=== PATIENT | male | born 1940 | race Caucasian/White ===

== ENCOUNTER 2019-06-10 05:32 | Outpatient (RCR) | payer MEDICARE, MEDICAID, SELFPAY | END 2019-07-06 00:01 | LOC: ONCMED 05:32 | PROVIDERS: Family Provider Physician Assistant Medical; Visit Provider Internal Medicine Hematology & Oncology | DX: C15.4 Malignant neoplasm of middle third of esophagus (principal); D64.9 Anemia, unspecified; D72.829 Elevated white blood cell count, unspecified; R63.4 Abnormal weight loss; Z68.28 Body mass index [BMI] 28.0-28.9, adult; R13.10 Dysphagia, unspecified; R73.03 Prediabetes; F17.200 Nicotine dependence, unspecified, uncomplicated | CPT/HCPCS: 80053; 82607; 82728; 83540; 83550; 85025; 86850; 86900; 86901; 86920 ×2; 99214; J1940; J7050; P9016 ×2 ==

== ENCOUNTER 2019-07-12 12:21 | Day surgery (SDC) | payer MEDICARE, MEDICAID, SELFPAY ==
[2019-07-10 11:52] VITALS: BMI 27.9
--- NOTE | 2019-07-12 | SCC_ITS ---
Procedure Done: Left subclavian Port-A-Cath placement 7.9 seconds of fluoroscopic guidance, for a cumulative dose of 1.12 mGy, was provided to Dr. Rosa by the radiology department. C-arm images of the chest were saved for the patient's permanent record. [place]
[2019-07-12 12:47] VITALS: BP 110/74; PULSE 112; RESP 18; TEMP 36.3; O2SAT 96
--- NOTE | 2019-07-12 12:54 | XR_ITS ---
WS: [id number] CHEST XRAY TECHNIQUE: Portable chest. CLINICAL INFORMATION: port placement COMPARISON: FINDINGS: Heart: Normal cardiac silhouette. Lungs: Lungs are clear. No consolidation or pleural effusion. Bones: Normal visualized bony structures. XR/XR chest 1V portable [id number] IMPRESSION: Normal chest
--- NOTE | 2019-07-12 13:08 | ANES.PREANES ---
Pre-Anesthetic Assessment Pre-Anesthetic Assessment: Height/Weight: Height 1.65 m Weight 76.204 kg Temp Pulse Resp BP Pulse Ox 97.4 F L 112 H 18 110/74 96 07/12/19 12:47 07/12/19 12:47 07/12/19 12:47 07/12/19 12:47 07/12/19 12:47 Proposed Procedure: Operation Date: 07/12/19 14:00 Proposed Procedures p Portacath Insertion(Not Applicable) - David Rosa MD Last intake: Intake Last Liquid Date 07/11/19 Last Liquid Time 16:00 Last Solid Date 07/11/19 Last Solid Time 16:00 Social: Social History: No alcohol Packs per day: 1 pdd Exam: Pre-Anes Outpt Exam: alert, oriented x 3, clear to auscultation bilaterally and regular rate & rhythm Airway: Cervical ROM: WNL MP: 3 Dentition: Full Pulmonary: Pulmonary: None reported CV/HEM: CV/HEM: None reported : : None reported Hepatic: Hepatic: None reported GI: GI: GERD Metabolic: Metabolic: None reported Musc/skel: Musc/skel: None reported Neuropsych: Neuropsych: None reported Anesthetic Plan: Anesthesia: MAC Other Pertinent Information: Patient extremely poor historian Data Anesthesia Cardiac Studies: No Data to Display
--- NOTE | 2019-07-12 13:13 | SC_ITS ---
WS: [id number] C-arm fluoroscopy AP chest for port insertion, 07/12/2019 Clinical Data: PORT PLACEMENT Comparison: Portable chest, 07/12/2019 Findings: Dr. Rosa inserted the left Port-A-Cath. 7.9 seconds of fluoroscopy time were utilized. SC/C-arm FL for CVA [id number] Impression: Satisfactory insertion of left Port-A-Cath.
[2019-07-12] MEDS: sodium chloride 0.9% 1,000 ML 30 ML IV ×2 (13:20→13:25)
[2019-07-12 13:24] LABS: INR 1.02 (0.8-1.2)
[2019-07-12 13:29] LABS: Anion Gap 19.6 (5-19); Blood Urea Nitrogen 22 mg/dL (8-23); Calcium 10.1 mg/Dl (8.8-10.2); Carbon Dioxide 24 mmol/L (22-29); Chloride 100 mmol/L (98-107); Glucose 139 mg/dL (74-106); Potassium 4.6 mmol/L (3.5-5.1); Sodium 139 mmol/L (136-145)
[2019-07-12 13:31] LABS: Hematocrit 33.4 % (42.0-52.0); Hemoglobin 9.9 g/dL (11.7-16.6); Mean Corpuscular HGB Conc 29.6 g/dL (30.0-36.0); Mean Corpuscular Hemoglobin 24.6 pg (28.0-34.0); Mean Corpuscular Volume 82.9 fL (80-94); Mean Platelet Volume 10.6 fL (7.4-10.4); Platelet Count 496 10^3/cmm (130-400); Red Blood Count 4.03 10^6/uL (4.1-5.3); Red Cell Distribution Width 16.7 % (12.1-15.1); White Blood Count 26.8 10^3/uL (4.0-10.0)
[2019-07-12 14:08] LABS: Absolute Eosinophils 0.5 10^3/cmm (0.0-0.7); Absolute Segmented Neutrophil 13.1 10/cmm (1.6-7.1); Band Neutrophils Absolute 9.4 10^3/cmm (0.0-1.2); Eosinophils 2 %; Lymphocytes 13 %; Monocytes Absolute 0.3 10^3/cmm (0.1-0.6); Ovalocytes 1+; Platelet Estimate Increased (Normal); Poikilocytosis 1+; Segmented Neutrophils 49 %; Total Cells Counted 100 (0-100)
[2019-07-12] MEDS: lidocaine 1% INJ 20 mL INJECTION (14:37)
[2019-07-12] MEDS: ceFAZolin 1,000 mg SDV 1000 MG IRRIGATION (14:38)
[2019-07-12] MEDS: heparin, porcine 1,000 unit/mL INJ 10 mL 10000 UNIT IRRIGATION (14:39)
--- NOTE | 2019-07-12 15:01 | PM.OPSURHP ---
Providers/Chief Complaint Admitting Physician: Moe Referring Physican: Dr. 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 Report about patient and family, subsequent apparent PET scan imaging reveals positive adenopathy. He has been referred by Dr. Tuttle for Port-A-Cath placement for planned chemotherapy. He is somewhat hard of hearing though with a careful conversation he understands the recommendation for Port-A-Cath and has agreed. He has substantial dysphasia with solid food was able to tolerate liquids. Very long history tobacco use. He resides near [facility]. Review of Systems Narrative: Aggressive weight loss and dysphasia consistent with his known diagnosis of esophageal carcinoma. ENMT: Denies: throat pain Card: Denies: chest pain or palpitations Resp: Reports: shortness of breath (With exertion) GI: Reports: heartburn/indigestion Psych: Denies: anxiety or depression Medications/Allergies Home Medications Medication Instructions Recorded Confirmed Last Taken Type albuterol sulfate 2.5 mg INHALATION DAILY 07/10/19 07/12/19 07/10/19 History fluticasone propion-salmeterol 1 inh INHALATION BID 07/10/19 07/12/19 07/10/19 History [Advair Diskus] Allergies Allergy/AdvReac Type Severity Reaction Status Date / Time No Known Allergies Allergy Verified 07/12/19 12:53 PFSH PFSH: Statuses (acute, chronic, etc) shown below reflect problem list status as previously entered and may not be historically accurate Medical History (Updated 07/12/19 @ 15:06 by David Rosa MD) Cancer of esophagus (Acute) Social History (Updated 07/12/19 @ 15:07 by David Rosa MD) Smoking and tobacco status: current every day smoker Alcohol intake: unknown Substance/Drug Use: never Household members: spouse Marital status: Vital Signs Vitals Signs: Last Vital Signs Temp 97.4 F L 07/12/19 12:47 Pulse 112 H 07/12/19 12:47 Resp 18 07/12/19 12:47 BP 110/74 07/12/19 12:47 Pulse Ox 96 07/12/19 12:47 Physical Exam Narrative: EXAM NARRATIVE: A thin somewhat ill-appearing elderly gentleman who is hard of hearing. Chest: COMMONS NORMALS: inspection of chest normal Resp: COMMON NORMALS: normal respiratory effort AUSCULTATION: clear to auscultation bilaterally Cardio: COMMON NORMALS: regular rate, regular rhythm, S1 normal heart sound and no murmurs Extremity: GENERAL: Yes normal exam except as noted Neuro: SENSORIUM/ORIENTATION: Yes alert (Hard of hearing), Yes oriented to person and Yes oriented to place A&P Assessment and plan (1) Cancer of esophagus: Mid esophageal carcinoma proven by biopsy Plan chemotherapy We will place Port-A-Cath to assist with chemotherapy management. Rationale was carefully discussed. Details and risks of surgery Reviewed including the potential risk for bleeding complications and pneumothorax. 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
--- NOTE | 2019-07-12 16:03 | PM.OP ---
Operative Report Post-Operative Note: Date of procedure: 07/12/19 Preop Diagnosis: Esophageal carcinoma Post-op diagnosis: same Procedure Done: Left subclavian Port-A-Cath placement Implants: PowerPort implantable port Surgeon: David Rosa Anesthesia: MAC (8 cc 1% lidocaine infiltrated locally) Estimated blood loss (mL): 20 IV fluids (mL): 350 Complications: None: Post procedure chest x-ray pending Condition: stable Disposition: same day Operative Report: Brief History: 78-year-old gentleman diagnosed with adenocarcinoma of the mid esophagus from the EGD in mid May. Currently being evaluated by Dr. Tuttle from oncology. Chemotherapy is planned and Port-A-Cath placement was requested for IV access. Rationale was carefully discussed with the patient and family. Details the risk of procedure also reviewed. Appropriate signs have been reviewed and signed. Procedure: Mr. Stevens was taken to the operating room and placed on the OR table in supine position. Appropriate sedation and relaxation were provided by our anesthesia colleagues. The patient's entire upper chest and neck was sterilely prepped and draped. 1% lidocaine was infiltrated for local anesthesia. The patient was then placed in Trendelenburg position. Utilizing modified Seldinger technique, the left subclavian vein was engaged with needle and aspirated blood. A guidewire was then placed into position. Position was confirmed by fluoroscopy. Needle was withdrawn. The patient was then placed in the supine position. A #15 scalpel blade was used to incise the skin at the exit point from the guidewire and continued laterally and inferiorly. Utilizing cautery for meticulous hemostasis, a subcutaneous pocket was then created to allow for placement of the Port-A-Cath reservoir. Antibiotic-soaked sponge was then placed in the subcutaneous pocket. Port-A-Cath tubing was measured to the appropriate length and then cut. It was then connected to the Port-A-Cath reservoir, secured, and the entire system was flushed with heparin solution. The dilator, followed by tear-a-way sheath, were placed over the guidewire. The guidewire and dilator were removed intact. The Port-A-Cath vascular tubing was then placed through the sheath, which was then removed. The entire system was interrogated by fluoroscopy throughout the procedure. Torres needle was placed through the Port-A-Cath diaphragm, easily aspirated blood, and flushed with heparin lock solution. The Port-A-Cath reservoir was then secured to the floor of the subcutaneous pocket with suture. The pocket was then carefully irrigated with antibiotic solution. Hemostasis was confirmed. The wound was then closed in 2 layers of 3-0 Vicryl suture subcutaneously. The skin was reapproximated carefully in a subcuticular manner with 4-0 Monocryl suture. A sterile dressing was applied followed by a compressive dressing. At the completion of the procedure there are equal breath sounds bilaterally. Vital signs remained stable. Mr. Stevens was then transported to outpatient surgery. Chest x-ray is pending. I counseled with the family at the completion of the procedure. Coding Level of Care Code Acute Public Opinion Survey Taker for [facility]
[2019-07-12 16:13] VITALS: BP 106/71; PULSE 104; RESP 16; TEMP 36.2; O2SAT 100
--- NOTE | 2019-07-12 16:15 | XR_ITS ---
WS: [id number] Portable AP upright chest, 07/12/2019 1613 hours Clinical Data: s/p port placement Comparison: Portable chest, 07/12/2019, 1300 hours Findings: The left infusion catheter has been inserted. No pneumothorax is seen. XR/XR chest 1V portable [id number] Impression: Satisfactory insertion of left Port-A-Cath.
[2019-07-12 16:30] VITALS: BP 103/67; PULSE 100; RESP 16; TEMP 36.6; O2SAT 99
== END 2019-07-12 16:45 | disposition home or self-care (01) ==
PROVIDERS: Family Provider Physician Assistant Medical; PCP Physician Assistant Medical; Visit Provider Thoracic Surgery (Cardiothoracic Vascular Surgery)
PROC: (CPT 36561; principal; 2019-07-12 14:00)
DX: C15.9 Malignant neoplasm of esophagus, unspecified (principal); F17.210 Nicotine dependence, cigarettes, uncomplicated
CPT/HCPCS: 36561; 36415; 71045; 77001; 80048; 85007; 85027; 85610; C1788; J0690; J1644; J2001; J2704; J7030

== ENCOUNTER 2019-07-29 05:37 | Outpatient (RCR) | payer MEDICARE, MEDICAID, SELFPAY ==
[2019-07-14 18:20] LABS: Basophils # 0.1 10^3/uL (0.0-0.1); Basophils % 0.3 %; Eosinophils # 0.3 10^3/uL (0.0-0.8); Eosinophils % 1.4 %; Hematocrit 31.8 % (42.0-52.0); Hemoglobin 8.9 g/dL (11.7-16.6); Lymphocytes # 2.3 10^3/uL (0.8-4.8); Lymphocytes % 9.8 %; Mean Corpuscular Hemoglobin 24.4 pg (28.0-34.0); Mean Corpuscular Volume 87.1 fL (80-94); Monocytes % 4.2 %; Neutrophils # 19.8 10^3/uL (1.8-7.7); Neutrophils % 83.4 %; Nucleated Red Blood Cells % 0 %; Platelet Count 433 10^3/cmm (130-400); Red Blood Count 3.65 10^6/uL (4.1-5.3); Red Cell Distribution Width 16.8 % (12.1-15.1); White Blood Count 23.8 10^3/uL (4.0-10.0)
[2019-07-15 00:17] LABS: Alanine Aminotransferase 10 U/L (0-41); Albumin Level 3.5 g/dL (3.5-5.2); Alkaline Phosphatase 163 IU/L (40-130); Anion Gap 22.3 (5-19); Aspartate Amino Transferase 17 U/L (0-40); Blood Urea Nitrogen 14 mg/dL (8-23); Calcium 9.8 mg/Dl (8.8-10.2); Carbon Dioxide 23 mmol/L (22-29); Chloride 101 mmol/L (98-107); Globulin 3.7 g/dL (1.3-4.6); Potassium 4.3 mmol/L (3.5-5.1); Sodium 142 mmol/L (136-145); Total Bilirubin 0.2 mg/dL (0.15-1.2); Total Protein 7.2 g/dL (6.6-8.7)
[2019-07-15 08:00] LABS: Glucose 25 mg/dL (74-106)
[2019-07-15] MEDS: acetaminophen 325 mg Tablet 650 MG PO (12:05)
[2019-07-15] MEDS: sodium chloride 0.9% 250 ML 75 ML IV (12:10)
[2019-07-16 04:10] LABS: Ferritin 54 ng/mL (30-400); Iron 21 ug/dL (59-158); Percent Saturation 7.9 % (20-50); Total Iron Binding Capacity 264 mg/dL; Unsaturated Iron Binding 243 ug/dL (112-347)
--- NOTE | 2019-07-19 17:12 | ONC FU_ITS ---
[facility] Patient Note Patient: Rodney Quitaque Unit #: [id number]: 1940 Dictated By: Harsha TaylorDate of Visit: Jul 15, 2019 Onc MED Follow-Up/Prog Note Chief Complaint: Adenocarcinoma of esophagus History of Present Illness: Mr. Stevens is a 78-year-old gentleman with history of progressive dysphagia and weight loss. 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 A biopsy was obtained at [place], [place] on 05/21/2019. 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 Mr Stevens underwent CT scan of chest abdomen on 05/18/2019 which showed dilated thoracic esophagus with gross appearance of marked wall thickening as well as dilatation of distal segment of thoracic esophagus. No thoracic lymphadenopathy by size criteria. No evidence of distant metastatic disease, As per patient in the beginning he had dysphagia to solid food now can tolerate liquids only. Denied any hematemesis or hemoptysis, denied any jaundice, denied any aspiration or regurgitation. Mr Stevens has smoked about pack a day for many years. [place] lives [place] north of [place] and lives with elderly . Mr Stevens has elected to try chemotherapy alone. He has been offered chemotherapy with weekly carboplatin/Taxol/Herceptin. He did have baseline echocardiogram for the Herceptin on 06/24/2019 which reported left ventricular ejection fraction estimated at 65%. He had normal left ventricular systolic function no regional wall motion abnormalities there is a grade I/IV diastolic function, normal to mildly elevated filling pressures. No aortic valve stenosis and mild aortic valve regurgitation. He did also have PET CT imaging on 06/25/2019 at [facility]. This did report hypermetabolic circumferential mural thickening involving the distal esophagus extending approximately 10 cm proximal to the gastroesophageal junction from T11???T8 with maximum SUV of 24. A small amount of hyper metabolic mass extension into the gastric cardia is not fully excluded. Upstream esophagus appears fluid-filled and patulous. There were no discrete hypermetabolic pulmonary nodules. There is mild dependent atelectasis with trace bilateral pleural fluid collection without hypermetabolic pleural thickening. There was reported calcified mediastinal and hilar granulous with normal size mildly hypermetabolic bilateral hilar lymph nodes, wholesale representative right hilar lymph node maximum SUV 2.7. Additional hypermetabolic left hilar lymph node 0.8 x 1.2 cm with a max SUV of 2.5. 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 There were no hypermetabolic hepatic lesions. There was Extavia of the infrarenal abdominal aorta measuring up to 2.7 cm. No ascites or peritoneal/serosa nodularity. There was hyper metabolic gastrohepatic ligament lymph node 1.7 x 1.8 cm with a max SUV of 3.9. No additional hypermetabolic lymph nodes were seen within the abdomen or pelvis. There was prostamegaly without focal hypermetabolic prostate lesion. Muscle skeletal there was diffuse bone marrow hyper metabolism without focal lytic or blastic osseous lesion identified suggesting pathologic marrow uptake. 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 He did have Port a Cath placement in the left subclavian vein per Dr Rosa on 07/12/2019. Mr. Stevens is here today for follow-up. He is due to begin his first cycle of planned chemotherapy with carboplatin/Taxol and Herceptin. He has no new concerns. He is extremely hard of hearing and his family does most of his talking for him. He denies any concerns or questions at this time. His family states that he has had no new problems that they are aware of. They deny any fever or chills or any signs of infection for at least the last 72 hours. He has had no new pain. His activity is very limited. He presents in a wheelchair today. They do verbalize understanding regarding the chemotherapy. He was compliant with his steroids. They are aware that Taxol does have a 30% chance that infusion reaction/allergic reaction. His ECOG is 3. Past Medical History: Chronic obstructive pulmonary disease Dementia Hyperlipidemia Hypertension Stroke Type II diabetes Vitamin b 12 deficiency Past Surgical History: Cholecystectomy Left Subclavian Port a Cath-Dr Rosa ([facility] [place]) in 2019 Allergies: No Known Allergies. Medications: Advair Diskus 2 Puff(s) (of 250-50 mcg/dose) Aerosol Powder, Breath Activated Inhalation daily Albuterol Sulfate 1 ((2.5 mg/3ml) 0.083%) Nebulization solution Inhalation daily PRN Simvastatin 1 Tablet (of 40 mg) Oral daily Spiriva HandiHaler 1 Capsule (of 18 mcg) Inhalation daily Tamsulosin HCl 1 Capsule (of 0.4 mg) Oral daily Family History: Mr. Stevens's mother at age 80: colon cancer. Mr. Stevens's father at age 83: leukemia. Mr. Stevens has 2 brothers: 2 . Mr. Stevens's first brother's esophageal cancer. Another brother's lung cancer. Social History: Mr. Stevens is and he is retired. He is a daily smoker who has smoked 1.0 pack/day for 41 years. He has no history of drinking. He has indicated exposure to the following products: cigarettes. Mr. Stevens reports the following support systems: lives with spouse, significant other, family, or friends, lives in own house, supportive family/friends willing to assist with needs, and adequate transportation available for expected visits. His diet consists of liquid diet. He indicates his activity level as: sedentary. Review Of Symptoms: Constitutional Denies fevers, chills, night sweats, excessive fatigue or weight loss. Allergic/Immunologic No reactions. Eyes Denies significant visual changes. No diplopia. No amaurosis. ENMT Denies changes in hearing, sore throat, mouth sores, difficulty or changes in swallowing ability, and/or sinus drainage. Endocrine No diabetes, thyroid disease or hormone replacement. Denies hot flashes or night sweats. Hematologic/Lymphatic Denies easy bruising or bleeding. The patient denies any tender or palpable lymph nodes. Respiratory Denies dyspnea on exertion, chest pain, cough or hemoptysis. Denies orthopnea. Cardiovascular Denies anginal chest pain, palpitations or orthopnea. Gastrointestinal Denies nausea, vomiting, diarrhea, GI bleeding, or constipation. Denies change in bowel habits and/or stool color, no heartburn or early satiety. Genitourinary (M) Denies hematuria, dysuria, increased frequency, urgency, hesitancy or incontinence. Musculoskeletal Denies joint pain, swelling or redness. No decreased range of motion. Integumentary Denies chronic rashes, inflammation, ulcerations or skin changes. Neurologic Denies headache, blurred vision, and no areas of focal weakness or numbness. Normal gait. No sensory problems. Psychiatric Denies insomnia, depression, cindy or mood swings. Vital Signs: Performed on Jul 15, 2019 10:40 Height - 67.00 in Weight - 172.0 lbs (LOW) BSA - 1.90 sq.m BMI - 26.94 Temperature - 97.0 F (LOW) Pulse - 112 /min (HIGH) Respiration - 26 /min BP - 117/71 mm(hg) O2 Sat - 97 % Pain - 0,3 - Capable of only limited self-care, confined to bed or chair more than 50% of waking hours. (ECOG) Physical Examination: Constitutional Alert, oriented, no acute distress. Skin pink, warm and dry. Head Normocephalic; atraumatic. Eyes Conjunctivae and sclerae are clear and without icterus. Pupils are reactive and equal. ENMT No oral exudates, ulcers, masses, thrush or mucositis. Oropharynx clear. Tongue normal. Extremely hard of hearing. Neck Supple without masses or thyromegaly. No jugular venous distension. Hematologic/Lymphatic No petechiae or purpura. No tender or palpable lymph nodes in the cervical or supraclavicular areas. Respiratory Lungs are clear to auscultation without rhonchi or wheezing. Cardiovascular Regular rate and rhythm of heart without murmurs,clicks, gallops or rubs. Chest Left subclavian venous access device insertion site is unremarkable. It is noted to be healing well. Abdomen Non-tender, non-distended, no masses or ascites. Good bowel sounds noted in all quads. No guarding or rebound tenderness. No pulsatile masses. Back/Spine Non-tender to palpation. Extremities No visible deformities, no cyanosis, clubbing or edema. Musculoskeletal No tenderness or swelling. Integumentary No rashes or lesions. Neurologic No sensory or motor deficits, normal cerebellar function, presents in a wheelchair today-gait not assessed. Psychiatric Alert and oriented times three. Coherent speech. Verbalizes understanding of our discussions today. Laboratory:Test performed on Jul 14, 2019 08:10 Glucose 25 mg/dL BUN 14 mg/dL Creatinine 1.6 mg/dL Cr Clearance (Est) 42.99 mL/min Sodium 142 mmol/L Potassium 4.3 mmol/L Chloride 101 mmol/L CO2 23 mmol/L Calcium 9.8 mg/dL Protein, Total 7.2 g/dL Albumin 3.5 g/dL Globulin 3.7 g/dL Bilirubin, Total 0.2 mg/dL Alkaline Phosphatase 163 IU/L AST (SGOT) 17 IU/L ALT (SGPT) 10 IU/L WBC 23.8 10^9/L RBC 3.65 10^12/L HGB 8.9 g/dL HCT 31.8 % MCV 87.1 fl MCH 24.4 pg MCHC 28.0 g/dL RDW 16.8 % Platelet Count 433 10^9/L MPV 11.0 fL Lymphocytes 2.3 10^9/L Neutrophils 0.1 10 3/uL Monocytes 1.0 10^9/L Eosinophils 0.3 10^9/L Basophils 0.1 10^9/L Neutrophil % 1.4 % Manual Lymphocytes 9.8 % Manual Monocytes 4.2 % Manual Eosinophils 1.4 % Manual Basophils 0.3 % NRBCs 0.0 /100 WBC Test performed on Jun 10, 2019 11:05 Packed Red Cells (PRBC) [id number] TRANSFUSED PRODUCT: LEUKOREDUCED RED CELL 1ST CONT COUNT: 2 Type & Screen BLD TYPE A POSITIVE AB SCREEN GEL NEGATIVE Test performed on Jun 10, 2019 08:05 Ferritin 25.0 ng/ml Iron 16 ug/dL Vitamin B12 465 pg/mL % Iron Saturation 5.8 % UIBC 258 ug/dL Test performed on Jun 09, 2019 08:05 Anion Gap 15.3 Lymphocyte % 7.8 % Monocyte % 4.9 % Eosinophil % 1.8 % Basophils % 0.2 % ABO & Rh Type # 2 A POSITIVE Impression: 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 CT scan of chest abdomen done on 05/18/2019 showed no thoracic lymphadenopathy by size criteria Dilated thoracic esophagus with gross appearance of marked wall thickening as well as dilatation of distal segment of thoracic esophagus no evidence of distant metastatic disease. Progressive dysphagia and weight loss due to above Chronic smoking, still active Clinically, patient is doing reasonably well now with progressive dysphagia due to newly diagnosed esophageal cancer. he said he did talk to his family and now have decided to pursue with chemotherapy alone and will go from there. Considering his age and comorbid condition and social issues e.g. living 60 miles away from [place] with elderly , he would prefer chemotherapy alone in the office but not radiation therapy. Patient was reminded in the standard of care is combined chemoradiation followed by surgery if possible otherwise chemotherapy is palliative only. Considering his age and performance status, Dr Tuttle recommended weekly carboplatin Taxol and Herceptin. Dr Tuttle did also discuss about role of G-tube placement but patient declined. Mr Stevens is prediabetic so we'll also consider diabetes teaching and may consider sliding scale if he develops hyperglycemia due to steroids. He did have baseline echocardiogram for the Herceptin on 06/24/2019 which reported left ventricular ejection fraction estimated at 65%. He had normal left ventricular systolic function no regional wall motion abnormalities there is a grade I/IV diastolic function, normal to mildly elevated filling pressures. No aortic valve stenosis and mild aortic valve regurgitation. He did also have PET CT imaging on 06/25/2019 at [facility]. This did report hypermetabolic circumferential mural thickening involving the distal esophagus extending approximately 10 cm proximal to the gastroesophageal junction from T11???T8 with maximum SUV of 24. A small amount of hyper metabolic mass extension into the gastric cardia is not fully excluded. Upstream esophagus appears fluid-filled and patulous. There were no discrete hypermetabolic pulmonary nodules. There is mild dependent atelectasis with trace bilateral pleural fluid collection without hypermetabolic pleural thickening. There was reported calcified mediastinal and hilar granulous with normal size mildly hypermetabolic bilateral hilar lymph nodes, wholesale representative right hilar lymph node maximum SUV 2.7. Additional hypermetabolic left hilar lymph node 0.8 x 1.2 cm with a max SUV of 2.5. 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 There were no hypermetabolic hepatic lesions. There was Extavia of the infrarenal abdominal aorta measuring up to 2.7 cm. No ascites or peritoneal/serosa nodularity. There was hyper metabolic gastrohepatic ligament lymph node 1.7 x 1.8 cm with a max SUV of 3.9. No additional hypermetabolic lymph nodes were seen within the abdomen or pelvis. There was prostamegaly without focal hypermetabolic prostate lesion. Muscle skeletal there was diffuse bone marrow hyper metabolism without focal lytic or blastic osseous lesion identified suggesting pathologic marrow uptake. 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 Mr Stevens had Port a Cath placement in the left subclavian vein per Dr Rosa on 07/12/2019. Plan: 1. Proceed with cycle 1 day 1 carboplatin/Taxol/Herceptin. 2. Steroid compliance confirmed. 3. Aggressive anti-emetics due to high risk regimen. 4. Labs from July 14, 2019 were reviewed in detail and discussed with Mr. Stevens and his family. WBC 23.8, hemoglobin 8.9, platelets 433,000, ANC is 19,800. Potassium 4.3 creatinine 1.6 which is chronic total bilirubin 0.2 LFTs are normal alk phos is 163. Initially his glucose was reported as critical at 25 but this was felt to be a lab error. Recheck on fingerstick reported a glucose of 185 as he did take his premed steroids. 5. We will plan to see him weekly with CBC, CMP for consideration of chemotherapy. 6. We did review the echocardiogram from 06/24/2019. He will need echocardiograms around every 3 months as long as he is on the Herceptin. 7. Mr. Stevens and his family was instructed to contact us in the interim should questions or problems arise. 8. The patient and family were informed of chemotherapy plan and specific drugs were discussed. We also discussed how chemotherapy works and identified common side effects including alopecia; myelosuppression-including neutropenia, anemia, thrombocytopenia; peripheral neuropathy; fatigue; nausea; diarrhea; constipation; bleeding or bruising; skin changes; mouth sores; drug hypersensitivity/allergic reactions or anaphylaxis and extravasation. They have also been informed how to contact the clinic with side effects or symptoms, including but not limited to fever greater than 100.4???, chills, sore throat, bleeding or bruising that is not explained or mouth sores, cough, nasal discharge, diarrhea, constipation, nausea and/or vomiting not relieved with medications on hand at home, as well as any other concern or question they may have. Our hours are 8:00 a.m. to 4:30 p.m. on Friday through and 8-12:00 on Friday. 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 They have no questions and verbalized understanding and are willing to proceed with chemotherapy at this time. The majority of this visit was spent in face to face communication with this patient and/or his/her family in regards to plan of care, side effect identification and management. 9. Once we see how he will tolerate the chemotherapy, we need to followp on his iron status and may need to consider IV iron replacement as it is noted that he was found to have iron deficiency on labs in June 2019. Signed By: Harsha Taylor-, AOCNP Yana Tuttle MD <<Signature on File>>
[2019-07-21 14:47] LABS: Basophils % 0.3 %; Eosinophils # 0.2 10^3/uL (0.0-0.8); Eosinophils % 1.8 %; Hematocrit 28.2 % (42.0-52.0); Hemoglobin 8.2 g/dL (11.7-16.6); Lymphocytes # 1.4 10^3/uL (0.8-4.8); Lymphocytes % 11.8 %; Mean Corpuscular HGB Conc 29.1 g/dL (30.0-36.0); Mean Corpuscular Hemoglobin 24.1 pg (28.0-34.0); Mean Corpuscular Volume 82.9 fL (80-94); Monocytes # 0.4 10^3/uL (0.2-0.9); Monocytes % 3.5 %; Neutrophils # 9.4 10^3/uL (1.8-7.7); Neutrophils % 81.8 %; Nucleated Red Blood Cells % 0 %; Platelet Count 364 10^3/cmm (130-400); Red Cell Distribution Width 16.6 % (12.1-15.1); White Blood Count 11.5 10^3/uL (4.0-10.0)
[2019-07-21 15:13] LABS: Alanine Aminotransferase 62 U/L (0-41); Albumin Level 3.3 g/dL (3.5-5.2); Alkaline Phosphatase 95 IU/L (40-130); Anion Gap 15.5 (5-19); Aspartate Amino Transferase 33 U/L (0-40); Blood Urea Nitrogen 19 mg/dL (8-23); Calcium 9.1 mg/Dl (8.8-10.2); Carbon Dioxide 25 mmol/L (22-29); Chloride 103 mmol/L (98-107); Globulin 3.1 g/dL (1.3-4.6); Glucose 79 mg/dL (74-106); Potassium 4.5 mmol/L (3.5-5.1); Sodium 139 mmol/L (136-145); Total Bilirubin 0.3 mg/dL (0.15-1.2); Total Protein 6.4 g/dL (6.6-8.7)
[2019-07-21 22:09] LABS: Ferritin 35 ng/mL (30-400); Iron 15 ug/dL (59-158); Percent Saturation 6.4 % (20-50); Total Iron Binding Capacity 231 mg/dL; Unsaturated Iron Binding 216 ug/dL (112-347)
[2019-07-22] MEDS: acetaminophen 325 mg Tablet 650 MG PO (10:30)
[2019-07-22] MEDS: sodium chloride 0.9% 250 ML 75 ML IV (10:30)
[2019-07-22] MEDS: dextrose 5%-sod chloride 0.45% 1,000 ML 999 ML IV (14:45)
--- NOTE | 2019-07-26 11:41 | ONC FU_ITS ---
[facility] Patient Note Patient: Rodney [place] Unit #: [id number]: 1940 Dictated By: Harsha TaylorDate of Visit: Jul 22, 2019 Onc MED Follow-Up/Prog Note Chief Complaint: Adenocarcinoma of esophagus History of Present Illness: Mr. Stevens is a 78-year-old gentleman with history of progressive dysphagia and weight loss. 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 A biopsy was obtained at [place], [place] on 05/21/2019. 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 Mr Stevens underwent CT scan of chest abdomen on 05/18/2019 which showed dilated thoracic esophagus with gross appearance of marked wall thickening as well as dilatation of distal segment of thoracic esophagus. No thoracic lymphadenopathy by size criteria. No evidence of distant metastatic disease, As per patient in the beginning he had dysphagia to solid food now can tolerate liquids only. Denied any hematemesis or hemoptysis, denied any jaundice, denied any aspiration or regurgitation. Mr Stevens has smoked about pack a day for many years. [place] of [place] and lives with elderly . Mr Stevens has elected to try chemotherapy alone. He has been offered chemotherapy with weekly carboplatin/Taxol/Herceptin. He did have baseline echocardiogram for the Herceptin on 06/24/2019 which reported left ventricular ejection fraction estimated at 65%. He had normal left ventricular systolic function no regional wall motion abnormalities there is a grade I/IV diastolic function, normal to mildly elevated filling pressures. No aortic valve stenosis and mild aortic valve regurgitation. He did also have PET CT imaging on 06/25/2019 at [facility]. This did report hypermetabolic circumferential mural thickening involving the distal esophagus extending approximately 10 cm proximal to the gastroesophageal junction from T11???T8 with maximum SUV of 24. A small amount of hyper metabolic mass extension into the gastric cardia is not fully excluded. Upstream esophagus appears fluid-filled and patulous. There were no discrete hypermetabolic pulmonary nodules. There is mild dependent atelectasis with trace bilateral pleural fluid collection without hypermetabolic pleural thickening. There was reported calcified mediastinal and hilar granulous with normal size mildly hypermetabolic bilateral hilar lymph nodes, compliance representative dealer right hilar lymph node maximum SUV 2.7. Additional hypermetabolic left hilar lymph node 0.8 x 1.2 cm with a max SUV of 2.5. 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 There were no hypermetabolic hepatic lesions. There was Extavia of the infrarenal abdominal aorta measuring up to 2.7 cm. No ascites or peritoneal/serosa nodularity. There was hyper metabolic gastrohepatic ligament lymph node 1.7 x 1.8 cm with a max SUV of 3.9. No additional hypermetabolic lymph nodes were seen within the abdomen or pelvis. There was prostamegaly without focal hypermetabolic prostate lesion. Muscle skeletal there was diffuse bone marrow hyper metabolism without focal lytic or blastic osseous lesion identified suggesting pathologic marrow uptake. 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 He did have Port a Cath placement in the left subclavian vein per Dr Rosa on 07/12/2019. Mr. Stevens is here today for follow-up. He began his first chemotherapy with carboplatin/Taxol and Herceptin on 07/15/2019. He is due for day 8. He states overall he thinks he is swelling some better already. He reports that he is more tired. He denies any nausea or vomiting he denies diarrhea or constipation. His family states that they have not noted that he has had any further neuropathy. He is eating normally for him. They report that he has had multiple falls if he tries to get around unassisted. He does not have a walker at home. He is in a wheelchair today as the use 1 here from the clinic. He said no apparent injuries from the falls. He is generally weak. But he does have upper body strength to manipulate a walker. There are no new concerns today. He does require a pulmonary laser in wrist blood pressure machine for monitoring his blood pressure due to dehydration associated with the chemotherapy. His hemoglobin is 8.2 today.He is iron deficient so we will initiate the Injectafer today and hopefully avoid any further transfusions however we will check him again next week CBC and type and ask in the event that he needs further transfusion services. It is hard to determine how symptomatic he has with the anemia as he is not a poor historian and very hard of hearing. His family does not think he is any weaker than normal. His ECOG is 3. Past Medical History: Chronic obstructive pulmonary disease Dementia Hyperlipidemia Hypertension Stroke Type II diabetes Vitamin b 12 deficiency Past Surgical History: Cholecystectomy Left Subclavian Port a Cath-Dr Rosa ([facility]) in 2019 Allergies: No Known Allergies. Medications: Advair Diskus 2 Puff(s) (of 250-50 mcg/dose) Aerosol Powder, Breath Activated Inhalation daily Albuterol Sulfate 1 ((2.5 mg/3ml) 0.083%) Nebulization solution Inhalation daily PRN Simvastatin 1 Tablet (of 40 mg) Oral daily Spiriva HandiHaler 1 Capsule (of 18 mcg) Inhalation daily Tamsulosin HCl 1 Capsule (of 0.4 mg) Oral daily Family History: Mr. Stevens's mother at age 80: colon cancer. Mr. Stevens's father at age 83: leukemia. Mr. Stevens has 2 brothers: 2 . Mr. Stevens's first brother's esophageal cancer. Another brother's lung cancer. Social History: Mr. Stevens is and he is retired. He is a daily smoker who has smoked 1.0 pack/day for 41 years. He has no history of drinking. He has indicated exposure to the following products: cigarettes. Mr. Stevens reports the following support systems: lives with spouse, significant other, family, or friends, lives in own house, supportive family/friends willing to assist with needs, and adequate transportation available for expected visits. His diet consists of liquid diet. He indicates his activity level as: sedentary. Review Of Symptoms: Constitutional Denies fevers, chills, night sweats, excessive fatigue or weight loss. Allergic/Immunologic No reactions. Eyes Denies significant visual changes. No diplopia. No amaurosis. ENMT hard of hearing-chronic. States he is swallowing some better. Still only doing liquids. Hematologic/Lymphatic Denies easy bruising or bleeding. The patient denies any tender or palpable lymph nodes. Respiratory Denies dyspnea on exertion, chest pain, cough or hemoptysis. Denies orthopnea. Cardiovascular Denies anginal chest pain, palpitations or orthopnea. Gastrointestinal Denies nausea, vomiting, diarrhea, GI bleeding, or constipation. Denies change in bowel habits and/or stool color, no heartburn or early satiety. Genitourinary (M) Denies hematuria, dysuria, increased frequency, urgency, hesitancy or incontinence. Musculoskeletal Denies joint pain, swelling or redness. No decreased range of motion. Integumentary Denies chronic rashes, inflammation, ulcerations or skin changes. Neurologic continues to require wheelchair for assistance in mobility. Reports multiple falls if unassisted with mobility. no apparent injury. Psychiatric Denies insomnia, depression, cindy or mood swings. Vital Signs: Performed on Jul 22, 2019 09:38 Height - 67.00 in Weight - 168.2 lbs (LOW) BSA - 1.88 sq.m BMI - 26.34 Temperature - 97.0 F (LOW) Pulse - 104 /min (HIGH) Respiration - 16 /min BP - 136/66 mm(hg) O2 Sat - 98 % Pain - 0 Fatigue - 0,3 - Capable of only limited self-care, confined to bed or chair more than 50% of waking hours. (ECOG) Physical Examination: Constitutional Alert, oriented, no acute distress. Skin pink, warm and dry. Head Normocephalic; atraumatic. Eyes Conjunctivae and sclerae are clear and without icterus. Pupils are reactive and equal. ENMT No oral exudates, ulcers, masses, thrush or mucositis. Oropharynx clear. Tongue normal. Extremely hard of hearing. Neck Supple without masses or thyromegaly. No jugular venous distension. Hematologic/Lymphatic No petechiae or purpura. No tender or palpable lymph nodes in the cervical or supraclavicular areas. Respiratory Lungs are clear to auscultation without rhonchi or wheezing. Cardiovascular Regular rate and rhythm of heart without murmurs,clicks, gallops or rubs. Chest Left subclavian venous access device insertion site is unremarkable. Breasts Back/Spine Non-tender to palpation. Extremities No visible deformities, no cyanosis, clubbing or edema. Musculoskeletal No tenderness or swelling. Integumentary No rashes or lesions. Neurologic No sensory or motor deficits, normal cerebellar function, presents in a wheelchair today-gait not assessed. Psychiatric Alert and oriented times three. Coherent speech. Verbalizes understanding of our discussions today. Laboratory:Test performed on Jul 21, 2019 10:01 Creatinine 1.50 mg/dL Cr Clearance (Est) 45.86 mL/min Test performed on Jul 21, 2019 09:35 Ferritin 35 ng/mL Iron, Total 15 mcg/dL % Iron Saturation 6.4 % Glucose 79 mg/dL BUN 19 mg/dL TIBC 231 mcg/dL Sodium 139 mmol/L Potassium 4.5 mmol/L Chloride 103 mmol/L CO2 25 mmol/L Calcium 9.1 mg/dL Protein, Total 6.4 g/dL Albumin 3.3 g/dL Globulin 3.1 g/dL Bilirubin, Total 0.3 mg/dL Alkaline Phosphatase 95 IU/L AST (SGOT) 33 IU/L ALT (SGPT) 62 IU/L WBC 11.5 10 3/uL RBC 3.40 10^6/uL HGB 8.2 g/dL HCT 28.2 % MCV 82.9 fL MCH 24.1 pg MCHC 29.1 g/dL RDW 16.6 % Platelet Count 364 10 3/cmm MPV 11.0 fL Neutrophils 9.4 10 3/uL Neutrophil % 81.8 % Lymphocyte % 11.8 % Monocyte % 3.5 % Basophils % 0.3 % Test performed on Jun 10, 2019 11:05 Packed Red Cells (PRBC) [id number] TRANSFUSED PRODUCT: LEUKOREDUCED RED CELL 1ST CONT COUNT: 2 Type & Screen BLD TYPE A POSITIVE AB SCREEN GEL NEGATIVE Test performed on Jun 10, 2019 08:05 Vitamin B12 465 pg/mL UIBC 258 ug/dL Impression: 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 CT scan of chest abdomen done on 05/18/2019 showed no thoracic lymphadenopathy by size criteria Dilated thoracic esophagus with gross appearance of marked wall thickening as well as dilatation of distal segment of thoracic esophagus no evidence of distant metastatic disease. Progressive dysphagia and weight loss due to above Chronic smoking, still active Clinically, patient is doing reasonably well now with progressive dysphagia due to newly diagnosed esophageal cancer. He did talk to his family and decided to pursue with chemotherapy alone and will go from there. Considering his age and comorbid condition and social issues e.g. living 60 [place] away from [place] with elderly , he would prefer chemotherapy alone in the office but not radiation therapy. Patient was reminded in the standard of care is combined chemoradiation followed by surgery if possible otherwise chemotherapy is palliative only. Considering his age and performance status, Dr Tuttle recommended weekly carboplatin Taxol and Herceptin. Dr Tuttle did also discuss about role of G-tube placement but patient declined. Mr Stevens is prediabetic so we'll also consider diabetes teaching and may consider sliding scale if he develops hyperglycemia due to steroids. He did have baseline echocardiogram for the Herceptin on 06/24/2019 which reported left ventricular ejection fraction estimated at 65%. He had normal left ventricular systolic function no regional wall motion abnormalities there is a grade I/IV diastolic function, normal to mildly elevated filling pressures. No aortic valve stenosis and mild aortic valve regurgitation. He did also have PET CT imaging on 06/25/2019 at [facility]. This did report hypermetabolic circumferential mural thickening involving the distal esophagus extending approximately 10 cm proximal to the gastroesophageal junction from T11???T8 with maximum SUV of 24. A small amount of hyper metabolic mass extension into the gastric cardia is not fully excluded. Upstream esophagus appears fluid-filled and patulous. There were no discrete hypermetabolic pulmonary nodules. There is mild dependent atelectasis with trace bilateral pleural fluid collection without hypermetabolic pleural thickening. There was reported calcified mediastinal and hilar granulous with normal size mildly hypermetabolic bilateral hilar lymph nodes, compliance representative dealer right hilar lymph node maximum SUV 2.7. Additional hypermetabolic left hilar lymph node 0.8 x 1.2 cm with a max SUV of 2.5. 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 There were no hypermetabolic hepatic lesions. There was Extavia of the infrarenal abdominal aorta measuring up to 2.7 cm. No ascites or peritoneal/serosa nodularity. There was hyper metabolic gastrohepatic ligament lymph node 1.7 x 1.8 cm with a max SUV of 3.9. No additional hypermetabolic lymph nodes were seen within the abdomen or pelvis. There was prostamegaly without focal hypermetabolic prostate lesion. Muscle skeletal there was diffuse bone marrow hyper metabolism without focal lytic or blastic osseous lesion identified suggesting pathologic marrow uptake. 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 Mr Stevens had Port a Cath placement in the left subclavian vein per Dr Rosa on 07/12/2019. He began his first cycle of carboplatin/Taxol/Herceptin on 07/15/2019. He was also found to be iron deficient and will plan to receive iron replacement IV. Plan: 1. Proceed with cycle 1 day 8 carboplatin/Taxol/Herceptin. 2. Steroid compliance confirmed. 3. Aggressive anti-emetics due to high risk regimen. 4. Labs from July 21, 2019 were reviewed in detail and discussed with Mr. Stevens and his family. WBC 11.5, hemoglobin 8.2, platelets 364,000, ANC is 9400. Potassium 4.5 creatinine 1.5 which is chronic. total bilirubin 0.3 LFTs are normal alk phos is 95. 5. Will initate Injectafer today as his iron sat today is 6.4% and his iron level is 15. His Hgb is 8.2. Will continue to monitor for possible transfusion services. 6. We will plan to see him weekly with CBC, CMP for consideration of chemotherapy. 7. Mr. Stevens and his family was instructed to contact us in the interim should questions or problems arise. 8. Mr Stevens requires a standar wheelchair for mobility assistance. He has had frequent falls and generalized weakness due to the esophageal cancer. His lack of mobility assistance is limiting his ability to accomplish his mobility related activities of daily living, such as getting to the bathroom, particpating in meals. The assistance of a walker would decrease his risk of future falls. He does have the ability to manevuer the walker. 9. Mr Stevens is also requires a pulmonary nebulizer for treatment of chronin emphysema/COPD. 10. Mr Stevens requires a wrist Blood pressure cuff for personal use to monitor his blood pressure due to his history of HTN. Signed By: Harsha Taylor-JUAN, AOCNP Yana Tuttle MD <<Signature on File>>
[2019-07-28 12:25] LABS: Basophils % 0.5 %; Eosinophils # 0.2 10^3/uL (0.0-0.8); Eosinophils % 2.6 %; Hematocrit 31.3 % (42.0-52.0); Hemoglobin 9.2 g/dL (11.7-16.6); Lymphocytes # 1.4 10^3/uL (0.8-4.8); Lymphocytes % 20.9 %; Mean Corpuscular HGB Conc 29.4 g/dL (30.0-36.0); Mean Corpuscular Hemoglobin 24.2 pg (28.0-34.0); Mean Corpuscular Volume 82.4 fL (80-94); Mean Platelet Volume 10.5 fL (7.4-10.4); Monocytes # 0.3 10^3/uL (0.2-0.9); Monocytes % 4.6 %; Neutrophils # 4.7 10^3/uL (1.8-7.7); Neutrophils % 70.9 %; Nucleated Red Blood Cells % 0 %; Platelet Count 377 10^3/cmm (130-400); White Blood Count 6.6 10^3/uL (4.0-10.0)
[2019-07-28 14:07] LABS: Alanine Aminotransferase 52 U/L (0-41); Albumin Level 3.2 g/dL (3.5-5.2); Alkaline Phosphatase 73 IU/L (40-130); Aspartate Amino Transferase 23 U/L (0-40); Blood Urea Nitrogen 18 mg/dL (8-23); Calcium 9.3 mg/Dl (8.8-10.2); Carbon Dioxide 22 mmol/L (22-29); Chloride 102 mmol/L (98-107); Globulin 2.6 g/dL (1.3-4.6); Glucose 158 mg/dL (74-106); Sodium 136 mmol/L (136-145); Total Bilirubin 0.3 mg/dL (0.15-1.2); Total Protein 5.8 g/dL (6.6-8.7)
[2019-07-29] MEDS: sodium chloride 0.9% 250 ML IV (11:30)
[2019-07-29] MEDS: acetaminophen 325 mg Tablet 650 MG PO (11:30)
--- NOTE | 2019-07-30 11:05 | ONC FU_ITS ---
Dr. Tuttle follow up note Patient: Rodney [place] Unit #: [id number]: 1940 Dicatated By: Yana Tuttle M.D.Date of Visit:Jul 29, 2019 Onc Med Follow-up/Prog Note History of Present Illness: Mr. Stevens is a 78-year-old gentleman with history of progressive dysphagia and weight loss. 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 A biopsy was obtained at [place], [place] on 05/21/2019. 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 Mr Stevens underwent CT scan of chest abdomen on 05/18/2019 which showed dilated thoracic esophagus with gross appearance of marked wall thickening as well as dilatation of distal segment of thoracic esophagus. No thoracic lymphadenopathy by size criteria. No evidence of distant metastatic disease, As per patient in the beginning he had dysphagia to solid food now can tolerate liquids only. Denied any hematemesis or hemoptysis, denied any jaundice, denied any aspiration or regurgitation. Mr Stevens has smoked about pack a day for many years. He lives about 60 miles north of [place] and lives with elderly . Mr Stevens has elected to try chemotherapy alone. He has been offered chemotherapy with weekly carboplatin/Taxol/Herceptin. He did have baseline echocardiogram for the Herceptin on 06/24/2019 which reported left ventricular ejection fraction estimated at 65%. He had normal left ventricular systolic function no regional wall motion abnormalities there is a grade I/IV diastolic function, normal to mildly elevated filling pressures. No aortic valve stenosis and mild aortic valve regurgitation. He did also have PET CT imaging on 06/25/2019 at [facility]. This did report hypermetabolic circumferential mural thickening involving the distal esophagus extending approximately 10 cm proximal to the gastroesophageal junction from T11???T8 with maximum SUV of 24. A small amount of hyper metabolic mass extension into the gastric cardia is not fully excluded. Upstream esophagus appears fluid-filled and patulous. There were no discrete hypermetabolic pulmonary nodules. There is mild dependent atelectasis with trace bilateral pleural fluid collection without hypermetabolic pleural thickening. There was reported calcified mediastinal and hilar granulous with normal size mildly hypermetabolic bilateral hilar lymph nodes, business services representative right hilar lymph node maximum SUV 2.7. Additional hypermetabolic left hilar lymph node 0.8 x 1.2 cm with a max SUV of 2.5. 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 There were no hypermetabolic hepatic lesions. There was Extavia of the infrarenal abdominal aorta measuring up to 2.7 cm. No ascites or peritoneal/serosa nodularity. There was hyper metabolic gastrohepatic ligament lymph node 1.7 x 1.8 cm with a max SUV of 3.9. No additional hypermetabolic lymph nodes were seen within the abdomen or pelvis. There was prostamegaly without focal hypermetabolic prostate lesion. Muscle skeletal there was diffuse bone marrow hyper metabolism without focal lytic or blastic osseous lesion identified suggesting pathologic marrow uptake. 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 He did have Port a Cath placement in the left subclavian vein per Dr Rosa on 07/12/2019. started on first chemotherapy with carboplatin/Taxol and Herceptin on 07/15/2019. came for follow-up, denies any specific complaints, swallowing is improving, no nausea or vomiting, no diarrhea or constipation, no peripheral numbness. No shortness of breath or chest pain. No fever or chills. Tolerating palliative chemotherapy with carboplatin/Taxol/Herceptin well Medications: Advair Diskus 2 Puff(s) (of 250-50 mcg/dose) Aerosol Powder, Breath Activated Inhalation daily, Albuterol Sulfate 1 ((2.5 mg/3ml) 0.083%) Nebulization solution Inhalation daily PRN, Simvastatin 1 Tablet (of 40 mg) Oral daily, Spiriva HandiHaler 1 Capsule (of 18 mcg) Inhalation daily, Tamsulosin HCl 1 Capsule (of 0.4 mg) Oral daily Allergies: No Known Allergies. Review of Systems: Constitutional - Appetite is poor and weight is decreasing. No fever, chills, hot flashes, or night sweats. Energy level is poor, ENMT - No sinus congestion/drainage. No mouth sores. No sore throat or difficulty swallowing, Hematologic/Lymphatic - No abnormal bruising or bleeding, Respiratory - No shortness of breath. No cough. No pleuritic pain or hemoptysis, Cardiovascular - No angina pain. No palpitations, Gastrointestinal - No nausea or vomiting. No heartburn or acid reflux. Pt reports decrease in bowel movements. states that Pt follows a primarily liquid diet, Genitourinary (M) - No dysuria or hematuria. No urinary frequency. No urgency or incontinence, Musculoskeletal - No joint or bone pain, Neurologic - No headache or dizziness. No numbness/paresthesias or other focal neurologic symptoms, Psychiatric - No anxiety or depression. No insomnia. Vital Signs: Performed on Jul 29, 2019 10:11 Height - 67.00 in Weight - 166.2 lbs (LOW) BSA - 1.87 sq.m BMI - 26.03 Temperature - 97.9 F (LOW) Pulse - 96 /min Respiration - 20 /min BP - 113/66 mm(hg) O2 Sat - 98 % Pain - 0 Performance Status: 2 - Ambulatory/capable of all self-care, unable to perform any work activities. Up and about more than 50% of waking hours. (ECOG) Physical Examination: ENMT - No oral exudates, ulcers, masses, thrush or mucositis. Oropharynx clear. Tongue normal, Respiratory - Lungs are clear to auscultation without rhonchi or wheezing, Cardiovascular - Regular rate and rhythm of heart, Abdomen - Non-tender, Good bowel sounds. No guarding or rebound tenderness. No pulsatile masses, Extremities - 1+ edema bilaterally. Lab/Imaging: Test performed on Jul 28, 2019 09:55 Alkaline Phosphatase 73 IU/L Sodium 136 mmol/L Potassium 3.0 mmol/L Chloride 102 mmol/L CO2 22 mmol/L Anion Gap 15.0 BUN 18 mg/dL Creatinine 1.4 mg/dL Cr Clearance (Est) 49.1400 mL/min Glucose 158 mg/dL Calcium 9.3 mg/Dl Protein, Total 5.8 g/dL Albumin 3.2 g/dL Globulin 2.6 g/dL Bilirubin, Total 0.3 mg/dL ALT (SGPT) 52 U/L AST (SGOT) 23 U/L WBC 6.6 10 3/uL RBC 3.80 10 6/uL HGB 9.2 g/dL HCT 31.3 % MCV 82.4 fL MCH 24.2 pg MCHC 29.4 g/dL RDW 18.0 % Platelet Count 377 10 3/cmm MPV 10.5 fL Neutrophils 4.7 10 3/uL Lymphocytes 1.4 10 3/uL Monocytes 0.3 10 3/uL Eosinophils 0.2 10 3/uL Basophils 0.0 10 3/uL Neutrophil % 70.9 % Lymphocyte % 20.9 % Monocyte % 4.6 % Eosinophil % 2.6 % Basophils % 0.5 % Test performed on Jul 21, 2019 09:35 Ferritin 35 ng/mL Iron, Total 15 mcg/dL % Iron Saturation 6.4 % TIBC 231 mcg/dL Test performed on Jul 14, 2019 08:10 Manual Lymphocytes 9.8 % Manual Monocytes 4.2 % Manual Eosinophils 1.4 % Manual Basophils 0.3 % NRBCs 0.0 /100 WBC Test performed on Jun 10, 2019 11:05 Packed Red Cells (PRBC) [id number] TRANSFUSED PRODUCT: LEUKOREDUCED RED CELL 1ST CONT COUNT: 2 Type & Screen BLD TYPE A POSITIVE AB SCREEN GEL NEGATIVE Test performed on Jun 10, 2019 08:05 Vitamin B12 465 pg/mL UIBC 258 ug/dL Test performed on Jun 09, 2019 08:05 ABO & Rh Type # 2 A POSITIVE Impression: 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 CT scan of chest abdomen done on 05/18/2019 showed no thoracic lymphadenopathy by size criteria Dilated thoracic esophagus with gross appearance of marked wall thickening as well as dilatation of distal segment of thoracic esophagus no evidence of distant metastatic disease. Progressive dysphagia and weight loss due to above Chronic smoking, still active Clinically, patient is doing reasonably well now with progressive dysphagia due to newly diagnosed esophageal cancer. he said he did talk to his family and now have decided to pursue with chemotherapy alone and will go from there. Considering his age and comorbid condition and social issues e.g. living 60 miles away from [place] with elderly , he would prefer chemotherapy alone in the office but not radiation therapy. Patient was reminded in the standard of care is combined chemoradiation followed by surgery if possible otherwise chemotherapy is palliative only. Considering his age and performance status, recommended weekly carboplatin Taxol and Herceptin. did also discuss about role of G-tube placement but patient declined. Mr Stevens is prediabetic so we'll also consider diabetes teaching and may consider sliding scale if he develops hyperglycemia due to steroids. He did have baseline echocardiogram for the Herceptin on 06/24/2019 which reported left ventricular ejection fraction estimated at 65%. He had normal left ventricular systolic function no regional wall motion abnormalities there is a grade I/IV diastolic function, normal to mildly elevated filling pressures. No aortic valve stenosis and mild aortic valve regurgitation. He did also have PET CT imaging on 06/25/2019 at [facility]. This did report hypermetabolic circumferential mural thickening involving the distal esophagus extending approximately 10 cm proximal to the gastroesophageal junction from T11???T8 with maximum SUV of 24. A small amount of hyper metabolic mass extension into the gastric cardia is not fully excluded. Upstream esophagus appears fluid-filled and patulous. There were no discrete hypermetabolic pulmonary nodules. There is mild dependent atelectasis with trace bilateral pleural fluid collection without hypermetabolic pleural thickening. There was reported calcified mediastinal and hilar granulous with normal size mildly hypermetabolic bilateral hilar lymph nodes, business services representative right hilar lymph node maximum SUV 2.7. Additional hypermetabolic left hilar lymph node 0.8 x 1.2 cm with a max SUV of 2.5. 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 There were no hypermetabolic hepatic lesions. There was Extavia of the infrarenal abdominal aorta measuring up to 2.7 cm. No ascites or peritoneal/serosa nodularity. There was hyper metabolic gastrohepatic ligament lymph node 1.7 x 1.8 cm with a max SUV of 3.9. No additional hypermetabolic lymph nodes were seen within the abdomen or pelvis. There was prostamegaly without focal hypermetabolic prostate lesion. Muscle skeletal there was diffuse bone marrow hyper metabolism without focal lytic or blastic osseous lesion identified suggesting pathologic marrow uptake. 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 Mr Stevens had Port a Cath placement in the left subclavian vein per Dr Rosa on 07/12/2019. He began his first cycle of carboplatin/Taxol/Herceptin on 07/15/2019. He was also found to be iron deficient and will plan to receive iron replacement IV. Plan: discussed with patient. Regarding his labs white blood count 6.6 hemoglobin 9.2 crit 31.3 platelets 377,000 CMP within normal limit except potassium 3.0 and creatinine 1.4 and his LFTs ALT 52 compared to 62 on 07/21/2019 and 10 on 07/14/2019 Clinically, patient is doing well tolerating palliative chemotherapy with weekly carboplatin/Taxol/Herceptin, well but with expected side effects. as per patient, His dysphagia is improving, but still taking liquids or semi-liquid diet. We'll proceed with the next weekly dose of carboplatin/Taxol/Herceptin today and also give him potassium supplement 20 mEq by mouth twice a day for 2 days and then he will return to clinic in 2 weeks with CBC CMP to start next cycle of palliative therapy. Patient was advised to watch his diet and avoid sweets. Signed By: Yana Tuttle M.D. <<Signature on File>>
== END 2019-08-06 23:59 | disposition home or self-care (01) ==
LOC: ONCMED 05:37
PROVIDERS: Nurse Practitioner; Family Provider Physician Assistant Medical; PCP Physician Assistant Medical; Visit Provider Internal Medicine Hematology & Oncology
DX: Z51.12 Encounter for antineoplastic immunotherapy (principal); Z51.11 Encounter for antineoplastic chemotherapy; C15.4 Malignant neoplasm of middle third of esophagus; C77.1 Secondary and unspecified malignant neoplasm of intrathoracic lymph nodes; D50.9 Iron deficiency anemia, unspecified; E53.8 Deficiency of other specified B group vitamins; F17.210 Nicotine dependence, cigarettes, uncomplicated; J44.9 Chronic obstructive pulmonary disease, unspecified; F03.90 Unspecified dementia, unspecified severity, without behavioral disturbance, psychotic disturbance, mood disturbance, and anxiety; E78.5 Hyperlipidemia, unspecified; E11.9 Type 2 diabetes mellitus without complications; I10 Essential (primary) hypertension; Z79.51 Long term (current) use of inhaled steroids; Z86.73 Personal history of transient ischemic attack (TIA), and cerebral infarction without residual deficits; Z90.49 Acquired absence of other specified parts of digestive tract
CPT/HCPCS: 36415; 80053; 82728; 83540; 83550; 85025; 96361; 96367; 96413; 96417; 99214; A4222; J1100; J1200; J1439; J2469; J3490; J7030; J7050; J7799; J9045; J9267; J9355

== ENCOUNTER 2019-09-01 05:44 | Outpatient (RCR) | payer MEDICARE, MEDICAID, SELFPAY ==
[2019-08-11 14:04] LABS: Basophils % 0.7 %; Eosinophils # 0.2 10^3/uL (0.0-0.8); Eosinophils % 6.3 %; Hematocrit 33.4 % (42.0-52.0); Lymphocytes # 1.1 10^3/uL (0.8-4.8); Lymphocytes % 36.8 %; Mean Corpuscular HGB Conc 29.9 g/dL (30.0-36.0); Mean Corpuscular Volume 90.3 fL (80-94); Mean Platelet Volume 10.7 fL (7.4-10.4); Monocytes # 0.3 10^3/uL (0.2-0.9); Monocytes % 10.4 %; Neutrophils # 1.3 10^3/uL (1.8-7.7); Neutrophils % 45.1 %; Nucleated Red Blood Cells % 0 %; Platelet Count 154 10^3/cmm (130-400); Red Cell Distribution Width 25.4 % (12.1-15.1); White Blood Count 2.9 10^3/uL (4.0-10.0)
[2019-08-11 15:20] LABS: Alanine Aminotransferase 27 U/L (0-41); Albumin Level 3.1 g/dL (3.5-5.2); Alkaline Phosphatase 75 IU/L (40-130); Anion Gap 14.3 (5-19); Aspartate Amino Transferase 15 U/L (0-40); Blood Urea Nitrogen 16 mg/dL (8-23); Calcium 8.9 mg/dL (8.5-10.5); Carbon Dioxide 26 mmol/L (22-29); Chloride 103 mmol/L (98-107); Globulin 2.5 g/dL (1.3-4.6); Glucose 105 mg/dL (65-115); Potassium 4.3 mmol/L (3.5-5.1); Sodium 139 mmol/L (136-145); Total Bilirubin 0.3 mg/dL (0.15-1.2); Total Protein 5.6 g/dL (6.6-8.7)
--- NOTE | 2019-08-12 10:02 | ONC FU_ITS ---
Dr. Tuttle follow up note Patient: Rodney [place] Unit #: [id number]: 1940 Dicatated By: Yana Tuttle M.D.Date of Visit:Aug 12, 2019 Onc Med Follow-up/Prog Note History of Present Illness: Mr. Stevens is a 78-year-old gentleman with history of progressive dysphagia and weight loss. 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 A biopsy was obtained at [place], [place] on 05/21/2019. 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 Mr Stevens underwent CT scan of chest abdomen on 05/18/2019 which showed dilated thoracic esophagus with gross appearance of marked wall thickening as well as dilatation of distal segment of thoracic esophagus. No thoracic lymphadenopathy by size criteria. No evidence of distant metastatic disease, As per patient in the beginning he had dysphagia to solid food now can tolerate liquids only. Denied any hematemesis or hemoptysis, denied any jaundice, denied any aspiration or regurgitation. Mr Stevens has smoked about pack a day for many years. He lives about 60 miles north of [place] and lives with elderly . Mr Stevens has elected to try chemotherapy alone. He has been offered chemotherapy with weekly carboplatin/Taxol/Herceptin. He did have baseline echocardiogram for the Herceptin on 06/24/2019 which reported left ventricular ejection fraction estimated at 65%. He had normal left ventricular systolic function no regional wall motion abnormalities there is a grade I/IV diastolic function, normal to mildly elevated filling pressures. No aortic valve stenosis and mild aortic valve regurgitation. He did also have PET CT imaging on 06/25/2019 at [facility]. This did report hypermetabolic circumferential mural thickening involving the distal esophagus extending approximately 10 cm proximal to the gastroesophageal junction from T11???T8 with maximum SUV of 24. A small amount of hyper metabolic mass extension into the gastric cardia is not fully excluded. Upstream esophagus appears fluid-filled and patulous. There were no discrete hypermetabolic pulmonary nodules. There is mild dependent atelectasis with trace bilateral pleural fluid collection without hypermetabolic pleural thickening. There was reported calcified mediastinal and hilar granulous with normal size mildly hypermetabolic bilateral hilar lymph nodes, wholesale representative right hilar lymph node maximum SUV 2.7. Additional hypermetabolic left hilar lymph node 0.8 x 1.2 cm with a max SUV of 2.5. 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 There were no hypermetabolic hepatic lesions. There was Extavia of the infrarenal abdominal aorta measuring up to 2.7 cm. No ascites or peritoneal/serosa nodularity. There was hyper metabolic gastrohepatic ligament lymph node 1.7 x 1.8 cm with a max SUV of 3.9. No additional hypermetabolic lymph nodes were seen within the abdomen or pelvis. There was prostamegaly without focal hypermetabolic prostate lesion. Muscle skeletal there was diffuse bone marrow hyper metabolism without focal lytic or blastic osseous lesion identified suggesting pathologic marrow uptake. 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 He did have Port a Cath placement in the left subclavian vein per Dr Rosa on 07/12/2019. started on first chemotherapy with weekly carboplatin/Taxol and Herceptin on 07/15/2019. Came for follow-up, denies any specific complaints, no nausea vomiting no fever or chills, dysphagia has resolved, as per he is eating very well in fact he had pork steak other day without any problem. No diarrhea constipation no jaundice. No shortness of breath or palpitation, no lower extremities edema. No peripheral neuropathy Tolerating systemic chemotherapy with carboplatin/Taxol/Herceptin well Medications: Advair Diskus 2 Puff(s) (of 250-50 mcg/dose) Aerosol Powder, Breath Activated Inhalation daily, Albuterol Sulfate 1 ((2.5 mg/3ml) 0.083%) Nebulization solution Inhalation daily PRN, Simvastatin 1 Tablet (of 40 mg) Oral daily, Spiriva HandiHaler 1 Capsule (of 18 mcg) Inhalation daily, Tamsulosin HCl 1 Capsule (of 0.4 mg) Oral daily Allergies: No Known Allergies. Review of Systems: Constitutional - Appetite is improved and weight is decreasing. No fever, chills, hot flashes, or night sweats. Energy level is poor, ENMT - No sinus congestion/drainage. No mouth sores. No sore throat or difficulty swallowing, Hematologic/Lymphatic - No abnormal bruising or bleeding, Respiratory - No shortness of breath. No cough. No pleuritic pain or hemoptysis, Cardiovascular - No angina pain. No palpitations, Gastrointestinal - No nausea or vomiting. No heartburn or acid reflux, Genitourinary (M) - No dysuria or hematuria. No urinary frequency. No urgency or incontinence, Musculoskeletal - No joint or bone pain, Neurologic - No headache or dizziness. No numbness/paresthesias or other focal neurologic symptoms, Psychiatric - No anxiety or depression. No insomnia. Vital Signs: Performed on Aug 12, 2019 09:21 Height - 67.00 in Weight - lbs Temperature - 97.8 F (LOW) Pulse - 108 /min (HIGH) Respiration - 20 /min BP - 129/76 mm(hg) O2 Sat - 98 % Pain - 0 Performance Status: 1 - No physically strenuous activity, but ambulatory and able to carry out light or sedentary work (e.g. office work, light house work). (ECOG) Physical Examination: ENMT - No oral exudates, ulcers, masses, thrush or mucositis. Oropharynx clear. Tongue normal, Respiratory - Lungs are clear to auscultation without rhonchi or wheezing, Cardiovascular - Regular rate and rhythm of heart, Abdomen - Non-tender, non-distended, Good bowel sounds. No guarding or rebound tenderness. No pulsatile masses, Extremities - no edema. Lab/Imaging: Test performed on Jul 28, 2019 09:55 Alkaline Phosphatase 73 IU/L Sodium 136 mmol/L Potassium 3.0 mmol/L Chloride 102 mmol/L CO2 22 mmol/L Anion Gap 15.0 BUN 18 mg/dL Creatinine 1.4 mg/dL Cr Clearance (Est) 49.1400 mL/min Glucose 158 mg/dL Calcium 9.3 mg/Dl Protein, Total 5.8 g/dL Albumin 3.2 g/dL Globulin 2.6 g/dL Bilirubin, Total 0.3 mg/dL ALT (SGPT) 52 U/L AST (SGOT) 23 U/L WBC 6.6 10 3/uL RBC 3.80 10 6/uL HGB 9.2 g/dL HCT 31.3 % MCV 82.4 fL MCH 24.2 pg MCHC 29.4 g/dL RDW 18.0 % Platelet Count 377 10 3/cmm MPV 10.5 fL Neutrophils 4.7 10 3/uL Lymphocytes 1.4 10 3/uL Monocytes 0.3 10 3/uL Eosinophils 0.2 10 3/uL Basophils 0.0 10 3/uL Neutrophil % 70.9 % Lymphocyte % 20.9 % Monocyte % 4.6 % Eosinophil % 2.6 % Basophils % 0.5 % Test performed on Jul 21, 2019 09:35 Ferritin 35 ng/mL Iron, Total 15 mcg/dL % Iron Saturation 6.4 % TIBC 231 mcg/dL Test performed on Jul 14, 2019 08:10 Manual Lymphocytes 9.8 % Manual Monocytes 4.2 % Manual Eosinophils 1.4 % Manual Basophils 0.3 % NRBCs 0.0 /100 WBC Test performed on Jun 10, 2019 11:05 Packed Red Cells (PRBC) [id number] TRANSFUSED PRODUCT: LEUKOREDUCED RED CELL 1ST CONT COUNT: 2 Type & Screen BLD TYPE A POSITIVE AB SCREEN GEL NEGATIVE Test performed on Jun 10, 2019 08:05 Vitamin B12 465 pg/mL UIBC 258 ug/dL Test performed on Jun 09, 2019 08:05 ABO & Rh Type # 2 A POSITIVE Impression: 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 CT scan of chest abdomen done on 05/18/2019 showed no thoracic lymphadenopathy by size criteria Dilated thoracic esophagus with gross appearance of marked wall thickening as well as dilatation of distal segment of thoracic esophagus no evidence of distant metastatic disease. Progressive dysphagia and weight loss due to above Chronic smoking, still active Clinically, patient is doing reasonably well now with progressive dysphagia due to newly diagnosed esophageal cancer. he said he did talk to his family and now have decided to pursue with chemotherapy alone and will go from there. Considering his age and comorbid condition and social issues e.g. living 60 miles away from [place] with elderly , he would prefer chemotherapy alone in the office but not radiation therapy. Patient was reminded in the standard of care is combined chemoradiation followed by surgery if possible otherwise chemotherapy is palliative only. Considering his age and performance status, recommended weekly carboplatin Taxol and Herceptin. did also discuss about role of G-tube placement but patient declined. Mr Stevens is prediabetic so we'll also consider diabetes teaching and may consider sliding scale if he develops hyperglycemia due to steroids. He did have baseline echocardiogram for the Herceptin on 06/24/2019 which reported left ventricular ejection fraction estimated at 65%. He had normal left ventricular systolic function no regional wall motion abnormalities there is a grade I/IV diastolic function, normal to mildly elevated filling pressures. No aortic valve stenosis and mild aortic valve regurgitation. He did also have PET CT imaging on 06/25/2019 at [facility]. This did report hypermetabolic circumferential mural thickening involving the distal esophagus extending approximately 10 cm proximal to the gastroesophageal junction from T11???T8 with maximum SUV of 24. A small amount of hyper metabolic mass extension into the gastric cardia is not fully excluded. Upstream esophagus appears fluid-filled and patulous. There were no discrete hypermetabolic pulmonary nodules. There is mild dependent atelectasis with trace bilateral pleural fluid collection without hypermetabolic pleural thickening. There was reported calcified mediastinal and hilar granulous with normal size mildly hypermetabolic bilateral hilar lymph nodes, wholesale representative right hilar lymph node maximum SUV 2.7. Additional hypermetabolic left hilar lymph node 0.8 x 1.2 cm with a max SUV of 2.5. 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 There were no hypermetabolic hepatic lesions. There was Extavia of the infrarenal abdominal aorta measuring up to 2.7 cm. No ascites or peritoneal/serosa nodularity. There was hyper metabolic gastrohepatic ligament lymph node 1.7 x 1.8 cm with a max SUV of 3.9. No additional hypermetabolic lymph nodes were seen within the abdomen or pelvis. There was prostamegaly without focal hypermetabolic prostate lesion. Muscle skeletal there was diffuse bone marrow hyper metabolism without focal lytic or blastic osseous lesion identified suggesting pathologic marrow uptake. 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 Mr Stevens had Port a Cath placement in the left subclavian vein per Dr Rosa on 07/12/2019. He began his first cycle of carboplatin/Taxol/Herceptin on 07/15/2019. He was also found to be iron deficient and will plan to receive iron replacement IV. Plan: discussed with patient regarding his labs white blood count 2.9 hemoglobin 10 crit 33.4 platelets 154,000 neutrophil 1300 CMP within normal limits Clinically, patient is doing well tolerating systemic chemotherapy with weekly Herceptin/carboplatin/Taxol well but with expected side effects. Now with progressive leukopenia. Clinically it appears patient is handling 3 weekly doses better, so in future we will consider chemotherapy weekly ???3 then week off and unless progressive leukopenia and that case we will consider Neupogen daily for 3 days in between chemotherapy schedule. Patient is tolerating chemotherapy well, his dysphagia has resolved. and LFTs, now normalized, hypokalemia resolved. He will return to clinic in 1 week with CBC CMP Signed By: Yana Tuttle M.D. <<Signature on File>>
[2019-08-16 14:49] LABS: Basophils % 0.5 %; Eosinophils # 0.2 10^3/uL (0.0-0.8); Eosinophils % 4.2 %; Hematocrit 30.3 % (42.0-52.0); Lymphocytes # 1.5 10^3/uL (0.8-4.8); Lymphocytes % 36.1 %; Mean Corpuscular HGB Conc 29.7 g/dL (30.0-36.0); Mean Corpuscular Hemoglobin 26.5 pg (28.0-34.0); Mean Corpuscular Volume 89.4 fL (80-94); Mean Platelet Volume 10.6 fL (7.4-10.4); Monocytes # 0.3 10^3/uL (0.2-0.9); Monocytes % 7.6 %; Neutrophils # 2.1 10^3/uL (1.8-7.7); Neutrophils % 51.1 %; Nucleated Red Blood Cells % 0 %; Platelet Count 203 10^3/cmm (130-400); Red Blood Count 3.39 10^6/uL (4.1-5.3); Red Cell Distribution Width 26.5 % (12.1-15.1); White Blood Count 4.1 10^3/uL (4.0-10.0)
[2019-08-16 15:12] LABS: Alanine Aminotransferase 34 U/L (0-41); Alkaline Phosphatase 66 IU/L (40-130); Anion Gap 13.2 (5-19); Aspartate Amino Transferase 20 U/L (0-40); Blood Urea Nitrogen 21 mg/dL (8-23); Calcium 8.8 mg/dL (8.5-10.5); Carbon Dioxide 26 mmol/L (22-29); Chloride 104 mmol/L (98-107); Globulin 2.5 g/dL (1.3-4.6); Glucose 138 mg/dL (65-115); Potassium 4.2 mmol/L (3.5-5.1); Sodium 139 mmol/L (136-145); Total Bilirubin 0.2 mg/dL (0.15-1.2); Total Protein 5.5 g/dL (6.6-8.7)
[2019-08-17] MEDS: sodium chloride 0.9% 250 ML 75 ML IV (10:55)
[2019-08-17] MEDS: acetaminophen 325 mg Tablet 650 MG PO (11:00)
--- NOTE | 2019-08-18 12:39 | ONC FU_ITS ---
[facility] Patient Note Patient: Rodney [place] Unit #: [id number]: 1940 Dictated By: Harsha TaylorDate of Visit: Aug 17, 2019 Onc MED Follow-Up/Prog Note Chief Complaint: Adenocarcinoma of esophagus History of Present Illness: Mr. Stevens is a 78-year-old gentleman with history of progressive dysphagia and weight loss. 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 A biopsy was obtained at [place], [place] on 05/21/2019. 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 Mr Stevens underwent CT scan of chest abdomen on 05/18/2019 which showed dilated thoracic esophagus with gross appearance of marked wall thickening as well as dilatation of distal segment of thoracic esophagus. No thoracic lymphadenopathy by size criteria. No evidence of distant metastatic disease, As per patient in the beginning he had dysphagia to solid food now can tolerate liquids only. Denied any hematemesis or hemoptysis, denied any jaundice, denied any aspiration or regurgitation. Mr Stevens has smoked about pack a day for many years. [place] of [place] and lives with elderly . Mr Stevens has elected to try chemotherapy alone. He has been offered chemotherapy with weekly carboplatin/Taxol/Herceptin. He did have baseline echocardiogram for the Herceptin on 06/24/2019 which reported left ventricular ejection fraction estimated at 65%. He had normal left ventricular systolic function no regional wall motion abnormalities there is a grade I/IV diastolic function, normal to mildly elevated filling pressures. No aortic valve stenosis and mild aortic valve regurgitation. He did also have PET CT imaging on 06/25/2019 at [facility]. This did report hypermetabolic circumferential mural thickening involving the distal esophagus extending approximately 10 cm proximal to the gastroesophageal junction from T11???T8 with maximum SUV of 24. A small amount of hyper metabolic mass extension into the gastric cardia is not fully excluded. Upstream esophagus appears fluid-filled and patulous. There were no discrete hypermetabolic pulmonary nodules. There is mild dependent atelectasis with trace bilateral pleural fluid collection without hypermetabolic pleural thickening. 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 Additional hypermetabolic left hilar lymph node 0.8 x 1.2 cm with a max SUV of 2.5. 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 There were no hypermetabolic hepatic lesions. There was Extavia of the infrarenal abdominal aorta measuring up to 2.7 cm. No ascites or peritoneal/serosa nodularity. There was hyper metabolic gastrohepatic ligament lymph node 1.7 x 1.8 cm with a max SUV of 3.9. No additional hypermetabolic lymph nodes were seen within the abdomen or pelvis. There was prostamegaly without focal hypermetabolic prostate lesion. Muscle skeletal there was diffuse bone marrow hyper metabolism without focal lytic or blastic osseous lesion identified suggesting pathologic marrow uptake. 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 He did have Port a Cath placement in the left subclavian vein per Dr Rosa on 07/12/2019. Mr Stevens started on his first chemotherapy with weekly carboplatin/Taxol and Herceptin on 07/15/2019. He has tolerated it well overall. Mr. Stevens is here today for follow-up. He is due for his weekly carboplatin paclitaxel Herceptin. His last treatment was on July 29, 2019. He is tolerated it well overall. His labs from last week revealed an ANC of 1300. His treatment was delayed an additional week. History is difficult directly with Mr. Stevens as he is so hard of hearing and does not answer questions very well. Mrs. Stevens generally answers all the questions. She states that he has had no new problems. He denies any nausea or vomiting. He denies any neuropathy. She reports that he has had no diarrhea. She states she thinks he is doing well overall. He is eating good. His energy has not changed much. He generally appears here in a wheelchair and utilizes that at home as well. He is not super active at home but is able to help with some of his ADLs. They have no new concerns today. ECOG is 3 today. Past Medical History: Chronic obstructive pulmonary disease Dementia Hyperlipidemia Hypertension Stroke Type II diabetes Vitamin b 12 deficiency Past Surgical History: Cholecystectomy Left Subclavian Port a Cath-Dr Rosa ([facility] [place]) in 2019 Allergies: No Known Allergies. Medications: Advair Diskus 2 Puff(s) (of 250-50 mcg/dose) Aerosol Powder, Breath Activated Inhalation daily Albuterol Sulfate 1 ((2.5 mg/3ml) 0.083%) Nebulization solution Inhalation daily PRN Simvastatin 1 Tablet (of 40 mg) Oral daily Spiriva HandiHaler 1 Capsule (of 18 mcg) Inhalation daily Tamsulosin HCl 1 Capsule (of 0.4 mg) Oral daily Family History: Mr. Stevens's mother at age 80: colon cancer. Mr. Stevens's father at age 83: leukemia. Mr. Stevens has 2 brothers: 2 . Mr. Stevens's first brother's esophageal cancer. Another brother's lung cancer. Social History: Mr. Stevens is and he is retired. He is a daily smoker who has smoked 1.0 pack/day for 41 years. He has no history of drinking. He has indicated exposure to the following products: cigarettes. Mr. Stevens reports the following support systems: lives with spouse, significant other, family, or friends, lives in own house, supportive family/friends willing to assist with needs, and adequate transportation available for expected visits. His diet consists of liquid diet. He indicates his activity level as: sedentary. Review Of Symptoms: Constitutional Denies fevers, chills, night sweats, excessive fatigue or weight loss. Allergic/Immunologic No reactions. Eyes Denies significant visual changes. No diplopia. No amaurosis. ENMT hard of hearing-chronic. Endocrine No diabetes, thyroid disease or hormone replacement. Denies hot flashes or night sweats. Hematologic/Lymphatic Denies easy bruising or bleeding. The patient denies any tender or palpable lymph nodes. Respiratory Denies dyspnea on exertion, chest pain, cough or hemoptysis. Denies orthopnea. Cardiovascular Denies anginal chest pain, palpitations or orthopnea. Gastrointestinal Denies nausea, vomiting, diarrhea, GI bleeding, or constipation. Denies change in bowel habits and/or stool color, no heartburn or early satiety. Genitourinary (M) Denies hematuria, dysuria, increased frequency, urgency, hesitancy or incontinence. Musculoskeletal Denies joint pain, swelling or redness. No decreased range of motion. Integumentary Denies chronic rashes, inflammation, ulcerations or skin changes. Neurologic continues to require wheelchair for assistance in mobility. Reports multiple falls if unassisted with mobility. Psychiatric Denies insomnia, depression, cindy or mood swings. Vital Signs: Performed on Aug 17, 2019 14:40 Height - 67.00 in Temperature - 98 F (LOW) Pulse - 95 /min Respiration - 20 /min BP - 129/79 mm(hg) O2 Sat - 97 % Pain - 0 Fatigue - 0 Performed on Aug 17, 2019 10:15 Height - 67.00 in Weight - 171.4 lbs (HIGH) BSA - 1.89 sq.m BMI - 26.85 Temperature - 97.3 F (LOW) Pulse - 105 /min (HIGH) Respiration - 14 /min BP - 126/71 mm(hg) O2 Sat - 99 % Pain - 0 Fatigue - 8,3 - Capable of only limited self-care, confined to bed or chair more than 50% of waking hours. (ECOG) Physical Examination: Constitutional Alert, oriented, no acute distress. Skin pink, warm and dry. Head Normocephalic; atraumatic. Eyes Conjunctivae and sclerae are clear and without icterus. Pupils are reactive and equal. ENMT No oral exudates, ulcers, masses, thrush or mucositis. Extremely hard of hearing. Neck Supple without masses or thyromegaly. No jugular venous distension. Hematologic/Lymphatic No petechiae or purpura. No tender or palpable lymph nodes in the cervical or supraclavicular areas. Respiratory Lungs are clear to auscultation without rhonchi or wheezing. Cardiovascular Regular rate and rhythm of heart without murmurs,clicks, gallops or rubs. Chest Left subclavian venous access device insertion site is unremarkable. Abdomen Non-tender, non-distended, no masses or ascites. Good bowel sounds noted in all quads. No guarding or rebound tenderness. No pulsatile masses. Back/Spine Non-tender to palpation. Extremities No visible deformities, no cyanosis, clubbing or edema. Musculoskeletal No tenderness or swelling. Integumentary No rashes or lesions. Neurologic No sensory or motor deficits, normal cerebellar function, presents in a wheelchair today-gait not assessed. Transferred from wheelchair to chemo chair with no abnormality. Psychiatric Alert and oriented times three. Coherent speech. Verbalizes understanding of our discussions today. Laboratory:Test performed on Aug 16, 2019 11:30 Sodium 139 mmol/L Potassium 4.2 mmol/L Chloride 104 mmol/L CO2 26 mmol/L Anion Gap 13.2 BUN 21 mg/dL Creatinine 1.3 mg/dL Cr Clearance (Est) 52.9200 mL/min Glucose 138 mg/dL Calcium 8.8 mg/dL Protein, Total 5.5 g/dL Albumin 3.0 g/dL Globulin 2.5 g/dL Bilirubin, Total 0.2 mg/dL ALT (SGPT) 34 U/L AST (SGOT) 20 U/L Alkaline Phosphatase 66 IU/L WBC 4.1 10 3/uL RBC 3.39 10 6/uL HGB 9.0 g/dL HCT 30.3 % MCV 89.4 fL MCH 26.5 pg MCHC 29.7 g/dL RDW 26.5 % Platelet Count 203 10 3/cmm MPV 10.6 fL Neutrophils 2.1 10 3/uL Lymphocytes 1.5 10 3/uL Monocytes 0.3 10 3/uL Eosinophils 0.2 10 3/uL Basophils 0.0 10 3/uL Neutrophil % 51.1 % Lymphocyte % 36.1 % Monocyte % 7.6 % Eosinophil % 4.2 % Basophils % 0.5 % Test performed on Jul 21, 2019 09:35 Ferritin 35 ng/mL Iron, Total 15 mcg/dL % Iron Saturation 6.4 % TIBC 231 mcg/dL Test performed on Jul 14, 2019 08:10 Manual Lymphocytes 9.8 % Manual Monocytes 4.2 % Manual Eosinophils 1.4 % Manual Basophils 0.3 % NRBCs 0.0 /100 WBC Test performed on Jun 10, 2019 11:05 Packed Red Cells (PRBC) [id number] TRANSFUSED PRODUCT: LEUKOREDUCED RED CELL 1ST CONT COUNT: 2 Type & Screen BLD TYPE A POSITIVE AB SCREEN GEL NEGATIVE Test performed on Jun 10, 2019 08:05 Vitamin B12 465 pg/mL UIBC 258 ug/dL Test performed on Jun 09, 2019 08:05 ABO & Rh Type # 2 A POSITIVE Impression: 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 CT scan of chest abdomen done on 05/18/2019 showed no thoracic lymphadenopathy by size criteria Dilated thoracic esophagus with gross appearance of marked wall thickening as well as dilatation of distal segment of thoracic esophagus no evidence of distant metastatic disease. Progressive dysphagia and weight loss due to above Chronic smoking, still active Clinically, patient is doing reasonably well now with progressive dysphagia due to newly diagnosed esophageal cancer. he said he did talk to his family and now have decided to pursue with chemotherapy alone and will go from there. Considering his age and comorbid condition and social issues e.g. living 60 miles away from [place] with elderly , he would prefer chemotherapy alone in the office but not radiation therapy. Patient was reminded in the standard of care is combined chemoradiation followed by surgery if possible otherwise chemotherapy is palliative only. Considering his age and performance status, recommended weekly carboplatin Taxol and Herceptin. did also discuss about role of G-tube placement but patient declined. Mr Stevens is prediabetic so we'll also consider diabetes teaching and may consider sliding scale if he develops hyperglycemia due to steroids. He did have baseline echocardiogram for the Herceptin on 06/24/2019 which reported left ventricular ejection fraction estimated at 65%. He had normal left ventricular systolic function no regional wall motion abnormalities there is a grade I/IV diastolic function, normal to mildly elevated filling pressures. No aortic valve stenosis and mild aortic valve regurgitation. He did also have PET CT imaging on 06/25/2019 at [facility]. This did report hypermetabolic circumferential mural thickening involving the distal esophagus extending approximately 10 cm proximal to the gastroesophageal junction from T11???T8 with maximum SUV of 24. A small amount of hyper metabolic mass extension into the gastric cardia is not fully excluded. Upstream esophagus appears fluid-filled and patulous. There were no discrete hypermetabolic pulmonary nodules. There is mild dependent atelectasis with trace bilateral pleural fluid collection without hypermetabolic pleural thickening. 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 Additional hypermetabolic left hilar lymph node 0.8 x 1.2 cm with a max SUV of 2.5. 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 There were no hypermetabolic hepatic lesions. There was Extavia of the infrarenal abdominal aorta measuring up to 2.7 cm. No ascites or peritoneal/serosa nodularity. There was hyper metabolic gastrohepatic ligament lymph node 1.7 x 1.8 cm with a max SUV of 3.9. No additional hypermetabolic lymph nodes were seen within the abdomen or pelvis. There was prostamegaly without focal hypermetabolic prostate lesion. Muscle skeletal there was diffuse bone marrow hyper metabolism without focal lytic or blastic osseous lesion identified suggesting pathologic marrow uptake. 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 Mr Stevens had Port a Cath placement in the left subclavian vein per Dr Rosa on 07/12/2019. He began his first cycle of carboplatin/Taxol/Herceptin on 07/15/2019. He was also found to be iron deficient and received Injectafer on 07/12/2019 & 07/29/2019. Plan: 1. Proceed with cycle 2-day 1 carboplatin paclitaxel Herceptin. Steroid compliance confirmed with Mrs Stevens. 2. He has been prior authorized to receive Neupogen for 3 days starting the day after the chemotherapy. I did request a CBC on day 3 of the Neupogen just to see what his white count is doing. Otherwise we will plan to check a CBC CMP type and ask on him in 1 week. I did request a type and cross as his hemoglobin today is 9 which is down from last week at which time it was 10. 3. Labs from August 16, 2019 were reviewed in detail with Mrs. Galvan and a copy was given to her. White count 4.1, hemoglobin 9, platelets 203,000, ANC is 2100. Creatinine is 1.3 which is stable, random glucose is 138. LFTs are normal. 4. We will plan to follow-up with Mr. Stevens in 1 week with repeat CBC CMP prior to that visit. He has been having in-home labs drawn. 5. Mrs. Stevens was instructed to contact us in the interim should questions or problems arise. Signed By: Harsha Taylor-, AOCNSouleymane Tuttle MD <<Signature on File>>
[2019-08-20 11:42] LABS: Basophils # 0.1 10^3/uL (0.0-0.1); Basophils % 0.4 %; Eosinophils # 0.3 10^3/uL (0.0-0.8); Eosinophils % 1.3 %; Hematocrit 33.1 % (42.0-52.0); Hemoglobin 10.1 g/dL (11.7-16.6); Lymphocytes % 8.5 %; Mean Corpuscular HGB Conc 30.5 g/dL (30.0-36.0); Mean Corpuscular Hemoglobin 27.5 pg (28.0-34.0); Mean Corpuscular Volume 90.2 fL (80-94); Mean Platelet Volume 10.2 fL (7.4-10.4); Monocytes # 0.3 10^3/uL (0.2-0.9); Monocytes % 1.2 %; Neutrophils # 18.8 10^3/uL (1.8-7.7); Neutrophils % 79.5 %; Nucleated Red Blood Cells % 0 %; Platelet Count 224 10^3/cmm (130-400); Red Blood Count 3.67 10^6/uL (4.1-5.3); Red Cell Distribution Width 26.2 % (12.1-15.1); White Blood Count 23.6 10^3/uL (4.0-10.0)
[2019-08-20 12:04] LABS: Slide Review Slide Review Perform
[2019-08-20 12:05] LABS: Absolute Eosinophils 0.2 10^3/cmm (0.0-0.7); Absolute Segmented Neutrophil 13.6 10/cmm (1.6-7.1); Anisocytosis 1+; Eosinophils 1 %; Lymphocytes 3 %; Lymphocytes Absolute 1.2 10^3/cmm (1.2-3.4); Platelet Estimate Normal (Normal); Polychromasia Trace; Segmented Neutrophils 58 %; Total Cells Counted 100 (0-100)
[2019-08-23 16:13] LABS: Basophils % 0.5 %; Eosinophils # 0.3 10^3/uL (0.0-0.8); Eosinophils % 6.3 %; Hematocrit 33.5 % (42.0-52.0); Hemoglobin 10.1 g/dL (11.7-16.6); Lymphocytes # 1.6 10^3/uL (0.8-4.8); Lymphocytes % 38.1 %; Mean Corpuscular HGB Conc 30.1 g/dL (30.0-36.0); Mean Corpuscular Hemoglobin 28.2 pg (28.0-34.0); Mean Corpuscular Volume 93.6 fL (80-94); Mean Platelet Volume 10.3 fL (7.4-10.4); Monocytes # 0.4 10^3/uL (0.2-0.9); Monocytes % 9.2 %; Neutrophils # 1.9 10^3/uL (1.8-7.7); Neutrophils % 44.5 %; Nucleated Red Blood Cells % 0 %; Platelet Count 266 10^3/cmm (130-400); Red Blood Count 3.58 10^6/uL (4.1-5.3); Red Cell Distribution Width 26.1 % (12.1-15.1); White Blood Count 4.2 10^3/uL (4.0-10.0)
[2019-08-23 16:57] LABS: Slide Review Slide Review Perform
[2019-08-24 09:10] LABS: Alanine Aminotransferase 28 U/L (0-41); Albumin Level 3.2 g/dL (3.5-5.2); Alkaline Phosphatase 94 IU/L (40-130); Anion Gap 22.2 (5-19); Aspartate Amino Transferase 16 U/L (0-40); Blood Urea Nitrogen 24 mg/dL (8-23); Calcium 9.4 mg/dL (8.5-10.5); Carbon Dioxide 19 mmol/L (22-29); Chloride 98 mmol/L (98-107); Globulin 3.3 g/dL (1.3-4.6); Glucose 351 mg/dL (65-115); Potassium 5.2 mmol/L (3.5-5.1); Sodium 134 mmol/L (136-145); Total Bilirubin 0.3 mg/dL (0.15-1.2); Total Protein 6.5 g/dL (6.6-8.7)
[2019-08-24] MEDS: acetaminophen 325 mg Tablet 650 MG PO (10:10)
[2019-08-24] MEDS: sodium chloride 0.9% 250 ML 75 ML IV (10:15)
--- NOTE | 2019-08-24 11:08 | ONC FU_ITS ---
Dr. Tuttle follow up note Patient: Rodney [place] Unit #: [id number]: [id number] Dicatated By: Yana Tuttle M.D.Date of Visit:Aug 24, 2019 Onc Med Follow-up/Prog Note History of Present Illness: Mr. Stevens is a 78-year-old gentleman with history of progressive dysphagia and weight loss. 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 A biopsy was obtained at [place], [place] on 05/21/2019. 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 Mr Stevens underwent CT scan of chest abdomen on 05/18/2019 which showed dilated thoracic esophagus with gross appearance of marked wall thickening as well as dilatation of distal segment of thoracic esophagus. No thoracic lymphadenopathy by size criteria. No evidence of distant metastatic disease, As per patient in the beginning he had dysphagia to solid food now can tolerate liquids only. Denied any hematemesis or hemoptysis, denied any jaundice, denied any aspiration or regurgitation. Mr Stevens has smoked about pack a day for many years. [place] lives [place] north of [place] and lives with elderly . Mr Stevens has elected to try chemotherapy alone. He has been offered chemotherapy with weekly carboplatin/Taxol/Herceptin. He did have baseline echocardiogram for the Herceptin on 06/24/2019 which reported left ventricular ejection fraction estimated at 65%. He had normal left ventricular systolic function no regional wall motion abnormalities there is a grade I/IV diastolic function, normal to mildly elevated filling pressures. No aortic valve stenosis and mild aortic valve regurgitation. He did also have PET CT imaging on 06/25/2019 at [facility]. This did report hypermetabolic circumferential mural thickening involving the distal esophagus extending approximately 10 cm proximal to the gastroesophageal junction from T11???T8 with maximum SUV of 24. A small amount of hyper metabolic mass extension into the gastric cardia is not fully excluded. Upstream esophagus appears fluid-filled and patulous. There were no discrete hypermetabolic pulmonary nodules. There is mild dependent atelectasis with trace bilateral pleural fluid collection without hypermetabolic pleural thickening. There was reported calcified mediastinal and hilar granulous with normal size mildly hypermetabolic bilateral hilar lymph nodes, medical billing representative right hilar lymph node maximum SUV 2.7. Additional hypermetabolic left hilar lymph node 0.8 x 1.2 cm with a max SUV of 2.5. 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 There were no hypermetabolic hepatic lesions. There was Extavia of the infrarenal abdominal aorta measuring up to 2.7 cm. No ascites or peritoneal/serosa nodularity. There was hyper metabolic gastrohepatic ligament lymph node 1.7 x 1.8 cm with a max SUV of 3.9. No additional hypermetabolic lymph nodes were seen within the abdomen or pelvis. There was prostamegaly without focal hypermetabolic prostate lesion. Muscle skeletal there was diffuse bone marrow hyper metabolism without focal lytic or blastic osseous lesion identified suggesting pathologic marrow uptake. 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 He did have Port a Cath placement in the left subclavian vein per Dr Rosa on 07/12/2019. Mr Stevens started on his first chemotherapy with weekly carboplatin/Taxol and Herceptin on 07/15/2019. He has tolerated it well overall. Came for follow-up, denies any specific complaint except generalized weakness and fatigue but no nausea vomiting or diarrhea no constipation no dysphagia tolerating orally well denies any shortness of breath or palpitation at rest denies any peripheral numbness. Tolerating systemic chemotherapy with carboplatin/Taxol/Herceptin well. Medications: Advair Diskus 2 Puff(s) (of 250-50 mcg/dose) Aerosol Powder, Breath Activated Inhalation daily, Albuterol Sulfate 1 ((2.5 mg/3ml) 0.083%) Nebulization solution Inhalation daily PRN, Simvastatin 1 Tablet (of 40 mg) Oral daily, Spiriva HandiHaler 1 Capsule (of 18 mcg) Inhalation daily, Tamsulosin HCl 1 Capsule (of 0.4 mg) Oral daily Allergies: No Known Allergies. Review of Systems: Constitutional - Appetite is improved and weight is decreasing. No fever, chills, hot flashes, or night sweats. Energy level is poor, ENMT - No sinus congestion/drainage. No mouth sores. No sore throat or difficulty swallowing, Hematologic/Lymphatic - No abnormal bruising or bleeding, Respiratory - No shortness of breath. No cough. No pleuritic pain or hemoptysis, Cardiovascular - No angina pain. No palpitations, Gastrointestinal - No nausea or vomiting. No heartburn or acid reflux, Genitourinary (M) - No dysuria or hematuria. No urinary frequency. No urgency or incontinence, Musculoskeletal - No joint or bone pain, Neurologic - No headache or dizziness. No numbness/paresthesias or other focal neurologic symptoms, Psychiatric - No anxiety or depression. No insomnia. Vital Signs: Performed on Aug 24, 2019 09:22 Height - 67.00 in Weight - 173.6 lbs (HIGH) BSA - 1.90 sq.m BMI - 27.19 Temperature - 97.2 F (LOW) Pulse - 107 /min (HIGH) Respiration - 16 /min BP - 136/78 mm(hg) O2 Sat - 94 % (LOW) Pain - 0 Fatigue - 0 Performance Status: 1 - No physically strenuous activity, but ambulatory and able to carry out light or sedentary work (e.g. office work, light house work). (ECOG) Physical Examination: ENMT - No oral exudates, ulcers, masses, thrush or mucositis. Oropharynx clear. Tongue normal, Respiratory - Lungs are clear to auscultation without rhonchi or wheezing, Cardiovascular - Regular rate and rhythm of heart, Abdomen - Non-tender, non-distended, Good bowel sounds. No guarding or rebound tenderness. No pulsatile masses, Extremities - no edema. Lab/Imaging: Test performed on Aug 24, 2019 08:26 Sodium 134 mmol/L Potassium 5.2 mmol/L Chloride 98 mmol/L CO2 19 mmol/L Anion Gap 22.2 BUN 24 mg/dL Creatinine 1.5 mg/dL Cr Clearance (Est) 45.8600 mL/min Glucose 351 mg/dL Calcium 9.4 mg/dL Protein, Total 6.5 g/dL Albumin 3.2 g/dL Globulin 3.3 g/dL Bilirubin, Total 0.3 mg/dL ALT (SGPT) 28 U/L AST (SGOT) 16 U/L Alkaline Phosphatase 94 IU/L Test performed on Aug 16, 2019 11:30 WBC 4.1 10 3/uL RBC 3.39 10 6/uL HGB 9.0 g/dL HCT 30.3 % MCV 89.4 fL MCH 26.5 pg MCHC 29.7 g/dL RDW 26.5 % Platelet Count 203 10 3/cmm MPV 10.6 fL Neutrophils 2.1 10 3/uL Lymphocytes 1.5 10 3/uL Monocytes 0.3 10 3/uL Eosinophils 0.2 10 3/uL Basophils 0.0 10 3/uL Neutrophil % 51.1 % Lymphocyte % 36.1 % Monocyte % 7.6 % Eosinophil % 4.2 % Basophils % 0.5 % Test performed on Jul 21, 2019 09:35 Ferritin 35 ng/mL Iron, Total 15 mcg/dL % Iron Saturation 6.4 % TIBC 231 mcg/dL Test performed on Jul 14, 2019 08:10 Manual Lymphocytes 9.8 % Manual Monocytes 4.2 % Manual Eosinophils 1.4 % Manual Basophils 0.3 % NRBCs 0.0 /100 WBC Test performed on Jun 10, 2019 11:05 Packed Red Cells (PRBC) [id number] TRANSFUSED PRODUCT: LEUKOREDUCED RED CELL 1ST CONT COUNT: 2 Type & Screen BLD TYPE A POSITIVE AB SCREEN GEL NEGATIVE Test performed on Jun 10, 2019 08:05 Vitamin B12 465 pg/mL UIBC 258 ug/dL Test performed on Jun 09, 2019 08:05 ABO & Rh Type # 2 A POSITIVE Impression: 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 CT scan of chest abdomen done on 05/18/2019 showed no thoracic lymphadenopathy by size criteria Dilated thoracic esophagus with gross appearance of marked wall thickening as well as dilatation of distal segment of thoracic esophagus no evidence of distant metastatic disease. Progressive dysphagia and weight loss due to above Chronic smoking, still active Clinically, patient is doing reasonably well now with progressive dysphagia due to newly diagnosed esophageal cancer. he said he did talk to his family and now have decided to pursue with chemotherapy alone and will go from there. Considering his age and comorbid condition and social issues e.g. living 60 miles away from [place] with elderly , he would prefer chemotherapy alone in the office but not radiation therapy. Patient was reminded in the standard of care is combined chemoradiation followed by surgery if possible otherwise chemotherapy is palliative only. Considering his age and performance status, recommended weekly carboplatin Taxol and Herceptin. did also discuss about role of G-tube placement but patient declined. Mr Rodney is prediabetic so we'll also consider diabetes teaching and may consider sliding scale if he develops hyperglycemia due to steroids. He did have baseline echocardiogram for the Herceptin on 06/24/2019 which reported left ventricular ejection fraction estimated at 65%. He had normal left ventricular systolic function no regional wall motion abnormalities there is a grade I/IV diastolic function, normal to mildly elevated filling pressures. No aortic valve stenosis and mild aortic valve regurgitation. He did also have PET CT imaging on 06/25/2019 at [facility]. This did report hypermetabolic circumferential mural thickening involving the distal esophagus extending approximately 10 cm proximal to the gastroesophageal junction from T11???T8 with maximum SUV of 24. A small amount of hyper metabolic mass extension into the gastric cardia is not fully excluded. Upstream esophagus appears fluid-filled and patulous. There were no discrete hypermetabolic pulmonary nodules. There is mild dependent atelectasis with trace bilateral pleural fluid collection without hypermetabolic pleural thickening. There was reported calcified mediastinal and hilar granulous with normal size mildly hypermetabolic bilateral hilar lymph nodes, medical billing representative right hilar lymph node maximum SUV 2.7. Additional hypermetabolic left hilar lymph node 0.8 x 1.2 cm with a max SUV of 2.5. 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 There were no hypermetabolic hepatic lesions. There was Extavia of the infrarenal abdominal aorta measuring up to 2.7 cm. No ascites or peritoneal/serosa nodularity. There was hyper metabolic gastrohepatic ligament lymph node 1.7 x 1.8 cm with a max SUV of 3.9. No additional hypermetabolic lymph nodes were seen within the abdomen or pelvis. There was prostamegaly without focal hypermetabolic prostate lesion. Muscle skeletal there was diffuse bone marrow hyper metabolism without focal lytic or blastic osseous lesion identified suggesting pathologic marrow uptake. 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 Mr Stevens had Port a Cath placement in the left subclavian vein per Dr Rosa on 07/12/2019. He began his first cycle of carboplatin/Taxol/Herceptin on 07/15/2019. He was also found to be iron deficient and received Injectafer on 07/12/2019 & 07/29/2019. Plan: Discussed with patient regarding his labs white blood count 4.2 hemoglobin 10.1 crit 33.5 platelets 266,000 ANC 1900 CMP within normal limit except potassium 5.2 glucose 351 and creatinine 1.5 , Clinically, patient is doing reasonably well, we'll proceed with next schedule dose of weekly carboplatin/Taxol/Herceptin today and then daily Neupogen for 3 days starting tomorrow, patient and his are concerned about daily long trip for Neupogen [place], we will try to get Neupogen injection in [place] per his convenience and then he will return to clinic in 1 week with CBC CMP if reasonable for day 15 chemotherapy Mild hyperkalemia probably due to hyperglycemia and oral supplement and mild dehydration. We will discontinue oral potassium and also repeat potassium level after correction of hyperglycemia and dehydration. Patient was advised to monitor his diet and also consider nursing teaching and use sliding scale to control steroid-induced hyperglycemia. Signed By: Yana Tuttle M.D. <<Signature on File>>
[2019-08-24 14:05] LABS: Alanine Aminotransferase 24 U/L (0-41); Albumin Level 3.3 g/dL (3.5-5.2); Alkaline Phosphatase 89 IU/L (40-130); Anion Gap 17.6 (5-19); Aspartate Amino Transferase 13 U/L (0-40); Blood Urea Nitrogen 24 mg/dL (8-23); Calcium 8.7 mg/dL (8.5-10.5); Carbon Dioxide 18 mmol/L (22-29); Chloride 98 mmol/L (98-107); Globulin 2.5 g/dL (1.3-4.6); Glucose 305 mg/dL (65-115); Potassium 4.6 mmol/L (3.5-5.1); Sodium 129 mmol/L (136-145); Total Bilirubin 0.2 mg/dL (0.15-1.2); Total Protein 5.8 g/dL (6.6-8.7)
[2019-08-30 16:43] LABS: Basophils % 0.4 %; Eosinophils # 0.2 10^3/uL (0.0-0.8); Eosinophils % 2.7 %; Hematocrit 33.4 % (42.0-52.0); Hemoglobin 10.2 g/dL (11.7-16.6); Lymphocytes # 1.8 10^3/uL (0.8-4.8); Lymphocytes % 31.2 %; Mean Corpuscular HGB Conc 30.5 g/dL (30.0-36.0); Mean Corpuscular Hemoglobin 27.6 pg (28.0-34.0); Mean Corpuscular Volume 90.3 fL (80-94); Mean Platelet Volume 10.5 fL (7.4-10.4); Monocytes # 0.5 10^3/uL (0.2-0.9); Monocytes % 8.5 %; Neutrophils # 2.8 10^3/uL (1.8-7.7); Neutrophils % 50.1 %; Nucleated Red Blood Cells % 0 %; Platelet Count 228 10^3/cmm (130-400); Red Cell Distribution Width 26.3 % (12.1-15.1); White Blood Count 5.6 10^3/uL (4.0-10.0)
[2019-08-30 17:17] LABS: Alanine Aminotransferase 22 U/L (0-41); Alkaline Phosphatase 107 IU/L (40-130); Anion Gap 16.3 (5-19); Aspartate Amino Transferase 15 U/L (0-40); Blood Urea Nitrogen 18 mg/dL (8-23); Calcium 9.4 mg/dL (8.5-10.5); Carbon Dioxide 25 mmol/L (22-29); Chloride 100 mmol/L (98-107); Globulin 2.7 g/dL (1.3-4.6); Glucose 142 mg/dL (65-115); Potassium 4.3 mmol/L (3.5-5.1); Sodium 137 mmol/L (136-145); Total Bilirubin 0.3 mg/dL (0.15-1.2); Total Protein 5.7 g/dL (6.6-8.7)
[2019-08-30 18:30] LABS: Slide Review Slide Review Perform
[2019-08-31] MEDS: sodium chloride 0.9% 250 ML 75 ML IV (11:22)
[2019-08-31] MEDS: acetaminophen 325 mg Tablet 650 MG PO (11:23)
[2019-08-31] MEDS: pegfilgrastim 6 mg/0.6 mL Kit (onpro) SUBCUT (15:00)
--- NOTE | 2019-09-03 10:01 | ONC FU_ITS ---
[facility] Patient Note Patient: Rodney Langston Unit #: [id number]: 1940 Dictated By: Harsha TaylorDate of Visit: Aug 31, 2019 Onc MED Follow-Up/Prog Note Chief Complaint: Adenocarcinoma of esophagus History of Present Illness: Mr. Stevens is a 78-year-old gentleman with history of progressive dysphagia and weight loss. 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 A biopsy was obtained at [place], [place] on 05/21/2019. 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 Mr Stevens underwent CT scan of chest abdomen on 05/18/2019 which showed dilated thoracic esophagus with gross appearance of marked wall thickening as well as dilatation of distal segment of thoracic esophagus. No thoracic lymphadenopathy by size criteria. No evidence of distant metastatic disease, As per patient in the beginning he had dysphagia to solid food now can tolerate liquids only. Denied any hematemesis or hemoptysis, denied any jaundice, denied any aspiration or regurgitation. Mr Stevens has smoked about pack a day for many years. [place] of [place] and lives with elderly . Mr Stevens has elected to try chemotherapy alone. He has been offered chemotherapy with weekly carboplatin/Taxol/Herceptin. He did have baseline echocardiogram for the Herceptin on 06/24/2019 which reported left ventricular ejection fraction estimated at 65%. He had normal left ventricular systolic function no regional wall motion abnormalities there is a grade I/IV diastolic function, normal to mildly elevated filling pressures. No aortic valve stenosis and mild aortic valve regurgitation. He did also have PET CT imaging on 06/25/2019 at [facility]. This did report hypermetabolic circumferential mural thickening involving the distal esophagus extending approximately 10 cm proximal to the gastroesophageal junction from T11???T8 with maximum SUV of 24. A small amount of hyper metabolic mass extension into the gastric cardia is not fully excluded. Upstream esophagus appears fluid-filled and patulous. There were no discrete hypermetabolic pulmonary nodules. There is mild dependent atelectasis with trace bilateral pleural fluid collection without hypermetabolic pleural thickening. 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 Additional hypermetabolic left hilar lymph node 0.8 x 1.2 cm with a max SUV of 2.5. 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 There were no hypermetabolic hepatic lesions. There was Extavia of the infrarenal abdominal aorta measuring up to 2.7 cm. No ascites or peritoneal/serosa nodularity. There was hyper metabolic gastrohepatic ligament lymph node 1.7 x 1.8 cm with a max SUV of 3.9. No additional hypermetabolic lymph nodes were seen within the abdomen or pelvis. There was prostamegaly without focal hypermetabolic prostate lesion. Muscle skeletal there was diffuse bone marrow hyper metabolism without focal lytic or blastic osseous lesion identified suggesting pathologic marrow uptake. 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 He did have Port a Cath placement in the left subclavian vein per Dr Rosa on 07/12/2019. Mr Stevens started on his first chemotherapy with weekly carboplatin/Taxol and Herceptin on 07/15/2019. He has tolerated it well overall. Mr. Stevens is here today for follow-up. He is due for his weekly carboplatin paclitaxel Herceptin. His last treatment was on August 24, 2019. He has required Neupogen supplementation due to chemo induced neutropenia. This requires him returning to the clinic an additional 3 days a week for the last 2 weeks. He travels over 120 miles per day to receive care here at the clinic. Mrs. Stevnes states that his fatigue has been a lot worse. He is just been more draggy. I suspect that this is because of additional travel that he is required to do to have the Neupogen supplementation. We have been unable to administer the Neupogen closer to home due to insurance criteria. He has no new concerns today. He did answer questions today and was somewhat jovial for him. He denies any pain. He has had no fever or chills. Mrs. Stevens states that he denies any neuropathy, diarrhea or constipation. They do not complain of any bone pain with the Neupogen. Mr. Daly states that his breathing is about the same as always it is no worse. His ECOG is 3. Past Medical History: Chronic obstructive pulmonary disease Dementia Hyperlipidemia Hypertension Stroke Type II diabetes Vitamin b 12 deficiency Past Surgical History: Cholecystectomy Left Subclavian Port a Cath-Dr Rosa [place] [place] in [place] Allergies: No Known Allergies. Medications: Advair Diskus 2 Puff(s) (of 250-50 mcg/dose) Aerosol Powder, Breath Activated Inhalation daily Albuterol Sulfate 1 ((2.5 mg/3ml) 0.083%) Nebulization solution Inhalation daily PRN Simvastatin 1 Tablet (of 40 mg) Oral daily Spiriva HandiHaler 1 Capsule (of 18 mcg) Inhalation daily Tamsulosin HCl 1 Capsule (of 0.4 mg) Oral daily Family History: Mr. Stevens's mother at age 80: colon cancer. Mr. Stevens's father at age 83: leukemia. Mr. Stevens has 2 brothers: 2 . Mr. Stevens's first brother's esophageal cancer. Another brother's lung cancer. Social History: Mr. Stevens is and he is retired. He is a daily smoker who has smoked 1.0 pack/day for 41 years. He has no history of drinking. He has indicated exposure to the following products: cigarettes. Mr. Stevens reports the following support systems: lives with spouse, significant other, family, or friends, lives in own house, supportive family/friends willing to assist with needs, and adequate transportation available for expected visits. His diet consists of liquid diet. He indicates his activity level as: sedentary. Review Of Symptoms: Constitutional Denies fevers, chills, night sweats, excessive fatigue or weight loss. Allergic/Immunologic No reactions. Eyes Denies significant visual changes. No diplopia. No amaurosis. ENMT hard of hearing-chronic. Endocrine No diabetes, thyroid disease or hormone replacement. Denies hot flashes or night sweats. Hematologic/Lymphatic Denies easy bruising or bleeding. The patient denies any tender or palpable lymph nodes. Respiratory Denies dyspnea on exertion, chest pain, cough or hemoptysis. Denies orthopnea. Cardiovascular Denies anginal chest pain, palpitations or orthopnea. Gastrointestinal Denies nausea, vomiting, diarrhea, GI bleeding, or constipation. Denies change in bowel habits and/or stool color, no heartburn or early satiety. Genitourinary (M) Denies hematuria, dysuria, increased frequency, urgency, hesitancy or incontinence. Musculoskeletal Denies joint pain, swelling or redness. No decreased range of motion. Integumentary Denies chronic rashes, inflammation, ulcerations or skin changes. Neurologic continues to require wheelchair for assistance in mobility. Psychiatric Denies insomnia, depression, cindy or mood swings. Vital Signs: Performed on Aug 31, 2019 10:40 Height - 67.00 in Weight - 170.6 lbs (LOW) BSA - 1.89 sq.m BMI - 26.72 Temperature - 97.5 F (LOW) Pulse - 114 /min (HIGH) Respiration - 20 /min BP - 136/71 mm(hg) O2 Sat - 97 % Pain - 0 Fatigue - 0,3 - Capable of only limited self-care, confined to bed or chair more than 50% of waking hours. (ECOG) Physical Examination: Constitutional Alert, oriented, no acute distress. Skin pink, warm and dry. Head Normocephalic; atraumatic. Eyes Conjunctivae and sclerae are clear and without icterus. Pupils are reactive and equal. ENMT No oral exudates, ulcers, masses, thrush or mucositis. Extremely hard of hearing. Neck Supple without masses or thyromegaly. No jugular venous distension. Hematologic/Lymphatic No petechiae or purpura. No tender or palpable lymph nodes in the cervical or supraclavicular areas. Respiratory Lungs are clear to auscultation without rhonchi or wheezing. Cardiovascular Regular rate and rhythm of heart without murmurs,clicks, gallops or rubs. Chest Left subclavian venous access device insertion site is unremarkable. Abdomen Non-tender, non-distended, no masses or ascites. Good bowel sounds noted in all quads. No guarding or rebound tenderness. No pulsatile masses. Back/Spine Non-tender to palpation. Extremities No visible deformities, no cyanosis, clubbing or edema. Musculoskeletal No tenderness or swelling. Integumentary No rashes or lesions. Neurologic No sensory or motor deficits, normal cerebellar function, presents in a wheelchair today-gait not assessed. Transferred from wheelchair to chemo chair with no abnormality. Psychiatric Alert and oriented times three. Coherent speech. Verbalizes understanding of our discussions today. Laboratory:Test performed on Aug 30, 2019 11:05 Creatinine 1.3 mg/dL Cr Clearance (Est) 52.92 mL/min Test performed on Aug 30, 2019 10:50 Sodium 137 mmol/L Potassium 4.3 mmol/L Chloride 100 mmol/L CO2 25 mmol/L Anion Gap 16.3 BUN 18 mg/dL Glucose 142 mg/dL Calcium 9.4 mg/dL Protein, Total 5.7 g/dL Albumin 3.0 g/dL Globulin 2.7 g/dL Bilirubin, Total 0.3 mg/dL ALT (SGPT) 22 U/L AST (SGOT) 15 U/L Alkaline Phosphatase 107 IU/L Test performed on Aug 30, 2019 09:00 WBC 5.6 10 3/uL RBC 3.70 10 6/uL HGB 10.2 g/dL HCT 33.4 % MCV 90.3 fL MCH 27.6 pg MCHC 30.5 g/dL RDW 26.3 % Platelet Count 228 10 3/cmm MPV 10.5 fL Neutrophils 2.8 10 3/uL Lymphocytes 1.8 10 3/uL Monocytes 0.5 10 3/uL Eosinophils 0.2 10 3/uL Basophils 0.0 10 3/uL Neutrophil % 50.1 % Lymphocyte % 31.2 % Monocyte % 8.5 % Eosinophil % 2.7 % Basophils % 0.4 % CBC Slide Review Slide Review Perform Test performed on Aug 20, 2019 11:20 Manual Bands % 34.0 % Manual Lymphs % 3 % Atypical Lymphs % 2.0 % Metamyelocytes % 2.0 % Polychromasia Trace Anisocytosis 1+ Manual Bands Abs 8.0 10 3/cmm Manual Lymphocytes Abs 1.2 10 3/cmm Manual Eosinophils Abs 0.2 10 3/cmm Test performed on Jul 21, 2019 09:35 Ferritin 35 ng/mL Iron, Total 15 mcg/dL % Iron Saturation 6.4 % TIBC 231 mcg/dL Test performed on Jul 14, 2019 08:10 Manual Monocytes 4.2 % Manual Eosinophils 1.4 % Manual Basophils 0.3 % NRBCs 0.0 /100 WBC Test performed on Jun 10, 2019 11:05 Packed Red Cells (PRBC) [id number] TRANSFUSED PRODUCT: LEUKOREDUCED RED CELL 1ST CONT COUNT: 2 Type & Screen BLD TYPE A POSITIVE AB SCREEN GEL NEGATIVE Test performed on Jun 10, 2019 08:05 Vitamin B12 465 pg/mL UIBC 258 ug/dL Test performed on Jun 09, 2019 08:05 ABO & Rh Type # 2 A POSITIVE Impression: 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 CT scan of chest abdomen done on 05/18/2019 showed no thoracic lymphadenopathy by size criteria Dilated thoracic esophagus with gross appearance of marked wall thickening as well as dilatation of distal segment of thoracic esophagus no evidence of distant metastatic disease. Progressive dysphagia and weight loss due to above Chronic smoking, still active Clinically, patient is doing reasonably well now with progressive dysphagia due to newly diagnosed esophageal cancer. he said he did talk to his family and now have decided to pursue with chemotherapy alone and will go from there. Considering his age and comorbid condition and social issues e.g. living 60 miles away from [place] with elderly , he would prefer chemotherapy alone in the office but not radiation therapy. Patient was reminded in the standard of care is combined chemoradiation followed by surgery if possible otherwise chemotherapy is palliative only. Considering his age and performance status, recommended weekly carboplatin Taxol and Herceptin. did also discuss about role of G-tube placement but patient declined. Mr Stevens is prediabetic so we'll also consider diabetes teaching and may consider sliding scale if he develops hyperglycemia due to steroids. He did have baseline echocardiogram for the Herceptin on 06/24/2019 which reported left ventricular ejection fraction estimated at 65%. He had normal left ventricular systolic function no regional wall motion abnormalities there is a grade I/IV diastolic function, normal to mildly elevated filling pressures. No aortic valve stenosis and mild aortic valve regurgitation. He did also have PET CT imaging on 06/25/2019 at [facility]. This did report hypermetabolic circumferential mural thickening involving the distal esophagus extending approximately 10 cm proximal to the gastroesophageal junction from T11???T8 with maximum SUV of 24. A small amount of hyper metabolic mass extension into the gastric cardia is not fully excluded. Upstream esophagus appears fluid-filled and patulous. There were no discrete hypermetabolic pulmonary nodules. There is mild dependent atelectasis with trace bilateral pleural fluid collection without hypermetabolic pleural thickening. 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 Additional hypermetabolic left hilar lymph node 0.8 x 1.2 cm with a max SUV of 2.5. 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 There were no hypermetabolic hepatic lesions. There was Extavia of the infrarenal abdominal aorta measuring up to 2.7 cm. No ascites or peritoneal/serosa nodularity. There was hyper metabolic gastrohepatic ligament lymph node 1.7 x 1.8 cm with a max SUV of 3.9. No additional hypermetabolic lymph nodes were seen within the abdomen or pelvis. There was prostamegaly without focal hypermetabolic prostate lesion. Muscle skeletal there was diffuse bone marrow hyper metabolism without focal lytic or blastic osseous lesion identified suggesting pathologic marrow uptake. 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 Mr Stevens had Port a Cath placement in the left subclavian vein per Dr Rosa on 07/12/2019. He began his first cycle of carboplatin/Taxol/Herceptin on 07/15/2019. He was also found to be iron deficient and received Injectafer on 07/12/2019 & 07/29/2019. He has required Neupogen support for chemo induced neutropenia with the last cycle of chemotherapy. He has been receiving Neupogen for 3 days starting day 2. This has allowed his counts to remain adequate to continue on treatment as scheduled. Plan: 1. Proceed with cycle 2-day 15 carboplatin paclitaxel Herceptin. Steroid compliance confirmed with Mrs Stevens. 2. He has been prior authorized to receive Neupogen for 3 days starting the day after the chemotherapy. I did request a Prior authorization for Neulasta as this is day 15. He is off next week. I would like to have him have Neulasta as I feel that his traveling the additional 3 days a week for Neupogen injections is starting to have a impact on his performance status in relation to his significant fatigue. Administering the Neulasta OnPro today would alleviate 3 trips for him this week. 3. Labs from August 30, 2019 were reviewed in detail with Mrs. Galvan and a copy was given to her. White count 5.6, hemoglobin 10.2, platelets 228,000, ANC is 2800. Creatinine is 1.3 which is stable, random glucose is 142. LFTs are normal. 4. We will plan to follow-up with Mr. Stevens in 2 weeks with repeat CBC CMP prior to that visit. He has been having in-home labs drawn. 5. Mrs. Stevens was instructed to contact us in the interim should questions or problems arise. Signed By: Harsha Taylor-, AOCNP Yana Tuttle MD <<Signature on File>>
== END 2019-09-04 23:59 | disposition home or self-care (01) ==
LOC: ONCMED 05:44
PROVIDERS: Internal Medicine Hematology & Oncology; Family Provider Physician Assistant Medical; PCP Physician Assistant Medical; Visit Provider Nurse Practitioner
DX: Z51.12 Encounter for antineoplastic immunotherapy (principal); Z51.11 Encounter for antineoplastic chemotherapy; C15.4 Malignant neoplasm of middle third of esophagus; D70.1 Agranulocytosis secondary to cancer chemotherapy; T45.1X5A Adverse effect of antineoplastic and immunosuppressive drugs, initial encounter; Z45.2 Encounter for adjustment and management of vascular access device; F17.210 Nicotine dependence, cigarettes, uncomplicated; I35.1 Nonrheumatic aortic (valve) insufficiency; R73.03 Prediabetes; D50.9 Iron deficiency anemia, unspecified; N40.0 Benign prostatic hyperplasia without lower urinary tract symptoms; J43.9 Emphysema, unspecified; F03.90 Unspecified dementia, unspecified severity, without behavioral disturbance, psychotic disturbance, mood disturbance, and anxiety; E78.5 Hyperlipidemia, unspecified; I10 Essential (primary) hypertension; E53.8 Deficiency of other specified B group vitamins; Z79.51 Long term (current) use of inhaled steroids; Z86.73 Personal history of transient ischemic attack (TIA), and cerebral infarction without residual deficits
CPT/HCPCS: 36415; 80053; 85007; 85025; 96367; 96372; 96413; 96417; 96523; 99214; G0463; J1100; J1200; J1442; J1815; J2469; J2505; J3490; J7030; J7050; J9045; J9267; J9355

== ENCOUNTER 2019-09-28 13:35 | Outpatient (REF) | payer MEDICARE, MEDICAID, SELFPAY ==
[2019-09-28 14:12] LABS: Basophils % 0.2 %; Eosinophils # 0.3 10^3/uL (0.0-0.8); Eosinophils % 4.5 %; Hematocrit 35.2 % (42.0-52.0); Lymphocytes # 2.2 10^3/uL (0.8-4.8); Lymphocytes % 39.4 %; Mean Corpuscular HGB Conc 31.3 g/dL (30.0-36.0); Mean Corpuscular Hemoglobin 30.5 pg (28.0-34.0); Mean Corpuscular Volume 97.5 fL (80-94); Mean Platelet Volume 10.5 fL (7.4-10.4); Monocytes # 0.4 10^3/uL (0.2-0.9); Monocytes % 7.7 %; Neutrophils # 2.6 10^3/uL (1.8-7.7); Neutrophils % 47.1 %; Nucleated Red Blood Cells % 0 %; Platelet Count 160 10^3/cmm (130-400); Red Blood Count 3.61 10^6/uL (4.1-5.3); White Blood Count 5.6 10^3/uL (4.0-10.0)
[2019-09-28 14:28] LABS: Alanine Aminotransferase 25 U/L (0-41); Albumin Level 3.5 g/dL (3.5-5.2); Alkaline Phosphatase 95 IU/L (40-130); Anion Gap 14.8 (5-19); Aspartate Amino Transferase 16 U/L (0-40); Blood Urea Nitrogen 18 mg/dL (8-23); Calcium 9.3 mg/dL (8.5-10.5); Carbon Dioxide 27 mmol/L (22-29); Chloride 104 mmol/L (98-107); Globulin 1.9 g/dL (1.3-4.6); Glucose 97 mg/dL (65-115); Osmolality Calculated 288 mOsm/kg (285-295); Potassium 4.8 mmol/L (3.5-5.1); Sodium 141 mmol/L (136-145); Total Bilirubin 0.3 mg/dL (0.15-1.2); Total Protein 5.4 g/dL (6.6-8.7)
== END 2019-09-28 13:36 | disposition home or self-care (01) ==
LOC: LAB 13:35
PROVIDERS: Family Provider Physician Assistant Medical; PCP Physician Assistant Medical; Visit Provider Nurse Practitioner
DX: C15.4 Malignant neoplasm of middle third of esophagus (principal); Z51.81 Encounter for therapeutic drug level monitoring; Z79.899 Other long term (current) drug therapy; D69.6 Thrombocytopenia, unspecified
CPT/HCPCS: 36415; 80053; 85025

== ENCOUNTER 2019-10-05 13:10 | Outpatient (RCR) | payer MEDICARE, MEDICAID, SELFPAY ==
[2019-09-06 16:55] LABS: Basophils # 0.2 10^3/uL (0.0-0.1); Basophils % 0.7 %; Eosinophils # 0.1 10^3/uL (0.0-0.8); Eosinophils % 0.5 %; Hematocrit 36.7 % (42.0-52.0); Hemoglobin 11.2 g/dL (11.7-16.6); Lymphocytes # 2.6 10^3/uL (0.8-4.8); Lymphocytes % 10.3 %; Mean Corpuscular HGB Conc 30.5 g/dL (30.0-36.0); Mean Corpuscular Hemoglobin 28.1 pg (28.0-34.0); Mean Corpuscular Volume 92.2 fL (80-94); Mean Platelet Volume 10.7 fL (7.4-10.4); Monocytes # 1.4 10^3/uL (0.2-0.9); Monocytes % 5.3 %; Neutrophils # 19.1 10^3/uL (1.8-7.7); Nucleated Red Blood Cells % 0 %; Platelet Count 321 10^3/cmm (130-400); Red Blood Count 3.98 10^6/uL (4.1-5.3); White Blood Count 25.5 10^3/uL (4.0-10.0)
[2019-09-06 17:45] LABS: Slide Review Slide Review Perform
[2019-09-06 19:27] LABS: Alanine Aminotransferase 26 U/L (0-41); Albumin Level 3.4 g/dL (3.5-5.2); Alkaline Phosphatase 213 IU/L (40-130); Anion Gap 19.2 (5-19); Aspartate Amino Transferase 19 U/L (0-40); Blood Urea Nitrogen 17 mg/dL (8-23); Calcium 9.3 mg/dL (8.5-10.5); Carbon Dioxide 24 mmol/L (22-29); Chloride 100 mmol/L (98-107); Globulin 2.4 g/dL (1.3-4.6); Glucose 53 mg/dL (65-115); Potassium 4.2 mmol/L (3.5-5.1); Sodium 139 mmol/L (136-145); Total Bilirubin 0.2 mg/dL (0.15-1.2); Total Protein 5.8 g/dL (6.6-8.7)
[2019-09-07] MEDS: acetaminophen 325 mg Tablet 650 MG PO (15:40)
[2019-09-07] MEDS: sodium chloride 0.9% 250 ML 75 ML IV (15:40)
--- NOTE | 2019-09-12 14:58 | ONC FU_ITS ---
[facility] Patient Note Patient: Rodney [place] Unit #: [id number]: 1940 Dictated By: Harsha TaylorDate of Visit: Sep 07, 2019 Onc MED Follow-Up/Prog Note Chief Complaint: Adenocarcinoma of esophagus History of Present Illness: Mr. Stevens is a 78-year-old gentleman with history of progressive dysphagia and weight loss. 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 A biopsy was obtained at [place], [place] on 05/21/2019. 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 Mr Stevens underwent CT scan of chest abdomen on 05/18/2019 which showed dilated thoracic esophagus with gross appearance of marked wall thickening as well as dilatation of distal segment of thoracic esophagus. No thoracic lymphadenopathy by size criteria. No evidence of distant metastatic disease, As per patient in the beginning he had dysphagia to solid food now can tolerate liquids only. Denied any hematemesis or hemoptysis, denied any jaundice, denied any aspiration or regurgitation. Mr Stevens has smoked about pack a day for many years. [place] north of [place] and lives with elderly . Mr Stevens has elected to try chemotherapy alone. He has been offered chemotherapy with weekly carboplatin/Taxol/Herceptin. He did have baseline echocardiogram for the Herceptin on 06/24/2019 which reported left ventricular ejection fraction estimated at 65%. He had normal left ventricular systolic function no regional wall motion abnormalities there is a grade I/IV diastolic function, normal to mildly elevated filling pressures. No aortic valve stenosis and mild aortic valve regurgitation. He did also have PET CT imaging on 06/25/2019 at [facility]. This did report hypermetabolic circumferential mural thickening involving the distal esophagus extending approximately 10 cm proximal to the gastroesophageal junction from T11???T8 with maximum SUV of 24. A small amount of hyper metabolic mass extension into the gastric cardia is not fully excluded. Upstream esophagus appears fluid-filled and patulous. There were no discrete hypermetabolic pulmonary nodules. There is mild dependent atelectasis with trace bilateral pleural fluid collection without hypermetabolic pleural thickening. There was reported calcified mediastinal and hilar granulous with normal size mildly hypermetabolic bilateral hilar lymph nodes, bilingual inside sales representative right hilar lymph node maximum SUV 2.7. Additional hypermetabolic left hilar lymph node 0.8 x 1.2 cm with a max SUV of 2.5. 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 There were no hypermetabolic hepatic lesions. There was Extavia of the infrarenal abdominal aorta measuring up to 2.7 cm. No ascites or peritoneal/serosa nodularity. There was hyper metabolic gastrohepatic ligament lymph node 1.7 x 1.8 cm with a max SUV of 3.9. No additional hypermetabolic lymph nodes were seen within the abdomen or pelvis. There was prostamegaly without focal hypermetabolic prostate lesion. Muscle skeletal there was diffuse bone marrow hyper metabolism without focal lytic or blastic osseous lesion identified suggesting pathologic marrow uptake. 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 He did have Port a Cath placement in the left subclavian vein per Dr Rosa on 07/12/2019. Mr Stevens started on his first chemotherapy with weekly carboplatin/Taxol and Herceptin on 07/15/2019. He has tolerated it well overall. Mr. Stevens is here today for follow-up. He is due for his weekly carboplatin paclitaxel Herceptin. His last treatment was on August 31, 2019. He did not have Neupogen after that visit as it was day 15 and he was given Neulasta instead. He is here today for Herceptin only. He has no new concerns. Mrs. Alcocer states that he has been very very tired and washed out. She states that the extra trips for the Neupogen does seem to have worn him out and has not yet recovered. She states he has had no new pain. He is eating just very minimal. She states his appetite is not good currently. They are not interested in pursuing anything for appetite stimulation at this point. We did discuss supplementing with Ensure or boost and they do seem willing to do this. His activity remains very limited. She denies that he has had any diarrhea or constipation. She denies any nausea or vomiting. He denies any neuropathy type symptoms. He denied any bone pain with the Neulasta. His ECOG is 3. Past Medical History: Chronic obstructive pulmonary disease Dementia Hyperlipidemia Hypertension Stroke Type II diabetes Vitamin b 12 deficiency Past Surgical History: Cholecystectomy Left Subclavian Port a Cath-Dr Rosa ([facility] [place]) in 2019 Allergies: No Known Allergies. Medications: Advair Diskus 2 Puff(s) (of 250-50 mcg/dose) Aerosol Powder, Breath Activated Inhalation daily Albuterol Sulfate 1 ((2.5 mg/3ml) 0.083%) Nebulization solution Inhalation daily PRN Simvastatin 1 Tablet (of 40 mg) Oral daily Spiriva HandiHaler 1 Capsule (of 18 mcg) Inhalation daily Tamsulosin HCl 1 Capsule (of 0.4 mg) Oral daily Family History: Mr. Stevens's mother at age 80: colon cancer. Mr. Stevens's father at age 83: leukemia. Mr. Stevens has 2 brothers: 2 . Mr. Stevens's first brother's esophageal cancer. Another brother's lung cancer. Social History: Mr. Stevens is and he is retired. He is a daily smoker who has smoked 1.0 pack/day for 41 years. He has no history of drinking. He has indicated exposure to the following products: cigarettes. Mr. Stevens reports the following support systems: lives with spouse, significant other, family, or friends, lives in own house, supportive family/friends willing to assist with needs, and adequate transportation available for expected visits. His diet consists of liquid diet. He indicates his activity level as: sedentary. Review Of Symptoms: Constitutional Denies fevers, chills, night sweats, excessive fatigue or weight loss. Appetite is poor. Allergic/Immunologic No reactions. Eyes Denies significant visual changes. No diplopia. No amaurosis. ENMT hard of hearing-chronic. Endocrine No diabetes, thyroid disease or hormone replacement. Denies hot flashes or night sweats. Hematologic/Lymphatic Denies easy bruising or bleeding. The patient denies any tender or palpable lymph nodes. Respiratory Denies dyspnea on exertion, chest pain, cough or hemoptysis. Denies orthopnea. Cardiovascular Denies anginal chest pain, palpitations or orthopnea. Gastrointestinal Denies nausea, vomiting, diarrhea, GI bleeding, or constipation. Denies change in bowel habits and/or stool color, no heartburn or early satiety. Genitourinary (M) Denies hematuria, dysuria, increased frequency, urgency, hesitancy or incontinence. Musculoskeletal Denies joint pain, swelling or redness. No decreased range of motion. Integumentary Denies chronic rashes, inflammation, ulcerations or skin changes. Neurologic continues to require wheelchair for assistance in mobility. Psychiatric Denies insomnia, depression, cindy or mood swings. Vital Signs: Performed on Sep 07, 2019 15:08 Height - 67.00 in Weight - 164.4 lbs (LOW) BSA - 1.86 sq.m BMI - 25.75 Temperature - 97.0 F (LOW) Pulse - 113 /min (HIGH) Respiration - 14 /min BP - 118/69 mm(hg) O2 Sat - 96 % Pain - 0,3 - Capable of only limited self-care, confined to bed or chair more than 50% of waking hours. (ECOG) Physical Examination: Constitutional Alert, oriented, no acute distress. Skin pink, warm and dry. Head Normocephalic; atraumatic. Eyes Conjunctivae and sclerae are clear and without icterus. Pupils are reactive and equal. ENMT No oral exudates, ulcers, masses, thrush or mucositis. Extremely hard of hearing. Neck Supple without masses or thyromegaly. No jugular venous distension. Respiratory Lungs are clear to auscultation without rhonchi or wheezing. Cardiovascular Regular rate and rhythm of heart without murmurs,clicks, gallops or rubs. Chest Left subclavian venous access device insertion site is unremarkable. Abdomen Non-tender, non-distended, no masses or ascites. Good bowel sounds noted in all quads. No guarding or rebound tenderness. No pulsatile masses. Back/Spine Non-tender to palpation. Extremities No visible deformities, no cyanosis, clubbing or edema. Musculoskeletal No tenderness or swelling. Integumentary No rashes or lesions. Neurologic No sensory or motor deficits, normal cerebellar function, presents in a wheelchair today-gait not assessed. Psychiatric Alert and oriented times three. Coherent speech. Verbalizes understanding of our discussions today. Laboratory:see flow sheet and below Impression: 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 CT scan of chest abdomen done on 05/18/2019 showed no thoracic lymphadenopathy by size criteria Dilated thoracic esophagus with gross appearance of marked wall thickening as well as dilatation of distal segment of thoracic esophagus no evidence of distant metastatic disease. Progressive dysphagia and weight loss due to above Chronic smoking, still active Clinically, patient is doing reasonably well now with progressive dysphagia due to newly diagnosed esophageal cancer. he said he did talk to his family and now have decided to pursue with chemotherapy alone and will go from there. Considering his age and comorbid condition and social issues e.g. living 60 miles away from [place] with elderly , he would prefer chemotherapy alone in the office but not radiation therapy. Patient was reminded in the standard of care is combined chemoradiation followed by surgery if possible otherwise chemotherapy is palliative only. Considering his age and performance status, recommended weekly carboplatin Taxol and Herceptin. did also discuss about role of G-tube placement but patient declined. Mr Stevens is prediabetic so we'll also consider diabetes teaching and may consider sliding scale if he develops hyperglycemia due to steroids. He did have baseline echocardiogram for the Herceptin on 06/24/2019 which reported left ventricular ejection fraction estimated at 65%. He had normal left ventricular systolic function no regional wall motion abnormalities there is a grade I/IV diastolic function, normal to mildly elevated filling pressures. No aortic valve stenosis and mild aortic valve regurgitation. He did also have PET CT imaging on 06/25/2019 at [facility]. This did report hypermetabolic circumferential mural thickening involving the distal esophagus extending approximately 10 cm proximal to the gastroesophageal junction from T11???T8 with maximum SUV of 24. A small amount of hyper metabolic mass extension into the gastric cardia is not fully excluded. Upstream esophagus appears fluid-filled and patulous. There were no discrete hypermetabolic pulmonary nodules. There is mild dependent atelectasis with trace bilateral pleural fluid collection without hypermetabolic pleural thickening. There was reported calcified mediastinal and hilar granulous with normal size mildly hypermetabolic bilateral hilar lymph nodes, bilingual inside sales representative right hilar lymph node maximum SUV 2.7. Additional hypermetabolic left hilar lymph node 0.8 x 1.2 cm with a max SUV of 2.5. 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 There were no hypermetabolic hepatic lesions. There was Extavia of the infrarenal abdominal aorta measuring up to 2.7 cm. No ascites or peritoneal/serosa nodularity. There was hyper metabolic gastrohepatic ligament lymph node 1.7 x 1.8 cm with a max SUV of 3.9. No additional hypermetabolic lymph nodes were seen within the abdomen or pelvis. There was prostamegaly without focal hypermetabolic prostate lesion. Muscle skeletal there was diffuse bone marrow hyper metabolism without focal lytic or blastic osseous lesion identified suggesting pathologic marrow uptake. 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 Mr Stevens had Port a Cath placement in the left subclavian vein per Dr Rosa on 07/12/2019. He began his first cycle of carboplatin/Taxol/Herceptin on 07/15/2019. He was also found to be iron deficient and received Injectafer on 07/12/2019 & 07/29/2019. He has required Neupogen support for chemo induced neutropenia with the last cycle of chemotherapy. He has been receiving Neupogen for 3 days starting day 2. This has allowed his counts to remain adequate to continue on treatment as scheduled. He did receive Neulast on day 15 of cycle 2. Plan: 1. Proceed with cycle 2-day 22 Herceptin. 2. Labs from September 06, 2019 were reviewed in detail with Mrs. Stevens and a copy was given to her. White count 25.5, hemoglobin 11.2, platelets 321,000, ANC is 19,100. Creatinine is 1.4 which is stable. LFTs are normal. His alkaline phosphatase was elevated to 13 presumably due to the Neulasta shot. 3. We could consider doing Herceptin on a 3-week dosing schedule starting less day 1 to alleviate this day 22 visit and allow him additional time for rest. If this did not seem appropriate we could also consider doing 2-week intervals starting with day 1 and repeated on day 15 again to give him an extra week off to rest and recuperate. 4. We will plan to follow-up with Mr. Stevens in 1 week with repeat CBC CMP prior to that visit. He has been having in-home labs drawn. 5. Mrs. Stevens was instructed to contact us in the interim should questions or problems arise. Signed By: Harsha Taylor-, MATILDE Tuttle MD <<Signature on File>>
[2019-09-13 17:49] LABS: Basophils # 0.1 10^3/uL (0.0-0.1); Basophils % 0.4 %; Eosinophils # 0.2 10^3/uL (0.0-0.8); Hematocrit 36.3 % (42.0-52.0); Hemoglobin 11.3 g/dL (11.7-16.6); Lymphocytes # 2.3 10^3/uL (0.8-4.8); Mean Corpuscular HGB Conc 31.1 g/dL (30.0-36.0); Mean Corpuscular Hemoglobin 29.7 pg (28.0-34.0); Mean Corpuscular Volume 95.5 fL (80-94); Mean Platelet Volume 10.7 fL (7.4-10.4); Monocytes # 0.8 10^3/uL (0.2-0.9); Monocytes % 4.9 %; Neutrophils # 12.1 10^3/uL (1.8-7.7); Neutrophils % 72.7 %; Nucleated Red Blood Cells % 0 %; Platelet Count 185 10^3/cmm (130-400); Red Cell Distribution Width 26.6 % (12.1-15.1); White Blood Count 16.6 10^3/uL (4.0-10.0)
[2019-09-13 19:37] LABS: Alanine Aminotransferase 24 U/L (0-41); Alkaline Phosphatase 109 IU/L (40-130); Anion Gap 13.5 (5-19); Aspartate Amino Transferase 16 U/L (0-40); Blood Urea Nitrogen 14 mg/dL (8-23); Calcium 9.3 mg/dL (8.5-10.5); Carbon Dioxide 27 mmol/L (22-29); Chloride 99 mmol/L (98-107); Globulin 2.7 g/dL (1.3-4.6); Glucose 121 mg/dL (65-115); Osmolality Calculated 277 mOsm/kg (285-295); Potassium 4.5 mmol/L (3.5-5.1); Sodium 135 mmol/L (136-145); Total Bilirubin 0.2 mg/dL (0.15-1.2); Total Protein 5.7 g/dL (6.6-8.7)
[2019-09-13 20:59] LABS: Slide Review Slide Review Perform
[2019-09-14] MEDS: sodium chloride 0.9% 250 ML 75 ML IV (09:30)
[2019-09-14] MEDS: acetaminophen 325 mg Tablet 650 MG PO (09:35)
--- NOTE | 2019-09-14 11:57 | ONC FU_ITS ---
Dr. Tuttle follow up note Patient: Rodney Hecker Unit #: [id number]: 1940 Dicatated By: Yana Tuttle M.D.Date of Visit:Sep 14, 2019 Onc Med Follow-up/Prog Note History of Present Illness: Mr. Stevens is a 78-year-old gentleman with history of progressive dysphagia and weight loss. 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 A biopsy was obtained at [place], [place] on 05/21/2019. 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 Mr Stevens underwent CT scan of chest abdomen on 05/18/2019 which showed dilated thoracic esophagus with gross appearance of marked wall thickening as well as dilatation of distal segment of thoracic esophagus. No thoracic lymphadenopathy by size criteria. No evidence of distant metastatic disease, As per patient in the beginning he had dysphagia to solid food now can tolerate liquids only. Denied any hematemesis or hemoptysis, denied any jaundice, denied any aspiration or regurgitation. Mr Stevens has smoked about pack a day for many years. [place] of [place] and lives with elderly . Mr Stevens has elected to try chemotherapy alone. He has been offered chemotherapy with weekly carboplatin/Taxol/Herceptin. He did have baseline echocardiogram for the Herceptin on 06/24/2019 which reported left ventricular ejection fraction estimated at 65%. He had normal left ventricular systolic function no regional wall motion abnormalities there is a grade I/IV diastolic function, normal to mildly elevated filling pressures. No aortic valve stenosis and mild aortic valve regurgitation. He did also have PET CT imaging on 06/25/2019 at [facility]. This did report hypermetabolic circumferential mural thickening involving the distal esophagus extending approximately 10 cm proximal to the gastroesophageal junction from T11???T8 with maximum SUV of 24. A small amount of hyper metabolic mass extension into the gastric cardia is not fully excluded. Upstream esophagus appears fluid-filled and patulous. There were no discrete hypermetabolic pulmonary nodules. There is mild dependent atelectasis with trace bilateral pleural fluid collection without hypermetabolic pleural thickening. There was reported calcified mediastinal and hilar granulous with normal size mildly hypermetabolic bilateral hilar lymph nodes, office services representative right hilar lymph node maximum SUV 2.7. Additional hypermetabolic left hilar lymph node 0.8 x 1.2 cm with a max SUV of 2.5. 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 There were no hypermetabolic hepatic lesions. There was Extavia of the infrarenal abdominal aorta measuring up to 2.7 cm. No ascites or peritoneal/serosa nodularity. There was hyper metabolic gastrohepatic ligament lymph node 1.7 x 1.8 cm with a max SUV of 3.9. No additional hypermetabolic lymph nodes were seen within the abdomen or pelvis. There was prostamegaly without focal hypermetabolic prostate lesion. Muscle skeletal there was diffuse bone marrow hyper metabolism without focal lytic or blastic osseous lesion identified suggesting pathologic marrow uptake. 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 He did have Port a Cath placement in the left subclavian vein per Dr Rosa on 07/12/2019. Mr Stevens started on his first chemotherapy with weekly carboplatin/Taxol and Herceptin on 07/15/2019. He has tolerated it well overall. Came for follow-up, denies any specific complaints, no dysphagia, no nausea or vomiting, no diarrhea constipation, no shortness of breath, no palpitation, no peripheral numbness tolerating systemic chemotherapy with carboplatin/Taxol/Herceptin well Medications: Advair Diskus 2 Puff(s) (of 250-50 mcg/dose) Aerosol Powder, Breath Activated Inhalation daily, Albuterol Sulfate 1 ((2.5 mg/3ml) 0.083%) Nebulization solution Inhalation daily PRN, Simvastatin 1 Tablet (of 40 mg) Oral daily, Spiriva HandiHaler 1 Capsule (of 18 mcg) Inhalation daily, Tamsulosin HCl 1 Capsule (of 0.4 mg) Oral daily Allergies: No Known Allergies. Review of Systems: Review of Systems is not available for this patient. Vital Signs: Performed on Sep 14, 2019 08:51 Height - 67.00 in Weight - lbs Temperature - 97.0 F (LOW) Pulse - 109 /min (HIGH) Respiration - 22 /min BP - 117/72 mm(hg) O2 Sat - 96 % Pain - 0 Performance Status: 2 - Ambulatory/capable of all self-care, unable to perform any work activities. Up and about more than 50% of waking hours. (ECOG) Physical Examination: ENMT - No oral exudates, ulcers, masses, thrush or mucositis. Oropharynx clear. Tongue normal, Respiratory - Lungs are clear to auscultation without rhonchi or wheezing, Cardiovascular - Regular rate and rhythm of heart, Abdomen - Non-tender, non-distended, Good bowel sounds. No guarding or rebound tenderness. No pulsatile masses, Extremities - bilateral 1+ edema. Lab/Imaging: Test performed on Sep 13, 2019 13:40 Sodium 135 mmol/L Potassium 4.5 mmol/L Chloride 99 mmol/L CO2 27 mmol/L Anion Gap 13.5 BUN 14 mg/dL Creatinine 1.3 mg/dL Cr Clearance (Est) 52.0500 mL/min Glucose 121 mg/dL Calcium 9.3 mg/dL Protein, Total 5.7 g/dL Albumin 3.0 g/dL Globulin 2.7 g/dL Bilirubin, Total 0.2 mg/dL ALT (SGPT) 24 U/L AST (SGOT) 16 U/L Alkaline Phosphatase 109 IU/L WBC 16.6 10 3/uL RBC 3.80 10 6/uL HGB 11.3 g/dL HCT 36.3 % MCV 95.5 fL MCH 29.7 pg MCHC 31.1 g/dL RDW 26.6 % Platelet Count 185 10 3/cmm MPV 10.7 fL Neutrophils 12.1 10 3/uL Lymphocytes 2.3 10 3/uL Monocytes 0.8 10 3/uL Eosinophils 0.2 10 3/uL Basophils 0.1 10 3/uL Neutrophil % 72.7 % Lymphocyte % 14.0 % Monocyte % 4.9 % Eosinophil % 1.0 % Basophils % 0.4 % CBC Slide Review Slide Review Perform Test performed on Aug 20, 2019 11:20 Manual Bands % 34.0 % Manual Lymphs % 3 % Atypical Lymphs % 2.0 % Metamyelocytes % 2.0 % Polychromasia Trace Anisocytosis 1+ Manual Bands Abs 8.0 10 3/cmm Manual Lymphocytes Abs 1.2 10 3/cmm Manual Eosinophils Abs 0.2 10 3/cmm Test performed on Jul 21, 2019 09:35 Ferritin 35 ng/mL Iron, Total 15 mcg/dL % Iron Saturation 6.4 % TIBC 231 mcg/dL Test performed on Jul 14, 2019 08:10 Manual Monocytes 4.2 % Manual Eosinophils 1.4 % Manual Basophils 0.3 % NRBCs 0.0 /100 WBC Test performed on Jun 10, 2019 11:05 Packed Red Cells (PRBC) [id number] TRANSFUSED PRODUCT: LEUKOREDUCED RED CELL 1ST CONT COUNT: 2 Type & Screen BLD TYPE A POSITIVE AB SCREEN GEL NEGATIVE Test performed on Jun 10, 2019 08:05 Vitamin B12 465 pg/mL UIBC 258 ug/dL Test performed on Jun 09, 2019 08:05 ABO & Rh Type # 2 A POSITIVE Impression: 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 CT scan of chest abdomen done on 05/18/2019 showed no thoracic lymphadenopathy by size criteria Dilated thoracic esophagus with gross appearance of marked wall thickening as well as dilatation of distal segment of thoracic esophagus no evidence of distant metastatic disease. Progressive dysphagia and weight loss due to above Chronic smoking, still active Clinically, patient is doing reasonably well now with progressive dysphagia due to newly diagnosed esophageal cancer. he said he did talk to his family and now have decided to pursue with chemotherapy alone and will go from there. Considering his age and comorbid condition and social issues e.g. living 60 [place] from [place] with elderly , he would prefer chemotherapy alone in the office but not radiation therapy. Patient was reminded in the standard of care is combined chemoradiation followed by surgery if possible otherwise chemotherapy is palliative only. Considering his age and performance status, recommended weekly carboplatin Taxol and Herceptin. did also discuss about role of G-tube placement but patient declined. Mr Stevens is prediabetic so we'll also consider diabetes teaching and may consider sliding scale if he develops hyperglycemia due to steroids. He did have baseline echocardiogram for the Herceptin on 06/24/2019 which reported left ventricular ejection fraction estimated at 65%. He had normal left ventricular systolic function no regional wall motion abnormalities there is a grade I/IV diastolic function, normal to mildly elevated filling pressures. No aortic valve stenosis and mild aortic valve regurgitation. He did also have PET CT imaging on 06/25/2019 at [facility]. This did report hypermetabolic circumferential mural thickening involving the distal esophagus extending approximately 10 cm proximal to the gastroesophageal junction from T11???T8 with maximum SUV of 24. A small amount of hyper metabolic mass extension into the gastric cardia is not fully excluded. Upstream esophagus appears fluid-filled and patulous. There were no discrete hypermetabolic pulmonary nodules. There is mild dependent atelectasis with trace bilateral pleural fluid collection without hypermetabolic pleural thickening. There was reported calcified mediastinal and hilar granulous with normal size mildly hypermetabolic bilateral hilar lymph nodes, office services representative right hilar lymph node maximum SUV 2.7. Additional hypermetabolic left hilar lymph node 0.8 x 1.2 cm with a max SUV of 2.5. 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 There were no hypermetabolic hepatic lesions. There was Extavia of the infrarenal abdominal aorta measuring up to 2.7 cm. No ascites or peritoneal/serosa nodularity. There was hyper metabolic gastrohepatic ligament lymph node 1.7 x 1.8 cm with a max SUV of 3.9. No additional hypermetabolic lymph nodes were seen within the abdomen or pelvis. There was prostamegaly without focal hypermetabolic prostate lesion. Muscle skeletal there was diffuse bone marrow hyper metabolism without focal lytic or blastic osseous lesion identified suggesting pathologic marrow uptake. 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 Mr Stevens had Port a Cath placement in the left subclavian vein per Dr Rosa on 07/12/2019. He began his first cycle of carboplatin/Taxol/Herceptin on 07/15/2019. He was also found to be iron deficient and received Injectafer on 07/12/2019 & 07/29/2019. He has required Neupogen support for chemo induced neutropenia with the last cycle of chemotherapy. He has been receiving Neupogen for 3 days starting day 2. This has allowed his counts to remain adequate to continue on treatment as scheduled. He did receive Neulast on day 15 of cycle 2. Plan: Discussed with patient regarding his labs white blood count 16.6 hemoglobin 11.3 crit 36.3 platelets 185,000 CMP within normal limit except creatinine 1.3 Clinically, patient doing well, tolerating palliative chemotherapy with Herceptin/carboplatin/Taxol well but with expected side effects. We'll proceed with next schedule dose of Herceptin/carboplatin/Taxol today and then return to clinic in 1 week with CBC CMP and it looks reasonable for the treatment. Plan is to consider follow-up CT PET scan after the cycle to assess disease response Signed By: Yana Tuttle M.D. <<Signature on File>>
[2019-09-20 16:19] LABS: Basophils # 0.1 10^3/uL (0.0-0.1); Basophils % 0.7 %; Eosinophils # 0.2 10^3/uL (0.0-0.8); Eosinophils % 3.1 %; Hematocrit 36.1 % (42.0-52.0); Hemoglobin 11.1 g/dL (11.7-16.6); Lymphocytes # 1.9 10^3/uL (0.8-4.8); Lymphocytes % 27.4 %; Mean Corpuscular HGB Conc 30.7 g/dL (30.0-36.0); Mean Corpuscular Hemoglobin 29.3 pg (28.0-34.0); Mean Corpuscular Volume 95.3 fL (80-94); Mean Platelet Volume 11.3 fL (7.4-10.4); Monocytes # 0.4 10^3/uL (0.2-0.9); Monocytes % 5.7 %; Neutrophils # 4.3 10^3/uL (1.8-7.7); Nucleated Red Blood Cells % 0 %; Platelet Count 98 10^3/cmm (130-400); Red Blood Count 3.79 10^6/uL (4.1-5.3); Red Cell Distribution Width 25.2 % (12.1-15.1)
[2019-09-20 17:36] LABS: Alanine Aminotransferase 20 U/L (0-41); Albumin Level 3.4 g/dL (3.5-5.2); Alkaline Phosphatase 99 IU/L (40-130); Anion Gap 16.2 (5-19); Aspartate Amino Transferase 15 U/L (0-40); Blood Urea Nitrogen 16 mg/dL (8-23); Calcium 9.3 mg/dL (8.5-10.5); Carbon Dioxide 28 mmol/L (22-29); Chloride 100 mmol/L (98-107); Globulin 2.5 g/dL (1.3-4.6); Glucose 212 mg/dL (65-115); Osmolality Calculated 293 mOsm/kg (285-295); Potassium 4.2 mmol/L (3.5-5.1); Sodium 140 mmol/L (136-145); Total Bilirubin 0.5 mg/dL (0.15-1.2); Total Protein 5.9 g/dL (6.6-8.7)
[2019-09-21] MEDS: acetaminophen 325 mg Tablet 650 MG PO (09:20)
--- NOTE | 2019-09-21 10:56 | ONC FU_ITS ---
[facility] Patient Note Patient: Rodney Tallassee Unit #: [id number]: 1940 Dictated By: Harsha TaylorDate of Visit: Sep 21, 2019 Onc MED Follow-Up/Prog Note Chief Complaint: Adenocarcinoma of esophagus History of Present Illness: Mr. Stevens is a 78-year-old gentleman with history of progressive dysphagia and weight loss. 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 A biopsy was obtained at [place], [place] on 05/21/2019. 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 Mr Stevens underwent CT scan of chest abdomen on 05/18/2019 which showed dilated thoracic esophagus with gross appearance of marked wall thickening as well as dilatation of distal segment of thoracic esophagus. No thoracic lymphadenopathy by size criteria. No evidence of distant metastatic disease, As per patient in the beginning he had dysphagia to solid food now can tolerate liquids only. Denied any hematemesis or hemoptysis, denied any jaundice, denied any aspiration or regurgitation. Mr Stevens has smoked about pack a day for many years. [place] of [place] and lives with elderly . Mr Stevens has elected to try chemotherapy alone. He has been offered chemotherapy with weekly carboplatin/Taxol/Herceptin. He did have baseline echocardiogram for the Herceptin on 06/24/2019 which reported left ventricular ejection fraction estimated at 65%. He had normal left ventricular systolic function no regional wall motion abnormalities there is a grade I/IV diastolic function, normal to mildly elevated filling pressures. No aortic valve stenosis and mild aortic valve regurgitation. He did also have PET CT imaging on 06/25/2019 at [facility]. This did report hypermetabolic circumferential mural thickening involving the distal esophagus extending approximately 10 cm proximal to the gastroesophageal junction from T11???T8 with maximum SUV of 24. A small amount of hyper metabolic mass extension into the gastric cardia is not fully excluded. Upstream esophagus appears fluid-filled and patulous. There were no discrete hypermetabolic pulmonary nodules. There is mild dependent atelectasis with trace bilateral pleural fluid collection without hypermetabolic pleural thickening. 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 Additional hypermetabolic left hilar lymph node 0.8 x 1.2 cm with a max SUV of 2.5. 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 There were no hypermetabolic hepatic lesions. There was Extavia of the infrarenal abdominal aorta measuring up to 2.7 cm. No ascites or peritoneal/serosa nodularity. There was hyper metabolic gastrohepatic ligament lymph node 1.7 x 1.8 cm with a max SUV of 3.9. No additional hypermetabolic lymph nodes were seen within the abdomen or pelvis. There was prostamegaly without focal hypermetabolic prostate lesion. Muscle skeletal there was diffuse bone marrow hyper metabolism without focal lytic or blastic osseous lesion identified suggesting pathologic marrow uptake. 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 He did have Port a Cath placement in the left subclavian vein per Dr Rosa on 07/12/2019. Mr Stevens started on his first chemotherapy with weekly carboplatin/Taxol and Herceptin on 07/15/2019. He has tolerated it well overall. He is here today for followup and is due for cycle 3 day 8 Carboplatin/TAxol and Herceptin. He has no new concerns today and voices no complaints. He denies any fever or chills or signs of infection for at least the last 72 hours. His breathing is about the same. No worse. He denies any new pain. His bowels are normal for him. His ECOG is 2. Past Medical History: Chronic obstructive pulmonary disease Dementia Hyperlipidemia Hypertension Stroke Type II diabetes Vitamin b 12 deficiency Past Surgical History: Cholecyst[place]clavian [place] [place] Allergies: No Known Allergies. Medications: Advair Diskus 2 Puff(s) (of 250-50 mcg/dose) Aerosol Powder, Breath Activated Inhalation daily Albuterol Sulfate 1 ((2.5 mg/3ml) 0.083%) Nebulization solution Inhalation daily PRN Dexamethasone (4 mg) Tablet Oral Take as Directed Prochlorperazine Maleate 1 Tablet (of 10 mg) Oral q 4 hours PRN Simvastatin 1 Tablet (of 40 mg) Oral daily Spiriva HandiHaler 1 Capsule (of 18 mcg) Inhalation daily Tamsulosin HCl 1 Capsule (of 0.4 mg) Oral daily Family History: Mr. Stevens's mother at age 80: colon cancer. Mr. Stevens's father at age 83: leukemia. Mr. Stevens has 2 brothers: 2 . Mr. Stevens's first brother's esophageal cancer. Another brother's lung cancer. Social History: Mr. Stevens is and he is retired. He is a daily smoker who has smoked 1.0 pack/day for 41 years. He has no history of drinking. He has indicated exposure to the following products: cigarettes. Mr. Stevens reports the following support systems: lives with spouse, significant other, family, or friends, lives in own house, supportive family/friends willing to assist with needs, and adequate transportation available for expected visits. His diet consists of liquid diet. He indicates his activity level as: sedentary. Review Of Symptoms: Constitutional Denies fevers, chills, night sweats, excessive fatigue or weight loss. Appetite is better. Allergic/Immunologic No reactions. Eyes Denies significant visual changes. No diplopia. No amaurosis. ENMT hard of hearing-chronic. Endocrine No diabetes, thyroid disease or hormone replacement. Denies hot flashes or night sweats. Hematologic/Lymphatic Denies easy bruising or bleeding. The patient denies any tender or palpable lymph nodes. Respiratory Denies dyspnea on exertion, chest pain, cough or hemoptysis. Denies orthopnea. Cardiovascular Denies anginal chest pain, palpitations or orthopnea. Gastrointestinal Denies nausea, vomiting, diarrhea, GI bleeding, or constipation. Denies change in bowel habits and/or stool color, no heartburn or early satiety. Genitourinary (M) Denies hematuria, dysuria, increased frequency, urgency, hesitancy or incontinence. Musculoskeletal Denies joint pain, swelling or redness. No decreased range of motion. Integumentary Denies chronic rashes, inflammation, ulcerations or skin changes. Neurologic continues to require wheelchair for assistance in mobility. Psychiatric Denies insomnia, depression, cindy or mood swings. Vital Signs: Performed on Sep 21, 2019 08:51 Height - 67.00 in Weight - 164.6 lbs (HIGH) BSA - 1.86 sq.m BMI - 25.78 Temperature - 97.8 F (LOW) Pulse - 104 /min (HIGH) Respiration - 24 /min BP - 140/78 mm(hg) O2 Sat - 98 % Pain - 0,2 - Ambulatory/capable of all self-care, unable to perform any work activities. Up and about more than 50% of waking hours. (ECOG) Physical Examination: Constitutional Alert, oriented, no acute distress. Skin pink, warm and dry. Head Normocephalic; atraumatic. Eyes Conjunctivae and sclerae are clear and without icterus. Pupils are reactive and equal. ENMT Extremely hard of hearing. Neck Supple without masses or thyromegaly. No jugular venous distension. Hematologic/Lymphatic No petechiae or purpura. No tender or palpable lymph nodes in the cervical or supraclavicular areas. Respiratory Lungs are clear to auscultation without rhonchi or wheezing. Cardiovascular Regular rate and rhythm of heart without murmurs,clicks, gallops or rubs. Chest Left subclavian venous access device insertion site is unremarkable. Back/Spine Non-tender to palpation. Extremities No visible deformities, no cyanosis, clubbing or edema. Musculoskeletal No tenderness or swelling. Integumentary No rashes or lesions. Neurologic No sensory or motor deficits, normal cerebellar function, presents in a wheelchair today-gait not assessed. Psychiatric Alert and oriented times three. Coherent speech. Verbalizes understanding of our discussions today. Laboratory:Test performed on Sep 20, 2019 11:05 WBC 7.0 10 3/uL RBC 3.79 10 6/uL HGB 11.1 g/dL HCT 36.1 % MCV 95.3 fL MCH 29.3 pg MCHC 30.7 g/dL RDW 25.2 % Platelet Count 98 10 3/cmm MPV 11.3 fL Neutrophils 4.3 10 3/uL Lymphocytes 1.9 10 3/uL Monocytes 0.4 10 3/uL Eosinophils 0.2 10 3/uL Basophils 0.1 10 3/uL Neutrophil % 62.0 % Lymphocyte % 27.4 % Monocyte % 5.7 % Eosinophil % 3.1 % Basophils % 0.7 % Test performed on Sep 20, 2019 09:07 Creatinine 1.2 mg/dL Cr Clearance (Est) 56.39 mL/min Test performed on Sep 13, 2019 13:40 Sodium 135 mmol/L Potassium 4.5 mmol/L Chloride 99 mmol/L CO2 27 mmol/L Anion Gap 13.5 BUN 14 mg/dL Glucose 121 mg/dL Calcium 9.3 mg/dL Protein, Total 5.7 g/dL Albumin 3.0 g/dL Globulin 2.7 g/dL Bilirubin, Total 0.2 mg/dL ALT (SGPT) 24 U/L AST (SGOT) 16 U/L Alkaline Phosphatase 109 IU/L CBC Slide Review Slide Review Perform Impression: 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 CT scan of chest abdomen done on 05/18/2019 showed no thoracic lymphadenopathy by size criteria Dilated thoracic esophagus with gross appearance of marked wall thickening as well as dilatation of distal segment of thoracic esophagus no evidence of distant metastatic disease. Progressive dysphagia and weight loss due to above Chronic smoking, still active Clinically, patient is doing reasonably well now with progressive dysphagia due to newly diagnosed esophageal cancer. he said he did talk to his family and now have decided to pursue with chemotherapy alone and will go from there. Considering his age and comorbid condition and social issues e.g. living 60 miles away from [place] with elderly , he would prefer chemotherapy alone in the office but not radiation therapy. Patient was reminded in the standard of care is combined chemoradiation followed by surgery if possible otherwise chemotherapy is palliative only. Considering his age and performance status, recommended weekly carboplatin Taxol and Herceptin. did also discuss about role of G-tube placement but patient declined. Mr Stevens is prediabetic so we'll also consider diabetes teaching and may consider sliding scale if he develops hyperglycemia due to steroids. He did have baseline echocardiogram for the Herceptin on 06/24/2019 which reported left ventricular ejection fraction estimated at 65%. He had normal left ventricular systolic function no regional wall motion abnormalities there is a grade I/IV diastolic function, normal to mildly elevated filling pressures. No aortic valve stenosis and mild aortic valve regurgitation. He did also have PET CT imaging on 06/25/2019 at [facility]. This did report hypermetabolic circumferential mural thickening involving the distal esophagus extending approximately 10 cm proximal to the gastroesophageal junction from T11???T8 with maximum SUV of 24. A small amount of hyper metabolic mass extension into the gastric cardia is not fully excluded. Upstream esophagus appears fluid-filled and patulous. There were no discrete hypermetabolic pulmonary nodules. There is mild dependent atelectasis with trace bilateral pleural fluid collection without hypermetabolic pleural thickening. 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 Additional hypermetabolic left hilar lymph node 0.8 x 1.2 cm with a max SUV of 2.5. 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 There were no hypermetabolic hepatic lesions. There was Extavia of the infrarenal abdominal aorta measuring up to 2.7 cm. No ascites or peritoneal/serosa nodularity. There was hyper metabolic gastrohepatic ligament lymph node 1.7 x 1.8 cm with a max SUV of 3.9. No additional hypermetabolic lymph nodes were seen within the abdomen or pelvis. There was prostamegaly without focal hypermetabolic prostate lesion. Muscle skeletal there was diffuse bone marrow hyper metabolism without focal lytic or blastic osseous lesion identified suggesting pathologic marrow uptake. 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 Mr Stevens had Port a Cath placement in the left subclavian vein per Dr Rosa on 07/12/2019. He began his first cycle of carboplatin/Taxol/Herceptin on 07/15/2019. He was also found to be iron deficient and received Injectafer on 07/12/2019 & 07/29/2019. He has required Neupogen support for chemo induced neutropenia with the last cycle of chemotherapy. He has been receiving Neupogen for 3 days starting day 2. This has allowed his counts to remain adequate to continue on treatment as scheduled. He did receive Neulasta on day 15 of cycle 2. Plan: 1. Hold Carboplatin today due to platelet count of 98,000 (platelets 185,000 last week). 2. Proceed with Herceptin and paclitaxel today. Proceed with Neupogen as previously ordered by Dr Tuttle. Although holding Carboplatin this week, paclitaxel has a high incidence of neutropenia. 3. Steroid premed compliance verified. 4. Followup in 1 week with CBC, CMP the day before via in home lab services. Mrs Stevens has been instructed to not come next week until she talks to someone here about blood work results. I do not want him making the trip into the clinic if his counts are too low to treat. 5. Will plan to change Herceptin dosing to avoid Herceptin only on day 22. We will see how his blood counts look next week and plan from there. 6. Per Dr Tuttle the plan is to consider follow-up CT PET scan after this cycle to assess disease response. Signed By: Harsha Taylor-, AOCNP Yana Tuttle MD <<Signature on File>>
[2019-09-29] MEDS: acetaminophen 325 mg Tablet 650 MG PO (09:35)
[2019-09-29] MEDS: sodium chloride 0.9% 250 ML 75 ML IV (09:40)
[2019-09-29] MEDS: pegfilgrastim 6 mg/0.6 mL Kit (onpro) SUBCUT (13:40)
--- NOTE | 2019-10-01 09:43 | ONC FU_ITS ---
Dr. Tuttle follow up note Patient: Rodney Braintree Unit #: [id number]: 1940 Dicatated By: Yana Tuttle M.D.Date of Visit:Sep 29, 2019 Onc Med Follow-up/Prog Note History of Present Illness: Mr. Stevens is a 78-year-old gentleman with history of progressive dysphagia and weight loss. 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 A biopsy was obtained at [place], [place] on 05/21/2019. 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 Mr Stevens underwent CT scan of chest abdomen on 05/18/2019 which showed dilated thoracic esophagus with gross appearance of marked wall thickening as well as dilatation of distal segment of thoracic esophagus. No thoracic lymphadenopathy by size criteria. No evidence of distant metastatic disease, As per patient in the beginning he had dysphagia to solid food now can tolerate liquids only. Denied any hematemesis or hemoptysis, denied any jaundice, denied any aspiration or regurgitation. Mr Stevens has smoked about pack a day for many years. He lives about 60 [place] north of [place] and lives with elderly . Mr Stevens has elected to try chemotherapy alone. He has been offered chemotherapy with weekly carboplatin/Taxol/Herceptin. He did have baseline echocardiogram for the Herceptin on 06/24/2019 which reported left ventricular ejection fraction estimated at 65%. He had normal left ventricular systolic function no regional wall motion abnormalities there is a grade I/IV diastolic function, normal to mildly elevated filling pressures. No aortic valve stenosis and mild aortic valve regurgitation. He did also have PET CT imaging on 06/25/2019 at [facility]. This did report hypermetabolic circumferential mural thickening involving the distal esophagus extending approximately 10 cm proximal to the gastroesophageal junction from T11???T8 with maximum SUV of 24. A small amount of hyper metabolic mass extension into the gastric cardia is not fully excluded. Upstream esophagus appears fluid-filled and patulous. There were no discrete hypermetabolic pulmonary nodules. There is mild dependent atelectasis with trace bilateral pleural fluid collection without hypermetabolic pleural thickening. 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 Additional hypermetabolic left hilar lymph node 0.8 x 1.2 cm with a max SUV of 2.5. 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 There were no hypermetabolic hepatic lesions. There was Extavia of the infrarenal abdominal aorta measuring up to 2.7 cm. No ascites or peritoneal/serosa nodularity. There was hyper metabolic gastrohepatic ligament lymph node 1.7 x 1.8 cm with a max SUV of 3.9. No additional hypermetabolic lymph nodes were seen within the abdomen or pelvis. There was prostamegaly without focal hypermetabolic prostate lesion. Muscle skeletal there was diffuse bone marrow hyper metabolism without focal lytic or blastic osseous lesion identified suggesting pathologic marrow uptake. 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 He did have Port a Cath placement in the left subclavian vein per Dr Rosa on 07/12/2019. Mr Stevens started on his first chemotherapy with weekly carboplatin/Taxol and Herceptin on 07/15/2019. He has tolerated it well overall. Came for follow-up, denies any specific complaints, no fever or chills, no nausea or vomiting no diarrhea constipation. No dysphagia. No peripheral numbness. Tolerating palliative therapy with weekly carboplatin/Taxol/Herceptin ,well Medications: Advair Diskus 2 Puff(s) (of 250-50 mcg/dose) Aerosol Powder, Breath Activated Inhalation daily, Albuterol Sulfate 1 ((2.5 mg/3ml) 0.083%) Nebulization solution Inhalation daily PRN, Dexamethasone (4 mg) Tablet Oral Take as Directed, Prochlorperazine Maleate 1 Tablet (of 10 mg) Oral q 4 hours PRN, Simvastatin 1 Tablet (of 40 mg) Oral daily, Spiriva HandiHaler 1 Capsule (of 18 mcg) Inhalation daily, Tamsulosin HCl 1 Capsule (of 0.4 mg) Oral daily Allergies: No Known Allergies. Review of Systems: Review of Systems is not available for this patient. Vital Signs: Performed on Sep 29, 2019 08:38 Height - 67.00 in Weight - 167.8 lbs (HIGH) BSA - 1.88 sq.m BMI - 26.28 Temperature - 97.4 F (LOW) Pulse - 108 /min (HIGH) Respiration - 24 /min BP - 117/65 mm(hg) O2 Sat - 97 % Pain - 0 Performance Status: 1 - No physically strenuous activity, but ambulatory and able to carry out light or sedentary work (e.g. office work, light house work). (ECOG) Physical Examination: ENMT - No oral exudates, ulcers, masses, thrush or mucositis. Oropharynx clear. Tongue normal, Respiratory - poor air entry otherwise clear, Cardiovascular - Regular rate and rhythm of heart, Abdomen - Non-tender, non-distended, Good bowel sounds. No guarding or rebound tenderness. No pulsatile masses, Extremities - 1+ edema bilaterally. Lab/Imaging: Test performed on Sep 28, 2019 09:13 Glucose 97 mg/dL BUN 18 mg/dL Creatinine 1.3 mg/dL Cr Clearance (Est) 52.05 mL/min Sodium 141 mmol/L Potassium 4.8 mmol/L Chloride 104 mmol/L CO2 27 mmol/L Calcium 9.3 mg/dL Protein, Total 5.4 g/dL Albumin 3.5 g/dL Globulin 1.9 g/dL Bilirubin, Total 0.3 mg/dL Alkaline Phosphatase 95 IU/L AST (SGOT) 16 IU/L ALT (SGPT) 25 IU/L WBC 5.6 10^9/L RBC 3.61 10^12/L HGB 11 g/dL HCT 35.2 % MCV 97.5 fl MCH 30.5 pg MCHC 31.3 g/dL RDW 25 % Platelet Count 160 10^9/L MPV 10.5 fL Neutrophils (Gran) 2.6 10^9/L Lymphocytes 2.2 10^9/L Monocytes 0.4 10^9/L Eosinophils 0.3 10^9/L Basophils 0 10^9/L Manual Segs 47.1 % Manual Lymphocytes 39.4 % Manual Monocytes 7.7 % Manual Eosinophils 4.5 % Manual Basophils 0.2 % NRBCs 0 /100 WBC Test performed on Sep 20, 2019 11:05 Anion Gap 16.2 Neutrophil % 62.0 % Lymphocyte % 27.4 % Monocyte % 5.7 % Eosinophil % 3.1 % Basophils % 0.7 % Test performed on Sep 13, 2019 13:40 CBC Slide Review Slide Review Perform Test performed on Aug 20, 2019 11:20 Manual Bands % 34.0 % Atypical Lymphs % 2.0 % Metamyelocytes % 2.0 % Polychromasia Trace Anisocytosis 1+ Manual Bands Abs 8.0 10 3/cmm Manual Lymphocytes Abs 1.2 10 3/cmm Manual Eosinophils Abs 0.2 10 3/cmm Test performed on Jul 21, 2019 09:35 Ferritin 35 ng/mL Iron, Total 15 mcg/dL % Iron Saturation 6.4 % TIBC 231 mcg/dL Test performed on Jun 10, 2019 11:05 Packed Red Cells (PRBC) [id number] TRANSFUSED PRODUCT: LEUKOREDUCED RED CELL 1ST CONT COUNT: 2 Type & Screen BLD TYPE A POSITIVE AB SCREEN GEL NEGATIVE Test performed on Jun 10, 2019 08:05 Vitamin B12 465 pg/mL UIBC 258 ug/dL Test performed on Jun 09, 2019 08:05 ABO & Rh Type # 2 A POSITIVE Impression: 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 CT scan of chest abdomen done on 05/18/2019 showed no thoracic lymphadenopathy by size criteria Dilated thoracic esophagus with gross appearance of marked wall thickening as well as dilatation of distal segment of thoracic esophagus no evidence of distant metastatic disease. Progressive dysphagia and weight loss due to above Chronic smoking, still active Clinically, patient is doing reasonably well now with progressive dysphagia due to newly diagnosed esophageal cancer. he said he did talk to his family and now have decided to pursue with chemotherapy alone and will go from there. Considering his age and comorbid condition and social issues e.g. living 60 miles away from [place] with elderly , he would prefer chemotherapy alone in the office but not radiation therapy. Patient was reminded in the standard of care is combined chemoradiation followed by surgery if possible otherwise chemotherapy is palliative only. Considering his age and performance status, recommended weekly carboplatin Taxol and Herceptin. did also discuss about role of G-tube placement but patient declined. Mr Stevens is prediabetic so we'll also consider diabetes teaching and may consider sliding scale if he develops hyperglycemia due to steroids. He did have baseline echocardiogram for the Herceptin on 06/24/2019 which reported left ventricular ejection fraction estimated at 65%. He had normal left ventricular systolic function no regional wall motion abnormalities there is a grade I/IV diastolic function, normal to mildly elevated filling pressures. No aortic valve stenosis and mild aortic valve regurgitation. He did also have PET CT imaging on 06/25/2019 at [facility]. This did report hypermetabolic circumferential mural thickening involving the distal esophagus extending approximately 10 cm proximal to the gastroesophageal junction from T11???T8 with maximum SUV of 24. A small amount of hyper metabolic mass extension into the gastric cardia is not fully excluded. Upstream esophagus appears fluid-filled and patulous. There were no discrete hypermetabolic pulmonary nodules. There is mild dependent atelectasis with trace bilateral pleural fluid collection without hypermetabolic pleural thickening. 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 Additional hypermetabolic left hilar lymph node 0.8 x 1.2 cm with a max SUV of 2.5. 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 There were no hypermetabolic hepatic lesions. There was Extavia of the infrarenal abdominal aorta measuring up to 2.7 cm. No ascites or peritoneal/serosa nodularity. There was hyper metabolic gastrohepatic ligament lymph node 1.7 x 1.8 cm with a max SUV of 3.9. No additional hypermetabolic lymph nodes were seen within the abdomen or pelvis. There was prostamegaly without focal hypermetabolic prostate lesion. Muscle skeletal there was diffuse bone marrow hyper metabolism without focal lytic or blastic osseous lesion identified suggesting pathologic marrow uptake. 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 Mr Rodney had Port a Cath placement in the left subclavian vein per Dr Rosa on 07/12/2019. He began his first cycle of carboplatin/Taxol/Herceptin on 07/15/2019. He was also found to be iron deficient and received Injectafer on 07/12/2019 & 07/29/2019. He has required Neupogen support for chemo induced neutropenia with the last cycle of chemotherapy. He has been receiving Neupogen for 3 days starting day 2. This has allowed his counts to remain adequate to continue on treatment as scheduled. He did receive Neulasta on day 15 of cycle 2. Plan: Discussed with patient and regarding his labs white blood count 5.6 hemoglobin 11 crit 35.2 platelets 160,000 CMP within normal limit except creatinine 1.3 Clinically, patient is doing well, tolerating palliative therapy with carbo/Taxol/Herceptin well but with expected side effects e.g. generalized weakness and fatigue. But resolution of dysphagia. We'll proceed with next dose of chemotherapy , D15 with Herceptin/carboplatin/Taxotere and then will consider follow-up CT PET scan to assess disease response and also echocardiogram to assess cardiac function as patient is on Herceptin Patient return to clinic in 1 week for Herceptin Signed By: Yana Tuttle M.D. <<Signature on File>>
[2019-10-05 18:32] LABS: Alanine Aminotransferase 19 U/L (0-41); Albumin Level 3.3 g/dL (3.5-5.2); Alkaline Phosphatase 221 IU/L (40-130); Anion Gap 19.7 (5-19); Aspartate Amino Transferase 21 U/L (0-40); Blood Urea Nitrogen 20 mg/dL (8-23); Calcium 9.4 mg/dL (8.5-10.5); Carbon Dioxide 25 mmol/L (22-29); Chloride 97 mmol/L (98-107); Glucose 147 mg/dL (65-115); Osmolality Calculated 285 mOsm/kg (285-295); Potassium 3.7 mmol/L (3.5-5.1); Sodium 138 mmol/L (136-145); Total Bilirubin 0.2 mg/dL (0.15-1.2); Total Protein 5.3 g/dL (6.6-8.7)
[2019-10-05 18:40] LABS: Basophils % 0.1 %; Eosinophils # 0.2 10^3/uL (0.0-0.8); Eosinophils % 0.7 %; Hematocrit 36.2 % (42.0-52.0); Hemoglobin 11.1 g/dL (11.7-16.6); Lymphocytes # 2.8 10^3/uL (0.8-4.8); Lymphocytes % 8.7 %; Mean Corpuscular HGB Conc 30.7 g/dL (30.0-36.0); Mean Corpuscular Hemoglobin 30.7 pg (28.0-34.0); Mean Corpuscular Volume 100.3 fL (80-94); Mean Platelet Volume 9.8 fL (7.4-10.4); Monocytes # 3.9 10^3/uL (0.2-0.9); Monocytes % 12.3 %; Neutrophils # 20.1 10^3/uL (1.8-7.7); Neutrophils % 63.6 %; Nucleated Red Blood Cells % 0 %; Platelet Count 265 10^3/cmm (130-400); Red Blood Count 3.61 10^6/uL (4.1-5.3); Red Cell Distribution Width 24.5 % (12.1-15.1)
[2019-10-05 20:09] LABS: White Blood Count 31.6 10^3/uL (4.0-10.0)
[2019-10-05 20:17] LABS: Slide Review Slide Review Perform
[2019-10-05 20:21] LABS: Absolute Segmented Neutrophil 21.4 10/cmm (1.6-7.1); Band Neutrophils Absolute 3.8 10^3/cmm (0.0-1.2); Lymphocytes 6 %; Lymphocytes Absolute 3.2 10^3/cmm (1.2-3.4); Monocytes Absolute 2.2 10^3/cmm (0.1-0.6); Segmented Neutrophils 68 %; Total Cells Counted 100 (0-100)
[2019-10-05 20:22] LABS: Platelet Estimate Normal (Normal)
[2019-10-05 20:23] LABS: Anisocytosis 2+; Macrocytosis 1+; Microcytosis 1+; Ovalocytes 1+; Polychromasia 2+
== END 2019-10-05 23:59 | disposition home or self-care (01) ==
LOC: ONCMED 13:10
PROVIDERS: Nurse Practitioner; Family Provider Physician Assistant Medical; PCP Physician Assistant Medical; Visit Provider Internal Medicine Hematology & Oncology
DX: Z51.12 Encounter for antineoplastic immunotherapy (principal); Z51.11 Encounter for antineoplastic chemotherapy; C15.4 Malignant neoplasm of middle third of esophagus; D70.1 Agranulocytosis secondary to cancer chemotherapy; T45.1X5A Adverse effect of antineoplastic and immunosuppressive drugs, initial encounter; F17.210 Nicotine dependence, cigarettes, uncomplicated; R73.03 Prediabetes; Z79.51 Long term (current) use of inhaled steroids
CPT/HCPCS: 36415; 80053; 85007; 85025; 96367; 96372; 96413; 96417; 99214; J1100; J1200; J1442; J2469; J2505; J3490; J7030; J7050; J9045; J9267; J9355

== ENCOUNTER 2019-10-26 06:44 | Outpatient (RCR) | payer MEDICARE, MEDICAID, SELFPAY ==
[2019-10-06] MEDS: acetaminophen 325 mg Tablet 650 MG PO (09:04)
[2019-10-06] MEDS: sodium chloride 0.9% 250 ML 75 ML IV (09:06)
--- NOTE | 2019-10-06 14:54 | ONC FU_ITS ---
Dr. Tuttle follow up note Patient: Rodney Mabie Unit #: [id number]: 1940 Dicatated By: Yana Tuttle M.D.Date of Visit:Oct 06, 2019 Onc Med Follow-up/Prog Note History of Present Illness: Mr. Stevens is a 78-year-old gentleman with history of progressive dysphagia and weight loss. 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 A biopsy was obtained at [place], [place] on 05/21/2019. 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 Mr Stevens underwent CT scan of chest abdomen on 05/18/2019 which showed dilated thoracic esophagus with gross appearance of marked wall thickening as well as dilatation of distal segment of thoracic esophagus. No thoracic lymphadenopathy by size criteria. No evidence of distant metastatic disease, As per patient in the beginning he had dysphagia to solid food now can tolerate liquids only. Denied any hematemesis or hemoptysis, denied any jaundice, denied any aspiration or regurgitation. Mr Stevens has smoked about pack a day for many years. He lives about 60 miles north of [place] and lives with elderly . Mr Stevens has elected to try chemotherapy alone. He has been offered chemotherapy with weekly carboplatin/Taxol/Herceptin. He did have baseline echocardiogram for the Herceptin on 06/24/2019 which reported left ventricular ejection fraction estimated at 65%. He had normal left ventricular systolic function no regional wall motion abnormalities there is a grade I/IV diastolic function, normal to mildly elevated filling pressures. No aortic valve stenosis and mild aortic valve regurgitation. He did also have PET CT imaging on 06/25/2019 at [facility]. This did report hypermetabolic circumferential mural thickening involving the distal esophagus extending approximately 10 cm proximal to the gastroesophageal junction from T11???T8 with maximum SUV of 24. A small amount of hyper metabolic mass extension into the gastric cardia is not fully excluded. Upstream esophagus appears fluid-filled and patulous. There were no discrete hypermetabolic pulmonary nodules. There is mild dependent atelectasis with trace bilateral pleural fluid collection without hypermetabolic pleural thickening. 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 Additional hypermetabolic left hilar lymph node 0.8 x 1.2 cm with a max SUV of 2.5. 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 There were no hypermetabolic hepatic lesions. There was Extavia of the infrarenal abdominal aorta measuring up to 2.7 cm. No ascites or peritoneal/serosa nodularity. There was hyper metabolic gastrohepatic ligament lymph node 1.7 x 1.8 cm with a max SUV of 3.9. No additional hypermetabolic lymph nodes were seen within the abdomen or pelvis. There was prostamegaly without focal hypermetabolic prostate lesion. Muscle skeletal there was diffuse bone marrow hyper metabolism without focal lytic or blastic osseous lesion identified suggesting pathologic marrow uptake. 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 He did have Port a Cath placement in the left subclavian vein per Dr Rosa on 07/12/2019. Mr Stevens started on his first chemotherapy with weekly carboplatin/Taxol and Herceptin on 07/15/2019. He has tolerated it well overall. Came for follow-up, denies any specific complaints, no fever or chills, no nausea or vomiting no diarrhea constipation. No dysphagia. No peripheral numbness. Tolerating palliative therapy with weekly carboplatin/Taxol/Herceptin ,well Medications: Advair Diskus 2 Puff(s) (of 250-50 mcg/dose) Aerosol Powder, Breath Activated Inhalation daily, Albuterol Sulfate 1 ((2.5 mg/3ml) 0.083%) Nebulization solution Inhalation daily PRN, Dexamethasone (4 mg) Tablet Oral Take as Directed, Prochlorperazine Maleate 1 Tablet (of 10 mg) Oral q 4 hours PRN, Simvastatin 1 Tablet (of 40 mg) Oral daily, Spiriva HandiHaler 1 Capsule (of 18 mcg) Inhalation daily, Tamsulosin HCl 1 Capsule (of 0.4 mg) Oral daily Allergies: No Known Allergies. Review of Systems: Review of Systems is not available for this patient. Vital Signs: Performed on Oct 06, 2019 08:07 Height - 67.00 in Temperature - 98.1 F (LOW) Pulse - 111 /min (HIGH) Respiration - 22 /min BP - 123/73 mm(hg) O2 Sat - 97 % Pain - 0 Performance Status: 1 - No physically strenuous activity, but ambulatory and able to carry out light or sedentary work (e.g. office work, light house work). (ECOG) Physical Examination: ENMT - No oral exudates, ulcers, masses, thrush or mucositis. Oropharynx clear. Tongue normal, Respiratory - Lungs are clear to auscultation without rhonchi or wheezing, Cardiovascular - Regular rate and rhythm of heart, Abdomen - Non-tender, non-distended Good bowel sounds. No guarding or rebound tenderness. No pulsatile masses, Extremities - 1+ edema bilaterally. Lab/Imaging: Test performed on Oct 06, 2019 07:56 Creatinine 1.4 mg/dL Cr Clearance (Est) 48.33 mL/min Test performed on Oct 05, 2019 13:10 Sodium 138 mmol/L Potassium 3.7 mmol/L Chloride 97 mmol/L CO2 25 mmol/L Anion Gap 19.7 BUN 20 mg/dL Glucose 147 mg/dL Calcium 9.4 mg/dL Protein, Total 5.3 g/dL Albumin 3.3 g/dL Globulin 2.0 g/dL Bilirubin, Total 0.2 mg/dL ALT (SGPT) 19 U/L AST (SGOT) 21 U/L Alkaline Phosphatase 221 IU/L WBC 31.6 10 3/uL Manual Bands % 12.0 % RBC 3.61 10 6/uL HGB 11.1 g/dL Manual Lymphs % 6 % Atypical Lymphs % 4.0 % HCT 36.2 % Manual Monos % 7.0 % MCV 100.3 fL MCH 30.7 pg MCHC 30.7 g/dL Metamyelocytes % 3.0 % RDW 24.5 % Platelet Count 265 10 3/cmm MPV 9.8 fL Neutrophils 20.1 10 3/uL Lymphocytes 2.8 10 3/uL Monocytes 3.9 10 3/uL Eosinophils 0.2 10 3/uL Basophils 0.0 10 3/uL Neutrophil % 63.6 % Lymphocyte % 8.7 % Monocyte % 12.3 % Eosinophil % 0.7 % Basophils % 0.1 % CBC Slide Review Slide Review Perform Polychromasia 2+ Anisocytosis 2+ Macrocytosis 1+ Microcytosis 1+ Ovalocytes 1+ Manual Bands Abs 3.8 10 3/cmm Manual Lymphocytes Abs 3.2 10 3/cmm Manual Monocytes Abs 2.2 10 3/cmm Test performed on Sep 28, 2019 09:13 Manual Segs 47.1 % Manual Eosinophils 4.5 % Manual Basophils 0.2 % NRBCs 0 /100 WBC Test performed on Aug 20, 2019 11:20 Manual Eosinophils Abs 0.2 10 3/cmm Test performed on Jul 21, 2019 09:35 Ferritin 35 ng/mL Iron, Total 15 mcg/dL % Iron Saturation 6.4 % TIBC 231 mcg/dL Test performed on Jun 10, 2019 11:05 Packed Red Cells (PRBC) [id number] TRANSFUSED PRODUCT: LEUKOREDUCED RED CELL 1ST CONT COUNT: 2 Type & Screen BLD TYPE A POSITIVE AB SCREEN GEL NEGATIVE Test performed on Jun 10, 2019 08:05 Vitamin B12 465 pg/mL UIBC 258 ug/dL Test performed on Jun 09, 2019 08:05 ABO & Rh Type # 2 A POSITIVE Impression: 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 CT scan of chest abdomen done on 05/18/2019 showed no thoracic lymphadenopathy by size criteria Dilated thoracic esophagus with gross appearance of marked wall thickening as well as dilatation of distal segment of thoracic esophagus no evidence of distant metastatic disease. Progressive dysphagia and weight loss due to above Chronic smoking, still active Clinically, patient is doing reasonably well now with progressive dysphagia due to newly diagnosed esophageal cancer. he said he did talk to his family and now have decided to pursue with chemotherapy alone and will go from there. Considering his age and comorbid condition and social issues e.g. living 60 miles away from [place] with elderly , he would prefer chemotherapy alone in the office but not radiation therapy. Patient was reminded in the standard of care is combined chemoradiation followed by surgery if possible otherwise chemotherapy is palliative only. Considering his age and performance status, recommended weekly carboplatin Taxol and Herceptin. did also discuss about role of G-tube placement but patient declined. Mr Stevens is prediabetic so we'll also consider diabetes teaching and may consider sliding scale if he develops hyperglycemia due to steroids. He did have baseline echocardiogram for the Herceptin on 06/24/2019 which reported left ventricular ejection fraction estimated at 65%. He had normal left ventricular systolic function no regional wall motion abnormalities there is a grade I/IV diastolic function, normal to mildly elevated filling pressures. No aortic valve stenosis and mild aortic valve regurgitation. He did also have PET CT imaging on 06/25/2019 at [facility]. This did report hypermetabolic circumferential mural thickening involving the distal esophagus extending approximately 10 cm proximal to the gastroesophageal junction from T11???T8 with maximum SUV of 24. A small amount of hyper metabolic mass extension into the gastric cardia is not fully excluded. Upstream esophagus appears fluid-filled and patulous. There were no discrete hypermetabolic pulmonary nodules. There is mild dependent atelectasis with trace bilateral pleural fluid collection without hypermetabolic pleural thickening. 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 Additional hypermetabolic left hilar lymph node 0.8 x 1.2 cm with a max SUV of 2.5. 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 There were no hypermetabolic hepatic lesions. There was Extavia of the infrarenal abdominal aorta measuring up to 2.7 cm. No ascites or peritoneal/serosa nodularity. There was hyper metabolic gastrohepatic ligament lymph node 1.7 x 1.8 cm with a max SUV of 3.9. No additional hypermetabolic lymph nodes were seen within the abdomen or pelvis. There was prostamegaly without focal hypermetabolic prostate lesion. Muscle skeletal there was diffuse bone marrow hyper metabolism without focal lytic or blastic osseous lesion identified suggesting pathologic marrow uptake. 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 Mr Rodney had Port a Cath placement in the left subclavian vein per Dr Rosa on 07/12/2019. He began his first cycle of carboplatin/Taxol/Herceptin on 07/15/2019. He was also found to be iron deficient and received Injectafer on 07/12/2019 & 07/29/2019. He has required Neupogen support for chemo induced neutropenia with the last cycle of chemotherapy. He has been receiving Neupogen for 3 days starting day 2. This has allowed his counts to remain adequate to continue on treatment as scheduled. He did receive Neulasta on day 15 of cycle 2. Plan: Discussed with patient regarding his labs white blood count 31.6 hemoglobin 11.1 crit 36.2 platelets 265,000 CMP within normal limit except creatinine 1.4 and alkaline phosphatase 221 Clinically, patient is doing well, tolerating palliative therapy with weekly carboplatin/Taxol/Herceptin. We'll proceed with next dose of weekly Herceptin today and patient will get follow-up echocardiogram tomorrow morning. He was supposed to get CT PET scan but because of chromosome virus issues and out of network in [place] patient could not go to [place] for CT PET scan, overall feeling better no more dysphagia, tolerating orally well, will continue and may consider CT scan of chest abdomen as a follow-up. Leukocytosis probably due to Neulasta. Patient lives far from the clinic and having hard time coming for daily Neupogen so Neulasta was considered to prevent chemotherapy-induced neutropenia and to maintain chemotherapy schedule. Return to clinic in 1 week with CBC CMP Signed By: Yana Tuttle M.D. <<Signature on File>>
--- NOTE | 2019-10-07 | USCV_ITS ---
Dipak Stevens Age: 79 Gender: M : 1940 Exam Date: 10/07/2019 15:26 Ordering Phys: Yana Tuttle MD Technologist: Salud Lee Exam Location: [facility] [place] Indication: HERCEPTIN BP: / HR: 98 Rhythm: Sinus Technical Quality: Adequate MEASUREMENTS (Male / Female) Normal Values 2D ECHO LV Diastolic Diameter PLAX 4.0 cm 4.2 - 5.9 / 3.9 - 5.3 cm LV Systolic Diameter PLAX 2.5 cm LV Chamber Size 3.0 cm IVS Diastolic Thickness 1.5 cm 0.6 - 1.0 / 0.6 - 0.9 cm IVS Systolic Thickness 1.3 cm LVPW Diastolic Thickness 1.3 cm 0.6 - 1.0 / 0.6 - 0.9 cm LVPW Systolic Thickness 1.7 cm RV Chamber Size 2.3 cm LVOT Diameter 2.0 cm LV Ejection Fraction 2D Teich 68.2 % LV Ejection Fraction MOD 2C 38.2 % LV Ejection Fraction 2C AL 36.6 % LA Diameter 3.3 cm LA Width 2.4 cm LA Height 3.7 cm RA Width 2.9 cm RA Height 3.0 cm Aorta at Sinotubular Diameter 2.6 cm M-MODE LV Diastolic Diameter MM 4.5 cm 4.2 - 5.9 / 3.9 - 5.3 cm LV Systolic Diameter MM 3.1 cm LV Ejection Fraction MM Teich 58.2 % IVS Diastolic Thickness MM 1.2 cm 0.6 - 1.0 / 0.6 - 0.9 cm IVS Systolic Thickness MM 1.5 cm LVPW Diastolic Thickness MM 1.1 cm 0.6 - 1.0 / 0.6 - 0.9 cm LVPW Systolic Thickness MM 1.8 cm RV Diastolic Diameter MM 1.5 cm Aortic Annulus Diameter 3.4 cm LA Ao Ratio MM 1.0 MV E Point Septal Separation 0.6 cm DOPPLER AV Peak Velocity 235.0 cm/s LVOT Peak Velocity 123.0 cm/s AV Area Cont Eq vti 1.8 cm squared AV Area Cont Eq pk 1.7 cm squared MV Area PHT 7.1 cm squared Mitral E to A Ratio 0.7 MV E' Velocity 6.0 cm/s Mitral E to MV E' Ratio 14.8 Mitral E to LV E' Lateral Ratio 15.9 Mitral E to LV E' Septal Ratio 13.9 TR Peak Velocity 227.7 cm/s TR Peak Gradient 20.7 mmHg TR Mean Velocity 167.2 cm/s TR Mean Gradient 12.7 mmHg TR Velocity Time Integral 52.9 cm TV Peak E Velocity 97.0 cm/s Right Atrial Pressure 3.0 mmHg Pulmonary Artery Systolic Pressu 23.7 mmHg PV Peak Velocity 73.0 cm/s RV Acceleration Time 0.1 s RV Ejection Time 0.3 s RV AcT/ET 0.4 FINDINGS Left Ventricle Normal left ventricular cavity size. Normal left ventricular systolic function. Left ventricular ejection fraction is estimated at 60-65 %. No diagnostic regional wall motion abnormalities. Right Ventricle Normal right ventricular size and systolic function. Right ventricular systolic pressure 23.7 mmHg. Right Atrium Normal right atrial size. Right atrial pressure estimated at 3 mmHg. Left Atrium Left atrium not well visualized. Probably normal left atrial size. Mitral Valve Mitral valve not well visualized. Aortic Valve Aortic valve not well visualized. No aortic valve stenosis. Trace to mild aortic valve regurgitation. Tricuspid Valve Tricuspid valve not well visualized. Trace tricuspid valve regurgitation. Pulmonic Valve Pulmonic valve not well visualized. Pericardium No pericardial effusion. Echo free space anterior to the right ventricle likely represents a fat pad. Aorta Normal-sized aortic root. CONCLUSIONS 1. Normal left ventricular cavity size ans systolic function. Left ventricular ejection fraction is estimated at 60-65 %. No diagnostic regional wall motion abnormalities. 2. Normal right ventricular size and systolic function. 3. Trace to mild aortic valve regurgitation. 4. Pulmonary artery pressure estimated at 24 mmHg. 5. When compared to previous echocardiogram dated 06/24/2019, there may not have been any significant change. Jenny Horn MD (Electronically Signed) Final Date: 08 October 2019 14:00 S
[2019-10-11 19:38] LABS: Basophils # 0.1 10^3/uL (0.0-0.1); Basophils % 0.3 %; Eosinophils # 0.1 10^3/uL (0.0-0.8); Eosinophils % 0.3 %; Hematocrit 37.6 % (42.0-52.0); Hemoglobin 11.7 g/dL (11.7-16.6); Lymphocytes # 2.4 10^3/uL (0.8-4.8); Lymphocytes % 9.8 %; Mean Corpuscular HGB Conc 31.1 g/dL (30.0-36.0); Mean Corpuscular Hemoglobin 30.4 pg (28.0-34.0); Mean Corpuscular Volume 97.7 fL (80-94); Mean Platelet Volume 9.9 fL (7.4-10.4); Monocytes # 0.8 10^3/uL (0.2-0.9); Monocytes % 3.3 %; Neutrophils % 76.9 %; Nucleated Red Blood Cells % 0.1 %; Platelet Count 222 10^3/cmm (130-400); Red Blood Count 3.85 10^6/uL (4.1-5.3); Red Cell Distribution Width 23.9 % (12.1-15.1); White Blood Count 24.8 10^3/uL (4.0-10.0)
[2019-10-11 19:47] LABS: Alanine Aminotransferase 23 U/L (0-41); Albumin Level 3.3 g/dL (3.5-5.2); Alkaline Phosphatase 179 IU/L (40-130); Anion Gap 18.7 (5-19); Aspartate Amino Transferase 18 U/L (0-40); Blood Urea Nitrogen 16 mg/dL (8-23); Calcium 9.1 mg/dL (8.5-10.5); Carbon Dioxide 26 mmol/L (22-29); Chloride 96 mmol/L (98-107); Globulin 2.7 g/dL (1.3-4.6); Glucose 181 mg/dL (65-115); Osmolality Calculated 285 mOsm/kg (285-295); Potassium 3.7 mmol/L (3.5-5.1); Sodium 137 mmol/L (136-145); Total Bilirubin 0.2 mg/dL (0.15-1.2)
[2019-10-11 20:47] LABS: Slide Review Slide Review Perform
--- NOTE | 2019-10-12 12:36 | ONC FU_ITS ---
Dr. Tuttle follow up note Patient: Rodney Conde Unit #: [id number]: 1940 Dicatated By: Yana Tuttle M.D.Date of Visit:Oct 12, 2019 Onc Med Follow-up/Prog Note History of Present Illness: Mr. Stevens is a 78-year-old gentleman with history of progressive dysphagia and weight loss. 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 A biopsy was obtained at [place], [place] on 05/21/2019. 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 Mr Stevens underwent CT scan of chest abdomen on 05/18/2019 which showed dilated thoracic esophagus with gross appearance of marked wall thickening as well as dilatation of distal segment of thoracic esophagus. No thoracic lymphadenopathy by size criteria. No evidence of distant metastatic disease, As per patient in the beginning he had dysphagia to solid food now can tolerate liquids only. Denied any hematemesis or hemoptysis, denied any jaundice, denied any aspiration or regurgitation. Mr Stevens has smoked about pack a day for many years. [place] lives [place] of [place] and lives with elderly . Mr Stevens has elected to try chemotherapy alone. He has been offered chemotherapy with weekly carboplatin/Taxol/Herceptin. He did have baseline echocardiogram for the Herceptin on 06/24/2019 which reported left ventricular ejection fraction estimated at 65%. He had normal left ventricular systolic function no regional wall motion abnormalities there is a grade I/IV diastolic function, normal to mildly elevated filling pressures. No aortic valve stenosis and mild aortic valve regurgitation. He did also have PET CT imaging on 06/25/2019 at [facility]. This did report hypermetabolic circumferential mural thickening involving the distal esophagus extending approximately 10 cm proximal to the gastroesophageal junction from T11???T8 with maximum SUV of 24. A small amount of hyper metabolic mass extension into the gastric cardia is not fully excluded. Upstream esophagus appears fluid-filled and patulous. There were no discrete hypermetabolic pulmonary nodules. There is mild dependent atelectasis with trace bilateral pleural fluid collection without hypermetabolic pleural thickening. 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 Additional hypermetabolic left hilar lymph node 0.8 x 1.2 cm with a max SUV of 2.5. 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 There were no hypermetabolic hepatic lesions. There was Extavia of the infrarenal abdominal aorta measuring up to 2.7 cm. No ascites or peritoneal/serosa nodularity. There was hyper metabolic gastrohepatic ligament lymph node 1.7 x 1.8 cm with a max SUV of 3.9. No additional hypermetabolic lymph nodes were seen within the abdomen or pelvis. There was prostamegaly without focal hypermetabolic prostate lesion. Muscle skeletal there was diffuse bone marrow hyper metabolism without focal lytic or blastic osseous lesion identified suggesting pathologic marrow uptake. 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 He did have Port a Cath placement in the left subclavian vein per Dr Rosa on 07/12/2019. Mr Stevens started on his first chemotherapy with weekly carboplatin/Taxol and Herceptin on 07/15/2019. He has tolerated it well overall. Came for follow-up, denies any specific complaints, no fever or chills, no nausea or vomiting, no diarrhea constipation, no dysphagia, no peripheral numbness, patient is hard of hearing, so hard to communicate, is not present in the room . Medications: Advair Diskus 2 Puff(s) (of 250-50 mcg/dose) Aerosol Powder, Breath Activated Inhalation daily, Albuterol Sulfate 1 ((2.5 mg/3ml) 0.083%) Nebulization solution Inhalation daily PRN, Dexamethasone (4 mg) Tablet Oral Take as Directed, Prochlorperazine Maleate 1 Tablet (of 10 mg) Oral q 4 hours PRN, Simvastatin 1 Tablet (of 40 mg) Oral daily, Spiriva HandiHaler 1 Capsule (of 18 mcg) Inhalation daily, Tamsulosin HCl 1 Capsule (of 0.4 mg) Oral daily Allergies: No Known Allergies. Review of Systems: Review of Systems is not available for this patient. Vital Signs: Performed on Oct 12, 2019 11:24 Height - 67.00 in Weight - 164.0 lbs (LOW) BSA - 1.86 sq.m BMI - 25.69 Temperature - 97.8 F (LOW) Pulse - 105 /min (HIGH) Respiration - 18 /min BP - 132/80 mm(hg) O2 Sat - 95 % (LOW) Pain - 0 Performance Status: 1 - No physically strenuous activity, but ambulatory and able to carry out light or sedentary work (e.g. office work, light house work). (ECOG) Physical Examination: ENMT - . No oral exudates, ulcers, masses, thrush or mucositis. Oropharynx clear. Tongue normal, Respiratory - Lungs are clear, Cardiovascular - Regular rate and rhythm of heart, Abdomen - Non-tender, non-distended, Good bowel sounds. No guarding or rebound tenderness. No pulsatile masses, Extremities - 1+ edema. Lab/Imaging: Test performed on Oct 11, 2019 14:05 Sodium 137 mmol/L Potassium 3.7 mmol/L Chloride 96 mmol/L CO2 26 mmol/L Anion Gap 18.7 BUN 16 mg/dL Creatinine 1.4 mg/dL Cr Clearance (Est) 48.3300 mL/min Glucose 181 mg/dL Calcium 9.1 mg/dL Protein, Total 6.0 g/dL Albumin 3.3 g/dL Globulin 2.7 g/dL Bilirubin, Total 0.2 mg/dL ALT (SGPT) 23 U/L AST (SGOT) 18 U/L Alkaline Phosphatase 179 IU/L WBC 24.8 10 3/uL RBC 3.85 10 6/uL HGB 11.7 g/dL HCT 37.6 % MCV 97.7 fL MCH 30.4 pg MCHC 31.1 g/dL RDW 23.9 % Platelet Count 222 10 3/cmm MPV 9.9 fL Neutrophils 19.0 10 3/uL Lymphocytes 2.4 10 3/uL Monocytes 0.8 10 3/uL Eosinophils 0.1 10 3/uL Basophils 0.1 10 3/uL Neutrophil % 76.9 % Lymphocyte % 9.8 % Monocyte % 3.3 % Eosinophil % 0.3 % Basophils % 0.3 % CBC Slide Review Slide Review Perform SLIDE REVIEW AGREES WITH AUTO DIFF Test performed on Oct 05, 2019 13:10 Manual Bands % 12.0 % Manual Lymphs % 6 % Atypical Lymphs % 4.0 % Manual Monos % 7.0 % Metamyelocytes % 3.0 % Polychromasia 2+ Anisocytosis 2+ Macrocytosis 1+ Microcytosis 1+ Ovalocytes 1+ Manual Bands Abs 3.8 10 3/cmm Manual Lymphocytes Abs 3.2 10 3/cmm Manual Monocytes Abs 2.2 10 3/cmm Test performed on Sep 28, 2019 09:13 Manual Segs 47.1 % Manual Eosinophils 4.5 % Manual Basophils 0.2 % NRBCs 0 /100 WBC Test performed on Aug 20, 2019 11:20 Manual Eosinophils Abs 0.2 10 3/cmm Test performed on Jul 21, 2019 09:35 Ferritin 35 ng/mL Iron, Total 15 mcg/dL % Iron Saturation 6.4 % TIBC 231 mcg/dL Test performed on Jun 10, 2019 11:05 Packed Red Cells (PRBC) [id number] TRANSFUSED PRODUCT: LEUKOREDUCED RED CELL 1ST CONT COUNT: 2 Type & Screen BLD TYPE A POSITIVE AB SCREEN GEL NEGATIVE Test performed on Jun 10, 2019 08:05 Vitamin B12 465 pg/mL UIBC 258 ug/dL Test performed on Jun 09, 2019 08:05 ABO & Rh Type # 2 A POSITIVE Impression: 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 CT scan of chest abdomen done on 05/18/2019 showed no thoracic lymphadenopathy by size criteria Dilated thoracic esophagus with gross appearance of marked wall thickening as well as dilatation of distal segment of thoracic esophagus no evidence of distant metastatic disease. Progressive dysphagia and weight loss due to above Chronic smoking, still active Clinically, patient is doing reasonably well now with progressive dysphagia due to newly diagnosed esophageal cancer. he said he did talk to his family and now have decided to pursue with chemotherapy alone and will go from there. Considering his age and comorbid condition and social issues e.g. living 60 miles away from [place] with elderly , he would prefer chemotherapy alone in the office but not radiation therapy. Patient was reminded in the standard of care is combined chemoradiation followed by surgery if possible otherwise chemotherapy is palliative only. Considering his age and performance status, recommended weekly carboplatin Taxol and Herceptin. did also discuss about role of G-tube placement but patient declined. Mr Stevens is prediabetic so we'll also consider diabetes teaching and may consider sliding scale if he develops hyperglycemia due to steroids. He did have baseline echocardiogram for the Herceptin on 06/24/2019 which reported left ventricular ejection fraction estimated at 65%. He had normal left ventricular systolic function no regional wall motion abnormalities there is a grade I/IV diastolic function, normal to mildly elevated filling pressures. No aortic valve stenosis and mild aortic valve regurgitation. He did also have PET CT imaging on 06/25/2019 at [facility]. This did report hypermetabolic circumferential mural thickening involving the distal esophagus extending approximately 10 cm proximal to the gastroesophageal junction from T11???T8 with maximum SUV of 24. A small amount of hyper metabolic mass extension into the gastric cardia is not fully excluded. Upstream esophagus appears fluid-filled and patulous. There were no discrete hypermetabolic pulmonary nodules. There is mild dependent atelectasis with trace bilateral pleural fluid collection without hypermetabolic pleural thickening. 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 Additional hypermetabolic left hilar lymph node 0.8 x 1.2 cm with a max SUV of 2.5. 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 There were no hypermetabolic hepatic lesions. There was Extavia of the infrarenal abdominal aorta measuring up to 2.7 cm. No ascites or peritoneal/serosa nodularity. There was hyper metabolic gastrohepatic ligament lymph node 1.7 x 1.8 cm with a max SUV of 3.9. No additional hypermetabolic lymph nodes were seen within the abdomen or pelvis. There was prostamegaly without focal hypermetabolic prostate lesion. Muscle skeletal there was diffuse bone marrow hyper metabolism without focal lytic or blastic osseous lesion identified suggesting pathologic marrow uptake. 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 Mr Stevens had Port a Cath placement in the left subclavian vein per Dr Rosa on 07/12/2019. He began his first cycle of carboplatin/Taxol/Herceptin on 07/15/2019. He was also found to be iron deficient and received Injectafer on 07/12/2019 & 07/29/2019. He has required Neupogen support for chemo induced neutropenia with the last cycle of chemotherapy. He has been receiving Neupogen for 3 days starting day 2. This has allowed his counts to remain adequate to continue on treatment as scheduled. He did receive Neulasta on day 15 of cycle 2. Plan: Discussed with patient regarding his labs white blood count 24.8 hemoglobin 11.7 crit is 10.6 platelets 222,000 CMP within normal limit except glucose 181 and creatinine 1.4 Clinically, patient is doing reasonably well, tolerating palliative therapy with Herceptin/carboplatin Taxol well but with expected side effects. We'll proceed with the next cycle #4 with weekly carboplatin/Taxol/Herceptin. Patient return to clinic in 1 week with CBC CMP and if reasonable, for the treatment X Leukocytosis probably due to Neulasta.and steroids given as premedication. No sign of infection and no dysuria or sore throat. Signed By: Yana Tuttle M.D. <<Signature on File>>
[2019-10-12] MEDS: acetaminophen 325 mg Tablet 650 MG PO (12:46)
[2019-10-12] MEDS: sodium chloride 0.9% 250 ML 75 ML IV (12:46)
[2019-10-19 20:36] LABS: Basophils # 0.1 10^3/uL (0.0-0.1); Basophils % 0.7 %; Eosinophils # 0.1 10^3/uL (0.0-0.8); Eosinophils % 0.7 %; Hematocrit 36.4 % (42.0-52.0); Hemoglobin 11.3 g/dL (11.7-16.6); Lymphocytes # 1.9 10^3/uL (0.8-4.8); Lymphocytes % 19.2 %; Mean Corpuscular Hemoglobin 30.3 pg (28.0-34.0); Mean Corpuscular Volume 97.6 fL (80-94); Mean Platelet Volume 10.2 fL (7.4-10.4); Monocytes # 0.7 10^3/uL (0.2-0.9); Monocytes % 7.3 %; Neutrophils # 7.1 10^3/uL (1.8-7.7); Nucleated Red Blood Cells % 0 %; Platelet Count 256 10^3/cmm (130-400); Red Blood Count 3.73 10^6/uL (4.1-5.3); Red Cell Distribution Width 21.5 % (12.1-15.1); White Blood Count 10.1 10^3/uL (4.0-10.0)
[2019-10-19 20:58] LABS: Alanine Aminotransferase 21 U/L (0-41); Albumin Level 3.4 g/dL (3.5-5.2); Alkaline Phosphatase 86 IU/L (40-130); Anion Gap 16.6 (5-19); Aspartate Amino Transferase 16 U/L (0-40); Blood Urea Nitrogen 18 mg/dL (8-23); Calcium 9.5 mg/dL (8.5-10.5); Carbon Dioxide 27 mmol/L (22-29); Chloride 99 mmol/L (98-107); Globulin 2.7 g/dL (1.3-4.6); Glucose 89 mg/dL (65-115); Osmolality Calculated 282 mOsm/kg (285-295); Potassium 4.6 mmol/L (3.5-5.1); Sodium 138 mmol/L (136-145); Total Bilirubin 0.5 mg/dL (0.15-1.2); Total Protein 6.1 g/dL (6.6-8.7)
[2019-10-20] MEDS: sodium chloride 0.9% 250 ML 75 ML IV (13:05)
[2019-10-20] MEDS: acetaminophen 325 mg Tablet 650 MG PO (13:05)
--- NOTE | 2019-10-20 14:14 | ONC FU_ITS ---
Dr. Tuttle follow up note Patient: Rodney [place] Unit #: [id number]: 1940 Dicatated By: Yana Tuttle M.D.Date of Visit:Oct 20, 2019 Onc Med Follow-up/Prog Note History of Present Illness: Mr. Stevens is a 79 -year-old gentleman with history of progressive dysphagia and weight loss. 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 A biopsy was obtained at [place], [place] on 05/21/2019. 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 Mr Stevens underwent CT scan of chest abdomen on 05/18/2019 which showed dilated thoracic esophagus with gross appearance of marked wall thickening as well as dilatation of distal segment of thoracic esophagus. No thoracic lymphadenopathy by size criteria. No evidence of distant metastatic disease, As per patient in the beginning he had dysphagia to solid food now can tolerate liquids only. Denied any hematemesis or hemoptysis, denied any jaundice, denied any aspiration or regurgitation. Mr Stevens has smoked about pack a day for many years. [place] lives about [place] north of [place] and lives with elderly . Mr Stevens has elected to try chemotherapy alone. He has been offered chemotherapy with weekly carboplatin/Taxol/Herceptin. He did have baseline echocardiogram for the Herceptin on 06/24/2019 which reported left ventricular ejection fraction estimated at 65%. He had normal left ventricular systolic function no regional wall motion abnormalities there is a grade I/IV diastolic function, normal to mildly elevated filling pressures. No aortic valve stenosis and mild aortic valve regurgitation. He did also have PET CT imaging on 06/25/2019 at [facility]. This did report hypermetabolic circumferential mural thickening involving the distal esophagus extending approximately 10 cm proximal to the gastroesophageal junction from T11???T8 with maximum SUV of 24. A small amount of hyper metabolic mass extension into the gastric cardia is not fully excluded. Upstream esophagus appears fluid-filled and patulous. There were no discrete hypermetabolic pulmonary nodules. There is mild dependent atelectasis with trace bilateral pleural fluid collection without hypermetabolic pleural thickening. There was reported calcified mediastinal and hilar granulous with normal size mildly hypermetabolic bilateral hilar lymph nodes, quality control representative right hilar lymph node maximum SUV 2.7. Additional hypermetabolic left hilar lymph node 0.8 x 1.2 cm with a max SUV of 2.5. 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 There were no hypermetabolic hepatic lesions. There was Extavia of the infrarenal abdominal aorta measuring up to 2.7 cm. No ascites or peritoneal/serosa nodularity. There was hyper metabolic gastrohepatic ligament lymph node 1.7 x 1.8 cm with a max SUV of 3.9. No additional hypermetabolic lymph nodes were seen within the abdomen or pelvis. There was prostamegaly without focal hypermetabolic prostate lesion. Muscle skeletal there was diffuse bone marrow hyper metabolism without focal lytic or blastic osseous lesion identified suggesting pathologic marrow uptake. 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 He did have Port a Cath placement in the left subclavian vein per Dr Rosa on 07/12/2019. Mr Stevens started on his first chemotherapy with weekly carboplatin/Taxol and Herceptin on 07/15/2019. He has tolerated it well overall. Follow-up CT PET scan done on 10/15/2019 showed significant improvement with decrease in size in hypermetabolism of distal esophagus. Previous hypermetabolic tumor extension into gastric cardia is no longer seen Resolution of previous hypermetabolic left hilar, paraesophageal, gastrohepatic ligament lymph nodes. No area of hypermetabolic distant metastatic disease seen Came for follow-up, denies any specific complaints except poor appetite otherwise no dysphagia, no nausea or vomiting, no diarrhea constipation, no fever or chills Medications: Advair Diskus 2 Puff(s) (of 250-50 mcg/dose) Aerosol Powder, Breath Activated Inhalation daily, Albuterol Sulfate 1 ((2.5 mg/3ml) 0.083%) Nebulization solution Inhalation daily PRN, Dexamethasone (4 mg) Tablet Oral Take as Directed, Prochlorperazine Maleate 1 Tablet (of 10 mg) Oral q 4 hours PRN, Simvastatin 1 Tablet (of 40 mg) Oral daily, Spiriva HandiHaler 1 Capsule (of 18 mcg) Inhalation daily, Tamsulosin HCl 1 Capsule (of 0.4 mg) Oral daily Allergies: No Known Allergies. Review of Systems: Constitutional - Appetite is poor and weight is decreasing. No fever, chills, hot flashes, or night sweats. Energy level is poor, ENMT - No sinus congestion/drainage. No mouth sores. No sore throat or difficulty swallowing, Hematologic/Lymphatic - Positive for easy bruising, Respiratory - Positive for shortness of breath. No cough. No pleuritic pain or hemoptysis, Cardiovascular - No angina pain. No palpitations, Gastrointestinal - No nausea or vomiting. No heartburn or acid reflux. No diarrhea or constipation. No bloody or black stool, Genitourinary (M) - No dysuria or hematuria. No urinary frequency. No urgency or incontinence, Musculoskeletal - No joint or bone pain, Neurologic - No headache or dizziness. No numbness/paresthesias or other focal neurologic symptoms, Psychiatric - No anxiety or depression. No insomnia. Vital Signs: Performed on Oct 20, 2019 12:18 Height - 67.00 in Weight - 158.0 lbs (LOW) BSA - 1.83 sq.m BMI - 24.75 Temperature - 97.3 F (LOW) Pulse - 103 /min (HIGH) Respiration - 14 /min BP - 135/68 mm(hg) O2 Sat - 95 % (LOW) Pain - 0 Performance Status: 1 - No physically strenuous activity, but ambulatory and able to carry out light or sedentary work (e.g. office work, light house work). (ECOG) Physical Examination: ENMT - denies mouth sores, Respiratory - Lungs are clear, Cardiovascular - Regular rate and rhythm, Abdomen - no abdominal pain, Extremities - trace edema. Lab/Imaging: Test performed on Oct 20, 2019 08:08 Creatinine 1.3 mg/dL Cr Clearance (Est) 45.9400 mL/min Test performed on Oct 11, 2019 14:05 Sodium 137 mmol/L Potassium 3.7 mmol/L Chloride 96 mmol/L CO2 26 mmol/L Anion Gap 18.7 BUN 16 mg/dL Glucose 181 mg/dL Calcium 9.1 mg/dL Protein, Total 6.0 g/dL Albumin 3.3 g/dL Globulin 2.7 g/dL Bilirubin, Total 0.2 mg/dL ALT (SGPT) 23 U/L AST (SGOT) 18 U/L Alkaline Phosphatase 179 IU/L WBC 24.8 10 3/uL RBC 3.85 10 6/uL HGB 11.7 g/dL HCT 37.6 % MCV 97.7 fL MCH 30.4 pg MCHC 31.1 g/dL RDW 23.9 % Platelet Count 222 10 3/cmm MPV 9.9 fL Neutrophils 19.0 10 3/uL Lymphocytes 2.4 10 3/uL Monocytes 0.8 10 3/uL Eosinophils 0.1 10 3/uL Basophils 0.1 10 3/uL Neutrophil % 76.9 % Lymphocyte % 9.8 % Monocyte % 3.3 % Eosinophil % 0.3 % Basophils % 0.3 % CBC Slide Review Slide Review Perform SLIDE REVIEW AGREES WITH AUTO DIFF Test performed on Oct 05, 2019 13:10 Manual Bands % 12.0 % Manual Lymphs % 6 % Atypical Lymphs % 4.0 % Manual Monos % 7.0 % Metamyelocytes % 3.0 % Polychromasia 2+ Anisocytosis 2+ Macrocytosis 1+ Microcytosis 1+ Ovalocytes 1+ Manual Bands Abs 3.8 10 3/cmm Manual Lymphocytes Abs 3.2 10 3/cmm Manual Monocytes Abs 2.2 10 3/cmm Test performed on Sep 28, 2019 09:13 Manual Segs 47.1 % Manual Eosinophils 4.5 % Manual Basophils 0.2 % NRBCs 0 /100 WBC Test performed on Aug 20, 2019 11:20 Manual Eosinophils Abs 0.2 10 3/cmm Test performed on Jul 21, 2019 09:35 Ferritin 35 ng/mL Iron, Total 15 mcg/dL % Iron Saturation 6.4 % TIBC 231 mcg/dL Test performed on Jun 10, 2019 11:05 Packed Red Cells (PRBC) [id number] TRANSFUSED PRODUCT: LEUKOREDUCED RED CELL 1ST CONT COUNT: 2 Type & Screen BLD TYPE A POSITIVE AB SCREEN GEL NEGATIVE Test performed on Jun 10, 2019 08:05 Vitamin B12 465 pg/mL UIBC 258 ug/dL Test performed on Jun 09, 2019 08:05 ABO & Rh Type # 2 A POSITIVE Impression: 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 CT scan of chest abdomen done on 05/18/2019 showed no thoracic lymphadenopathy by size criteria Dilated thoracic esophagus with gross appearance of marked wall thickening as well as dilatation of distal segment of thoracic esophagus no evidence of distant metastatic disease. Progressive dysphagia and weight loss due to above Chronic smoking, still active Clinically, patient is doing reasonably well now with progressive dysphagia due to newly diagnosed esophageal cancer. he said he did talk to his family and now have decided to pursue with chemotherapy alone and will go from there. Considering his age and comorbid condition and social issues e.g. living 60 miles away from [place] with elderly , he would prefer chemotherapy alone in the office but not radiation therapy. Patient was reminded in the standard of care is combined chemoradiation followed by surgery if possible otherwise chemotherapy is palliative only. Considering his age and performance status, recommended weekly carboplatin Taxol and Herceptin. did also discuss about role of G-tube placement but patient declined. Mr Stevens is prediabetic so we'll also consider diabetes teaching and may consider sliding scale if he develops hyperglycemia due to steroids. He did have baseline echocardiogram for the Herceptin on 06/24/2019 which reported left ventricular ejection fraction estimated at 65%. He had normal left ventricular systolic function no regional wall motion abnormalities there is a grade I/IV diastolic function, normal to mildly elevated filling pressures. No aortic valve stenosis and mild aortic valve regurgitation. He did also have PET CT imaging on 06/25/2019 at [facility]. This did report hypermetabolic circumferential mural thickening involving the distal esophagus extending approximately 10 cm proximal to the gastroesophageal junction from T11???T8 with maximum SUV of 24. A small amount of hyper metabolic mass extension into the gastric cardia is not fully excluded. Upstream esophagus appears fluid-filled and patulous. There were no discrete hypermetabolic pulmonary nodules. There is mild dependent atelectasis with trace bilateral pleural fluid collection without hypermetabolic pleural thickening. There was reported calcified mediastinal and hilar granulous with normal size mildly hypermetabolic bilateral hilar lymph nodes, quality control representative right hilar lymph node maximum SUV 2.7. Additional hypermetabolic left hilar lymph node 0.8 x 1.2 cm with a max SUV of 2.5. 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 There were no hypermetabolic hepatic lesions. There was Extavia of the infrarenal abdominal aorta measuring up to 2.7 cm. No ascites or peritoneal/serosa nodularity. There was hyper metabolic gastrohepatic ligament lymph node 1.7 x 1.8 cm with a max SUV of 3.9. No additional hypermetabolic lymph nodes were seen within the abdomen or pelvis. There was prostamegaly without focal hypermetabolic prostate lesion. Muscle skeletal there was diffuse bone marrow hyper metabolism without focal lytic or blastic osseous lesion identified suggesting pathologic marrow uptake. 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 Mr Stevens had Port a Cath placement in the left subclavian vein per Dr Rosa on 07/12/2019. He began his first cycle of carboplatin/Taxol/Herceptin on 07/15/2019. He was also found to be iron deficient and received Injectafer on 07/12/2019 & 07/29/2019. He has required Neupogen support for chemo induced neutropenia with the last cycle of chemotherapy. He has been receiving Neupogen for 3 days starting day 2. This has allowed his counts to remain adequate to continue on treatment as scheduled. He did receive Neulasta on day 15 of cycle 2. Plan: Discussed with patient regarding his labs white blood count 10.1 hemoglobin 11.3 hematocrit 36.4 platelets 256,000 CMP within normal limit except creatinine 1.3 compared to 1.4 on 10/11/2019 Clinically, patient doing well, tolerating weekly carboplatin/Taxol/Herceptin well but with expected side effects e.g. generalized weakness and fatigue, poor appetite. His follow-up CT PET scan shows excellent response, Discussed with patient and his regarding standard of care which would be combined chemoradiation followed by surgery but considering patient age, comorbid condition and social issues, patient lives about 60 miles from [place] with his elderly and said daily radiation therapy is not possible and would not consider. Patient is not a candidate for surgical option, in that case we will continue palliative therapy, patient and his agreed so we'll continue with the next dose of weekly carboplatin/Taxol/Herceptin and return to clinic in 1 week with CBC CMP. If reasonable, for next treatment Signed By: Yana Tuttle M.D. <<Signature on File>>
[2019-10-25 19:33] LABS: Basophils % 0.5 %; Eosinophils # 0.2 10^3/uL (0.0-0.8); Eosinophils % 3.2 %; Hematocrit 35.9 % (42.0-52.0); Hemoglobin 10.9 g/dL (11.7-16.6); Lymphocytes % 30.6 %; Mean Corpuscular HGB Conc 30.4 g/dL (30.0-36.0); Mean Corpuscular Hemoglobin 30.1 pg (28.0-34.0); Mean Corpuscular Volume 99.2 fL (80-94); Mean Platelet Volume 10.9 fL (7.4-10.4); Monocytes # 0.2 10^3/uL (0.2-0.9); Monocytes % 3.3 %; Neutrophils # 4.1 10^3/uL (1.8-7.7); Neutrophils % 61.6 %; Nucleated Red Blood Cells % 0 %; Platelet Count 163 10^3/cmm (130-400); Red Blood Count 3.62 10^6/uL (4.1-5.3); Red Cell Distribution Width 19.4 % (12.1-15.1); White Blood Count 6.6 10^3/uL (4.0-10.0)
[2019-10-25 20:46] LABS: Alanine Aminotransferase 25 U/L (0-41); Albumin Level 3.3 g/dL (3.5-5.2); Alkaline Phosphatase 71 IU/L (40-130); Anion Gap 18.3 (5-19); Aspartate Amino Transferase 16 U/L (0-40); Blood Urea Nitrogen 18 mg/dL (8-23); Calcium 9.3 mg/dL (8.5-10.5); Carbon Dioxide 24 mmol/L (22-29); Chloride 100 mmol/L (98-107); Globulin 2.8 g/dL (1.3-4.6); Glucose 84 mg/dL (65-115); Osmolality Calculated 282 mOsm/kg (285-295); Potassium 4.3 mmol/L (3.5-5.1); Sodium 138 mmol/L (136-145); Total Bilirubin 0.6 mg/dL (0.15-1.2); Total Protein 6.1 g/dL (6.6-8.7)
[2019-10-26] MEDS: sodium chloride 0.9% 250 ML 75 ML IV (09:50)
[2019-10-26] MEDS: acetaminophen 325 mg Tablet 650 MG PO (09:52)
--- NOTE | 2019-10-26 13:03 | ONC FU_ITS ---
Dr. Tuttle follow up note Patient: Rodney [place] Unit #: [id number]: 1940 Dicatated By: Yana Tuttle M.D.Date of Visit:Oct 26, 2019 Onc Med Follow-up/Prog Note History of Present Illness: Mr. Stevens is a 79 -year-old gentleman with history of progressive dysphagia and weight loss. 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 A biopsy was obtained at [place], [place] on 05/21/2019. 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 Mr Stevens underwent CT scan of chest abdomen on 05/18/2019 which showed dilated thoracic esophagus with gross appearance of marked wall thickening as well as dilatation of distal segment of thoracic esophagus. No thoracic lymphadenopathy by size criteria. No evidence of distant metastatic disease, As per patient in the beginning he had dysphagia to solid food now can tolerate liquids only. Denied any hematemesis or hemoptysis, denied any jaundice, denied any aspiration or regurgitation. Mr Stevens has smoked about pack a day for many years. [place] lives [place] north of [place] and lives with elderly . Mr Stevens has elected to try chemotherapy alone. He has been offered chemotherapy with weekly carboplatin/Taxol/Herceptin. He did have baseline echocardiogram for the Herceptin on 06/24/2019 which reported left ventricular ejection fraction estimated at 65%. He had normal left ventricular systolic function no regional wall motion abnormalities there is a grade I/IV diastolic function, normal to mildly elevated filling pressures. No aortic valve stenosis and mild aortic valve regurgitation. He did also have PET CT imaging on 06/25/[address] [facility]. This did report hypermetabolic circumferential mural thickening involving the distal esophagus extending approximately 10 cm proximal to the gastroesophageal junction from T11???T8 with maximum SUV of 24. A small amount of hyper metabolic mass extension into the gastric cardia is not fully excluded. Upstream esophagus appears fluid-filled and patulous. There were no discrete hypermetabolic pulmonary nodules. There is mild dependent atelectasis with trace bilateral pleural fluid collection without hypermetabolic pleural thickening. There was reported calcified mediastinal and hilar granulous with normal size mildly hypermetabolic bilateral hilar lymph nodes, claims representative right hilar lymph node maximum SUV 2.7. Additional hypermetabolic left hilar lymph node 0.8 x 1.2 cm with a max SUV of 2.5. 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 There were no hypermetabolic hepatic lesions. There was Extavia of the infrarenal abdominal aorta measuring up to 2.7 cm. No ascites or peritoneal/serosa nodularity. There was hyper metabolic gastrohepatic ligament lymph node 1.7 x 1.8 cm with a max SUV of 3.9. No additional hypermetabolic lymph nodes were seen within the abdomen or pelvis. There was prostamegaly without focal hypermetabolic prostate lesion. Muscle skeletal there was diffuse bone marrow hyper metabolism without focal lytic or blastic osseous lesion identified suggesting pathologic marrow uptake. 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 He did have Port a Cath placement in the left subclavian vein per Dr Rosa on 07/12/2019. Mr Stevens started on his first chemotherapy with weekly carboplatin/Taxol and Herceptin on 07/15/2019. He has tolerated it well overall. Follow-up CT PET scan done on 10/15/2019 showed significant improvement with decrease in size in hypermetabolism of distal esophagus. Previous hypermetabolic tumor extension into gastric cardia is no longer seen Resolution of previous hypermetabolic left hilar, paraesophageal, gastrohepatic ligament lymph nodes. No area of hypermetabolic distant metastatic disease seen Came for follow-up, denies any specific complaints, no dysphagia, no nausea or vomiting, no diarrhea constipation, appetite is reasonable, no shortness of breath or palpitation. No peripheral numbness. Tolerating Herceptin/carboplatin/Taxol well Medications: Advair Diskus 2 Puff(s) (of 250-50 mcg/dose) Aerosol Powder, Breath Activated Inhalation daily, Albuterol Sulfate 1 ((2.5 mg/3ml) 0.083%) Nebulization solution Inhalation daily PRN, Dexamethasone (4 mg) Tablet Oral Take as Directed, Prochlorperazine Maleate 1 Tablet (of 10 mg) Oral q 4 hours PRN, Simvastatin 1 Tablet (of 40 mg) Oral daily, Spiriva HandiHaler 1 Capsule (of 18 mcg) Inhalation daily, Tamsulosin HCl 1 Capsule (of 0.4 mg) Oral daily Allergies: No Known Allergies. Review of Systems: Constitutional - Appetite is poor and weight is stable. No fever, chills, hot flashes, or night sweats. Energy level is poor, ENMT - No sinus congestion/drainage. No mouth sores. No sore throat or difficulty swallowing, Hematologic/Lymphatic - Positive for easy bruising, Respiratory - Positive for shortness of breath. No cough. No pleuritic pain or hemoptysis, Cardiovascular - No angina pain. No palpitations, Gastrointestinal - No nausea or vomiting. No heartburn or acid reflux. No diarrhea or constipation. No bloody or black stool, Genitourinary (M) - No dysuria or hematuria. No urinary frequency. No urgency or incontinence, Musculoskeletal - No joint or bone pain, Neurologic - No headache or dizziness. No numbness/paresthesias or other focal neurologic symptoms, Psychiatric - No anxiety or depression. No insomnia. Vital Signs: Performed on Oct 26, 2019 09:00 Height - 67.00 in Weight - 159.6 lbs (HIGH) BSA - 1.84 sq.m BMI - 25.00 Temperature - 97.7 F (LOW) Pulse - 116 /min (HIGH) Respiration - 18 /min BP - 126/74 mm(hg) O2 Sat - 98 % Pain - 0 Performance Status: 2 - Ambulatory/capable of all self-care, unable to perform any work activities. Up and about more than 50% of waking hours. (ECOG) Physical Examination: ENMT - denies any mouth sores or thrush, Respiratory - Lungs are clear, Cardiovascular - Regular rate and rhythm, Abdomen - no abdominal pain or distention, Extremities - no visible edema. Lab/Imaging: Test performed on Oct 26, 2019 08:02 Creatinine 1.1 mg/dL Cr Clearance (Est) 54.29 mL/min Test performed on Oct 19, 2019 14:30 Sodium 138 mmol/L Potassium 4.6 mmol/L Chloride 99 mmol/L CO2 27 mmol/L Anion Gap 16.6 BUN 18 mg/dL Glucose 89 mg/dL Calcium 9.5 mg/dL Protein, Total 6.1 g/dL Albumin 3.4 g/dL Globulin 2.7 g/dL Bilirubin, Total 0.5 mg/dL ALT (SGPT) 21 U/L AST (SGOT) 16 U/L Alkaline Phosphatase 86 IU/L WBC 10.1 10 3/uL RBC 3.73 10 6/uL HGB 11.3 g/dL HCT 36.4 % MCV 97.6 fL MCH 30.3 pg MCHC 31.0 g/dL RDW 21.5 % Platelet Count 256 10 3/cmm MPV 10.2 fL Neutrophils 7.1 10 3/uL Lymphocytes 1.9 10 3/uL Monocytes 0.7 10 3/uL Eosinophils 0.1 10 3/uL Basophils 0.1 10 3/uL Neutrophil % 70.0 % Lymphocyte % 19.2 % Monocyte % 7.3 % Eosinophil % 0.7 % Basophils % 0.7 % Test performed on Oct 11, 2019 14:05 CBC Slide Review Slide Review Perform SLIDE REVIEW AGREES WITH AUTO DIFF Test performed on Oct 05, 2019 13:10 Manual Bands % 12.0 % Manual Lymphs % 6 % Atypical Lymphs % 4.0 % Manual Monos % 7.0 % Metamyelocytes % 3.0 % Polychromasia 2+ Anisocytosis 2+ Macrocytosis 1+ Microcytosis 1+ Ovalocytes 1+ Manual Bands Abs 3.8 10 3/cmm Manual Lymphocytes Abs 3.2 10 3/cmm Manual Monocytes Abs 2.2 10 3/cmm Test performed on Sep 28, 2019 09:13 Manual Segs 47.1 % Manual Eosinophils 4.5 % Manual Basophils 0.2 % NRBCs 0 /100 WBC Test performed on Aug 20, 2019 11:20 Manual Eosinophils Abs 0.2 10 3/cmm Test performed on Jul 21, 2019 09:35 Ferritin 35 ng/mL Iron, Total 15 mcg/dL % Iron Saturation 6.4 % TIBC 231 mcg/dL Test performed on Jun 10, 2019 11:05 Packed Red Cells (PRBC) [id number] TRANSFUSED PRODUCT: LEUKOREDUCED RED CELL 1ST CONT COUNT: 2 Type & Screen BLD TYPE A POSITIVE AB SCREEN GEL NEGATIVE Test performed on Jun 10, 2019 08:05 Vitamin B12 465 pg/mL UIBC 258 ug/dL Test performed on Jun 09, 2019 08:05 ABO & Rh Type # 2 A POSITIVE Impression: 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 CT scan of chest abdomen done on 05/18/2019 showed no thoracic lymphadenopathy by size criteria Dilated thoracic esophagus with gross appearance of marked wall thickening as well as dilatation of distal segment of thoracic esophagus no evidence of distant metastatic disease. Progressive dysphagia and weight loss due to above Chronic smoking, still active Clinically, patient is doing reasonably well now with progressive dysphagia due to newly diagnosed esophageal cancer. he said he did talk to his family and now have decided to pursue with chemotherapy alone and will go from there. Considering his age and comorbid condition and social issues e.g. living 60 miles away from [place] with elderly , he would prefer chemotherapy alone in the office but not radiation therapy. Patient was reminded in the standard of care is combined chemoradiation followed by surgery if possible otherwise chemotherapy is palliative only. Considering his age and performance status, recommended weekly carboplatin Taxol and Herceptin. did also discuss about role of G-tube placement but patient declined. Mr Stevens is prediabetic so we'll also consider diabetes teaching and may consider sliding scale if he develops hyperglycemia due to steroids. He did have baseline echocardiogram for the Herceptin on 06/24/2019 which reported left ventricular ejection fraction estimated at 65%. He had normal left ventricular systolic function no regional wall motion abnormalities there is a grade I/IV diastolic function, normal to mildly elevated filling pressures. No aortic valve stenosis and mild aortic valve regurgitation. He did also have PET CT imaging on 06/25/[address] [facility]. This did report hypermetabolic circumferential mural thickening involving the distal esophagus extending approximately 10 cm proximal to the gastroesophageal junction from T11???T8 with maximum SUV of 24. A small amount of hyper metabolic mass extension into the gastric cardia is not fully excluded. Upstream esophagus appears fluid-filled and patulous. There were no discrete hypermetabolic pulmonary nodules. There is mild dependent atelectasis with trace bilateral pleural fluid collection without hypermetabolic pleural thickening. There was reported calcified mediastinal and hilar granulous with normal size mildly hypermetabolic bilateral hilar lymph nodes, claims representative right hilar lymph node maximum SUV 2.7. Additional hypermetabolic left hilar lymph node 0.8 x 1.2 cm with a max SUV of 2.5. 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 There were no hypermetabolic hepatic lesions. There was Extavia of the infrarenal abdominal aorta measuring up to 2.7 cm. No ascites or peritoneal/serosa nodularity. There was hyper metabolic gastrohepatic ligament lymph node 1.7 x 1.8 cm with a max SUV of 3.9. No additional hypermetabolic lymph nodes were seen within the abdomen or pelvis. There was prostamegaly without focal hypermetabolic prostate lesion. Muscle skeletal there was diffuse bone marrow hyper metabolism without focal lytic or blastic osseous lesion identified suggesting pathologic marrow uptake. 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 Mr Stevens had Port a Cath placement in the left subclavian vein per Dr Rosa on 07/12/2019. He began his first cycle of carboplatin/Taxol/Herceptin on 07/15/2019. He was also found to be iron deficient and received Injectafer on 07/12/2019 & 07/29/2019. He has required Neupogen support for chemo induced neutropenia with the last cycle of chemotherapy. He has been receiving Neupogen for 3 days starting day 2. This has allowed his counts to remain adequate to continue on treatment as scheduled. He did receive Neulasta on day 15 of cycle 2. Plan: Discussed with patient regarding his labs white blood count 6.6 and 1110.9 hematocrit 35.9 platelets 162,000 CMP within normal limits, Clinically, patient is doing well, tolerating palliative therapy with carboplatin/Taxol/Herceptin well. We'll proceed with next dose day 15 with carboplatin/Taxol/Herceptin today and then he will return to clinic in 2 weeks with CBC CMP and to start next cycle of chemotherapy with weekly carboplatin/Taxol/Herceptin. Patient and his are elderly couple and they live about 50 miles from here and for their convenience, we will consider changing his chemotherapy to weekly ???3 then week off. Signed By: Yana Tuttle M.D. <<Signature on File>>
== END 2019-11-04 23:59 | disposition home or self-care (01) ==
LOC: ONCMED 06:44
PROVIDERS: Family Provider Physician Assistant Medical; PCP Physician Assistant Medical; Visit Provider Internal Medicine Hematology & Oncology
DX: Z51.12 Encounter for antineoplastic immunotherapy (principal); Z51.11 Encounter for antineoplastic chemotherapy; C15.4 Malignant neoplasm of middle third of esophagus; J44.9 Chronic obstructive pulmonary disease, unspecified; F03.90 Unspecified dementia, unspecified severity, without behavioral disturbance, psychotic disturbance, mood disturbance, and anxiety; E78.5 Hyperlipidemia, unspecified; I10 Essential (primary) hypertension; E11.9 Type 2 diabetes mellitus without complications; D51.8 Other vitamin B12 deficiency anemias; Z86.73 Personal history of transient ischemic attack (TIA), and cerebral infarction without residual deficits; Z79.899 Other long term (current) drug therapy
CPT/HCPCS: 36415; 80053; 85025; 93306; 96367; 96413; 96417; 99214; J1100; J1200; J2469; J3490; J7030; J7050; J9045; J9267; J9355

== ENCOUNTER 2019-11-08 06:49 | Outpatient (RCR) | payer MEDICARE, MEDICAID, SELFPAY ==
[2019-11-05 14:38] LABS: Basophils % 0.4 %; Eosinophils # 0.1 10^3/uL (0.0-0.8); Eosinophils % 2.6 %; Hematocrit 31.6 % (42.0-52.0); Lymphocytes # 1.4 10^3/uL (0.8-4.8); Lymphocytes % 29.7 %; Mean Corpuscular HGB Conc 31.6 g/dL (30.0-36.0); Mean Corpuscular Hemoglobin 31.3 pg (28.0-34.0); Mean Corpuscular Volume 99.1 fL (80-94); Mean Platelet Volume 9.4 fL (7.4-10.4); Monocytes # 0.4 10^3/uL (0.2-0.9); Monocytes % 9.1 %; Neutrophils # 2.6 10^3/uL (1.8-7.7); Neutrophils % 56.9 %; Nucleated Red Blood Cells % 0 %; Platelet Count 125 10^3/cmm (130-400); Red Blood Count 3.19 10^6/uL (4.1-5.3); White Blood Count 4.6 10^3/uL (4.0-10.0)
[2019-11-05 16:20] LABS: Alanine Aminotransferase 16 U/L (0-41); Albumin Level 3.3 g/dL (3.5-5.2); Alkaline Phosphatase 60 IU/L (40-130); Anion Gap 15.6 (5-19); Aspartate Amino Transferase 13 U/L (0-40); Blood Urea Nitrogen 16 mg/dL (8-23); Carbon Dioxide 24 mmol/L (22-29); Chloride 103 mmol/L (98-107); Globulin 2.3 g/dL (1.3-4.6); Glucose 165 mg/dL (65-115); Osmolality Calculated 288 mOsm/kg (285-295); Potassium 3.6 mmol/L (3.5-5.1); Sodium 139 mmol/L (136-145); Total Bilirubin 0.2 mg/dL (0.15-1.2); Total Protein 5.6 g/dL (6.6-8.7)
[2019-11-08] MEDS: acetaminophen 325 mg Tablet 650 MG PO (10:35)
[2019-11-08] MEDS: sodium chloride 0.9% 250 ML 75 ML IV (10:35)
--- NOTE | 2019-11-08 11:07 | ONC FU_ITS ---
Dr. Tuttle follow up note Patient: Rodney [place] Unit #: [id number]: 1940 Dicatated By: Yana Tuttle M.D.Date of Visit:November 08, 2019 Onc Med Follow-up/Prog Note History of Present Illness: Mr. Stevens is a 79 -year-old gentleman with history of progressive dysphagia and weight loss. 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 A biopsy was obtained at [place], [place] on 05/21/2019. 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 Mr Stevens underwent CT scan of chest abdomen on 05/18/2019 which showed dilated thoracic esophagus with gross appearance of marked wall thickening as well as dilatation of distal segment of thoracic esophagus. No thoracic lymphadenopathy by size criteria. No evidence of distant metastatic disease, As per patient in the beginning he had dysphagia to solid food now can tolerate liquids only. Denied any hematemesis or hemoptysis, denied any jaundice, denied any aspiration or regurgitation. Mr Stevens has smoked about pack a day for many years. [place] lives [place] north of [place] and lives with elderly . Mr Stevens has elected to try chemotherapy alone. He has been offered chemotherapy with weekly carboplatin/Taxol/Herceptin. He did have baseline echocardiogram for the Herceptin on 06/24/2019 which reported left ventricular ejection fraction estimated at 65%. He had normal left ventricular systolic function no regional wall motion abnormalities there is a grade I/IV diastolic function, normal to mildly elevated filling pressures. No aortic valve stenosis and mild aortic valve regurgitation. He did also have PET CT imaging on 06/25/2019 at [facility]. This did report hypermetabolic circumferential mural thickening involving the distal esophagus extending approximately 10 cm proximal to the gastroesophageal junction from T11???T8 with maximum SUV of 24. A small amount of hyper metabolic mass extension into the gastric cardia is not fully excluded. Upstream esophagus appears fluid-filled and patulous. There were no discrete hypermetabolic pulmonary nodules. There is mild dependent atelectasis with trace bilateral pleural fluid collection without hypermetabolic pleural thickening. There was reported calcified mediastinal and hilar granulous with normal size mildly hypermetabolic bilateral hilar lymph nodes, brand representative right hilar lymph node maximum SUV 2.7. Additional hypermetabolic left hilar lymph node 0.8 x 1.2 cm with a max SUV of 2.5. 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 There were no hypermetabolic hepatic lesions. There was Extavia of the infrarenal abdominal aorta measuring up to 2.7 cm. No ascites or peritoneal/serosa nodularity. There was hyper metabolic gastrohepatic ligament lymph node 1.7 x 1.8 cm with a max SUV of 3.9. No additional hypermetabolic lymph nodes were seen within the abdomen or pelvis. There was prostamegaly without focal hypermetabolic prostate lesion. Muscle skeletal there was diffuse bone marrow hyper metabolism without focal lytic or blastic osseous lesion identified suggesting pathologic marrow uptake. 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 He did have Port a Cath placement in the left subclavian vein per Dr Rosa on 07/12/2019. Mr Stevens started on his first chemotherapy with weekly carboplatin/Taxol and Herceptin on 07/15/2019. He has tolerated it well overall. Follow-up CT PET scan done on 10/15/2019 showed significant improvement with decrease in size in hypermetabolism of distal esophagus. Previous hypermetabolic tumor extension into gastric cardia is no longer seen Resolution of previous hypermetabolic left hilar, paraesophageal, gastrohepatic ligament lymph nodes. No area of hypermetabolic distant metastatic disease seen Came for follow-up, denies any specific complaints except poor appetite but since last week it has improved but still not drink enough fluids. Otherwise, no problem with swallowing, no abdominal pain, no hematemesis or hemoptysis, no peripheral numbness, no shortness of breath or chest pain no palpitation. Tolerating systemic therapy with carboplatin/Taxol/Herceptin well Medications: Advair Diskus 2 Puff(s) (of 250-50 mcg/dose) Aerosol Powder, Breath Activated Inhalation daily, Albuterol Sulfate 1 ((2.5 mg/3ml) 0.083%) Nebulization solution Inhalation daily PRN, Dexamethasone (4 mg) Tablet Oral Take as Directed, Prochlorperazine Maleate 1 Tablet (of 10 mg) Oral q 4 hours PRN, Simvastatin 1 Tablet (of 40 mg) Oral daily, Spiriva HandiHaler 1 Capsule (of 18 mcg) Inhalation daily, Tamsulosin HCl 1 Capsule (of 0.4 mg) Oral daily Allergies: No Known Allergies. Review of Systems: Review of Systems is not available for this patient. Vital Signs: Performed on November 08, 2019 10:05 Height - 67.00 in Weight - 163 lbs (HIGH) BSA - 1.85 sq.m BMI - 25.53 Temperature - 97.0 F (LOW) Pulse - 102 /min (HIGH) Respiration - 20 /min BP - 134/69 mm(hg) O2 Sat - 100 % Pain - 0 Performance Status: 1 - No physically strenuous activity, but ambulatory and able to carry out light or sedentary work (e.g. office work, light house work). (ECOG) Physical Examination: ENMT - no mouth sores, no thrush, Respiratory - Lungs are clear, Cardiovascular - Regular rate and rhythm, Abdomen - ball sounds present, soft, Extremities - trace edema. Lab/Imaging: Test performed on November 08, 2019 07:43 Creatinine 1.5 mg/dL Cr Clearance (Est) 39.82 mL/min Test performed on November 05, 2019 11:45 Sodium 139 mmol/L Potassium 3.6 mmol/L Chloride 103 mmol/L CO2 24 mmol/L Anion Gap 15.6 BUN 16 mg/dL Glucose 165 mg/dL Calcium 9.0 mg/dL Protein, Total 5.6 g/dL Albumin 3.3 g/dL Globulin 2.3 g/dL Bilirubin, Total 0.2 mg/dL ALT (SGPT) 16 U/L AST (SGOT) 13 U/L Alkaline Phosphatase 60 IU/L WBC 4.6 10 3/uL RBC 3.19 10 6/uL HGB 10.0 g/dL HCT 31.6 % MCV 99.1 fL MCH 31.3 pg MCHC 31.6 g/dL RDW 18.0 % Platelet Count 125 10 3/cmm MPV 9.4 fL Neutrophils 2.6 10 3/uL Lymphocytes 1.4 10 3/uL Monocytes 0.4 10 3/uL Eosinophils 0.1 10 3/uL Basophils 0.0 10 3/uL Neutrophil % 56.9 % Lymphocyte % 29.7 % Monocyte % 9.1 % Eosinophil % 2.6 % Basophils % 0.4 % Test performed on Oct 11, 2019 14:05 CBC Slide Review Slide Review Perform SLIDE REVIEW AGREES WITH AUTO DIFF Test performed on Oct 05, 2019 13:10 Manual Bands % 12.0 % Manual Lymphs % 6 % Atypical Lymphs % 4.0 % Manual Monos % 7.0 % Metamyelocytes % 3.0 % Polychromasia 2+ Anisocytosis 2+ Macrocytosis 1+ Microcytosis 1+ Ovalocytes 1+ Manual Bands Abs 3.8 10 3/cmm Manual Lymphocytes Abs 3.2 10 3/cmm Manual Monocytes Abs 2.2 10 3/cmm Test performed on Sep 28, 2019 09:13 Manual Segs 47.1 % Manual Eosinophils 4.5 % Manual Basophils 0.2 % NRBCs 0 /100 WBC Test performed on Aug 20, 2019 11:20 Manual Eosinophils Abs 0.2 10 3/cmm Test performed on Jul 21, 2019 09:35 Ferritin 35 ng/mL Iron, Total 15 mcg/dL % Iron Saturation 6.4 % TIBC 231 mcg/dL Test performed on Jun 10, 2019 11:05 Packed Red Cells (PRBC) [id number] TRANSFUSED PRODUCT: LEUKOREDUCED RED CELL 1ST CONT COUNT: 2 Type & Screen BLD TYPE A POSITIVE AB SCREEN GEL NEGATIVE Test performed on Jun 10, 2019 08:05 Vitamin B12 465 pg/mL UIBC 258 ug/dL Test performed on Jun 09, 2019 08:05 ABO & Rh Type # 2 A POSITIVE Impression: 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 CT scan of chest abdomen done on 05/18/2019 showed no thoracic lymphadenopathy by size criteria Dilated thoracic esophagus with gross appearance of marked wall thickening as well as dilatation of distal segment of thoracic esophagus no evidence of distant metastatic disease. Progressive dysphagia and weight loss due to above Chronic smoking, still active Clinically, patient is doing reasonably well now with progressive dysphagia due to newly diagnosed esophageal cancer. he said he did talk to his family and now have decided to pursue with chemotherapy alone and will go from there. Considering his age and comorbid condition and social issues e.g. living 60 miles away from [place] with elderly , he would prefer chemotherapy alone in the office but not radiation therapy. Patient was reminded in the standard of care is combined chemoradiation followed by surgery if possible otherwise chemotherapy is palliative only. Considering his age and performance status, recommended weekly carboplatin Taxol and Herceptin. did also discuss about role of G-tube placement but patient declined. Mr Stevens is prediabetic so we'll also consider diabetes teaching and may consider sliding scale if he develops hyperglycemia due to steroids. He did have baseline echocardiogram for the Herceptin on 06/24/2019 which reported left ventricular ejection fraction estimated at 65%. He had normal left ventricular systolic function no regional wall motion abnormalities there is a grade I/IV diastolic function, normal to mildly elevated filling pressures. No aortic valve stenosis and mild aortic valve regurgitation. He did also have PET CT imaging on 06/25/2019 at [facility]. This did report hypermetabolic circumferential mural thickening involving the distal esophagus extending approximately 10 cm proximal to the gastroesophageal junction from T11???T8 with maximum SUV of 24. A small amount of hyper metabolic mass extension into the gastric cardia is not fully excluded. Upstream esophagus appears fluid-filled and patulous. There were no discrete hypermetabolic pulmonary nodules. There is mild dependent atelectasis with trace bilateral pleural fluid collection without hypermetabolic pleural thickening. There was reported calcified mediastinal and hilar granulous with normal size mildly hypermetabolic bilateral hilar lymph nodes, brand representative right hilar lymph node maximum SUV 2.7. Additional hypermetabolic left hilar lymph node 0.8 x 1.2 cm with a max SUV of 2.5. 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 There were no hypermetabolic hepatic lesions. There was Extavia of the infrarenal abdominal aorta measuring up to 2.7 cm. No ascites or peritoneal/serosa nodularity. There was hyper metabolic gastrohepatic ligament lymph node 1.7 x 1.8 cm with a max SUV of 3.9. No additional hypermetabolic lymph nodes were seen within the abdomen or pelvis. There was prostamegaly without focal hypermetabolic prostate lesion. Muscle skeletal there was diffuse bone marrow hyper metabolism without focal lytic or blastic osseous lesion identified suggesting pathologic marrow uptake. 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 Mr Rodney had Port a Cath placement in the left subclavian vein per Dr Rosa on 07/12/2019. He began his first cycle of carboplatin/Taxol/Herceptin on 07/15/2019. He was also found to be iron deficient and received Injectafer on 07/12/2019 & 07/29/2019. He has required Neupogen support for chemo induced neutropenia with the last cycle of chemotherapy. He has been receiving Neupogen for 3 days starting day 2. This has allowed his counts to remain adequate to continue on treatment as scheduled. He did receive Neulasta on day 15 of cycle 2. Plan: Discussed with patient regarding his labs checked on 11/05/2019 white blood count 4.6 and globin 10 hematocrit 31.6 platelets 125,000 and CMP within normal limit except creatinine 1.5 , glucose 165 Clinically, patient is doing reasonably well, tolerating palliative therapy with Herceptin/company/Taxol well but with expected side effects e.g. progressive mild thrombocytopenia. We'll proceed with next cycle with weekly dose of carboplatin/Taxol/Herceptin today and then he'll return to clinic in 1 week with CBC CMP, blood counts looks reasonable then, for chemotherapy. Mild renal insufficiency probably due to mild dehydration, patient and his were advised to maintain good hydration, will follow with his lab workup, if no improvement then may consider referred to nephrology for evaluation. Signed By: Yana Tuttle M.D. <<Signature on File>>
== END 2019-11-08 23:59 | disposition home or self-care (01) ==
LOC: ONCMED 06:49
PROVIDERS: Family Provider Physician Assistant Medical; PCP Physician Assistant Medical; Visit Provider Internal Medicine Hematology & Oncology
DX: Z51.12 Encounter for antineoplastic immunotherapy (principal); Z51.11 Encounter for antineoplastic chemotherapy; C15.4 Malignant neoplasm of middle third of esophagus; D69.59 Other secondary thrombocytopenia; T45.1X5A Adverse effect of antineoplastic and immunosuppressive drugs, initial encounter; N28.9 Disorder of kidney and ureter, unspecified; E86.0 Dehydration; F17.210 Nicotine dependence, cigarettes, uncomplicated; Z79.899 Other long term (current) drug therapy; Z95.828 Presence of other vascular implants and grafts
CPT/HCPCS: 36415; 80053; 85025; 96367; 96413; 96417; 99214; J1100; J1200; J2469; J3490; J7030; J7050; J9045; J9267; J9355

== ENCOUNTER 2019-11-14 22:59 | Inpatient (IN) | payer MEDICARE, MEDICAID, SELFPAY ==
[2019-11-14 23:07] VITALS: BP 151/82; PULSE 107; RESP 16; TEMP 36.9; O2SAT 97; BMI 39.1
--- NOTE | 2019-11-14 23:13 | CTR_ITS ---
PROCEDURE INFORMATION: Exam: CT Head Without Contrast Exam date and time: 11/14/2019 11:49 PM Age: 79 years old Clinical indication: Altered mental status/memory loss; Confusion or disorientation; Additional info: AMS TECHNIQUE: Imaging protocol: Computed tomography of the head without contrast. Radiation optimization: All CT scans at this facility use at least one of these dose optimization techniques: automated exposure control; mA and/or kV adjustment per patient size (includes targeted exams where dose is matched to clinical indication); or iterative reconstruction. COMPARISON: CTA Head/Neck [id number] 03/17/2014 10:05 AM RADIATION DOSE METRICS: Total DLP: 717.67 mGy-cm FINDINGS: Brain: No acute intracranial hemorrhage or mass effect. There is mild decreased attenuation in the periventricular white matter, likely from microvascular disease. No definite acute infarct by CT. MRI could be more sensitive/specific for detection, as clinically directed. Ventricles: Ventricle size is normal for age. Bones/joints: No definite acute skull fracture. Sinuses: Included paranasal sinuses are essentially clear. Mastoid air cells: No significant acute finding. Vasculature: Vascular calcifications in the internal carotid arteries. CT/CT head wo con* [id number] IMPRESSION: 1. No acute intracranial hemorrhage or mass effect. 2. No definite acute infarct by CT, see above. 3. Other findings discussed above. 4. Some limitations due to artifact from patient motion. Radiation Dose CTDIVOL = (mGy): DLP = 717.67 (mGy-cm)
--- NOTE | 2019-11-14 23:13 | XR_ITS ---
WS: [id number] PORTABLE CHEST HISTORY: ams COMPARISON: 07/12/2019 The entire lungs have not been included on this radiographic series. Left-sided chemotherapy port a catheter. Lungs are clear and well expanded. Lucency at the RIGHT costophrenic angle is probably soft tissue an d not a pneumothorax. No pleural effusion or pneumothorax. Cardiac size: Normal. Mediastinum/Aorta: Mild atherosclerosis aorta. No osseous abnormality seen. XR/XR chest 1V portable [id number] IMPRESSION: Mild atherosclerosis aorta. No pneumonia.
--- NOTE | 2019-11-14 23:15 | ECG_ITS ---
Measurements Intervals [place] Rate: 102 P: 1 CO: 161 QRS: -27 QRSD: 100 T: 10 QT: 322 QTc: 421 SINUS TACHYCARDIA INFERIOR MYOCARDIAL INFARCTION , PROBABLY OLD [40+ ms Q WAVE AND/OR ST/T ABN ABNORMALITY IN II/aVF] INTERPRETATION BASED ON A DEFAULT AGE OF 40 YEARS Compared to ECG 11/05/2015 16:54:59 Atrial flutter no longer present Left-axis deviation no longer present Right bundle-branch block no longer present Myocardial infarct finding still present Electronically Signed On 11-15-2019 18:44:43 CDT by Fady Goldman M.D. [email or web address]
--- NOTE | 2019-11-14 23:22 | ED_ITS ---
HPI - Weakness General: Chief complaint: Weakness Stated complaint: DECLINING CANCER ISSUES Time Seen by Provider: 11/14/19 23:06 History of Present Illness: HPI Narrative: 79-year-old male presents with progressive generalized weakness over the past few days. Evidently he has esophageal cancer, and is on chemotherapy. His mental status and strength have been declining since his last chemotherapy treatment. MD Complaint: generalized weakness Review of Systems General: Reports: ROS unobtainable due to mental status PFSH ED PFSH: Medical History (Updated 11/15/19 @ 03:51 by Mack Sneed DO) B12 deficiency Cancer of esophagus COPD (chronic obstructive pulmonary disease) Dementia Dyslipidemia Hard of hearing Hypertension Malignant neoplasm determined by biopsy of esophagus Port-A-Cath in place Stroke Surgical History (Updated 11/15/19 @ 03:26 by Bartolome Lee MD) History of cholecystectomy S/P cholecystectomy Family History (Updated 11/15/19 @ 03:27 by Bartolome Lee MD) Mother Cancer Colon cancer age 80 Father age 83 leukemia first brother has esophageal cancer Brother Cancer Esophageal cancer Social History (Updated 11/15/19 @ 03:27 by Bartolome Lee MD) Smoking and tobacco status: current every day smoker Alcohol intake: unknown Substance/Drug Use: never Household members: spouse Housing: House Marital status: Physical Exam Const: GENERAL APPEARANCE: well developed ORIENTATION/CONSCIOUSNESS: Yes oriented to person; not oriented to place and not oriented to time HENMT: COMMON NORMALS: normocephalic, external ears normal and external nose normal HEAD & SCALP: normocephalic FACE & SINUS: normal facial exam NOSE: external nose normal and no nasal discharge EXTERNAL EAR: Yes external ears normal THROAT: posterior oropharynx normal; no peritonsillar mass Eye: COMMON NORMALS: PERRL, EOMs intact bilaterally and conjunctivae normal EYELID: eyelids normal CONJUNCTIVA: Yes conjunctivae normal PUPIL: Yes PERRL Neck/C-Spine: GENERAL: No tracheal deviation Chest: COMMONS NORMALS: inspection of chest normal CHEST: No tenderness Resp: COMMON NORMALS: clear to auscultation bilaterally EFFORT & INSPECTI ON: No tachypneic, No respiratory distress, No retractions, No uses accessory muscles and No tracheal deviation AUSCULTATION: clear to auscultation bilaterally, no rhonchi, no wheezes and diminished lung sounds Cardio: COMMON NORMALS: regular rate and regular rhythm RATE: regular rate and tachycardic RHYTHM: regular rhythm HEART SOUNDS: no murmurs PERIPHERAL PULSES: radial pulses present GI: INSPECTION: No abdominal distension AUSCULTATION: No hyperactive bowel sounds and No hypoactive bowel sounds PALPATION: No guarding and No rigid PERCUSSION: no dullness to percussion and no tympanic to percussion : COMMON NORMALS: Yes no CVA tenderness BLADDER/KIDNEY EXAM: Yes no CVA tenderness Back/Pelvis: COMMON NORMALS: no CVA tenderness Neuro: SENSORIUM/ORIENTATION: Yes oriented to person, No oriented to place and No oriented to time Skin: COMMON NORMALS: no rashes or lesions noted GENERAL SKIN EXAM: no rashes or lesions noted Course Vital Signs: Vital signs: Vital Signs Temperature 98.5 F 11/14/19 23:07 Pulse Rate 104 H 11/15/19 03:15 Respiratory Rate 16 11/15/19 03:15 Blood Pressure 149/109 11/15/19 03:15 Pulse Oximetry 97 11/15/19 03:15 MDM - Weakness MDM Narrative: Medical decision making narrative: 79-year-old gentleman with a history of adenocarcinoma of the esophagus. He had chemo therapy last week. His family stated that he had been progressively generally weak since that time. He presents with some mental status changes. He is not cooperative with exam. He does not answer questions. Part of this I believe is because he is upset, but he has some significant mental status change. His white blood cell count is only 6.3. His CRP is elevated. He has a significant urinary tract infection on urinalysis. He is received 1 g of Rocephin for this. He is been fluid resuscitated. He will be admitted for UTI with mental status change in a chemotherapy patient. Lab Data: Labs: Lab Results 11/14/19 11/15/19 11/15/19 Range/Units 23:20 00:51 00:51 WBC 6.3 (4.0-10.0) 10^3/ uL RBC 3.24 L (4.1-5.3) 10^6/u L Hgb 10.1 L (11.7-16.6) g/dL Hct 31.0 L (42.0-52.0) % MCV 95.7 H (80-94) fL MCH 31.2 (28.0-34.0) pg MCHC 32.6 (30.0-36.0) g/dL RDW 16.1 H (12.1-15.1) % Plt Count 180 (130-400) 10^3/c mm MPV 9.4 (7.4-10.4) fL Neut % (Auto) 73.4 % Lymph % (Auto) 16.8 % Callaway % (Auto) 7.1 % Eos % (Auto) 1.4 % Baso % (Auto) 0.2 % Neut # (Auto) 4.6 (1.8-7.7) 10^3/u L Lymph # (Auto) 1.1 (0.8-4.8) 10^3/u L [place] # (Auto) 0.5 (0.2-0.9) 10^3/u L Eos # (Auto) 0.1 (0.0-0.8) 10^3/u L Baso # (Auto) 0.0 (0.0-0.1) 10^3/u L Nucleated RBC % (a uto) 0 % Nucleated RBCs # 0.0 /100WBC PT (10.5-13.3) SECO NDS INR (0.8-1.2) APTT (23.9-36.7) SECO NDS Specimen Type Arterial Sample Site Radial, right ABG pH 7.46 H (7.35-7.45) ABG pCO2 35.6 (35-45) mmHg ABG pO2 64.7 L (80.0-100.0) mmH g ABG HCO3 25.1 (22-26) mmol/L ABG Base Excess 1.4 (-2.0-2.0) mmol/ L Benjamín Test Pos Hematocrit 32.7 L (42-52) % Compounder Flavorings ID ellpe Sodium 134 L (136-145) mmol/L Potassium 4.5 (3.5-5.1) mmol/L Chloride 95 L (98-107) mmol/L Carbon Dioxide 26 (22-29) mmol/L Anion Gap 17.5 (5-19) BUN 16 (8-23) mg/dL Creatinine 1.4 H (0.7-1.2) mg/dL Glucose 116 H (65-115) mg/dL Calculated Osmolal ity 275 L (285-295) mOsm/k g Lactate (0.5-2.2) mmol/L Calcium 8.9 (8.5-10.5) mg/dL Total Bilirubin 0.8 (0.15-1.2) mg/dL AST 16 (0-40) U/L ALT 16 (0-41) U/L Alkaline Phosphata se 70 (40-130) IU/L Troponin T Baselin e (0-15) ng/mL Troponin T 120 [address] [place] (0-15) ng/mL Delta Troponin T (0-10) ABS# C-Reactive Protein 61.9 H (0.0-4.9) mg/L NT-Pro-B Natriuret Pep 622 H (0-450) pg/mL Total Protein 5.6 L (6.6-8.7) g/dL Albumin 3.4 L (3.5-5.2) g/dL Globulin 2.2 (1.3-4.6) g/dL Urine Color (Yellow) Urine Appearance (CLEAR) Urine pH (5-7) Ur Specific Gravit y (1.005-1.030) Urine Protein (Negative) Urine Glucose (UA) (Normal) Urine Ketones (Negative) Urine Blood (Negative) Urine Nitrate (Negative) Urine Bilirubin (NEGATIVE) Urine Urobilinogen (Negative) mg/dL Ur Leukocyte Rosetta ase (Negative) Urine RBC (0-2) /hpf Urine WBC (0-5) /hpf Ur Squamous Epith Cells (0-5) Urine Bacteria (NONE) Hyaline Casts Coarse Granular Ca sts /lpf Other Casts /lpf Urine Mucus 11/15/19 11/15/19 11/15/19 Range/Units 00:51 00:51 01:10 WBC (4.0-10.0) 10^3/ uL RBC (4.1-5.3) 10^6/u L Hgb (11.7-16.6) g/dL Hct (42.0-52.0) % MCV (80-94) fL MCH (28.0-34.0) pg MCHC (30.0-36.0) g/dL RDW (12.1-15.1) % Plt Count (130-400) 10^3/c mm MPV (7.4-10.4) fL Neut % (Auto) % Lymph % (Auto) % Callaway % (Auto) % Eos % (Auto) % Baso % (Auto) % Neut # (Auto) (1.8-7.7) 10^3/u L Lymph # (Auto) (0.8-4.8) 10^3/u L [place] # (Auto) (0.2-0.9) 10^3/u L Eos # (Auto) (0.0-0.8) 10^3/u L Baso # (Auto) (0.0-0.1) 10^3/u L Nucleated RBC % (a uto) % Nucleated RBCs # /100WBC PT 13.50 H (10.5-13.3) SECO NDS INR 1.00 (0.8-1.2) APTT 31.6 (23.9-36.7) SECO NDS Specimen Type Sample Site ABG pH (7.35-7.45) ABG pCO2 (35-45) mmHg ABG pO2 (80.0-100.0) mmH g ABG HCO3 (22-26) mmol/L ABG Base Excess (-2.0-2.0) mmol/ L Benjamín Test Hematocrit (42-52) % Compounder Flavorings ID Sodium (136-145) mmol/L Potassium (3.5-5.1) mmol/L Chloride (98-107) mmol/L Carbon Dioxide (22-29) mmol/L Anion Gap (5-19) BUN (8-23) mg/dL Creatinine (0.7-1.2) mg/dL Glucose (65-115) mg/dL Calculated Osmolal ity (285-295) mOsm/k g Lactate 1.2 (0.5-2.2) mmol/L Calcium (8.5-10.5) mg/dL Total Bilirubin (0.15-1.2) mg/dL AST (0-40) U/L ALT (0-41) U/L Alkaline Phosphata se (40-130) IU/L Troponin T Baselin e 26 H (0-15) ng/mL Troponin T 120 Min [place] (0-15) ng/mL Delta Troponin T (0-10) ABS# C-Reactive Protein (0.0-4.9) mg/L NT-Pro-B Natriuret Pep (0-450) pg/mL Total Protein (6.6-8.7) g/dL Albumin (3.5-5.2) g/dL Globulin (1.3-4.6) g/dL Urine Color (Yellow) Urine Appearance (CLEAR) Urine pH (5-7) Ur Specific Gravit y (1.005-1.030) Urine Protein (Negative) Urine Glucose (UA) (Normal) Urine Ketones (Negative) Urine Blood (Negative) Urine Nitrate (Negative) Urine Bilirubin (NEGATIVE) Urine Urobilinogen (Negative) mg/dL Ur Leukocyte Rosetta ase (Negative) Urine RBC (0-2) /hpf Urine WBC (0-5) /hpf Ur Squamous Epith Cells (0-5) Urine Bacteria (NONE) Hyaline Casts Coarse Granular Ca sts /lpf Other Casts /lpf Urine Mucus 11/15/19 11/15/19 Range/Units 02:00 02:15 WBC (4.0-10.0) 10^3/ uL RBC (4.1-5.3) 10^6/u L Hgb (11.7-16.6) g/dL Hct (42.0-52.0) % MCV (80-94) fL MCH (28.0-34.0) pg MCHC (30.0-36.0) g/dL RDW (12.1-15.1) % Plt Count (130-400) 10^3/c mm MPV (7.4-10.4) fL Neut % (Auto) % Lymph % (Auto) % [place] % (Auto) % Eos % (Auto) % Baso % (Auto) % Neut # (Auto) (1.8-7.7) 10^3/u L Lymph # (Auto) (0.8-4.8) 10^3/u L [place] # (Auto) (0.2-0.9) 10^3/u L Eos # (Auto) (0.0-0.8) 10^3/u L Baso # (Auto) (0.0-0.1) 10^3/u L Nucleated RBC % (a uto) % Nucleated RBCs # /100WBC PT (10.5-13.3) SECO NDS INR (0.8-1.2) APTT (23.9-36.7) SECO NDS Specimen Type Sample Site ABG pH (7.35-7.45) ABG pCO2 (35-45) mmHg ABG pO2 (80.0-100.0) mmH g ABG HCO3 (22-26) mmol/L ABG Base Excess (-2.0-2.0) mmol/ L Benjamín Test Hematocrit (42-52) % Compounder Flavorings ID Sodium (136-145) mmol/L Potassium (3.5-5.1) mmol/L Chloride (98-107) mmol/L Carbon Dioxide (22-29) mmol/L Anion Gap (5-19) BUN (8-23) mg/dL Creatinine (0.7-1.2) mg/dL Glucose (65-115) mg/dL Calculated Osmolal ity (285-295) mOsm/k g Lactate (0.5-2.2) mmol/L Calcium (8.5-10.5) mg/dL Total Bilirubin (0.15-1.2) mg/dL AST (0-40) U/L ALT (0-41) U/L Alkaline Phosphata se (40-130) IU/L Troponin T Baselin e (0-15) ng/mL Troponin T [address] [place] 25.10 H (0-15) ng/mL Delta Troponin T -0.90 L (0-10) ABS# C-Reactive Protein (0.0-4.9) mg/L NT-Pro-B Natriuret Pep (0-450) pg/mL Total Protein (6.6-8.7) g/dL Albumin (3.5-5.2) g/dL Globulin (1.3-4.6) g/dL Urine Color Yellow (Yellow) Urine Appearance Sl hazy (CLEAR) Urine pH 5 (5-7) Ur Specific Gravit y 1.020 (1.005-1.030) Urine Protein Neg (Negative) Urine Glucose (UA) Norm (Normal) Urine Ketones 1+ H (Negative) Urine Blood Neg (Negative) Urine Nitrate Negative (Negative) Urine Bilirubin Neg (NEGATIVE) Urine Urobilinogen Norm (Negative) mg/dL Ur Leukocyte Rosetta ase 1+ H (Negative) Urine RBC 0-4 H (0-2) /hpf Urine WBC 25-40 H (0-5) /hpf Ur Squamous Epith Cells 0-4 H (0-5) Urine Bacteria 1+ H (NONE) Hyaline Casts 0-4 H Coarse Granular Ca sts 0-4 H /lpf Other Casts Wbc cast /lpf Urine Mucus 1+ Discharge Plan Discharge Patient Disposition: Admitted As Inpatient Clinical Impression: Acute UTI Cancer of esophagus Qualifiers: Malignant neoplasm of esophagus location: lower third Qualified Code(s): 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 Change in mental status Qualifiers: Altered mental status type: delirium Qualified Code(s): R41.0 - Disorientation, unspecified Condition: Stable Referrals: Bonifacio Thompson [Primary Care Provider] - Coding Level of Care Code ED [employer] for g Fwd Exam Comprehensive
--- NOTE | 2019-11-14 23:24 | PC.NURSE ---
EMS states that family of patient state that patient has been declining over the last week . Patient is a cancer patient. Patient denies any symptoms to nurse upon arrival in the ED.
[2019-11-14 23:25] VITALS: BP 154/127; PULSE 105; RESP 14; O2SAT 96
[2019-11-14 23:30] LABS: ABG PCO2 35.6 mmHg (35-45); ABG PH Result 7.46 (7.35-7.45); Arterial Blood Gas Hematocrit 32.7 % (42-52); Base Excess ABG 1.4 mmol/L (-2.0-2.0); Blood Gas Allen Test Pos; Blood Gas Sample Site Radial, right; Blood Gas Sample Type Arterial; HCO3 ABG 25.1 mmol/L (22-26); PO2 ABG 64.7 mmHg (80.0-100.0)
[2019-11-15] VITALS (11 sets, daily range): BP systolic 129–186; BP diastolic 66–109; PULSE 64–112; RESP 14–20; TEMP 36.7–37.1; O2SAT 93–98
[2019-11-15 00:59] LABS: Basophils % 0.2 %; Eosinophils # 0.1 10^3/uL (0.0-0.8); Eosinophils % 1.4 %; Hemoglobin 10.1 g/dL (11.7-16.6); Lymphocytes # 1.1 10^3/uL (0.8-4.8); Lymphocytes % 16.8 %; Mean Corpuscular HGB Conc 32.6 g/dL (30.0-36.0); Mean Corpuscular Hemoglobin 31.2 pg (28.0-34.0); Mean Corpuscular Volume 95.7 fL (80-94); Mean Platelet Volume 9.4 fL (7.4-10.4); Monocytes # 0.5 10^3/uL (0.2-0.9); Monocytes % 7.1 %; Neutrophils # 4.6 10^3/uL (1.8-7.7); Neutrophils % 73.4 %; Nucleated Red Blood Cells % 0 %; Platelet Count 180 10^3/cmm (130-400); Red Blood Count 3.24 10^6/uL (4.1-5.3); Red Cell Distribution Width 16.1 % (12.1-15.1); White Blood Count 6.3 10^3/uL (4.0-10.0)
[2019-11-15] MEDS: sodium chloride 0.9% 1,000 ML 999 ML IV (01:07)
--- NOTE | 2019-11-15 01:15 | ECG_ITS ---
Measurements Intervals [place] Rate: 106 P: 68 AK: 171 QRS: -86 QRSD: 150 T: 59 QT: 371 QTc: 493 SINUS TACHYCARDIA WITH OCCASIONAL SUPRAVENTRICULAR PREMATURE COMPLEXES RIGHT BUNDLE BRANCH BLOCK [120+ ms QRS DURATION, UPRIGHT V1, 40+ ms S IN I I/aVL/V4/V5/V6] LEFT ANTERIOR FASCICULAR BLOCK [QRS AXIS <= -45, QR IN I, RS IN II] Compared to ECG 11/05/2015 16:54:59 Left anterior fascicular block now present Atrial flutter no longer present Left-axis deviation no longer present Myocardial infarct finding no longer present Electronically Signed On 11-15-2019 18:48:37 CDT by Fady Goldman M.D. [id number]
[2019-11-15 01:18] LABS: Lactate (Lactic Acid level) 1.2 mmol/L (0.5-2.2)
[2019-11-15 01:20] LABS: Troponin(5th) Baseline 26 ng/mL (0-15)
[2019-11-15 01:27] LABS: Partial Thromboplastin Time 31.6 SECONDS (23.9-36.7)
[2019-11-15 01:30] LABS: Alanine Aminotransferase 16 U/L (0-41); Albumin Level 3.4 g/dL (3.5-5.2); Alkaline Phosphatase 70 IU/L (40-130); Anion Gap 17.5 (5-19); Aspartate Amino Transferase 16 U/L (0-40); Blood Urea Nitrogen 16 mg/dL (8-23); Calcium 8.9 mg/dL (8.5-10.5); Carbon Dioxide 26 mmol/L (22-29); Chloride 95 mmol/L (98-107); Globulin 2.2 g/dL (1.3-4.6); Glucose 116 mg/dL (65-115); NT Pro B Type Natriuretic Pept 622 pg/mL (0-450); Osmolality Calculated 275 mOsm/kg (285-295); Potassium 4.5 mmol/L (3.5-5.1); Sodium 134 mmol/L (136-145); Total Bilirubin 0.8 mg/dL (0.15-1.2); Total Protein 5.6 g/dL (6.6-8.7)
[2019-11-15 02:35] LABS: C Reactive Protein 61.9 mg/L (0.0-4.9)
[2019-11-15 02:42] LABS: Add Urine Microscopic? YES; Bilirubin Urine Neg (NEGATIVE); Blood Urine Neg (Negative); Glucose Urine UA Norm (Normal); Ketones Urine 1+ (Negative); Leukocyte Esterase Urine 1+ (Negative); Nitrate Urine Negative (Negative); Protein Urine Neg (Negative); Urine Appearance SL Hazy (CLEAR); Urine Color Yellow (Yellow); Urobilinogen Urine Norm (Negative); pH Urine 5 (5-7)
[2019-11-15 02:43] LABS: RBC Urine 0-4 /hpf (0-2)
[2019-11-15 02:44] LABS: Bacteria Urine 1+; Mucus Urine 1+; Squamous Epithelial Cell Urine 0-4 (0-5); WBC Urine 25-40 /hpf (0-5)
[2019-11-15 02:45] LABS: Coarse Granular Casts Urine 0-4 /lpf; Hyaline Casts Urine 0-4; Other Casts Urine WBC CAST /lpf
[2019-11-15 02:46] LABS: Add Urine Culture? Yes
[2019-11-15] MEDS: cefTRIAXone 1,000 MG in sodium chloride 0.9% (plus) 50 ML 100 MG IV (03:14)
--- NOTE | 2019-11-15 03:25 | PM.HP ---
Providers/Chief Complaint Primary Care Provider: Bonifacio Thompson Chief Complaint: DECLINING CANCER ISSUES History of Present Illness Dipak Stevens is a 79 year old male who carries diagnosis of intramucosal adenocarcinoma came in with chief complaint of altered mental status. He has been seeing Dr. Tuttle for his chemotherapy, status post portacatheter placement 07/12/2019, he is getting carboplatin/Taxol and Herceptin. He is tolerating liquid diet. His p.o. intake is poor, he has been gradually getting weaker and dehydrated. stated that his mental status has changed, he has been very confused, no fever was noticed at home. Patient is not able to provide much history at this point. Diagnostics in the ER revealed tachycardia, normal blood pressure, afebrile, abnormal UA with pyuria with positive leukocyte esterase He was started on fluids and antibiotics Head CT negative Chest x-ray does not show any acute pathology Review of Systems General: Reports: ROS unobtainable due to medical condition (Acute delirium due to UTI) Medications/Allergies Home Medications Medication Instructions Recorded Confirmed Last Taken Type albuterol sulfate 2.5 mg INHALATION DAILY 07/10/19 07/12/19 07/10/19 History fluticasone propion-salmeterol 1 inh INHALATION BID 07/10/19 07/12/19 07/10/19 History [Advair Diskus] hydrocodone-acetaminophen 15 ml PO Q6H PRN #120 ml 07/12/19 Unknown Rx Allergies Allergy/AdvReac Type Severity Reaction Status Date / Time No Known Allergies Allergy Verified 07/12/19 12:53 PFSH Acute PFSH: Medical History B12 deficiency Cancer of esophagus COPD (chronic obstructive pulmonary disease) Dementia Dyslipidemia Hard of hearing Hypertension Malignant neoplasm determined by biopsy of esophagus Port-A-Cath in place Stroke Surgical History History of cholecystectomy S/P cholecystectomy Family History Mother Cancer Colon cancer age 80 Father age 83 leukemia first brother has esophageal cancer Brother Cancer Esophageal cancer Social History Smoking and tobacco status: current every day smoker Alcohol intake: unknown Substance/Drug Use: never Household members: spouse Housing: House Marital status: Vitals/I&O/Wt Last Vital Signs Temp 98.5 F 11/14/19 23:07 Pulse 104 H 11/15/19 03:15 Resp 16 11/15/19 03:15 BP 149/109 11/15/19 03:15 Pulse Ox 97 11/15/19 03:15 Weight last 48 hrs Weight 113.398 kg Physical Exam Narrative: EXAM NARRATIVE: Head to toe examination Patient is lying comfortably in his bed Able to understand my questions but answers are not coherent No active chest pain, shortness of breath abdominal pain endorsed during interview He saturating well on room air, tachycardic, heart rate responding to fluids Oral mucous membranes dry S1, S2 sinus tachycardia Abdomen soft nontender nondistended bowel sound present Lower extremity does not show any sign of fluid overload however skin wrinkling noticed due to dehydration No abnormal calf muscle swelling noticed Patient only oriented to himself, Acute delirium No sign of ischemia gangrene or ulcer He seems to be pleasantly confused at this point Pertinent negative No active bleeding No active stroke symptoms No aggression in delirious state Does not look septic Data : 11/15/19 00:51 11/15/19 00:51 Micro: Microbiology 11/15/19 00:51 Blood Culture - Preliminary Blood SPECIMEN COLLECTED 11/15/19 00:51 Blood Culture - Preliminary Blood SPECIMEN COLLECTED A&P Assessment and plan (1) Acute UTI: Status: Acute (2) Change in mental status: Status: Acute Qualifiers: Altered mental status type: delirium Qualified Code(s): R41.0 - Disorientation, unspecified (3) Cancer of esophagus: Status: Acute Qualifiers: Malignant neoplasm of esophagus location: lower third Qualified Code(s): 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 (4) Acute hypoactive delirium due to another medical condition: Status: Acute (5) Dehydration: Status: Acute (6) Anorexia: Status: Acute Additional A&P Information Acute hypoactive delirium due to UTI No signs of sepsis Patient is afebrile We will start IV fluid resuscitation with ceftriaxone Would avoid any antipsychotics at this point because of hypoactive delirium Metabolic encephalopathy due to UTI CT head negative No signs of stroke on physical exam After fluid resuscitation and antibiotic anticipating improvement, CT head did not show any metastases Anorexia with poor p.o. intake Would continue liquid diet for now Would avoid adding mirtazapine because of hypoactive delirium Sinus tachycardia due to dehydration Heart rate is responsive to fluid resuscitation, he is not hypoxic, if he consistently shows sinus tachycardia would get CTA chest to rule out PE, would monitor for now TREVIN due to dehydration: Anticipating improvement with resuscitation Adenocarcinoma of esophagus Currently on chemotherapy, sees Dr. Tuttle DVT prophylaxis: Heparin Full liquid diet Attestations Medical Necessity Statement*: Anticipating discharge in less than 48 hours currently needs IV fluid resuscitation and IV antibiotics for UTI and dehydration Time Spent in Patient Care: 40 Coding Level of Care Code Acute Industrial Truck Mechanic for Chg Fwd Diagnoses Acute UTI N39.0 Change in mental status R41.0 Altered mental status type: delirium Cancer of esophagus C15.5 Malignant neoplasm of esophagus location: lower third Acute hypoactive delirium due to another medical condition F05 Dehydration E86.0 Anorexia R63.0
--- NOTE | 2019-11-15 04:21 | PC.NURSE ---
patient refused gown
[2019-11-15] MEDS: dextrose 5%-sod chloride 0.45% 1,000 ML 75 ML IV ×2 (06:36→21:10)
[2019-11-15] MEDS: heparin 5,000 unit/mL INJ 1 mL 5000 UNIT SUBCUT ×3 (06:36→21:43)
--- NOTE | 2019-11-15 10:07 | PC.CHAP ---
Pastoral Care Encounter/Spiritual Assessment Type of Contact [] Declined mathematical physicist visit [] Patient/Family/Request visit [] Outpatient visit [] Follow-up visit [] Physician referral [] Code/Alert [x] Routine visit [] Staff referral [] Actively dying [] Patient sleeping [] Family support [] [] Out of room [] Palliative care [] [] Receiving care in room [] Pre-surgical visit [] Trauma [] Long length of stay [] ICU visit [] Other: Relational/Emotional Strength [] Patient feels connected with others/family/visitors/staff [] Distress [] Loneliness/isolation [] Abandonment Spirituality of Patient [] Person of Layla [] Attends Bahai of their Layla [] Believes in Prayer [] Reads Bible or Taoist materials [] There are Spiritual issues to be addressed Gynecology Teacher Interventions [x] Prayer [] Active listening [] Non-anxious presence [] Spiritual/emotional support [] Crisis/trauma care [] Spiritual counseling [] Bereavement support [] Provided bereavement packet [] Provided Bible/devotional materials [] Provided toy/stuffed animal, coloring book to patient or family member [] Provided Communion [] Anointing/Warren [] Salvation [x] Completed spiritual assessment [] Other: Impact on Illness or Injury [] Angry [] Fearful [] Anxious [] Often cries [] Exhaustion [] Unable to work [] Unable to attend church [] Unable to walk/stand [] Unable to read [] Unable to drive [] Unable to eat/drink [] Unable to sleep [] Unable to be with family [] Patient intubated [] Other: Summary Patient will not respond to [place]. Casimiro prayed outsideroom Time spent with patient 5 min
--- NOTE | 2019-11-15 12:20 | PM.PN ---
Subjective Subjective: Interval history: Patient denies any current pain. He does not have any appetite. He had been drinking Ensure for a while but has not really wanted it for about a month and his has not found anything that works or he will take better. He seems kind of down. Answers to all of my questions or no but I do think he understands. Last chemotherapy was last week with next dose due on Friday. Explained that he would not be getting back. Vitals/I&O/Wt Last Vital Signs Temp 98.3 F 11/15/19 11:15 Pulse 64 11/15/19 11:15 Resp 18 11/15/19 11:15 BP 130/66 11/15/19 11:15 Pulse Ox 95 11/15/19 11:15 11/14/19 11/15/19 11/15/19 22:59 06:59 14:59 Intake Total 50 / 50 0 / 0 Balance 50 / 50 0 / 0 Weight last 48 hrs Weight 113.398 kg Physical Exam Const: OTHER: Keeps his eyes closed but alert, responds to name and will contemplate any answer questions although the responses are no, otherwise cooperative HENMT: OTHER: Mild bitemporal wasting, mucous membranes moist Eye: OTHER: Pupils equally round and reactive to light Neck/C-Spine: OTHER: Supple Resp: OTHER: Clear to auscultation bilaterally no accessory muscle use noted Cardio: OTHER: Regular rate and rhythm, no murmurs gallops or rubs. Pulses 1+ and equal at both feet. GI: OTHER: Abdomen soft, nontender, nondistended, a little bit doughy, positive but decreased bowel sounds : OTHER: Patient with some erythema in the groin Extremity: NARRATIVE EXTREMITY EXAM: Some mild puffiness of both of his hands with some thenar eminence wasting noted Neuro: OTHER: Face symmetric, speech clear, handgrip equal Skin: NARRATIVE SKIN EXAM: Patient with dusky skin, long fingernails, skin is dry, beyond the erythema in the groin no acute rashes noted Data : 11/15/19 00:51 11/15/19 00:51 Micro: Microbiology 11/15/19 00:51 Blood Culture - Preliminary Blood SPECIMEN COLLECTED 11/15/19 00:51 Blood Culture - Preliminary Blood SPECIMEN COLLECTED A&P Assessment and plan (1) Acute UTI: Status: Acute (2) Acute hypoactive delirium due to another medical condition: Status: Acute (3) Dehydration: Status: Acute (4) Cancer of esophagus: Status: Acute Qualifiers: Malignant neoplasm of esophagus location: lower third Qualified Code(s): 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 (5) Anorexia: Status: Acute Additional A&P Information Continue Rocephin Follow-up culture Dietary to see to help with dosing of any other types of supplements Need to discuss with and patient whether or not they want to consider feeding tube but I would like to talk to oncology about the situation first IV fluids Monitor counts So need to clarify home medications Supportive care otherwise CODE STATUS was clarified with and patient is to be allowed natural Attestations Medical Necessity Statement*: Requires ongoing inpatient stay for IV antibiotics, IV fluids and see if he gets at all back to how he had been with management. He may be at a point that he is starting to decline clinically because of his cancer and lack of oral intake. Plans are as indicated Coding Level of Care Code Acute School Transportation Director for Selam Craig Diagnoses Acute UTI N39.0 Acute hypoactive delirium due to another medical condition F05 Dehydration E86.0 Cancer of esophagus C15.5 Malignant neoplasm of esophagus location: lower third Anorexia R63.0
[2019-11-15 22:01] LABS: Troponin 5 6HR 22.69 ng/mL (0-15)
[2019-11-16] VITALS: BP 128/64; PULSE 88; RESP 20; TEMP 36.9; O2SAT 98
[2019-11-16 04:00] VITALS: BP 144/74; PULSE 90; RESP 18; TEMP 37; O2SAT 97
[2019-11-16] MEDS: heparin 5,000 unit/mL INJ 1 mL 5000 UNIT SUBCUT ×3 (04:30→19:47)
[2019-11-16] MEDS: cefTRIAXone 1,000 MG in sodium chloride 0.9% (plus) 50 ML 100 MG IV (04:31)
[2019-11-16 07:24] LABS: Anion Gap 12.7 (5-19); Blood Urea Nitrogen 8 mg/dL (8-23); Calcium 8.2 mg/dL (8.5-10.5); Carbon Dioxide 26 mmol/L (22-29); Chloride 97 mmol/L (98-107); Glucose 129 mg/dL (65-115); Osmolality Calculated 272 mOsm/kg (285-295); Potassium 3.7 mmol/L (3.5-5.1); Sodium 132 mmol/L (136-145)
[2019-11-16 07:36] LABS: Basophils % 0.5 %; Eosinophils # 0.2 10^3/uL (0.0-0.8); Eosinophils % 3.7 %; Hematocrit 28.2 % (42.0-52.0); Hemoglobin 9.2 g/dL (11.7-16.6); Lymphocytes # 1.2 10^3/uL (0.8-4.8); Lymphocytes % 27.3 %; Mean Corpuscular HGB Conc 32.6 g/dL (30.0-36.0); Mean Corpuscular Hemoglobin 30.8 pg (28.0-34.0); Mean Corpuscular Volume 94.3 fL (80-94); Mean Platelet Volume 9.2 fL (7.4-10.4); Monocytes # 0.5 10^3/uL (0.2-0.9); Monocytes % 10.7 %; Neutrophils # 2.4 10^3/uL (1.8-7.7); Neutrophils % 56.6 %; Nucleated Red Blood Cells % 0 %; Platelet Count 167 10^3/cmm (130-400); Red Blood Count 2.99 10^6/uL (4.1-5.3); Red Cell Distribution Width 15.8 % (12.1-15.1); White Blood Count 4.3 10^3/uL (4.0-10.0)
[2019-11-16 08:00] VITALS: BP 138/72; PULSE 68; RESP 22; TEMP 36.8; O2SAT 94
[2019-11-16] MEDS: dextrose 5%-sod chloride 0.45% 1,000 ML 75 ML IV ×2 (08:32→19:47)
[2019-11-16 10:52] VITALS: BP 142/80; PULSE 74; RESP 18; TEMP 36.8; O2SAT 98
--- NOTE | 2019-11-16 11:08 | PC.CHAP ---
Pastoral Care Encounter/Spiritual Assessment Type of Contact [] Declined auto radiator mechanic visit [] Patient/Family/Request visit [] Outpatient visit [] Follow-up visit [] Physician referral [] Code/Alert [] Routine visit [] Staff referral [] Actively dying [] Patient sleeping [] Family support [] [] Out of room [] Palliative care [] [] Receiving care in room [] Pre-surgical visit [] Trauma [] Long length of stay [] ICU visit [x] Other: Asleep Relational/Emotional Strength [] Patient feels connected with others/family/visitors/staff [] Distress [] Loneliness/isolation [] Abandonment Spirituality of Patient [] Person of Layla [] Attends Bahai of their Layla [] Believes in Prayer [] Reads Bible or Mormon materials [] There are Spiritual issues to be addressed Petroleum Terminal Plant Operator Interventions [] Prayer [] Active listening [] Non-anxious presence [] Spiritual/emotional support [] Crisis/trauma care [] Spiritual counseling [] Bereavement support [] Provided bereavement packet [] Provided Bible/devotional materials [] Provided toy/stuffed animal, coloring book to patient or family member [] Provided Communion [] Anointing/Cardinal [] Salvation [] Completed spiritual assessment [] Other: Impact on Illness or Injury [] Angry [] Fearful [] Anxious [] Often cries [] Exhaustion [] Unable to work [] Unable to attend anabaptist [] Unable to walk/stand [] Unable to read [] Unable to drive [] Unable to eat/drink [] Unable to sleep [] Unable to be with family [] Patient intubated [] Other: Summary Asleep Time spent with patient 5mins
--- NOTE | 2019-11-16 11:18 | P.PN_ITS ---
Subjective Subjective: Interval history: Patient looks better today but he still not wanting to eat or take medications. He wonders if he will make it back home. I talked to his and his daughter for a while today. Reviewed with him what is going on. He responded to fluids with improvement in his renal function. Cultures from the blood are currently demonstrating enterococcus species. Urine culture is still pending. Patient does have a Port-A-Cath. I have ordered repeat blood cultures. Had any fever while here. Patient's and daughter room wanting us to consider an appetite stimulant. I explained that that will only work if he will take it. Dr. Tuttle had discussed with him the possibility of Marinol. I talked to the patient and he is agreeable to try to take it this evening. and daughter were both given an opportunity to ask questions. Vitals/I&O/Wt Last Vital Signs Temp 98.3 F 11/16/19 10:52 Pulse 74 11/16/19 10:52 Resp 18 11/16/19 10:52 BP 142/80 11/16/19 10:52 Pulse Ox 98 11/16/19 10:52 11/15/19 11/16/19 11/16/19 22:59 06:59 14:59 Intake Total 1000 / 1120 912.5 / 912.5 Output Total 175 / 175 200 / 200 Balance 825 / 945 712.5 / 712.5 Weight last 48 hrs Weight 113.398 kg Physical Exam Const: OTHER: More alert today and interactive. Smiles at times. HENMT: OTHER: Mild bitemporal wasting, mucous membranes moist Eye: OTHER: Pupils equally round and reactive to light Neck/C-Spine: OTHER: Supple Resp: OTHER: Clear to auscultation bilaterally no accessory muscle use noted Cardio: OTHER: Regular rate and rhythm, no murmurs gallops or rubs. Pulses 1+ and equal at both feet. GI: OTHER: Abdomen soft, nontender, nondistended, a little bit doughy, positive but decreased bowel sounds : OTHER: Patient with some erythema in the groin Extremity: NARRATIVE EXTREMITY EXAM: Hands are not puffy today Neuro: OTHER: Face symmetric, speech clear, handgrip equal Skin: NARRATIVE SKIN EXAM: Overall patient is improved color with hydration Data : 11/16/19 07:05 11/16/19 07:05 Micro: Microbiology 11/15/19 00:51 Blood Culture - Preliminary Blood Gram positive cocci 11/15/19 00:51 Blood Culture - Preliminary Blood Gram positive cocci Blood Culture Preliminary 11/16/19-1201 4 OF 4 BOTTLES POSITIVE/2 SETS POSITIVE DIRECT GRAM STAIN: GRAM POSITIVE COCCI RESULTS TO FOLLOW Organism 1 Enterococcus species Growth IN 4 BOTTLES A&P Assessment and plan (1) Bacteremia due to Enterococcus: Identified today Status: Acute (2) Acute UTI: Blake at time of admission but urine culture is thus far coming back unremarkable Status: Acute (3) Acute hypoactive delirium due to another medical condition: Improving Status: Acute (4) Dehydration: Improving Status: Acute (5) Anorexia: Has chronically worsened over time Status: Acute (6) Cancer of esophagus: Status: Chronic Qualifiers: Malignant neoplasm of esophagus location: lower third Qualified Code(s): 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 (7) Hard of hearing: Status: Chronic Qualifiers: Hearing loss type: unspecified Laterality: bilateral Qualified Code(s): H91.93 - Unspecified hearing loss, bilateral (8) Port-A-Cath in place: Status: Chronic Additional A&P Information Continue Rocephin Follow-up culture for further identification and sensitivities Have ordered repeat blood cultures for in the morning as well Without a definitive source will need to determine if we should do further evaluation for source under the circumstances Will start him on some Marinol and see how he does Reviewed with patient as well as with family possibility of feeding tube and he is not interested in this Continue IV fluids Currently anticipate disposition back home. Patient does not want to go to a skilled nursing unless there is no alternative. Patient's and daughter both seem to be aware of palliative nature of chemotherapy and such. I gave both of them an opportunity to ask questions. Talked about the fact that not eating is something that is challenging with esophageal cancer in such. On subcu heparin for DVT prophylaxis Nystatin powder for groin Supportive care otherwise CODE STATUS was clarified with and patient is to be allowed natural Attestations Medical Necessity Statement*: Requires ongoing inpatient stay for continued IV antibiotics and identification of positive blood cultures. Further would like to monitor his response to Marinol. Anticipate discharge in the next couple of days. Coding Level of Care Code Acute Loom Stop Checker for Chg Fwd Diagnoses Bacteremia due to Enterococcus R78.81; B95.2 Acute UTI N39.0 Acute hypoactive delirium due to another medical condition F05 Dehydration E86.0 Anorexia R63.0 Cancer of esophagus C15.5 Malignant neoplasm of esophagus location: lower third Hard of hearing H91.93 Hearing loss type: unspecified Laterality: bilateral Port-A-Cath in place Z95.828
[2019-11-16 15:23] VITALS: BP 138/84; PULSE 88; RESP 22; TEMP 36.6; O2SAT 93
[2019-11-16] MEDS: dronabinol 2.5 mg Capsule PO (17:45)
[2019-11-16] MEDS: nystatin powder 15 gm Btl 1 APPLIC TOPICAL (17:46)
[2019-11-16] MEDS: sennosides-docusate Tablet 1 TAB PO (17:47)
[2019-11-16 20:00] VITALS: BP 145/87; PULSE 102; RESP 16; TEMP 36.7; O2SAT 98
[2019-11-17] VITALS: BP 108/54; PULSE 75; RESP 20; TEMP 36.7; O2SAT 98
[2019-11-17] MEDS: cefTRIAXone 1,000 MG in sodium chloride 0.9% (plus) 50 ML 100 MG IV (02:58)
[2019-11-17 04:00] VITALS: BP 147/83; PULSE 87; RESP 20; TEMP 36.7; O2SAT 97
[2019-11-17 05:48] LABS: Basophils % 0.5 %; Eosinophils % 2.5 %; Hematocrit 27.3 % (42.0-52.0); Hemoglobin 8.9 g/dL (11.7-16.6); Lymphocytes # 1.4 10^3/uL (0.8-4.8); Lymphocytes % 31.3 %; Mean Corpuscular HGB Conc 32.6 g/dL (30.0-36.0); Mean Corpuscular Hemoglobin 31.1 pg (28.0-34.0); Mean Corpuscular Volume 95.5 fL (80-94); Mean Platelet Volume 9.2 fL (7.4-10.4); Monocytes # 0.4 10^3/uL (0.2-0.9); Monocytes % 9.3 %; Neutrophils # 2.4 10^3/uL (1.8-7.7); Platelet Count 188 10^3/cmm (130-400); Red Blood Count 2.86 10^6/uL (4.1-5.3); White Blood Count 4.3 10^3/uL (4.0-10.0)
[2019-11-17 05:49] LABS: Eosinophils # 0.1 10^3/uL (0.0-0.8); Nucleated Red Blood Cells % 0 %
[2019-11-17] MEDS: heparin 5,000 unit/mL INJ 1 mL 5000 UNIT SUBCUT ×3 (06:29→20:48)
[2019-11-17] MEDS: dronabinol 2.5 mg Capsule PO ×2 (06:29→17:44)
[2019-11-17 06:35] LABS: Anion Gap 11.5 (5-19); Blood Urea Nitrogen 6 mg/dL (8-23); C Reactive Protein 21.5 mg/L (0.0-4.9); Calcium 9.3 mg/dL (8.5-10.5); Carbon Dioxide 24 mmol/L (22-29); Chloride 99 mmol/L (98-107); Creatinine Clr Calc Pharmacy 59.0411; Glucose 123 mg/dL (65-115); Osmolality Calculated 269 mOsm/kg (285-295); Potassium 3.5 mmol/L (3.5-5.1); Sodium 131 mmol/L (136-145)
[2019-11-17 06:51] LABS: Erythrocyte Sedimentation Rate 51 mm/hr (0-10)
[2019-11-17 08:00] VITALS: BP 117/73; PULSE 88; RESP 18; TEMP 37; O2SAT 97
[2019-11-17] MEDS: nystatin powder 15 gm Btl 1 APPLIC TOPICAL ×2 (09:46→17:44)
[2019-11-17] MEDS: sennosides-docusate Tablet 1 TAB PO ×2 (09:46→17:44)
--- NOTE | 2019-11-17 11:46 | PC.RESP ---
Smoking Cessation information and a schedule of classes to patient.
[2019-11-17] MEDS: dextrose 5%-sod chloride 0.45% 1,000 ML 75 ML IV (11:47)
[2019-11-17 12:00] VITALS: BP 131/76; PULSE 84; RESP 17; TEMP 36.9; O2SAT 99
[2019-11-17 15:37] VITALS: BP 145/90; PULSE 86; RESP 18; TEMP 36.4; O2SAT 99
--- NOTE | 2019-11-17 15:49 | PM.PN ---
Subjective Subjective: Interval history: Patient actually ate his entire lunch tray today. He is feeling better. He is sitting up on the side of the bed watching the construction workers out the window and seems to be enjoying it. Vitals/I&O/Wt Last Vital Signs Temp 97.6 F 11/17/19 15:37 Pulse 86 11/17/19 15:37 Resp 18 11/17/19 15:37 BP 145/90 11/17/19 15:37 Pulse Ox 99 11/17/19 15:37 11/17/19 11/17/19 11/17/19 06:59 14:59 22:59 Intake Total 100 / 3036.25 2500 / 2500 Output Total 350 / 350 Balance 100 / 2336.25 2150 / 2150 Physical Exam Const: OTHER: Patient is alert, oriented to person and the fact that he is not where his is. HENMT: OTHER: Mild bitemporal wasting, mucous membranes moist, has a little bit of a food mustache around his lips which is good to see Eye: OTHER: Left pupil is larger than right pupil which is not a new finding Resp: OTHER: Clear to auscultation bilaterally no accessory muscle use noted Cardio: OTHER: Regular rate and rhythm, no murmurs gallops or rubs. GI: OTHER: Abdomen soft, nontender, nondistended, a little bit doughy, positive bowel sounds Extremity: NARRATIVE EXTREMITY EXAM: No pitting edema Neuro: OTHER: Face symmetric, especially evident with a nice smile speech clear, handgrip equal, Skin: NARRATIVE SKIN EXAM: No new findings, cath intact Data : 11/17/19 05:21 11/17/19 05:21 Micro: Microbiology 11/15/19 02:15 Urine Culture - Final Urine,Clean Catch 11/17/19 05:21 Blood Culture - Preliminary Blood SPECIMEN COLLECTED 11/17/19 05:21 Blood Culture - Preliminary Blood SPECIMEN COLLECTED 11/15/19 00:51 Blood Culture - Preliminary Blood Enterococcus species 11/15/19 00:51 Blood Culture - Preliminary Blood Enterococcus species A&P Assessment and plan (1) Bacteremia due to Enterococcus: Sensitivities pending, specific etiology not clear. With malignancy worry about intra-abdominal source. Given Port-A-Cath, worry about that as well. Once sensitivities are known we will need to determine if there is an appropriately bioavailable antibiotic that will cover via an oral means or if we have to consider IV antibiotics. Repeat blood cultures from November 16 are still pending. Sed rate and CRP were checked. Both are elevated but I will note that sed rate is about half of what it was at admission so he is responding to treatment. Status: Acute (2) Acute UTI: Suspected diagnosis at time of admission but urine culture remarkable only for less than 5000 CFU's of mixed juan felt to be contamination Status: Acute (3) Acute hypoactive delirium due to another medical condition: Significant improvement overnight after addition of Marinol Status: Acute (4) Dehydration: Improving Status: Acute (5) Anorexia: Has chronically worsened over time, but appears to be responding to Marinol quite nicely Status: Acute (6) Cancer of esophagus: On palliative chemotherapy, missed a dose today. Has been on carboplatin and Taxol if I remember correctly. 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 Continue Marinol Patient and family not interested in feeding tube Given improvement in oral intake all of the sudden, will discontinue IV fluids Add supplemental Ensure Currently anticipate disposition back home, with resumption of palliative nature of chemotherapy when appropriate from oncology standpoint. I will provide prescription for Marinol at discharge in addition to other medicines he has been taking. Gave Mrs. Oliveira opportunity to ask questions. On subcu heparin for DVT prophylaxis Nystatin powder for groin Supportive care otherwise Allow natural Attestations Medical Necessity Statement*: Requires ongoing inpatient stay while we monitor blood cultures for sensitivities so we can select appropriate antibiotic therapy and potential need for further evaluation accordingly. He is improving on other medications recently started from an appetite standpoint. Coding Level of Care Code Acute Lecturer Of Portuguese for Selam Craig Diagnoses Bacteremia due to Enterococcus R78.81; B95.2 Acute UTI N39.0 Acute hypoactive delirium due to another medical condition F05 Dehydration E86.0 Anorexia R63.0 Cancer of esophagus C15.5 Malignant neoplasm of esophagus location: lower third Hard of hearing H91.93 Hearing loss type: unspecified Laterality: bilateral Port-A-Cath in place Z95.828
--- NOTE | 2019-11-17 19:25 | PC.NURSE ---
Introduction of staff and report received, aidet.
[2019-11-17 19:38] VITALS: BP 150/64; PULSE 88; RESP 18; TEMP 36.7; O2SAT 98
[2019-11-18] VITALS: BP 147/75; PULSE 68; RESP 17; TEMP 36.5; O2SAT 96
[2019-11-18 03:56] VITALS: BP 115/69; PULSE 70; RESP 17; TEMP 36.7; O2SAT 95
[2019-11-18] MEDS: dronabinol 2.5 mg Capsule PO ×2 (06:15→17:51)
[2019-11-18] MEDS: cefTRIAXone 1,000 MG in sodium chloride 0.9% (plus) 50 ML 100 MG IV (06:16)
[2019-11-18] MEDS: heparin 5,000 unit/mL INJ 1 mL 5000 UNIT SUBCUT ×3 (06:16→23:28)
[2019-11-18 07:49] VITALS: BP 110/62; PULSE 103; RESP 16; TEMP 36.6; O2SAT 96
[2019-11-18] MEDS: sennosides-docusate Tablet 1 TAB PO (09:42)
[2019-11-18] MEDS: nystatin powder 15 gm Btl 1 APPLIC TOPICAL ×2 (09:42→17:51)
[2019-11-18 10:00] VITALS: BMI 39.1
--- NOTE | 2019-11-18 11:22 | PC.CHAP ---
Pastoral Care Encounter/Spiritual Assessment Type of Contact [] Declined medical records supervisor visit [] Patient/Family/Request visit [] Outpatient visit [] Follow-up visit [] Physician referral [] Code/Alert [x] Routine visit [] Staff referral [] Actively dying [] Patient sleeping [] Family support [] [] Out of room [] Palliative care [] [] Receiving care in room [] Pre-surgical visit [] Trauma [] Long length of stay [] ICU visit [] Other: Relational/Emotional Strength [x] Patient feels connected with others/family/visitors/staff [] Distress [] Loneliness/isolation [] Abandonment Spirituality of Patient [x] Person of Layla [x] Attends Episcopalian of their Layla [x] Believes in Prayer x[] Reads Bible or Sikhism materials [] There are Spiritual issues to be addressed Md Senior Research Scientist Interventions [x] Prayer [x] Active listening [x] Non-anxious presence [x] Spiritual/emotional support [] Crisis/trauma care [x] Spiritual counseling [] Bereavement support [] Provided bereavement packet [] Provided Bible/devotional materials [] Provided toy/stuffed animal, coloring book to patient or family member [] Provided Communion [] Anointing/[place] [] Salvation [x] Completed spiritual assessment [] Other: Impact on Illness or Injury [] Angry [] Fearful [] Anxious [] Often cries [] Exhaustion [] Unable to work [] Unable to attend lutheran [] Unable to walk/stand [] Unable to read [] Unable to drive [] Unable to eat/drink [] Unable to sleep [] Unable to be with family [] Patient intubated [x] Other: n/a Summary Time spent with patient 5 minutes
[2019-11-18 11:34] VITALS: BP 134/85; PULSE 83; RESP 15; TEMP 36.4; O2SAT 98
--- NOTE | 2019-11-18 11:52 | PM.PN ---
Subjective Subjective: Interval history: Patient continues to do better than he was at admission. Not eating as great today as he did yesterday but more than when he was initially. I spoke with micro today. They have informed me that initially the culture felt to be due to enteric coccus looks to be coag negative staph. I reviewed the case with Dr. Tuttle. We will see what culture results show and the bioavailability of this sensitive antibiotics. Will transition to giving antibiotics via Port-A-Cath. was updated by nursing staff today. In talking with Dr. Tuttle today, he reports that Mr. ricardo is actually done quite well with chemotherapy compared to what was expected. Vitals/I&O/Wt Last Vital Signs Temp 97.6 F 11/18/19 11:34 Pulse 83 11/18/19 11:34 Resp 15 11/18/19 11:34 BP 134/85 11/18/19 11:34 Pulse Ox 98 11/18/19 11:34 11/17/19 11/18/19 11/18/19 22:59 06:59 14:59 Intake Total 800 / 3300 120 / 3420 1720 / 1720 Output Total 275 / 625 690 / 1315 100 / 100 Balance 525 / 2675 -570 / 2105 1620 / 1620 Weight last 48 hrs Weight 113.398 kg Physical Exam Const: OTHER: Patient is alert, oriented to person and the fact that he is not where his is. Seen sitting up on side of bed again watching the construction workers Neck/C-Spine: OTHER: Supple Resp: OTHER: Clear to auscultation bilaterally no accessory muscle use noted Cardio: OTHER: Regular rate and rhythm, no murmurs gallops or rubs GI: OTHER: Abdomen soft, nontender, positive bowel sounds Extremity: NARRATIVE EXTREMITY EXAM: No pitting edema Neuro: OTHER: Face symmetric, especially evident with a nice smile speech clear, handgrip equal, Skin: NARRATIVE SKIN EXAM: Port-A-Cath remains intact Data : 11/17/19 05:21 11/17/19 05:21 Micro: Microbiology 11/17/19 05:21 Blood Culture - Preliminary Blood NEGATIVE TO DATE 11/17/19 05:21 Blood Culture - Preliminary Blood NEGATIVE TO DATE 11/15/19 02:15 Urine Culture - Final Urine,Clean Catch A&P Assessment and plan (1) Coag negative Staphylococcus bacteremia: Newly identified today that original blood cultures were growing coag negative staph rather than enterococcus. Sensitivities pending, specific etiology not clear. Given Port-A-Cath being in place, this is concerning potential source. O discussed with Dr. Tuttle potential treatment options. If we can have a few days of IV antibiotics that are providing appropriate coverage antibiotic viable drug, plan will be to monitor and treat through at this point in time. Chemotherapy will be on hold during this timeframe. Repeat blood cultures from November 16 are still pending. Sed rate and CRP were checked. Both are elevated but I will note that sed rate is about half of what it was at admission so he is responding to treatment. Status: Acute (2) Acute UTI: Suspected diagnosis at time of admission but urine culture remarkable only for less than 5000 CFU's of mixed juan felt to be contamination Status: Acute (3) Acute hypoactive delirium due to another medical condition: Significant improvement after addition of Marinol on top of antibiotic administration Status: Acute (4) Dehydration: Resolved Status: Resolved (5) Anorexia: Dramatically improved at the moment after Marinol initiation Status: Acute (6) Cancer of esophagus: On palliative chemotherapy, missed a dose 11/16. 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 Rosa back in July Status: Chronic Additional A&P Information Continue Rocephin Follow-up culture for further identification and sensitivities Follow-up repeat blood culture as well Depending on the above will make determination about antibiotics Start giving antibiotics via port currently, discussed with nurse caring for patient today Continue Marinol Patient and family not interested in feeding tube Off of IVFs since 11/16 Has supplemental Ensure Currently anticipate disposition back home, with resumption of palliative nature of chemotherapy when appropriate from oncology standpoint. I will provide prescription for Marinol at discharge in addition to other medicines he has been taking. Cannot currently rule out the possibility of IV antibiotics of IV antibiotics. On subcu heparin for DVT prophylaxis Nystatin powder for groin Supportive care otherwise Allow natural Attestations Medical Necessity Statement*: Requires ongoing inpatient stay for continued management of bacteremia in a patient actively on chemotherapy. Coding Level of Care Code Acute Technician for Chg Fwd Diagnoses Coag negative Staphylococcus bacteremia R78.81; B95.7 Acute UTI N39.0 Acute hypoactive delirium due to another medical condition F05 Dehydration E86.0 Anorexia R63.0 Cancer of esophagus C15.5 Malignant neoplasm of esophagus location: lower third Hard of hearing H91.93 Hearing loss type: unspecified Laterality: bilateral Port-A-Cath in place Z95.828
--- NOTE | 2019-11-18 12:25 | PC.SOCIAL ---
IMM Update Page 2 of IMM initialed, dated, and timed and placed in chart. Copy provided to patient.
[2019-11-18 16:00] VITALS: BP 130/79; PULSE 80; RESP 16; TEMP 36.6; O2SAT 98
[2019-11-18 19:35] VITALS: BP 145/85; PULSE 103; RESP 18; TEMP 36.9; O2SAT 96
[2019-11-19] VITALS (7 sets, daily range): BP systolic 112–171; BP diastolic 56–88; PULSE 76–110; RESP 15–20; TEMP 36.8–37; O2SAT 92–98
--- NOTE | 2019-11-19 00:20 | PC.NURSE ---
Patient's heart rate is 110bpm. Nurse been notified.
[2019-11-19] MEDS: cefTRIAXone 1,000 MG in sodium chloride 0.9% (plus) 50 ML 100 MG IV (03:14)
[2019-11-19] MEDS: dronabinol 2.5 mg Capsule PO (06:15)
[2019-11-19] MEDS: heparin 5,000 unit/mL INJ 1 mL 5000 UNIT SUBCUT (06:15)
[2019-11-19 07:10] LABS: Basophils % 0.3 %; Eosinophils # 0.1 10^3/uL (0.0-0.8); Eosinophils % 3.1 %; Hematocrit 26.8 % (42.0-52.0); Hemoglobin 8.6 g/dL (11.7-16.6); Lymphocytes # 1.1 10^3/uL (0.8-4.8); Lymphocytes % 31.7 %; Mean Corpuscular HGB Conc 32.1 g/dL (30.0-36.0); Mean Corpuscular Volume 96.8 fL (80-94); Mean Platelet Volume 9.3 fL (7.4-10.4); Monocytes # 0.3 10^3/uL (0.2-0.9); Monocytes % 8.6 %; Neutrophils # 1.9 10^3/uL (1.8-7.7); Neutrophils % 54.9 %; Nucleated Red Blood Cells % 0 %; Platelet Count 177 10^3/cmm (130-400); Red Blood Count 2.77 10^6/uL (4.1-5.3); Red Cell Distribution Width 16.3 % (12.1-15.1); White Blood Count 3.5 10^3/uL (4.0-10.0)
[2019-11-19 07:23] LABS: Anion Gap 13.8 (5-19); Blood Urea Nitrogen 4 mg/dL (8-23); Calcium 9.1 mg/dL (8.5-10.5); Carbon Dioxide 25 mmol/L (22-29); Chloride 102 mmol/L (98-107); Glucose 115 mg/dL (65-115); Osmolality Calculated 281 mOsm/kg (285-295); Potassium 3.8 mmol/L (3.5-5.1); Sodium 137 mmol/L (136-145)
[2019-11-19 08:08] LABS: Erythrocyte Sedimentation Rate 37 mm/hr (0-10)
[2019-11-19] MEDS: sennosides-docusate Tablet 1 TAB PO (08:50)
[2019-11-19] MEDS: nystatin powder 15 gm Btl 1 APPLIC TOPICAL (08:51)
--- NOTE | 2019-11-19 15:29 | PM.DCS ---
Discharge Providers Date of Admission: 11/15/19 10:35 Date of Discharge: November 19, 2019 Attending Provider at Admission: Bartolome Lee MD Attending Provider at Discharge: Angela Walton MD Primary Care Provider: Bonifacio Thompson Diagnoses at Discharge Discharge Diagnosis (1) Staphylococcus epidermidis bacteremia: Status: Acute (2) Anorexia: Status: Acute (3) Dehydration: Status: Resolved (4) Acute hypoactive delirium due to another medical condition: Status: Resolved (5) Palliative chemotherapy underway: Status: Acute Problem details: carboplatin, taxol, herceptin (6) Port-A-Cath in place: Status: Chronic (7) Cancer of esophagus: Status: Chronic Problem details: Dr Tuttle Qualifiers: Malignant neoplasm of esophagus location: lower third Qualified Code(s): 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 He presented with continued decline in overall status. Last dose of chemotherapy was the week prior to admission. He had become more lethargic. He has not been eating anything and even drinking very much for about a month. He has continued to lose weight as well as having worsening renal function. He was brought into the emergency room for further evaluation. He was thought to possibly have urinary tract infection and was covered with Rocephin. Urine cultures ended up coming back no growth final. Blood cultures collected at the time of admission however ended up growing out staph epidermidis in all bottles. Patient has a Port-A-Cath that was placed July 12. Externally it was unremarkable appearing. Antibiotics were administered through this x2 doses. Patient received a total of 5 days of Rocephin IV. Sensitivities came back showing good ASCENCION to fluoroquinolones. Clinically patient was improving with ofloxacin was prescribed due to patient's insurance coverage. He will complete an additional 10 days of this. Repeat blood cultures will be done. He will follow-up with Dr. Tuttle in 2 weeks. If he has recurrence of this infection, he will need IV antibiotics administered through the port and evaluation for need to remove should this continue. No other specific source of infection was clearly identified at this time. During the hospital stay, Marinol was started as patient would not eating even after his mental status improved. With this he began eating significantly more. Diet was a full liquid diet which indicated he had at home. Prescription for Marinol will be provided at discharge Review of home medications showed that patient is on metformin and statin therapy. With his comorbid conditions I am not sure that the benefits of these medications long-term outweigh the potential contribution to challenges with oral intake and such for this very pleasant but hard of hearing gentleman. I have asked them to discuss with primary care provider whether or not to continue. He does at times have elevation in blood sugars but did not require adjunctive therapy while here even though the metformin was stopped. Patient was in stable condition at the time of discharge. He did not have any fever the entire time he was here. While initially lethargic, he improved after initiation of antibiotics and fluids and would actually have short conversations if he was able to hear you. Renal function did improve fattening going from 1.5 down to 1.1. I discussed with prior to discharge as well as with patient and all were agreeable to plans. Physical Exam Const: OTHER: Patient is alert, oriented to person and the fact that he is not where his is. 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 No acute intracra nial hemorrhage or mass effect. 2. N o definite acute i nfarct by CT, see above. 3. Other fi ndings discussed a bridger. 4. Some limi tations due to art ifact from patient motion. Cat Scan 11/14/19 23:13 Completed XR chest 1V roney ble [id number] Urgent IMPRESSION: Mild a therosclerosis aor ta. No pneumonia. Exams 11/14/19 23:13 Completed Pending at discharge Category Date Time Status Blood Culture *R epeat Blood Cx NG x 48 hrs at CA Fin al result pending Lab 11/17/19 05:21 Results Labs from last 24 hours 11/19/19 11/19/19 11/19/19 07:00 07:00 07:00 WBC 3.5 L RBC 2.77 L Hgb 8.6 L Hct 26.8 L MCV 96.8 H MCH 31.0 MCHC 32.1 RDW 16.3 H Plt Count 177 MPV 9.3 Neut % (Auto) 54.9 Lymph % (Auto) 31.7 [place] % (Auto) 8.6 Eos % (Auto) 3.1 Baso % (Auto) 0.3 Neut # (Auto) 1.9 Lymph # (Auto) 1.1 [place] # (Auto) 0.3 Eos # (Auto) 0.1 Baso # (Auto) 0.0 Nucleated RBC % (a uto) 0 Nucleated RBCs # 0.0 ESR 37 H Sodium 137 Potassium 3.8 Chloride 102 Carbon Dioxide 25 Anion Gap 13.8 BUN 4 L Creatinine 1.1 Glucose 115 Calculated Osmolal ity 281 L Calcium 9.1 C-Reactive Protein 11.0 H Laboratory Tests 11/17/19 11/17/19 05:21 05:21 ESR 51 H C-Reactive Protein 21.5 H Addt'l Data from Hospital Stay: Microbiology 11/15/19 00:51 Blood Blood Culture - Final Staphylococcus epidermidis 11/15/19 00:51 Blood Blood Culture - Final Staphylococcus epidermidis S epidermi M.I.C. RX --------- ------ * Amoxicillin/Clavulanate <=4/2 S * Ampicillin/Sulbactam <=8/4 S * Ceftriaxone <=8 S * Ciprofloxacin <=1 S * Clindamycin <=0.5 S * Erythromycin >4 R * Gentamicin <=4 S * Levofloxacin <=1 S * Linezolid 2 S * Oxacillin <=0.25 S * Penicillin <=0.03 S * Rifampin <=1 S * Tetracycline >8 R * Trimethoprim/Sulfamethoxazole <=0.5/9.5 S Vancomycin 2 S Daptomycin <=0.5 S Vitals: Last Vital Signs Temp 98.3 F 11/19/19 11:32 Pulse 80 11/19/19 11:32 Resp 16 11/19/19 11:32 BP 150/84 11/19/19 11:32 Pulse Ox 95 11/19/19 11:32 Discharge Plan Discharge Patient Disposition: Home Health Service Condition: Stable Prescriptions: New dronabinol 2.5 mg Capsule 2.5 mg PO BIDAC Qty: 60 RF: 0 Nyamyc 100,000 unit/gram Powder 1 applic topical BID Qty: 15 RF: 0 sennosides-docusate sodium 8.6-50 mg Tablet 1 tab PO BID Qty: 60 RF: 0 Lactobacillus acidophilus Capsule 10,000 mmu cells PO BID Qty: 60 RF: 0 ofloxacin 300 mg tablet 300 mg PO BID 10 Days Qty: 20 RF: 0 Continued fluticasone propion-salmeterol [Advair Diskus] 250-50 mcg/dose Blister With Device 1 inh INHALATION BID RF: 0 albuterol sulfate 2.5 mg /3 mL (0.083 %) solution for nebulization 2.5 mg inhalation DAILY RF: 0 hydrocodone-acetaminophen 7.5-325 mg/15 mL solution 15 ml PO Q6H PRN (Reason: pain) Qty: 120 RF: 0 metformin 500 mg Tablet 500 mg PO BID RF: 0 simvastatin 40 mg Tablet 40 mg PO DAILY RF: 0 tamsulosin 0.4 mg Capsule 0.4 mg PO DAILY RF: 0 Discharge Orders: Discharge Order (Routine); Ordered 11/19/19 Ordered By: Angela Walton Other Ambulatory Orders: Basic Metabolic Panel (Routine) Timeframe: 2 Weeks Facility: [facility] - Location: Lab - Main Lab Ordered By: Angela Walton Complete Blood Count w/Auto (Routine) Timeframe: 2 Weeks Facility: [facility] - Location: Lab - Main Lab Ordered By: Angela Walton Blood Culture (Routine) Timeframe: 2 Weeks Facility: [facility] - Location: Lab - Main Lab Ordered By: Angela Walton Referrals: [facility] [Outside] Bonifacio Thompson [Primary Care Provider] - (You have a hospital follow up appointment November 24 at 1:[address] care physician [address] Thompson.) Yana Tuttle MD [Staff Physician] - 2 weeks Discharge Diet: Advance as tolerated Discharge Activity: Resume usual activity Patient Instructions: Dehydration - Adult, Laxative, Stool Softeners (By mouth), Dronabinol (By mouth) Activity Restrictions/Additional Instructions: You were found to have staph epidermidis bacteremia. You will be on antibiotics for 2 weeks. Take as directed. I recommend taking a probiotic with antibiotics. This has also been prescribed. You cannot get chemotherapy while you have an infection. You will follow up with Dr Tuttle in 2 weeks. He is aware of the hospital stay and discharge plan. I discussed with him. A medication has been prescribed for appetite called dronabinol. It has worked well in hospital. Use the nystatin powder prescribed for the rash in your groin for a couple a days after it is gone. Talk to your PCP about the risk versus benefit of continuing the metformin and statin therapy under the circumstances. Metformin in particular can cause some stomach upset. Home health is being arranged. Discharge Attestations Time Spent in Discharge Care*: greater than 30 min Specific Discharge Activities: Specific discharge activities: educating patient, educating and/or supporting family/caregiver, discussing with pcp/other providers, discussing with foster care case manager/social workers/dc planners, documenting/other paperwork and evaluating patient/reviewing data Status at Discharge: Cognitive status at discharge: mildly impaired cognition, Behavioral status at discharge: cooperative, Functional status at discharge: other assisted ambulation Overall status at discharge: other (Patient is significantly improved and from what I can gather in discussion with closer to baseline) Quality Metrics Clinical Quality Measures During this hospital stay, did patient experience: None Coding Level of Care Code Acute Agricultural Researcher for Chg Fwd Diagnoses Staphylococcus epidermidis bacteremia R78.81; B95.7 Anorexia R63.0 Dehydration E86.0 Acute hypoactive delirium due to another medical condition F05 Palliative chemotherapy underway Z79.899 Port-A-Cath in place Z95.828 Cancer of esophagus C15.5 Malignant neoplasm of esophagus location: lower third Hard of hearing H91.93 Hearing loss type: unspecified Laterality: bilateral Acute UTI N39.0
--- NOTE | 2019-11-19 18:30 | PC.NURSE ---
Patient discharged was reviewed with the patient by Sam POLLARD. Britney RN flushed patient's port with normal saline and heparin before removing access. Patient was taken don by wheel chair to his .
== END 2019-11-19 18:30 | disposition home health service (06) | DRG 871 ==
LOC: ER 11-15 03:51 → MEDSURG 11-15 04:19
PROVIDERS: Admitting Provider Internal Medicine; Emergency Provider Emergency Medicine; PCP Physician Assistant Medical; Visit Provider Hospitalist
DX: R78.81 Bacteremia (principal); G93.41 Metabolic encephalopathy; C15.9 Malignant neoplasm of esophagus, unspecified; F05 Delirium due to known physiological condition; E86.0 Dehydration; Z66 Do not resuscitate; Z79.899 Other long term (current) drug therapy; R63.0 Anorexia; H91.93 Unspecified hearing loss, bilateral; Z95.828 Presence of other vascular implants and grafts; B95.8 Unspecified staphylococcus as the cause of diseases classified elsewhere; E53.8 Deficiency of other specified B group vitamins; Z86.73 Personal history of transient ischemic attack (TIA), and cerebral infarction without residual deficits; I10 Essential (primary) hypertension; E78.5 Hyperlipidemia, unspecified; F03.90 Unspecified dementia, unspecified severity, without behavioral disturbance, psychotic disturbance, mood disturbance, and anxiety; J44.9 Chronic obstructive pulmonary disease, unspecified; F17.210 Nicotine dependence, cigarettes, uncomplicated; R00.0 Tachycardia, unspecified
CPT/HCPCS: 12345; 36415; 36600; 70450; 71045; 80048; 80053; 81001; 82803; 83605; 83880; 84484; 85025; 85610; 85651; 85730; 86140; 87040; 87077; 87086; 87186; 87205; 93005; 96372; 96375; 99284; G0378; J0696; J1644; J7030; J7799; Q0167

== ENCOUNTER 2019-12-03 12:44 | Emergency (ER) | payer MEDICARE, MEDICAID, SELFPAY ==
[2019-12-03] VITALS (7 sets, daily range): BP systolic 107–137; BP diastolic 68–105; PULSE 84–104; RESP 16–18; TEMP 36.7; O2SAT 96–99; BMI 21.9
--- NOTE | 2019-12-03 13:37 | XR_ITS ---
WS: [id number] PORTABLE CHEST HISTORY: syncope, SOB COMPARISON: 11/15/2019 LEFT subclavian Port-A-Cath with tip ending over the proximal SVC. Catheter tip has retracted by 2 to 3 cm. Lungs are clear and well expanded. No pleural effusion or pneumothorax. Cardiac size: Normal. Mediastinum/Aorta: Mild atherosclerosis aorta. No osseous abnormality seen. XR/XR chest 1V portable [id number] IMPRESSION: 1. No pneumonia. 2. LEFT Port-A-Cath has retracted slightly with the tip now terminating in the proximal SVC.
--- NOTE | 2019-12-03 13:40 | ECG_ITS ---
Measurements Intervals [place] Rate: 90 P: 42 CO: 175 QRS: -84 QRSD: 158 T: 10 QT: 387 QTc: 474 SINUS RHYTHM WITH SINUS ARRHYTHMIA RIGHT BUNDLE BRANCH BLOCK [120+ ms QRS DURATION, UPRIGHT V1, 40+ ms S IN I I/aVL/V4/V5/V6] LEFT ANTERIOR FASCICULAR BLOCK [QRS AXIS <= -45, QR IN I, RS IN II] POSSIBLE SEPTAL MYOCARDIAL INFARCTION , PROBABLY OLD [30 ms Q WAVE IN V1/V2] Compared to ECG 11/15/2019 02:51:07 Myocardial infarct finding now present Sinus tachycardia no longer present Electronically Signed On 12-03-2019 18:55:56 CDT by Bartolome German M.D. [email or web address]
[2019-12-03] MEDS: sodium chloride 0.9% 500 ML 999 ML IV ×2 (13:49→19:05)
[2019-12-03 14:32] LABS: Basophils % 0.5 %; Eosinophils # 0.1 10^3/uL (0.0-0.8); Eosinophils % 0.9 %; Hematocrit 33.5 % (42.0-52.0); Hemoglobin 10.3 g/dL (11.7-16.6); Lymphocytes # 1.1 10^3/uL (0.8-4.8); Lymphocytes % 13.4 %; Mean Corpuscular HGB Conc 30.7 g/dL (30.0-36.0); Mean Corpuscular Hemoglobin 30.2 pg (28.0-34.0); Mean Corpuscular Volume 98.2 fL (80-94); Mean Platelet Volume 9.8 fL (7.4-10.4); Monocytes # 0.5 10^3/uL (0.2-0.9); Monocytes % 6.3 %; Neutrophils # 6.3 10^3/uL (1.8-7.7); Neutrophils % 77.8 %; Nucleated Red Blood Cells % 0 %; Platelet Count 177 10^3/cmm (130-400); Red Blood Count 3.41 10^6/uL (4.1-5.3); Red Cell Distribution Width 16.4 % (12.1-15.1); White Blood Count 8.1 10^3/uL (4.0-10.0)
[2019-12-03 14:40] LABS: Lactate (Lactic Acid level) 1.6 mmol/L (0.5-2.2)
[2019-12-03 14:43] LABS: Troponin(5th) Baseline 20 ng/mL (0-15)
[2019-12-03] MEDS: ipratropium-albuterol 3 mL Neb INHALATION (14:45)
[2019-12-03 14:52] LABS: Alanine Aminotransferase 10 U/L (0-41); Albumin Level 3.2 g/dL (3.5-5.2); Alkaline Phosphatase 52 IU/L (40-130); Anion Gap 12.2 (5-19); Aspartate Amino Transferase 12 U/L (0-40); Blood Urea Nitrogen 23 mg/dL (8-23); Calcium 9.2 mg/dL (8.5-10.5); Carbon Dioxide 27 mmol/L (22-29); Chloride 102 mmol/L (98-107); Globulin 2.5 g/dL (1.3-4.6); Glucose 112 mg/dL (65-115); NT Pro B Type Natriuretic Pept 594 pg/mL (0-450); Osmolality Calculated 281 mOsm/kg (285-295); Potassium 4.2 mmol/L (3.5-5.1); Sodium 137 mmol/L (136-145); Total Bilirubin 0.2 mg/dL (0.15-1.2); Total Protein 5.7 g/dL (6.6-8.7)
[2019-12-03 15:26] LABS: D Dimer 11.79 ug/mIFEU (0-0.59)
--- NOTE | 2019-12-03 15:40 | ECG_ITS ---
Measurements Intervals [place] Rate: 94 P: 41 UT: 152 QRS: -84 QRSD: 162 T: 34 QT: 380 QTc: 476 SINUS RHYTHM LEFT AXIS DEVIATION [QRS AXIS < -30] RIGHT BUNDLE BRANCH BLOCK [120+ ms QRS DURATION, UPRIGHT V1, 40+ ms S IN I/a I/aVL/V4/V5/V6] POSSIBLE SEPTAL MYOCARDIAL INFARCTION , PROBABLY OLD [30 ms Q WAVE IN V1/V2] Compared to ECG 12/03/2019 16:43:54 Left-axis deviation now present Left anterior fascicular block no longer present Myocardial infarct finding still present Electronically Signed On 12-04-2019 8:16:56 CDT by Clayton Strauss M.D. [email or web address]
--- NOTE | 2019-12-03 15:43 | W.ED.SYNCOPE ---
Documented by User: Maine Glass MD 12/09/19 06:34 HPI - Syncope General: Chief Complaint: Syncope Stated Complaint: SYNCOPAL EPISODE, FALL, LOW BP Time Seen by Provider: 12/03/19 12:55 History of Present Illness: HPI narrative: This patient is an 79-year-old male who presents today with a chief complaint of being sick . Apparently he had a syncopal episode at home. According to the triage note his said he was walking in the kitchen and passed out. He is hit his right arm on a counter and has a small skin tear. It is not clear if he hit his head or not. He said he does not remember passing out. He tells me he feels fine now. 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 He was recently in the hospital in the first half of November and was treated for dehydration. He also had staph epidermidis bacteremia at that time. complaint: loss of consciousness Onset (ago): unknown (Just prior to arrival) Review of Systems General: Reports: ROS unobtainable due to mental status (Patient denies any complaints whatsoever) PFSH ED PFSH: Medical History B12 deficiency Cancer of esophagus Dr Tuttle COPD (chronic obstructive pulmonary disease) Dementia Dyslipidemia Hard of hearing Hypertension Port-A-Cath in place Stroke Surgical History S/P cholecystectomy Family History Mother Cancer Colon cancer age 80 Father age 83 leukemia first brother has esophageal cancer Brother Cancer Esophageal cancer Social History Smoking and tobacco status: current every day smoker Alcohol intake: unknown Household members: spouse Housing: House Marital status: Physical Exam Const: COMMON NORMALS: no acute distress, no limitations and alert GENERAL APPEARANCE: cooperative and comfortable HENMT: HEAD & SCALP: normal to inspection FACE & SINUS: normal facial exam Eye: GENERAL EYE: appearance normal, both eyes and all related structures Neck/C-Spine: COMMON NORMALS: supple, no meningeal signs and no JVD Chest: COMMONS NORMALS: normal inspection of the chest Resp: COMMON NORMALS: normal respiratory effort, No use of accessory muscles and clear to auscultation bilaterally AUSCULTATION: clear to auscultation bilaterally Cardio: COMMON NORMALS: no JVD, regular rate, regular rhythm and No murmurs present (Cardio) RATE: regular rate RHYTHM: regular rhythm GI: COMMON NORMALS: Normal to inspection, nondistended, normoactive bowel sounds present, Soft to palpation and non-tender INSPECTION: Yes normal to inspection AUSCULTATION: Yes normoactive bowel sounds PALPATION: Yes Soft to palpation Back/Pelvis: COMMON NORMALS: thoracic and lumbar spine normal to inspection Extremity: COMMON NORMALS: normal to inspection Neuro: COMMON NORMALS: moves all extremities, no focal motor deficits and no sensory deficits noted SENSORIUM/ORIENTATION: Yes alert MENINGEAL SIGNS: Yes no meningeal signs Psych: COMMON NORMALS: mental status grossly normal, cooperative and normal affect Skin: COMMON NORMALS: no rashes or lesions noted and turgor normal GENERAL SKIN EXAM: no rashes or lesions noted and turgor normal Course ED course: Patient says he does not know why he is here. It is unclear to me whether he is just being uncooperative or if he really does not remember. We will work him up for syncope. He recently was here with dehydration and that certainly could be a cause again. Vital Signs: Vital signs: Vital Signs Temperature 98.0 F 12/03/19 12:50 Pulse Rate 88 12/03/19 22:00 Respiratory Rate 16 12/03/19 22:00 Blood Pressure 137/86 12/03/19 22:00 Pulse Oximetry 99 12/03/19 22:00 MDM - Syncope Lab Data: Labs: Lab Results 12/03/19 12/03/19 12/03/19 Range/Units 14:20 14:20 14:20 WBC 8.1 (4.0-10.0) 10^3/ uL RBC 3.41 L (4.1-5.3) 10^6/u L Hgb 10.3 L (11.7-16.6) g/dL Hct 33.5 L (42.0-52.0) % MCV 98.2 H (80-94) fL MCH 30.2 (28.0-34.0) pg MCHC 30.7 (30.0-36.0) g/dL RDW 16.4 H (12.1-15.1) % Plt Count 177 (130-400) 10^3/c mm MPV 9.8 (7.4-10.4) fL Neut % (Auto) 77.8 % Lymph % (Auto) 13.4 % [place] % (Auto) 6.3 % Eos % (Auto) 0.9 % Baso % (Auto) 0.5 % Neut # (Auto) 6.3 (1.8-7.7) 10^3/u L Lymph # (Auto) 1.1 (0.8-4.8) 10^3/u L [place] # (Auto) 0.5 (0.2-0.9) 10^3/u L Eos # (Auto) 0.1 (0.0-0.8) 10^3/u L Baso # (Auto) 0.0 (0.0-0.1) 10^3/u L Nucleated RBC % (a uto) 0 % Nucleated RBCs # 0.0 /100WBC D-Dimer 11.79 H (0-0.59) ug/mIFE U Sodium 137 (136-145) mmol/L Potassium 4.2 (3.5-5.1) mmol/L Chloride 102 (98-107) mmol/L Carbon Dioxide 27 (22-29) mmol/L Anion Gap 12.2 (5-19) BUN 23 (8-23) mg/dL Creatinine 1.5 H (0.7-1.2) mg/dL Glucose 112 (65-115) mg/dL Calculated Osmolal ity 281 L (285-295) mOsm/k g Lactate (0.5-2.2) mmol/L Calcium 9.2 (8.5-10.5) mg/dL Total Bilirubin 0.2 (0.15-1.2) mg/dL AST 12 (0-40) U/L ALT 10 (0-41) U/L Alkaline Phosphata se 52 (40-130) IU/L Troponin I 6 Hour (0-15) ng/mL Troponin I Hi Sens Del (0-12) ng/L Troponin T Baselin e (0-15) ng/mL Troponin T 120 Min [place] (0-15) ng/mL Delta Troponin T (0-10) ABS# NT-Pro-B Natriuret Pep 594 H (0-450) pg/mL Total Protein 5.7 L (6.6-8.7) g/dL Albumin 3.2 L (3.5-5.2) g/dL Globulin 2.5 (1.3-4.6) g/dL Urine Color (Yellow) Urine Appearance (CLEAR) Urine pH (5-7) Ur Specific Gravit y (1.005-1.030) Urine Protein (Negative) Urine Glucose (UA) (Normal) Urine Ketones (Negative) Urine Blood (Negative) Urine Nitrate (Negative) Urine Bilirubin (NEGATIVE) Urine Urobilinogen (Negative) mg/dL Ur Leukocyte Rosetta ase (Negative) Urine RBC (0-2) /hpf Urine WBC (0-5) /hpf Ur Squamous Epith Cells (0-5) Urine Bacteria (NONE) Urine Mucus 12/03/19 12/03/19 12/03/19 Range/Units 14:20 14:20 15:56 WBC (4.0-10.0) 10^3/ uL RBC (4.1-5.3) 10^6/u L Hgb (11.7-16.6) g/dL Hct (42.0-52.0) % MCV (80-94) fL MCH (28.0-34.0) pg MCHC (30.0-36.0) g/dL RDW (12.1-15.1) % Plt Count (130-400) 10^3/c mm MPV (7.4-10.4) fL Neut % (Auto) % Lymph % (Auto) % [place] % (Auto) % Eos % (Auto) % Baso % (Auto) % Neut # (Auto) (1.8-7.7) 10^3/u L Lymph # (Auto) (0.8-4.8) 10^3/u L [place] # (Auto) (0.2-0.9) 10^3/u L Eos # (Auto) (0.0-0.8) 10^3/u L Baso # (Auto) (0.0-0.1) 10^3/u L Nucleated RBC % (a uto) % Nucleated RBCs # /100WBC D-Dimer (0-0.59) ug/mIFE U Sodium (136-145) mmol/L Potassium (3.5-5.1) mmol/L Chloride (98-107) mmol/L Carbon Dioxide (22-29) mmol/L Anion Gap (5-19) BUN (8-23) mg/dL Creatinine (0.7-1.2) mg/dL Glucose (65-115) mg/dL Calculated Osmolal ity (285-295) mOsm/k g Lactate 1.6 (0.5-2.2) mmol/L Calcium (8.5-10.5) mg/dL Total Bilirubin (0.15-1.2) mg/dL AST (0-40) U/L ALT (0-41) U/L Alkaline Phosphata se (40-130) IU/L Troponin I 6 Hour (0-15) ng/mL Troponin I Hi Sens Del (0-12) ng/L Troponin T Baselin e 20 H (0-15) ng/mL Troponin T 120 Min [place] (0-15) ng/mL Delta Troponin T (0-10) ABS# NT-Pro-B Natriuret Pep (0-450) pg/mL Total Protein (6.6-8.7) g/dL Albumin (3.5-5.2) g/dL Globulin (1.3-4.6) g/dL Urine Color Yellow (Yellow) Urine Appearance Clear (CLEAR) Urine pH 5 (5-7) Ur Specific Gravit y 1.020 (1.005-1.030) Urine Protein Neg (Negative) Urine Glucose (UA) Norm (Normal) Urine Ketones Negative (Negative) Urine Blood 2+ H (Negative) Urine Nitrate Negative (Negative) Urine Bilirubin Neg (NEGATIVE) Urine Urobilinogen Norm (Negative) mg/dL Ur Leukocyte Rosetta ase Negative (Negative) Urine RBC 0-4 H (0-2) /hpf Urine WBC None (0-5) /hpf Ur Squamous Epith Cells 0-4 H (0-5) Urine Bacteria 1+ H (NONE) Urine Mucus 1+ 12/03/19 12/03/19 Range/Units 16:30 20:17 WBC (4.0-10.0) 10^3/ uL RBC (4.1-5.3) 10^6/u L Hgb (11.7-16.6) g/dL Hct (42.0-52.0) % MCV (80-94) fL MCH (28.0-34.0) pg MCHC (30.0-36.0) g/dL RDW (12.1-15.1) % Plt Count (130-400) 10^3/c mm MPV (7.4-10.4) fL Neut % (Auto) % Lymph % (Auto) % [place] % (Auto) % Eos % (Auto) % Baso % (Auto) % Neut # (Auto) (1.8-7.7) 10^3/u L Lymph # (Auto) (0.8-4.8) 10^3/u L [place] # (Auto) (0.2-0.9) 10^3/u L Eos # (Auto) (0.0-0.8) 10^3/u L Baso # (Auto) (0.0-0.1) 10^3/u L Nucleated RBC % (a uto) % Nucleated RBCs # /100WBC D-Dimer (0-0.59) ug/mIFE U Sodium (136-145) mmol/L Potassium (3.5-5.1) mmol/L Chloride (98-107) mmol/L Carbon Dioxide (22-29) mmol/L Anion Gap (5-19) BUN (8-23) mg/dL Creatinine (0.7-1.2) mg/dL Glucose (65-115) mg/dL Calculated Osmolal ity (285-295) mOsm/k g Lactate (0.5-2.2) mmol/L Calcium (8.5-10.5) mg/dL Total Bilirubin (0.15-1.2) mg/dL AST (0-40) U/L ALT (0-41) U/L Alkaline Phosphata se (40-130) IU/L Troponin I 6 Hour 19.48 H (0-15) ng/mL Troponin I Hi Sens Del -0.52 L (0-12) ng/L Troponin T Baselin e (0-15) ng/mL Troponin T 120 Min [place] 18.46 H (0-15) ng/mL Delta Troponin T -1.54 L (0-10) ABS# NT-Pro-B Natriuret Pep (0-450) pg/mL Total Protein (6.6-8.7) g/dL Albumin (3.5-5.2) g/dL Globulin (1.3-4.6) g/dL Urine Color (Yellow) Urine Appearance (CLEAR) Urine pH (5-7) Ur Specific Gravit y (1.005-1.030) Urine Protein (Negative) Urine Glucose (UA) (Normal) Urine Ketones (Negative) Urine Blood (Negative) Urine Nitrate (Negative) Urine Bilirubin (NEGATIVE) Urine Urobilinogen (Negative) mg/dL Ur Leukocyte Rosetta ase (Negative) Urine RBC (0-2) /hpf Urine WBC (0-5) /hpf Ur Squamous Epith Cells (0-5) Urine Bacteria (NONE) Urine Mucus Discharge Plan Discharge Patient Disposition: Home, Self-Care Clinical Impression: Syncope due to orthostatic hypotension, Seizure Condition: Stable Prescriptions: New Keppra 250 mg tablet 250 mg PO Q12H Qty: 60 RF: 0 No Action fluticasone propion-salmeterol [Advair Diskus] 250-50 mcg/dose Blister With Device 1 inh INHALATION BID RF: 0 albuterol sulfate 2.5 mg /3 mL (0.083 %) solution for nebulization 2.5 mg inhalation DAILY RF: 0 hydrocodone-acetaminophen 7.5-325 mg/15 mL solution 15 ml PO Q6H PRN (Reason: pain) Qty: 120 RF: 0 metformin 500 mg Tablet 500 mg PO BID RF: 0 simvastatin 40 mg Tablet 40 mg PO DAILY RF: 0 tamsulosin 0.4 mg Capsule 0.4 mg PO DAILY RF: 0 dronabinol 2.5 mg Capsule 2.5 mg PO BIDAC Qty: 60 RF: 0 Nyamyc 100,000 unit/gram Powder 1 applic topical BID Qty: 15 RF: 0 sennosides-docusate sodium 8.6-50 mg Tablet 1 tab PO BID Qty: 60 RF: 0 Lactobacillus acidophilus Capsule 10,000 mmu cells PO BID Qty: 60 RF: 0 Discharge Orders: Discharge Order (Routine); Ordered 12/03/19 Ordered By: Gina Lainez Referrals: Yessi Boswell MD [Physician] - 7-10 days Bonifacio Thompson [Primary Care Provider] - Yana Tuttle MD [Staff Physician] - 1-3 days Discharge Diet: Advance as tolerated Discharge Activity: Increase activity as tolerated Patient Instructions: Syncope (ED), New-Onset Seizure in Adults (ED) Activity Restrictions/Additional Instructions: Please return to the ER immediately for any of the signs or symptoms listed on your discharge instruction sheets, worsening/changing of your symptoms, you are not getting better as quickly as expected, or for ANY other cause or concerns. No driving, no working at heights, no tub baths, no swimming alone or anything else that would put you at risk should you have another seizure. Be certain to follow-up with Dr. Tuttle as scheduled. Take the Keppra as I have prescribed. I have recommended further evaluation and care but you have declined, of course you are welcome to return anytime should your symptoms worsen or you simply change your mind. Discharge Date/Time: 12/03/19 23:09 Sign Out Sign Out Data: Patient Sign Out occurred on 12/03/19 at 18:14. Patient's care was discussed, and care was transferred from to Gina Lainez. Coding Level of Care Code ED Pigs Feet Finisher for Chg Fwd Exam Comprehensive Documented by User: Gina Lainez 12/03/19 23:29 HPI - Syncope General: Chief Complaint: Syncope Stated Complaint: SYNCOPAL EPISODE, FALL, LOW BP Time Seen by Provider: 12/03/19 12:55 [facility] ED PFSH: Medical History B12 deficiency Cancer of esophagus Dr Tuttle COPD (chronic obstructive pulmonary disease) Dementia Dyslipidemia Hard of hearing Hypertension Port-A-Cath in place Stroke Surgical History S/P cholecystectomy Family History Mother Cancer Colon cancer age 80 Father age 83 leukemia first brother has esophageal cancer Brother Cancer Esophageal cancer Social History Smoking and tobacco status: current every day smoker Alcohol intake: unknown Household members: spouse Housing: House Marital status: Course Vital Signs: Vital signs: Vital Signs Temperature 98.0 F 12/03/19 12:50 Pulse Rate 88 12/03/19 22:00 Respiratory Rate 16 12/03/19 22:00 Blood Pressure 137/86 12/03/19 22:00 Pulse Oximetry 99 12/03/19 22:00 MDM - Syncope MDM Narrative: Medical decision making narrative: Mr. Stevens is a nice 79-year-old male who comes in after what was believed to be a syncopal spell. He has no complaints here. I reviewed the case with his at home who states that he also appeared to have a seizure. The CT scan of his head is normal as well as his CT of his chest. His cardiac enzymes have not elevated and he is ruled out from a acute coronary syndrome standpoint. He is not been having any chest pain or shortness of breath at home. CT of his head does not show any metastatic disease or new lesions. I reviewed the case with saying he wanted it ran by Dr. Boswell the neurologist. Dr. Boswell recommends Keppra 250 mg twice daily and follow-up with her if this does not control the symptoms. It is possible today symptoms were a seizure but it could have been myoclonic jerking after an orthostatic syncopal spell. I reviewed this with Dr. Tuttle and he agrees with Dr. Boswell that the risks of Keppra are very minimal and wants to go ahead and start this. The patient does have close follow-up with Dr. Tuttle. I will go ahead and prescribe this and give him his first dose here. The patient is still adamant he wants to go home and refuses admission. I have discussed this with his from home and she is coming to get him. She will be certain that he stays on the medication and she will follow-up with Dr. Tuttle as scheduled. She states that Dipak at this time really just wants to be kept comfortable. She is planning on talking to Dr. Tuttle on their scheduled appointment on December 12 about placing him at hospice. She does agree with taking the seizure medicine at this time because she states it was scary what happened today and she agrees to do this. She does understand that this seizures and orthostatic syncope are our working diagnosis and that there could be something even more serious even life-threatening going on but she wants to support his decision and allow him to go home where he is more comfortable. Lab Data: Attestation: I reviewed the patient's lab results. Labs: Lab Results 12/03/19 12/03/19 12/03/19 Range/Units 14:20 14:20 14:20 WBC 8.1 (4.0-10.0) 10^3/ uL RBC 3.41 L (4.1-5.3) 10^6/u L Hgb 10.3 L (11.7-16.6) g/dL Hct 33.5 L (42.0-52.0) % MCV 98.2 H (80-94) fL MCH 30.2 (28.0-34.0) pg MCHC 30.7 (30.0-36.0) g/dL RDW 16.4 H (12.1-15.1) % Plt Count 177 (130-400) 10^3/c mm MPV 9.8 (7.4-10.4) fL Neut % (Auto) 77.8 % Lymph % (Auto) 13.4 % [place] % (Auto) 6.3 % Eos % (Auto) 0.9 % Baso % (Auto) 0.5 % Neut # (Auto) 6.3 (1.8-7.7) 10^3/u L Lymph # (Auto) 1.1 (0.8-4.8) 10^3/u L [place] # (Auto) 0.5 (0.2-0.9) 10^3/u L Eos # (Auto) 0.1 (0.0-0.8) 10^3/u L Baso # (Auto) 0.0 (0.0-0.1) 10^3/u L Nucleated RBC % (a uto) 0 % Nucleated RBCs # 0.0 /100WBC D-Dimer 11.79 H (0-0.59) ug/mIFE U Sodium 137 (136-145) mmol/L Potassium 4.2 (3.5-5.1) mmol/L Chloride 102 (98-107) mmol/L Carbon Dioxide 27 (22-29) mmol/L Anion Gap 12.2 (5-19) BUN 23 (8-23) mg/dL Creatinine 1.5 H (0.7-1.2) mg/dL Glucose 112 (65-115) mg/dL Calculated Osmolal ity 281 L (285-295) mOsm/k g Lactate (0.5-2.2) mmol/L Calcium 9.2 (8.5-10.5) mg/dL Total Bilirubin 0.2 (0.15-1.2) mg/dL AST 12 (0-40) U/L ALT 10 (0-41) U/L Alkaline Phosphata se 52 (40-130) IU/L Troponin I 6 Hour (0-15) ng/mL Troponin I Hi Sens Del (0-12) ng/L Troponin T Baselin e (0-15) ng/mL Troponin T 120 Min [place] (0-15) ng/mL Delta Troponin T (0-10) ABS# NT-Pro-B Natriuret Pep 594 H (0-450) pg/mL Total Protein 5.7 L (6.6-8.7) g/dL Albumin 3.2 L (3.5-5.2) g/dL Globulin 2.5 (1.3-4.6) g/dL Urine Color (Yellow) Urine Appearance (CLEAR) Urine pH (5-7) Ur Specific Gravit y (1.005-1.030) Urine Protein (Negative) Urine Glucose (UA) (Normal) Urine Ketones (Negative) Urine Blood (Negative) Urine Nitrate (Negative) Urine Bilirubin (NEGATIVE) Urine Urobilinogen (Negative) mg/dL Ur Leukocyte Rosetta ase (Negative) Urine RBC (0-2) /hpf Urine WBC (0-5) /hpf Ur Squamous Epith Cells (0-5) Urine Bacteria (NONE) Urine Mucus 12/03/19 12/03/19 12/03/19 Range/Units 14:20 14:20 15:56 WBC (4.0-10.0) 10^3/ uL RBC (4.1-5.3) 10^6/u L Hgb (11.7-16.6) g/dL Hct (42.0-52.0) % MCV (80-94) fL MCH (28.0-34.0) pg MCHC (30.0-36.0) g/dL RDW (12.1-15.1) % Plt Count (130-400) 10^3/c mm MPV (7.4-10.4) fL Neut % (Auto) % Lymph % (Auto) % [place] % (Auto) % Eos % (Auto) % Baso % (Auto) % Neut # (Auto) (1.8-7.7) 10^3/u L Lymph # (Auto) (0.8-4.8) 10^3/u L [place] # (Auto) (0.2-0.9) 10^3/u L Eos # (Auto) (0.0-0.8) 10^3/u L Baso # (Auto) (0.0-0.1) 10^3/u L Nucleated RBC % (a uto) % Nucleated RBCs # /100WBC D-Dimer (0-0.59) ug/mIFE U Sodium (136-145) mmol/L Potassium (3.5-5.1) mmol/L Chloride (98-107) mmol/L Carbon Dioxide (22-29) mmol/L Anion Gap (5-19) BUN (8-23) mg/dL Creatinine (0.7-1.2) mg/dL Glucose (65-115) mg/dL Calculated Osmolal ity (285-295) mOsm/k g Lactate 1.6 (0.5-2.2) mmol/L Calcium (8.5-10.5) mg/dL Total Bilirubin (0.15-1.2) mg/dL AST (0-40) U/L ALT (0-41) U/L Alkaline Phosphata se (40-130) IU/L Troponin I 6 Hour (0-15) ng/mL Troponin I Hi Sens Del (0-12) ng/L Troponin T Baselin e 20 H (0-15) ng/mL Troponin T 120 Min [place] (0-15) ng/mL Delta Troponin T (0-10) ABS# NT-Pro-B Natriuret Pep (0-450) pg/mL Total Protein (6.6-8.7) g/dL Albumin (3.5-5.2) g/dL Globulin (1.3-4.6) g/dL Urine Color Yellow (Yellow) Urine Appearance Clear (CLEAR) Urine pH 5 (5-7) Ur Specific Gravit y 1.020 (1.005-1.030) Urine Protein Neg (Negative) Urine Glucose (UA) Norm (Normal) Urine Ketones Negative (Negative) Urine Blood 2+ H (Negative) Urine Nitrate Negative (Negative) Urine Bilirubin Neg (NEGATIVE) Urine Urobilinogen Norm (Negative) mg/dL Ur Leukocyte Rosetta ase Negative (Negative) Urine RBC 0-4 H (0-2) /hpf Urine WBC None (0-5) /hpf Ur Squamous Epith Cells 0-4 H (0-5) Urine Bacteria 1+ H (NONE) Urine Mucus 1+ 12/03/19 12/03/19 Range/Units 16:30 20:17 WBC (4.0-10.0) 10^3/ uL RBC (4.1-5.3) 10^6/u L Hgb (11.7-16.6) g/dL Hct (42.0-52.0) % MCV (80-94) fL MCH (28.0-34.0) pg MCHC (30.0-36.0) g/dL RDW (12.1-15.1) % Plt Count (130-400) 10^3/c mm MPV (7.4-10.4) fL Neut % (Auto) % Lymph % (Auto) % [place] % (Auto) % Eos % (Auto) % Baso % (Auto) % Neut # (Auto) (1.8-7.7) 10^3/u L Lymph # (Auto) (0.8-4.8) 10^3/u L [place] # (Auto) (0.2-0.9) 10^3/u L Eos # (Auto) (0.0-0.8) 10^3/u L Baso # (Auto) (0.0-0.1) 10^3/u L Nucleated RBC % (a uto) % Nucleated RBCs # /100WBC D-Dimer (0-0.59) ug/mIFE U Sodium (136-145) mmol/L Potassium (3.5-5.1) mmol/L Chloride (98-107) mmol/L Carbon Dioxide (22-29) mmol/L Anion Gap (5-19) BUN (8-23) mg/dL Creatinine (0.7-1.2) mg/dL Glucose (65-115) mg/dL Calculated Osmolal ity (285-295) mOsm/k g Lactate (0.5-2.2) mmol/L Calcium (8.5-10.5) mg/dL Total Bilirubin (0.15-1.2) mg/dL AST (0-40) U/L ALT (0-41) U/L Alkaline Phosphata se (40-130) IU/L Troponin I 6 Hour 19.48 H (0-15) ng/mL Troponin I Hi Sens Del -0.52 L (0-12) ng/L Troponin T Baselin e (0-15) ng/mL Troponin T 120 Min [place] 18.46 H (0-15) ng/mL Delta Troponin T -1.54 L (0-10) ABS# NT-Pro-B Natriuret Pep (0-450) pg/mL Total Protein (6.6-8.7) g/dL Albumin (3.5-5.2) g/dL Globulin (1.3-4.6) g/dL Urine Color (Yellow) Urine Appearance (CLEAR) Urine pH (5-7) Ur Specific Gravit y (1.005-1.030) Urine Protein (Negative) Urine Glucose (UA) (Normal) Urine Ketones (Negative) Urine Blood (Negative) Urine Nitrate (Negative) Urine Bilirubin (NEGATIVE) Urine Urobilinogen (Negative) mg/dL Ur Leukocyte Rosetta ase (Negative) Urine RBC (0-2) /hpf Urine WBC (0-5) /hpf Ur Squamous Epith Cells (0-5) Urine Bacteria (NONE) Urine Mucus Imaging Data^: CXR: Attestation: I personally reviewed and interpreted this imaging study as follows: My impression: No acute cardiopulmonary findings. CT Head: Attestation: I personally reviewed and interpreted this imaging study as follows: Radiologist's impression: [address] [address] [address] Scan Report Signed Patient: Dipak Stevens Unit #: [id number] : 1940 Age/Sex: 79 / M ADM Date: 12/03/19 Loc: ER Room/Bed: Attending Dr: Ordering Provider/Ordering MD: Maine Glass MD Date of Service: 12/03/19 Procedure(s): CT head wo con* [id number] Accession Number(s): [id number] Report Number: [id number] WS: [id number] CT HEAD NONCONTRAST HISTORY: syncope TECHNIQUE: Contiguous axial imaging performed through the brain in 2.5 mm imaging. Bone and soft tissue windows. Sagittal and coronal reformats reviewed. All CT scans at [facility] use at least one of these dose optimization techniques: automated exposure control; mA and/or kV adjustment per patient size (includes targeted exams where dose is matched to clinical indication); or iterative reconstruction. DLP: 850.31 mGy.cm COMPARISON: 11/15/2019 No acute intracranial hemorrhage, midline shift or mass effect. Mild atrophy and mild chronic microvascular ischemic disease. No interval change since the prior examination. No prior infarcts. There is increased CSF surrounding the brain which is probably related to atrophy. Small hygromas not completely excluded but there are no acute blood products. Ventricles: Normal size with no hydrocephalus. Paranasal sinuses: As visualized are clear. Mastoid air cells: Well pneumatized. Calvarium and scalp: Skull is intact with no soft tissue edema or swelling. CT/CT head wo con* [id number] IMPRESSION: 1. No acute intracranial hemorrhage or edema. 2. Mild atrophy and chronic microvascular ischemic disease. Similar appearance to the brain as the prior study. Dictated By: Tamia Bright DO Signed By: Tamia Bright DO Signed Date/Time: 12/03/19 1621 DD/ 1618 EKG Data^: EKG 1: Attestation: I personally reviewed and interpreted this EKG as follows: EKG interpretation date: 12/03/19 EKG interpretation time: 14:26 Interpretation: Normal sinus rhythm with a ventricular rate of 90 beats a minute, left axis deviation, right bundle branch block, left anterior fascicular block. Unchanged from previous. EKG 2: Attestation: I personally reviewed and interpreted this EKG as follows: EKG interpretation date: 12/03/19 EKG interpretation time: 16:43 Interpretation: Normal sinus rhythm with a ventricular rate of 98 beats a minute, left axis deviation, right bundle branch block, similar to previous. EKG 3: Attestation: I personally reviewed and interpreted this EKG as follows: EKG interpretation date: 12/03/19 EKG interpretation time: 19:41 Interpretation: Normal sinus rhythm at 94 beats a minute, right axis deviation, right bundle branch block, no acute ST-T wave findings. Unchanged from previous. Discharge Plan Discharge Patient Disposition: Home, Self-Care Clinical Impression: Syncope due to orthostatic hypotension, Seizure Condition: Stable Prescriptions: New Keppra 250 mg tablet 250 mg PO Q12H Qty: 60 RF: 0 No Action fluticasone propion-salmeterol [Advair Diskus] 250-50 mcg/dose Blister With Device 1 inh INHALATION BID RF: 0 albuterol sulfate 2.5 mg /3 mL (0.083 %) solution for nebulization 2.5 mg inhalation DAILY RF: 0 hydrocodone-acetaminophen 7.5-325 mg/15 mL solution 15 ml PO Q6H PRN (Reason: pain) Qty: 120 RF: 0 metformin 500 mg Tablet 500 mg PO BID RF: 0 simvastatin 40 mg Tablet 40 mg PO DAILY RF: 0 tamsulosin 0.4 mg Capsule 0.4 mg PO DAILY RF: 0 dronabinol 2.5 mg Capsule 2.5 mg PO BIDAC Qty: 60 RF: 0 Nyamyc 100,000 unit/gram Powder 1 applic topical BID Qty: 15 RF: 0 sennosides-docusate sodium 8.6-50 mg Tablet 1 tab PO BID Qty: 60 RF: 0 Lactobacillus acidophilus Capsule 10,000 mmu cells PO BID Qty: 60 RF: 0 Discharge Orders: Discharge Order (Routine); Ordered 12/03/19 Ordered By: Gina Lainez Referrals: Yessi Boswell MD [Physician] - 7-10 days Bonifacio Thompson [Primary Care Provider] - Yana Tuttle MD [Staff Physician] - 1-3 days Discharge Diet: Advance as tolerated Discharge Activity: Increase activity as tolerated Patient Instructions: Syncope (ED), New-Onset Seizure in Adults (ED) Activity Restrictions/Additional Instructions: Please return to the ER immediately for any of the signs or symptoms listed on your discharge instruction sheets, worsening/changing of your symptoms, you are not getting better as quickly as expected, or for ANY other cause or concerns. No driving, no working at heights, no tub baths, no swimming alone or anything else that would put you at risk should you have another seizure. Be certain to follow-up with Dr. Tuttle as scheduled. Take the Keppra as I have prescribed. I have recommended further evaluation and care but you have declined, of course you are welcome to return anytime should your symptoms worsen or you simply change your mind. Discharge Date/Time: 12/03/19 23:09 Sign Out Sign Out Data: Patient Sign Out occurred on 12/03/19 at 18:14. Patient's care was discussed, and care was transferred from to Gina Lainez. Coding Level of Care Code ED Pigs Feet Finisher for Chg Fwd Exam Comprehensive
--- NOTE | 2019-12-03 15:44 | CT_ITS ---
WS: [id number] CT HEAD NONCONTRAST HISTORY: syncope TECHNIQUE: Contiguous axial imaging performed through the brain in 2.5 mm imaging. Bone and soft tiss ue windows. Sagittal and coronal reformats reviewed. All CT scans at [facility] use at ast one of these dose optimization techniques: automated exposure control; mA and/or kV adjustment pe r patient size (includes targeted exams where dose is matched to clinical indication); or iterative r econstruction. DLP: 850.31 mGy.cm COMPARISON: 11/15/2019 No acute intracranial hemorrhage, midline shift or mass effect. Mild atrophy and mild chronic microvascular ischemic disease. No interval change since the prior exam ination. No prior infarcts. There is increased CSF surrounding the brain which is probably related t o atrophy. Small hygromas not completely excluded but there are no acute blood products. Ventricles: Normal size with no hydrocephalus. Paranasal sinuses: As visualized are clear. Mastoid air cells: Well pneumatized. Calvarium and scalp: Skull is intact with no soft tissue edema or swelling. CT/CT head wo con* [id number] IMPRESSION: 1. No acute intracranial hemorrhage or edema. 2. Mild atrophy and chronic microvascular ischemic disease. Similar appearance to the brain as the prior study.
[2019-12-03 16:41] LABS: Add Urine Microscopic? YES; Bacteria Urine 1+; Bilirubin Urine Neg (NEGATIVE); Blood Urine 2+ (Negative); Glucose Urine UA Norm (Normal); Ketones Urine Negative (Negative); Leukocyte Esterase Urine Negative (Negative); Mucus Urine 1+; Nitrate Urine Negative (Negative); Protein Urine Neg (Negative); RBC Urine 0-4 /hpf (0-2); Squamous Epithelial Cell Urine 0-4 (0-5); Urine Appearance Clear (CLEAR); Urine Color Yellow (Yellow); Urobilinogen Urine Norm (Negative); pH Urine 5 (5-7)
[2019-12-03 16:42] LABS: Add Urine Culture? No
[2019-12-03 16:56] LABS: Troponin 5 2HR 18.46 ng/mL (0-15)
[2019-12-03 17:03] LABS: Troponin 5 2HR Delta -1.54 ABS# (0-10)
--- NOTE | 2019-12-03 17:14 | CTR_ITS ---
PROCEDURE INFORMATION: Exam: CT Angiography Chest With Contrast Exam date and time: 12/03/2019 5:38 PM Age: 79 years old Clinical indication: Shortness of breath; Patient HX: Syncope - hypotensive - SOB; Additional info: Syncope, SOB TECHNIQUE: Imaging protocol: Computed tomographic angiography of the chest with intravenous contrast. 3D rendering: MIP and/or 3D reconstructed images were created by the technologist. Radiation optimization: All CT scans at this facility use at least one of these dose optimization techniques: automated exposure control; mA and/or kV adjustment per patient size (includes targeted exams where dose is matched to clinical indication); or iterative reconstruction. Contrast material: VISI 320; Contrast volume: 95 ml; Contrast route: 20G; COMPARISON: [place] Chest/[place] [id number] 05/18/2019 10:18 AM RADIATION DOSE METRICS: Total DLP: 563.24 mGy-cm FINDINGS: Pulmonary arteries: Normal. No pulmonary emboli. Aorta: Calcification of the abdominal aorta and/or iliac arteries consistent with atherosclerotic vessel disease. Lungs: Unremarkable. No consolidation. No masses. Pleural space: Unremarkable. No pneumothorax. No pleural effusion. Heart: Severe calcified coronary artery disease. Mediastinum: Mild to moderate hiatal hernia. Lymph nodes: Calcified right hilar nodes and/or mediastinal nodes and/or lung granulomas consistent with old granulomatous disease. Gallbladder and bile ducts: Surgical clips in the gallbladder fossa consistent with cholecystectomy. Spleen: Calcified splenic granulomas. Bones/joints: Mild thoracic spondylosis. Soft tissues: Unremarkable. CT/CT angio chest PE protcl [id number] IMPRESSION: 1. Mild to moderate hiatal hernia. 2. Severe calcified coronary artery disease. Radiation Dose CTDIVOL = (mGy): DLP = 563.24 (mGy-cm)
--- NOTE | 2019-12-03 19:38 | PC.NURSE ---
EKG done at 1936 and shown to ER doctor
--- NOTE | 2019-12-03 19:40 | ECG_ITS ---
Measurements Intervals [place] Rate: 99 P: 45 MS: 146 QRS: -89 QRSD: 157 T: 35 QT: 407 QTc: 523 SINUS RHYTHM WITH FREQUENT SUPRAVENTRICULAR PREMATURE COMPLEXES RIGHT BUNDLE BRANCH BLOCK [120+ ms QRS DURATION, UPRIGHT V1, 40+ ms S IN I/aVL/V4/V5/V6] LEFT ANTERIOR FASCICULAR BLOCK [QRS AXIS <= -45, QR IN I, RS IN II] PROBABLE SEPTAL MYOCARDIAL INFARCTION , PROBABLY OLD [35 ms Q WAVE IN V1/V2] Compared to ECG 11/15/2019 02:51:07 Myocardial infarct finding now present Sinus tachycardia no longer present Electronically Signed On 12-03-2019 19:02:20 CDT by Bartolome German M.D. [email or web address]
[2019-12-03] MEDS: iodixanol 320 mg/mL 100mL Btl IV (19:51)
--- NOTE | 2019-12-03 20:35 | PC.NURSE ---
Called Patients spouse to let her know patient would be Dc'd. 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
[2019-12-03 20:37] LABS: Troponin 5 6HR 19.48 ng/mL (0-15)
[2019-12-03 20:39] LABS: Troponin 5 6HR Delta -0.52 ng/L (0-12)
[2019-12-03] MEDS: levETIRAcetam 500 mg Tablet PO (21:04)
--- NOTE | 2019-12-07 10:45 | DCPLANNER ---
manager oncology had message to schedule a follow up appointment with Dr. Boswell. manager oncology called the office of Dr. Boswell, spoke with Carrie, gave clinic patients information. A follow up appointment was scheduled for Friday, December 13, 2019 at 9:[address] Boswell. manager oncology called patient, unable to speak with patient at this time, a voicemail was left for patient to return ed case manager phone call. Patient has an appointment with Dr. Tuttle, ed case manager called Irina Mejia at the clinic and asked if they could tell patient at his appointment about his scheduled appointment with Dr. Boswell.
--- NOTE | 2019-12-24 12:49 | DCPLANNER ---
Appointment scheduled for 12.13.[address] Kapoor office has been cancelled.
== END 2019-12-03 23:09 | disposition home or self-care (01) ==
PROVIDERS: Emergency Medicine; Emergency Provider Emergency Medicine; PCP Physician Assistant Medical
DX: I95.1 Orthostatic hypotension (principal); G40.89 Other seizures; Z79.84 Long term (current) use of oral hypoglycemic drugs; J44.9 Chronic obstructive pulmonary disease, unspecified; F03.90 Unspecified dementia, unspecified severity, without behavioral disturbance, psychotic disturbance, mood disturbance, and anxiety; E78.5 Hyperlipidemia, unspecified; I10 Essential (primary) hypertension; F17.210 Nicotine dependence, cigarettes, uncomplicated
CPT/HCPCS: 12345; 36415; 70450; 71045; 71275; 80053; 81001; 83605; 83880; 84484; 85025; 85378; 93005; 94640; 96360; 96361; 99284; J7040; Q9967

== ENCOUNTER 2019-12-08 08:35 | Outpatient (CLI) | payer MEDICARE, MEDICAID, SELFPAY ==
[2019-12-08] MEDS: sodium chloride 0.9% (100 ml) 100 ML 75 ML (10:00)
[2019-12-08] MEDS: acetaminophen 325 mg Tablet 650 MG PO (10:05)
--- NOTE | 2019-12-08 14:55 | ONC FU_ITS ---
Dr. Tuttle follow up note Patient: Rodney Honobia Unit #: [id number]: [id number] Dicatated By: Yana Tuttle M.D.Date of Visit:Dec 08, 2019 Onc Med Follow-up/Prog Note History of Present Illness: Mr. Stevens is a 79 -year-old gentleman with history of progressive dysphagia and weight loss. 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 A biopsy was obtained at [place], [place] on 05/21/2019. 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 Mr Stevens underwent CT scan of chest abdomen on 05/18/2019 which showed dilated thoracic esophagus with gross appearance of marked wall thickening as well as dilatation of distal segment of thoracic esophagus. No thoracic lymphadenopathy by size criteria. No evidence of distant metastatic disease, As per patient in the beginning he had dysphagia to solid food now can tolerate liquids only. Denied any hematemesis or hemoptysis, denied any jaundice, denied any aspiration or regurgitation. Mr Stevens has smoked about pack a day for many years. [place] of [place] and lives with elderly . Mr Stevens has elected to try chemotherapy alone. He has been offered chemotherapy with weekly carboplatin/Taxol/Herceptin. He did have baseline echocardiogram for the Herceptin on 06/24/2019 which reported left ventricular ejection fraction estimated at 65%. He had normal left ventricular systolic function no regional wall motion abnormalities there is a grade I/IV diastolic function, normal to mildly elevated filling pressures. No aortic valve stenosis and mild aortic valve regurgitation. He did also have PET CT imaging on 06/25/2019 at [facility]. This did report hypermetabolic circumferential mural thickening involving the distal esophagus extending approximately 10 cm proximal to the gastroesophageal junction from T11???T8 with maximum SUV of 24. A small amount of hyper metabolic mass extension into the gastric cardia is not fully excluded. Upstream esophagus appears fluid-filled and patulous. There were no discrete hypermetabolic pulmonary nodules. There is mild dependent atelectasis with trace bilateral pleural fluid collection without hypermetabolic pleural thickening. There was reported calcified mediastinal and hilar granulous with normal size mildly hypermetabolic bilateral hilar lymph nodes, small business representative right hilar lymph node maximum SUV 2.7. Additional hypermetabolic left hilar lymph node 0.8 x 1.2 cm with a max SUV of 2.5. 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 There were no hypermetabolic hepatic lesions. There was Extavia of the infrarenal abdominal aorta measuring up to 2.7 cm. No ascites or peritoneal/serosa nodularity. There was hyper metabolic gastrohepatic ligament lymph node 1.7 x 1.8 cm with a max SUV of 3.9. No additional hypermetabolic lymph nodes were seen within the abdomen or pelvis. There was prostamegaly without focal hypermetabolic prostate lesion. Muscle skeletal there was diffuse bone marrow hyper metabolism without focal lytic or blastic osseous lesion identified suggesting pathologic marrow uptake. 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 He did have Port a Cath placement in the left subclavian vein per Dr Rosa on 07/12/2019. Mr Stevens started on his first chemotherapy with weekly carboplatin/Taxol and Herceptin on 07/15/2019. He has tolerated it well overall. Follow-up CT PET scan done on 10/15/2019 showed significant improvement with decrease in size in hypermetabolism of distal esophagus. Previous hypermetabolic tumor extension into gastric cardia is no longer seen Resolution of previous hypermetabolic left hilar, paraesophageal, gastrohepatic ligament lymph nodes. No area of hypermetabolic distant metastatic disease seen Patient went to hospital on 12/03/2019 with episode of seizure-like activity and was evaluated in the emergency room, with CT scan of head was done which shows no evidence of metastatic disease and ER physician discussed her case with Dr. Boswell him a neurologist and patient was started on Keppra 250 mg by mouth twice a day Came for follow-up denies any specific complaints, no fever or chills, no nausea or vomiting, no dysuria, no more seizure-like activity. No dysphagia, appetite is reasonable, tolerating palliative chemotherapy with Herceptin/carboplatin/Taxol well otherwise Medications: Advair Diskus 2 Puff(s) (of 250-50 mcg/dose) Aerosol Powder, Breath Activated Inhalation daily, Albuterol Sulfate 1 ((2.5 mg/3ml) 0.083%) Nebulization solution Inhalation daily PRN, Dexamethasone (4 mg) Tablet Oral Take as Directed, Prochlorperazine Maleate 1 Tablet (of 10 mg) Oral q 4 hours PRN, Simvastatin 1 Tablet (of 40 mg) Oral daily, Spiriva HandiHaler 1 Capsule (of 18 mcg) Inhalation daily, Tamsulosin HCl 1 Capsule (of 0.4 mg) Oral daily Allergies: No Known Allergies. Review of Systems: Constitutional - Appetite is poor and weight has increased. No fever, chills, hot flashes, or night sweats. Energy level is poor, ENMT - No sinus congestion/drainage. No mouth sores. No sore throat or difficulty swallowing, Hematologic/Lymphatic - Positive for easy bruising, Respiratory - Positive for shortness of breath. No cough. No pleuritic pain or hemoptysis, Cardiovascular - No angina pain. No palpitations, Gastrointestinal - No nausea or vomiting. No heartburn or acid reflux. No diarrhea or constipation. No bloody or black stool, Genitourinary (M) - No dysuria or hematuria. No urinary frequency. No urgency or incontinence, Musculoskeletal - No joint or bone pain, Neurologic - No headache or dizziness. Pt reports that Pt recently had a fall and a seizure like episode, Psychiatric - No anxiety or depression. No insomnia. Vital Signs: Performed on Dec 08, 2019 08:51 Height - 67.00 in Weight - 165.0 lbs (HIGH) BSA - 1.86 sq.m BMI - 25.84 Temperature - 97.3 F (LOW) Pulse - 91 /min Respiration - 20 /min BP - 100/58 mm(hg) O2 Sat - 91 % (LOW) Pain - 0 Performance Status: 1 - No physically strenuous activity, but ambulatory and able to carry out light or sedentary work (e.g. office work, light house work). (ECOG) Physical Examination: ENMT - no mouth sores, no thrush, Respiratory - Lungs are clear, Cardiovascular - Regular rate and rhythm of heart, Abdomen - soft, bowel sounds present, Extremities - 1+ edema bilaterally. Lab/Imaging: Test performed on Dec 08, 2019 09:40 Creatinine 1.5 mg/dL Cr Clearance (Est) 41.58 mL/min Test performed on November 05, 2019 11:45 Sodium 139 mmol/L Potassium 3.6 mmol/L Chloride 103 mmol/L CO2 24 mmol/L Anion Gap 15.6 BUN 16 mg/dL Glucose 165 mg/dL Calcium 9.0 mg/dL Protein, Total 5.6 g/dL Albumin 3.3 g/dL Globulin 2.3 g/dL Bilirubin, Total 0.2 mg/dL ALT (SGPT) 16 U/L AST (SGOT) 13 U/L Alkaline Phosphatase 60 IU/L WBC 4.6 10 3/uL RBC 3.19 10 6/uL HGB 10.0 g/dL HCT 31.6 % MCV 99.1 fL MCH 31.3 pg MCHC 31.6 g/dL RDW 18.0 % Platelet Count 125 10 3/cmm MPV 9.4 fL Neutrophils 2.6 10 3/uL Lymphocytes 1.4 10 3/uL Monocytes 0.4 10 3/uL Eosinophils 0.1 10 3/uL Basophils 0.0 10 3/uL Neutrophil % 56.9 % Lymphocyte % 29.7 % Monocyte % 9.1 % Eosinophil % 2.6 % Basophils % 0.4 % Test performed on Oct 11, 2019 14:05 CBC Slide Review Slide Review Perform SLIDE REVIEW AGREES WITH AUTO DIFF Test performed on Oct 05, 2019 13:10 Manual Bands % 12.0 % Manual Lymphs % 6 % Atypical Lymphs % 4.0 % Manual Monos % 7.0 % Metamyelocytes % 3.0 % Polychromasia 2+ Anisocytosis 2+ Macrocytosis 1+ Microcytosis 1+ Ovalocytes 1+ Manual Bands Abs 3.8 10 3/cmm Manual Lymphocytes Abs 3.2 10 3/cmm Manual Monocytes Abs 2.2 10 3/cmm Test performed on Sep 28, 2019 09:13 Manual Segs 47.1 % Manual Eosinophils 4.5 % Manual Basophils 0.2 % NRBCs 0 /100 WBC Test performed on Aug 20, 2019 11:20 Manual Eosinophils Abs 0.2 10 3/cmm Test performed on Jul 21, 2019 09:35 Ferritin 35 ng/mL Iron, Total 15 mcg/dL % Iron Saturation 6.4 % TIBC 231 mcg/dL Impression: 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 CT scan of chest abdomen done on 05/18/2019 showed no thoracic lymphadenopathy by size criteria Dilated thoracic esophagus with gross appearance of marked wall thickening as well as dilatation of distal segment of thoracic esophagus no evidence of distant metastatic disease. Progressive dysphagia and weight loss due to above Chronic smoking, still active Clinically, patient is doing reasonably well now with progressive dysphagia due to newly diagnosed esophageal cancer. he said he did talk to his family and now have decided to pursue with chemotherapy alone and will go from there. Considering his age and comorbid condition and social issues e.g. living [place] from [place] with elderly , he would prefer chemotherapy alone in the office but not radiation therapy. Patient was reminded in the standard of care is combined chemoradiation followed by surgery if possible otherwise chemotherapy is palliative only. Considering his age and performance status, recommended weekly carboplatin Taxol and Herceptin. did also discuss about role of G-tube placement but patient declined. Mr Stevens is prediabetic so we'll also consider diabetes teaching and may consider sliding scale if he develops hyperglycemia due to steroids. He did have baseline echocardiogram for the Herceptin on 06/24/2019 which reported left ventricular ejection fraction estimated at 65%. He had normal left ventricular systolic function no regional wall motion abnormalities there is a grade I/IV diastolic function, normal to mildly elevated filling pressures. No aortic valve stenosis and mild aortic valve regurgitation. He did also have PET CT imaging on 06/25/2019 at [facility]. This did report hypermetabolic circumferential mural thickening involving the distal esophagus extending approximately 10 cm proximal to the gastroesophageal junction from T11???T8 with maximum SUV of 24. A small amount of hyper metabolic mass extension into the gastric cardia is not fully excluded. Upstream esophagus appears fluid-filled and patulous. There were no discrete hypermetabolic pulmonary nodules. There is mild dependent atelectasis with trace bilateral pleural fluid collection without hypermetabolic pleural thickening. There was reported calcified mediastinal and hilar granulous with normal size mildly hypermetabolic bilateral hilar lymph nodes, small business representative right hilar lymph node maximum SUV 2.7. Additional hypermetabolic left hilar lymph node 0.8 x 1.2 cm with a max SUV of 2.5. 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 There were no hypermetabolic hepatic lesions. There was Extavia of the infrarenal abdominal aorta measuring up to 2.7 cm. No ascites or peritoneal/serosa nodularity. There was hyper metabolic gastrohepatic ligament lymph node 1.7 x 1.8 cm with a max SUV of 3.9. No additional hypermetabolic lymph nodes were seen within the abdomen or pelvis. There was prostamegaly without focal hypermetabolic prostate lesion. Muscle skeletal there was diffuse bone marrow hyper metabolism without focal lytic or blastic osseous lesion identified suggesting pathologic marrow uptake. 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 Mr Stevens had Port a Cath placement in the left subclavian vein per Dr Rosa on 07/12/2019. He began his first cycle of carboplatin/Taxol/Herceptin on 07/15/2019. He was also found to be iron deficient and received Injectafer on 07/12/2019 & 07/29/2019. He has required Neupogen support for chemo induced neutropenia with the last cycle of chemotherapy. He has been receiving Neupogen for 3 days starting day 2. This has allowed his counts to remain adequate to continue on treatment as scheduled. He did receive Neulasta on day 15 of cycle 2. Plan: Discussed with patient and his regarding his labs from 12/03/2019 showed white blood count 8.1 hemoglobin 10.3 hematocrit 33.5 platelets 177,000 CMP within normal limit except creatinine 1.5 and urinalysis no evidence of UTI Clinically, patient is doing reasonably well, tolerating palliative chemotherapy with Herceptin/carboplatin/Taxol reasonably well but with expected side effect but with excellent palliation, no dysphagia patient is tolerating everything orally. Etiology of seizure-like activity remained unclear could be metabolic, due to dehydration or medication but no more seizure-like activity since one episode at home, now on Keppra 250 mg twice a day. Discussed with patient and his regarding further treatment options which include hospice care. Patient and said , she did discussed with her kids and at this point everybody wants to continue with palliative therapy as long as his dysphagia is under control and patient is tolerating and patient has no more seizures, in case dysphagia recur or chemotherapy start making him sick or more seizure-like activity, then they would consider hospice care. Patient did not take premedication for Taxol, so we'll give him schedule dose of Herceptin alone today as day 1 treatment and then he'll return to clinic in 1 week with CBC CMP and he was advised to take premedication and if blood counts looks reasonable we'll consider day 8 with Herceptin/carboplatin/Taxol. Patient and was informed in case he has any more seizure-like activity in the need to call us immediately or go to hospital. And also advised to keep follow-up appointment with Dr. Boswell neurology. Signed By: Yana Tuttle M.D. <<Signature on File>>
== END 2019-12-08 08:36 | disposition home or self-care (01) ==
LOC: ONCMED 08:37
PROVIDERS: PCP Physician Assistant Medical; Visit Provider Internal Medicine Hematology & Oncology
DX: Z51.11 Encounter for antineoplastic chemotherapy (principal); C15.4 Malignant neoplasm of middle third of esophagus; J44.9 Chronic obstructive pulmonary disease, unspecified; F03.90 Unspecified dementia, unspecified severity, without behavioral disturbance, psychotic disturbance, mood disturbance, and anxiety; E78.5 Hyperlipidemia, unspecified; I10 Essential (primary) hypertension; E11.9 Type 2 diabetes mellitus without complications; E53.8 Deficiency of other specified B group vitamins; F17.210 Nicotine dependence, cigarettes, uncomplicated; Z86.73 Personal history of transient ischemic attack (TIA), and cerebral infarction without residual deficits; Z79.899 Other long term (current) drug therapy
CPT/HCPCS: 96367; 96413; 99214; J1200; J7050; J9355

== ENCOUNTER 2020-01-04 11:05 | Outpatient (RCR) | payer MEDICARE, MEDICAID, SELFPAY ==
[2019-12-14 14:01] LABS: Basophils % 0.7 %; Eosinophils # 0.3 10^3/uL (0.0-0.8); Eosinophils % 5.2 %; Hematocrit 34.8 % (42.0-52.0); Hemoglobin 10.4 g/dL (11.7-16.6); Lymphocytes # 1.6 10^3/uL (0.8-4.8); Lymphocytes % 28.1 %; Mean Corpuscular HGB Conc 29.9 g/dL (30.0-36.0); Mean Corpuscular Hemoglobin 29.8 pg (28.0-34.0); Mean Corpuscular Volume 99.7 fL (80-94); Mean Platelet Volume 10.4 fL (7.4-10.4); Monocytes # 0.4 10^3/uL (0.2-0.9); Monocytes % 7.5 %; Neutrophils # 3.3 10^3/uL (1.8-7.7); Neutrophils % 57.8 %; Nucleated Red Blood Cells % 0 %; Platelet Count 221 10^3/cmm (130-400); Red Blood Count 3.49 10^6/uL (4.1-5.3); Red Cell Distribution Width 16.1 % (12.1-15.1); White Blood Count 5.8 10^3/uL (4.0-10.0)
[2019-12-14 14:38] LABS: Alanine Aminotransferase 7 U/L (0-41); Albumin Level 3.4 g/dL (3.5-5.2); Alkaline Phosphatase 55 IU/L (40-130); Anion Gap 11.3 (5-19); Aspartate Amino Transferase 12 U/L (0-40); Blood Urea Nitrogen 19 mg/dL (8-23); Calcium 8.8 mg/dL (8.5-10.5); Carbon Dioxide 27 mmol/L (22-29); Chloride 105 mmol/L (98-107); Globulin 2.1 g/dL (1.3-4.6); Glucose 103 mg/dL (65-115); Osmolality Calculated 285 mOsm/kg (285-295); Potassium 4.3 mmol/L (3.5-5.1); Sodium 139 mmol/L (136-145); Total Bilirubin 0.2 mg/dL (0.15-1.2); Total Protein 5.5 g/dL (6.6-8.7)
[2019-12-15] MEDS: sodium chloride 0.9% 250 ML 75 ML IV (09:18)
[2019-12-15] MEDS: acetaminophen 325 mg Tablet 650 MG PO (09:35)
--- NOTE | 2019-12-15 17:24 | ONC FU_ITS ---
Dr. Tuttle follow up note Patient: [facility] Unit #: [id number]: 1940 Dicatated By: Yana Tuttle M.D.Date of Visit:Dec 15, 2019 Onc Med Follow-up/Prog Note History of Present Illness: Mr. Stevens is a 79 -year-old gentleman with history of progressive dysphagia and weight loss. 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 A biopsy was obtained at [place], [place] on 05/21/2019. 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 Mr Stevens underwent CT scan of chest abdomen on 05/18/2019 which showed dilated thoracic esophagus with gross appearance of marked wall thickening as well as dilatation of distal segment of thoracic esophagus. No thoracic lymphadenopathy by size criteria. No evidence of distant metastatic disease, As per patient in the beginning he had dysphagia to solid food now can tolerate liquids only. Denied any hematemesis or hemoptysis, denied any jaundice, denied any aspiration or regurgitation. Mr Stevens has smoked about pack a day for many years. [place] lives [place] north of [place] and lives with elderly . Mr Stevens has elected to try chemotherapy alone. He has been offered chemotherapy with weekly carboplatin/Taxol/Herceptin. He did have baseline echocardiogram for the Herceptin on 06/24/2019 which reported left ventricular ejection fraction estimated at 65%. He had normal left ventricular systolic function no regional wall motion abnormalities there is a grade I/IV diastolic function, normal to mildly elevated filling pressures. No aortic valve stenosis and mild aortic valve regurgitation. He did also have PET CT imaging on 06/25/2019 at [facility]. This did report hypermetabolic circumferential mural thickening involving the distal esophagus extending approximately 10 cm proximal to the gastroesophageal junction from T11???T8 with maximum SUV of 24. A small amount of hyper metabolic mass extension into the gastric cardia is not fully excluded. Upstream esophagus appears fluid-filled and patulous. There were no discrete hypermetabolic pulmonary nodules. There is mild dependent atelectasis with trace bilateral pleural fluid collection without hypermetabolic pleural thickening. There was reported calcified mediastinal and hilar granulous with normal size mildly hypermetabolic bilateral hilar lymph nodes, exhibit display representative right hilar lymph node maximum SUV 2.7. Additional hypermetabolic left hilar lymph node 0.8 x 1.2 cm with a max SUV of 2.5. 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 There were no hypermetabolic hepatic lesions. There was Extavia of the infrarenal abdominal aorta measuring up to 2.7 cm. No ascites or peritoneal/serosa nodularity. There was hyper metabolic gastrohepatic ligament lymph node 1.7 x 1.8 cm with a max SUV of 3.9. No additional hypermetabolic lymph nodes were seen within the abdomen or pelvis. There was prostamegaly without focal hypermetabolic prostate lesion. Muscle skeletal there was diffuse bone marrow hyper metabolism without focal lytic or blastic osseous lesion identified suggesting pathologic marrow uptake. 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 He did have Port a Cath placement in the left subclavian vein per Dr Rosa on 07/12/2019. Mr Stevens started on his first chemotherapy with weekly carboplatin/Taxol and Herceptin on 07/15/2019. He has tolerated it well overall. Follow-up CT PET scan done on 10/15/2019 showed significant improvement with decrease in size in hypermetabolism of distal esophagus. Previous hypermetabolic tumor extension into gastric cardia is no longer seen Resolution of previous hypermetabolic left hilar, paraesophageal, gastrohepatic ligament lymph nodes. No area of hypermetabolic distant metastatic disease seen Patient went to hospital on 12/03/2019 with episode of seizure-like activity and was evaluated in the emergency room, with CT scan of head was done which shows no evidence of metastatic disease and ER physician discussed her case with Dr. Boswell him a neurologist and patient was started on Keppra 250 mg by mouth twice a day Came for follow-up, denies any specific complaints, no fever chills, no nausea or vomiting, no diarrhea or constipation, no more seizure-like activity., No dysphagia. Tolerating palliative chemotherapy with Herceptin/carboplatin/Taxol well Medications: Acidophilus 1 Tablet Oral daily, Advair Diskus 2 Puff(s) (of 250-50 mcg/dose) Aerosol Powder, Breath Activated Inhalation daily, Albuterol Sulfate 1 ((2.5 mg/3ml) 0.083%) Nebulization solution Inhalation daily PRN, Dexamethasone (4 mg) Tablet Oral Take as Directed, Dronabinol 1 Capsule Oral b.i.d., Prochlorperazine Maleate 1 Tablet (of 10 mg) Oral q 4 hours PRN, Simvastatin 1 Tablet (of 40 mg) Oral daily, Spiriva HandiHaler 1 Capsule (of 18 mcg) Inhalation daily, Tamsulosin HCl 1 Capsule (of 0.4 mg) Oral daily Allergies: No Known Allergies. Review of Systems: Constitutional - Appetite is poor and weight has increased. No fever, chills, hot flashes, or night sweats. Energy level is very poor, ENMT - No sinus congestion/drainage. No mouth sores. No sore throat or difficulty swallowing, Hematologic/Lymphatic - Positive for easy bruising, Respiratory - Positive for shortness of breath. No cough. No pleuritic pain or hemoptysis, Cardiovascular - No angina pain. No palpitations, Gastrointestinal - No nausea or vomiting. No heartburn or acid reflux. No diarrhea or constipation. No bloody or black stool, Genitourinary (M) - No dysuria or hematuria. No urinary frequency. No urgency or incontinence, Musculoskeletal - No joint or bone pain, Neurologic - No headache or dizziness, Psychiatric - No anxiety or depression. No insomnia. Vital Signs: Performed on Dec 15, 2019 08:18 Height - 67.00 in Weight - 167.2 lbs (HIGH) BSA - 1.87 sq.m BMI - 26.19 Temperature - 97.8 F (LOW) Pulse - 89 /min Respiration - 20 /min BP - 145/85 mm(hg) (HIGH) O2 Sat - 98 % Pain - 0 Performance Status: Perf. Status is not available for this patient. Physical Examination: ENMT - No mouth sores, no thrush, no jaundice, Respiratory - Lungs are clear, Cardiovascular - Regular rate and rhythm of heart, Abdomen - Soft, bowel sounds present, nontender, Extremities - Trace edema otherwise no rash. Lab/Imaging: Test performed on Dec 14, 2019 11:25 Sodium 139 mmol/L Potassium 4.3 mmol/L Chloride 105 mmol/L CO2 27 mmol/L Anion Gap 11.3 BUN 19 mg/dL Creatinine 1.4 mg/dL Cr Clearance (Est) 44.5500 mL/min Glucose 103 mg/dL Calcium 8.8 mg/dL Protein, Total 5.5 g/dL Albumin 3.4 g/dL Globulin 2.1 g/dL Bilirubin, Total 0.2 mg/dL ALT (SGPT) 7 U/L AST (SGOT) 12 U/L Alkaline Phosphatase 55 IU/L WBC 5.8 10 3/uL RBC 3.49 10 6/uL HGB 10.4 g/dL HCT 34.8 % MCV 99.7 fL MCH 29.8 pg MCHC 29.9 g/dL RDW 16.1 % Platelet Count 221 10 3/cmm MPV 10.4 fL Neutrophils 3.3 10 3/uL Lymphocytes 1.6 10 3/uL Monocytes 0.4 10 3/uL Eosinophils 0.3 10 3/uL Basophils 0.0 10 3/uL Neutrophil % 57.8 % Lymphocyte % 28.1 % Monocyte % 7.5 % Eosinophil % 5.2 % Basophils % 0.7 % NRBC % 0 % Test performed on Oct 11, 2019 14:05 CBC Slide Review Slide Review Perform SLIDE REVIEW AGREES WITH AUTO DIFF Test performed on Oct 05, 2019 13:10 Manual Bands % 12.0 % Manual Lymphs % 6 % Atypical Lymphs % 4.0 % Manual Monos % 7.0 % Metamyelocytes % 3.0 % Polychromasia 2+ Anisocytosis 2+ Macrocytosis 1+ Microcytosis 1+ Ovalocytes 1+ Manual Bands Abs 3.8 10 3/cmm Manual Lymphocytes Abs 3.2 10 3/cmm Manual Monocytes Abs 2.2 10 3/cmm Test performed on Sep 28, 2019 09:13 Manual Segs 47.1 % Manual Eosinophils 4.5 % Manual Basophils 0.2 % NRBCs 0 /100 WBC Test performed on Aug 20, 2019 11:20 Manual Eosinophils Abs 0.2 10 3/cmm Test performed on Jul 21, 2019 09:35 Ferritin 35 ng/mL Iron, Total 15 mcg/dL % Iron Saturation 6.4 % TIBC 231 mcg/dL Impression: 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 CT scan of chest abdomen done on 05/18/2019 showed no thoracic lymphadenopathy by size criteria Dilated thoracic esophagus with gross appearance of marked wall thickening as well as dilatation of distal segment of thoracic esophagus no evidence of distant metastatic disease. Progressive dysphagia and weight loss due to above Chronic smoking, still active Clinically, patient is doing reasonably well now with progressive dysphagia due to newly diagnosed esophageal cancer. he said he did talk to his family and now have decided to pursue with chemotherapy alone and will go from there. Considering his age and comorbid condition and social issues e.g. living 60 miles away from [place] with elderly , he would prefer chemotherapy alone in the office but not radiation therapy. Patient was reminded in the standard of care is combined chemoradiation followed by surgery if possible otherwise chemotherapy is palliative only. Considering his age and performance status, recommended weekly carboplatin Taxol and Herceptin. did also discuss about role of G-tube placement but patient declined. Mr Stevens is prediabetic so we'll also consider diabetes teaching and may consider sliding scale if he develops hyperglycemia due to steroids. He did have baseline echocardiogram for the Herceptin on 06/24/2019 which reported left ventricular ejection fraction estimated at 65%. He had normal left ventricular systolic function no regional wall motion abnormalities there is a grade I/IV diastolic function, normal to mildly elevated filling pressures. No aortic valve stenosis and mild aortic valve regurgitation. He did also have PET CT imaging on 06/25/2019 at [facility]. This did report hypermetabolic circumferential mural thickening involving the distal esophagus extending approximately 10 cm proximal to the gastroesophageal junction from T11???T8 with maximum SUV of 24. A small amount of hyper metabolic mass extension into the gastric cardia is not fully excluded. Upstream esophagus appears fluid-filled and patulous. There were no discrete hypermetabolic pulmonary nodules. There is mild dependent atelectasis with trace bilateral pleural fluid collection without hypermetabolic pleural thickening. There was reported calcified mediastinal and hilar granulous with normal size mildly hypermetabolic bilateral hilar lymph nodes, exhibit display representative right hilar lymph node maximum SUV 2.7. Additional hypermetabolic left hilar lymph node 0.8 x 1.2 cm with a max SUV of 2.5. 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 There were no hypermetabolic hepatic lesions. There was Extavia of the infrarenal abdominal aorta measuring up to 2.7 cm. No ascites or peritoneal/serosa nodularity. There was hyper metabolic gastrohepatic ligament lymph node 1.7 x 1.8 cm with a max SUV of 3.9. No additional hypermetabolic lymph nodes were seen within the abdomen or pelvis. There was prostamegaly without focal hypermetabolic prostate lesion. Muscle skeletal there was diffuse bone marrow hyper metabolism without focal lytic or blastic osseous lesion identified suggesting pathologic marrow uptake. 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 Mr Stevens had Port a Cath placement in the left subclavian vein per Dr Rosa on 07/12/2019. He began his first cycle of carboplatin/Taxol/Herceptin on 07/15/2019. He was also found to be iron deficient and received Injectafer on 07/12/2019 & 07/29/2019. He has required Neupogen support for chemo induced neutropenia with the last cycle of chemotherapy. He has been receiving Neupogen for 3 days starting day 2. This has allowed his counts to remain adequate to continue on treatment as scheduled. He did receive Neulasta on day 15 of cycle 2. Plan: Discussed with patient and his regarding his labs white blood count 5.8 hemoglobin 10.4 crit 34.8 platelets 221,000 CMP within normal limits Clinically, patient is doing well, tolerating palliative therapy with Herceptin/carboplatin/Taxol well but with expected side effects. We will proceed with next cycle #6 day 8, with weekly Herceptin/carboplatin/Taxol today and then he will return to clinic in 1 week with CBC CMP, if reasonable for next dose of chemotherapy. As per with Marinol, patient has better appetite and feeling better with no more nausea, will give him prescription for his Marinol. Signed By: Yana Tuttle M.D. <<Signature on File>>
[2019-12-21 14:07] LABS: Basophils % 0.2 %; Eosinophils # 0.3 10^3/uL (0.0-0.8); Eosinophils % 5.5 %; Hematocrit 34.3 % (42.0-52.0); Hemoglobin 10.7 g/dL (11.7-16.6); Lymphocytes # 1.7 10^3/uL (0.8-4.8); Lymphocytes % 31.2 %; Mean Corpuscular HGB Conc 31.2 g/dL (30.0-36.0); Mean Corpuscular Hemoglobin 30.6 pg (28.0-34.0); Mean Platelet Volume 10.5 fL (7.4-10.4); Monocytes # 0.1 10^3/uL (0.2-0.9); Monocytes % 2.6 %; Neutrophils # 3.2 10^3/uL (1.8-7.7); Neutrophils % 59.9 %; Nucleated Red Blood Cells % 0 %; Platelet Count 176 10^3/cmm (130-400); Red Cell Distribution Width 15.6 % (12.1-15.1); White Blood Count 5.3 10^3/uL (4.0-10.0)
[2019-12-21 14:22] LABS: Alanine Aminotransferase 9 U/L (0-41); Albumin Level 3.1 g/dL (3.5-5.2); Alkaline Phosphatase 58 IU/L (40-130); Anion Gap 15.3 (5-19); Aspartate Amino Transferase 12 U/L (0-40); Blood Urea Nitrogen 15 mg/dL (8-23); Calcium 8.9 mg/dL (8.5-10.5); Carbon Dioxide 26 mmol/L (22-29); Chloride 102 mmol/L (98-107); Globulin 2.6 g/dL (1.3-4.6); Glucose 94 mg/dL (65-115); Osmolality Calculated 284 mOsm/kg (285-295); Potassium 4.3 mmol/L (3.5-5.1); Sodium 139 mmol/L (136-145); Total Bilirubin 0.3 mg/dL (0.15-1.2); Total Protein 5.7 g/dL (6.6-8.7)
[2019-12-22] MEDS: sodium chloride 0.9% (100 ml) 100 ML 35 ML ×2 (11:00→14:10)
[2019-12-22] MEDS: acetaminophen 325 mg Tablet 650 MG PO (11:05)
--- NOTE | 2019-12-22 11:30 | ONC FU_ITS ---
[facility] Patient Note Patient: Rodney [place] Unit #: [id number]: [id number] Dictated By: Harsha TaylorDate of Visit: Dec 22, 2019 Onc MED Follow-Up/Prog Note Chief Complaint: Adenocarcinoma of esophagus History of Present Illness: Mr. Stevens is a 79 -year-old gentleman with history of progressive dysphagia and weight loss. 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 A biopsy was obtained at [place], [place] on 05/21/2019. 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 Mr Stevens underwent CT scan of chest abdomen on 05/18/2019 which showed dilated thoracic esophagus with gross appearance of marked wall thickening as well as dilatation of distal segment of thoracic esophagus. No thoracic lymphadenopathy by size criteria. No evidence of distant metastatic disease, As per patient in the beginning he had dysphagia to solid food now can tolerate liquids only. Denied any hematemesis or hemoptysis, denied any jaundice, denied any aspiration or regurgitation. Mr Stevens has smoked about pack a day for many years. [place] north of [place] and lives with elderly . Mr Stevens has elected to try chemotherapy alone. He has been offered chemotherapy with weekly carboplatin/Taxol/Herceptin. He did have baseline echocardiogram for the Herceptin on 06/24/2019 which reported left ventricular ejection fraction estimated at 65%. He had normal left ventricular systolic function no regional wall motion abnormalities there is a grade I/IV diastolic function, normal to mildly elevated filling pressures. No aortic valve stenosis and mild aortic valve regurgitation. He did also have PET CT imaging on 06/25/2019 at [facility]. This did report hypermetabolic circumferential mural thickening involving the distal esophagus extending approximately 10 cm proximal to the gastroesophageal junction from T11???T8 with maximum SUV of 24. A small amount of hyper metabolic mass extension into the gastric cardia is not fully excluded. Upstream esophagus appears fluid-filled and patulous. There were no discrete hypermetabolic pulmonary nodules. There is mild dependent atelectasis with trace bilateral pleural fluid collection without hypermetabolic pleural thickening. There was reported calcified mediastinal and hilar granulous with normal size mildly hypermetabolic bilateral hilar lymph nodes, employee relations representative right hilar lymph node maximum SUV 2.7. Additional hypermetabolic left hilar lymph node 0.8 x 1.2 cm with a max SUV of 2.5. 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 There were no hypermetabolic hepatic lesions. There was Extavia of the infrarenal abdominal aorta measuring up to 2.7 cm. No ascites or peritoneal/serosa nodularity. There was hyper metabolic gastrohepatic ligament lymph node 1.7 x 1.8 cm with a max SUV of 3.9. No additional hypermetabolic lymph nodes were seen within the abdomen or pelvis. There was prostamegaly without focal hypermetabolic prostate lesion. Muscle skeletal there was diffuse bone marrow hyper metabolism without focal lytic or blastic osseous lesion identified suggesting pathologic marrow uptake. 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 He did have Port a Cath placement in the left subclavian vein per Dr Rosa on 07/12/2019. Mr Stevens started on his first chemotherapy with weekly carboplatin/Taxol and Herceptin on 07/15/2019. He has tolerated it well overall. Follow-up CT PET scan done on 10/15/2019 showed significant improvement with decrease in size in hypermetabolism of distal esophagus. Previous hypermetabolic tumor extension into gastric cardia is no longer seen Resolution of previous hypermetabolic left hilar, paraesophageal, gastrohepatic ligament lymph nodes. No area of hypermetabolic distant metastatic disease seen Patient went to hospital on 12/03/2019 with episode of seizure-like activity and was evaluated in the emergency room, with CT scan of head was done which shows no evidence of metastatic disease and ER physician discussed her case with Dr. Boswell him a neurologist and patient was started on Keppra 250 mg by mouth twice a day Mr Stevens continues with Carboplatin/Taxol/Herceptin. He is here today for follow-up. He is due for cycle 6-day 15 treatment[address] Mrs. Galvan accompanies him today. She states that he had an episode of vomiting on Friday. She states it was from coughing up thick sputum. He has had no nausea. She denies any further emesis. He is doing the Marinol and she states his appetite is better. He denies any nausea. He denies any changes in his bowels. He denies mouth sores. She has not noted these had any trouble swallowing. He has had no fever or chills. He denies any pain today. He continues to be very quiet and does not contribute to the conversation which is most likely due to his hearing difficulties. He does present in a wheelchair today but ambulates well from the wheelchair to the chemotherapy recliner. His ECOG is 2. Past Medical History: Chronic obstructive pulmonary disease Dementia Hyperlipidemia Hypertension Stroke Type II diabetes Vitamin b 12 deficiency Past Surgical History: Cholecystectomy Left Subclavian Port a Cath-Dr Rosa ([facility] [place] in [place] Allergies: No Known Allergies. Medications: Advair Diskus 2 Puff(s) (of 250-50 mcg/dose) Aerosol Powder, Breath Activated Inhalation daily Albuterol Sulfate 1 ((2.5 mg/3ml) 0.083%) Nebulization solution Inhalation daily PRN Dexamethasone (4 mg) Tablet Oral Take as Directed Dronabinol 1 Capsule Oral b.i.d. Prochlorperazine Maleate 1 Tablet (of 10 mg) Oral q 4 hours PRN Spiriva HandiHaler 1 Capsule (of 18 mcg) Inhalation daily Tamsulosin HCl 1 Capsule (of 0.4 mg) Oral daily Family History: Mr. Stevens's mother at age 80: colon cancer. Mr. Stevens's father at age 83: leukemia. Mr. Stevens has 2 brothers: 2 . Mr. Stevens's first brother's esophageal cancer. Another brother's lung cancer. Social History: Mr. Stevens is and he is retired. He is a daily smoker who has smoked 0.5 packs/day for 41 years. He has no history of drinking. He has indicated exposure to the following products: cigarettes. Mr. Stevens reports the following support systems: lives with spouse, significant other, family, or friends, lives in own house, supportive family/friends willing to assist with needs, and adequate transportation available for expected visits. His diet consists of liquid diet. He indicates his activity level as: sedentary. Review Of Symptoms: Constitutional Denies fevers, chills, night sweats, excessive fatigue or weight loss. Appetite is better. Allergic/Immunologic No reactions. Eyes Denies significant visual changes. No diplopia. No amaurosis. ENMT hard of hearing-chronic. Endocrine No diabetes, thyroid disease or hormone replacement. Denies hot flashes or night sweats. Hematologic/Lymphatic Denies easy bruising or bleeding. The patient denies any tender or palpable lymph nodes. Respiratory Denies new or worsening dyspnea on exertion, chest pain, cough or hemoptysis. Denies orthopnea. Cardiovascular Denies anginal chest pain, palpitations or orthopnea. Gastrointestinal Denies nausea, vomiting, diarrhea, GI bleeding, or constipation. Denies change in bowel habits and/or stool color, no heartburn or early satiety. Genitourinary (M) Denies hematuria, dysuria, increased frequency, urgency, hesitancy or incontinence. Musculoskeletal Denies joint pain, swelling or redness. No decreased range of motion. Integumentary Denies chronic rashes, inflammation, ulcerations or skin changes. Neurologic continues to require wheelchair for assistance in mobility. Psychiatric Denies insomnia, depression, cindy or mood swings. Vital Signs: Performed on Dec 22, 2019 10:31 Height - 67.00 in Weight - 163.6 lbs (LOW) BSA - 1.86 sq.m BMI - 25.62 Temperature - 97.3 F (LOW) Pulse - 91 /min Respiration - 16 /min BP - 153/75 mm(hg) (HIGH) O2 Sat - 98 % Pain - 0,2 - Ambulatory/capable of all self-care, unable to perform any work activities. Up and about more than 50% of waking hours. (ECOG) Physical Examination: Constitutional Alert, oriented, no acute distress. Skin pink, warm and dry. Head Normocephalic; atraumatic. Eyes Conjunctivae and sclerae are clear and without icterus. Pupils are reactive and equal. ENMT Extremely hard of hearing. Neck Supple without masses or thyromegaly. No jugular venous distension. Hematologic/Lymphatic No petechiae or purpura. No tender or palpable lymph nodes in the cervical or supraclavicular areas. Respiratory Lungs are clear to auscultation without rhonchi or wheezing. Cardiovascular Regular rate and rhythm of heart without murmurs,clicks, gallops or rubs. Chest Left subclavian venous access device insertion site is unremarkable. Abdomen Non-tender, non-distended, no masses or ascites. Good bowel sounds noted in all quads. No guarding or rebound tenderness. No pulsatile masses. Back/Spine Non-tender to palpation. Extremities No visible deformities, no cyanosis, clubbing or edema. Musculoskeletal No tenderness or swelling. Integumentary No rashes or lesions. Neurologic No sensory or motor deficits, normal cerebellar function, presents in a wheelchair today-gait not assessed. I did attempt to assist him in transferring from the wheelchair to the treatment recliner and he transferred well without any assistance. Psychiatric Alert and oriented times three. Coherent speech. Verbalizes understanding of our discussions today. Laboratory:Test performed on Dec 22, 2019 08:01 Creatinine 1.2 mg/dL Cr Clearance (Est) 51.98 mL/min Test performed on Dec 21, 2019 10:50 Glucose 94 mg/dL BUN 15 mg/dL Sodium 139 mmol/L Potassium 4.3 mmol/L Chloride 102 mmol/L CO2 26 mmol/L Calcium 8.9 mg/dL Protein, Total 5.7 g/dL Albumin 3.1 g/dL Globulin 2.6 g/dL Bilirubin, Total 0.3 mg/dL Alkaline Phosphatase 58 IU/L AST (SGOT) 12 IU/L ALT (SGPT) 9 IU/L WBC 5.3 10 3/uL RBC 3.50 10 6/uL HGB 10.7 g/dL HCT 34.3 % MCV 98.0 fL MCH 30.6 pg MCHC 31.2 g/dL RDW 15.6 % Platelet Count 176 10 3/cmm MPV 10.5 fL Neutrophils 3.2 10 3/uL Lymphocytes 1.7 10 3/uL Monocytes 0.1 10 3/uL Eosinophils 0.3 10 3/uL Basophils 0.0 10 3/uL Neutrophil % 59.9 % Lymphocyte % 31.2 % Monocyte % 2.6 % Eosinophil % 5.5 % Basophils % 0.2 % NRBC % 0 % Test performed on Dec 14, 2019 11:25 Anion Gap 11.3 Test performed on Oct 11, 2019 14:05 CBC Slide Review Slide Review Perform SLIDE REVIEW AGREES WITH AUTO DIFF Test performed on Oct 05, 2019 13:10 Manual Bands % 12.0 % Manual Lymphs % 6 % Atypical Lymphs % 4.0 % Manual Monos % 7.0 % Metamyelocytes % 3.0 % Polychromasia 2+ Anisocytosis 2+ Macrocytosis 1+ Microcytosis 1+ Ovalocytes 1+ Manual Bands Abs 3.8 10 3/cmm Manual Lymphocytes Abs 3.2 10 3/cmm Manual Monocytes Abs 2.2 10 3/cmm Test performed on Sep 28, 2019 09:13 Manual Segs 47.1 % Manual Eosinophils 4.5 % Manual Basophils 0.2 % NRBCs 0 /100 WBC Test performed on Aug 20, 2019 11:20 Manual Eosinophils Abs 0.2 10 3/cmm Test performed on Jul 21, 2019 09:35 Ferritin 35 ng/mL Iron, Total 15 mcg/dL % Iron Saturation 6.4 % TIBC 231 mcg/dL Impression: 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 CT scan of chest abdomen done on 05/18/2019 showed no thoracic lymphadenopathy by size criteria Dilated thoracic esophagus with gross appearance of marked wall thickening as well as dilatation of distal segment of thoracic esophagus no evidence of distant metastatic disease. Progressive dysphagia and weight loss due to above Chronic smoking, still active Clinically, patient is doing reasonably well now with progressive dysphagia due to newly diagnosed esophageal cancer. he said he did talk to his family and now have decided to pursue with chemotherapy alone and will go from there. Considering his age and comorbid condition and social issues e.g. living 60 miles away from [place] with elderly , he would prefer chemotherapy alone in the office but not radiation therapy. Patient was reminded in the standard of care is combined chemoradiation followed by surgery if possible otherwise chemotherapy is palliative only. Considering his age and performance status, recommended weekly carboplatin Taxol and Herceptin. did also discuss about role of G-tube placement but patient declined. Mr Stevens is prediabetic so we'll also consider diabetes teaching and may consider sliding scale if he develops hyperglycemia due to steroids. He did have baseline echocardiogram for the Herceptin on 06/24/2019 which reported left ventricular ejection fraction estimated at 65%. He had normal left ventricular systolic function no regional wall motion abnormalities there is a grade I/IV diastolic function, normal to mildly elevated filling pressures. No aortic valve stenosis and mild aortic valve regurgitation. He did also have PET CT imaging on 06/25/2019 at [facility]. This did report hypermetabolic circumferential mural thickening involving the distal esophagus extending approximately 10 cm proximal to the gastroesophageal junction from T11???T8 with maximum SUV of 24. A small amount of hyper metabolic mass extension into the gastric cardia is not fully excluded. Upstream esophagus appears fluid-filled and patulous. There were no discrete hypermetabolic pulmonary nodules. There is mild dependent atelectasis with trace bilateral pleural fluid collection without hypermetabolic pleural thickening. There was reported calcified mediastinal and hilar granulous with normal size mildly hypermetabolic bilateral hilar lymph nodes, employee relations representative right hilar lymph node maximum SUV 2.7. Additional hypermetabolic left hilar lymph node 0.8 x 1.2 cm with a max SUV of 2.5. 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 There were no hypermetabolic hepatic lesions. There was Extavia of the infrarenal abdominal aorta measuring up to 2.7 cm. No ascites or peritoneal/serosa nodularity. There was hyper metabolic gastrohepatic ligament lymph node 1.7 x 1.8 cm with a max SUV of 3.9. No additional hypermetabolic lymph nodes were seen within the abdomen or pelvis. There was prostamegaly without focal hypermetabolic prostate lesion. Muscle skeletal there was diffuse bone marrow hyper metabolism without focal lytic or blastic osseous lesion identified suggesting pathologic marrow uptake. 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 Mr Stevens had Port a Cath placement in the left subclavian vein per Dr Rosa on 07/12/2019. He began his first cycle of carboplatin/Taxol/Herceptin on 07/15/2019. He was also found to be iron deficient and received Injectafer on 07/12/2019 & 07/29/2019. He has required Neupogen support for chemo induced neutropenia with the last cycle of chemotherapy. He has been receiving Neupogen for 3 days starting day 2. This has allowed his counts to remain adequate to continue on treatment as scheduled. He did receive Neulasta on day 15 of cycle 2. His PET/CT from 2019 does report disease response. Mr Stevens has continued with treatment. He has completed 6 cycles after today. Plan: 1. Proceed with cycle 6 day 15 Herceptin/Carboplantin and paclitaxel today. 2. Steroid premed compliance verified. 3. Continue Marinol. 4. Followup in 2 weeks with CBC, CMP the day before via in home lab services. He will be due for jhian 7 day 1 at that time. 5. Today's labs were reviewed in detail discussed with Mr. Mrs. Stevens and a copy was offered to them but she declined. WBC 5.3, hemoglobin 10.7, platelets 176,000 ANC is 3200. Creatinine 1.2 LFTs are normal potassium 4.3. 6. and Mrs. Stevens were instructed to contact us in the interim should questions or problems arise. She is advised to let us know if he has any further emesis or if he is having nausea. He has improved on the Marinol. Signed By: Harsha Taylor-, AOCNP Yana Tuttle MD <<Signature on File>>
[2020-01-04 13:15] LABS: Basophils % 0.6 %; Eosinophils # 0.1 10^3/uL (0.0-0.8); Eosinophils % 1.4 %; Hematocrit 35.3 % (42.0-52.0); Hemoglobin 10.8 g/dL (11.7-16.6); Lymphocytes # 1.9 10^3/uL (0.8-4.8); Lymphocytes % 37.4 %; Mean Corpuscular HGB Conc 30.6 g/dL (30.0-36.0); Mean Corpuscular Hemoglobin 29.8 pg (28.0-34.0); Mean Corpuscular Volume 97.5 fL (80-94); Mean Platelet Volume 9.8 fL (7.4-10.4); Monocytes # 0.4 10^3/uL (0.2-0.9); Monocytes % 8.9 %; Neutrophils # 2.5 10^3/uL (1.8-7.7); Neutrophils % 50.5 %; Nucleated Red Blood Cells % 0 %; Platelet Count 170 10^3/cmm (130-400); Red Blood Count 3.62 10^6/uL (4.1-5.3); Red Cell Distribution Width 15.8 % (12.1-15.1)
[2020-01-04 13:50] LABS: Alanine Aminotransferase 8 U/L (0-41); Albumin Level 3.3 g/dL (3.5-5.2); Alkaline Phosphatase 67 IU/L (40-130); Anion Gap 15.1 (5-19); Aspartate Amino Transferase 11 U/L (0-40); Blood Urea Nitrogen 18 mg/dL (8-23); Carbon Dioxide 26 mmol/L (22-29); Chloride 103 mmol/L (98-107); Globulin 2.7 g/dL (1.3-4.6); Glucose 103 mg/dL (65-115); Osmolality Calculated 287 mOsm/kg (285-295); Potassium 4.1 mmol/L (3.5-5.1); Sodium 140 mmol/L (136-145); Total Bilirubin 0.2 mg/dL (0.15-1.2)
== END 2020-01-04 23:59 | disposition home or self-care (01) ==
LOC: ONCMED 11:05
PROVIDERS: Internal Medicine Hematology & Oncology; PCP Physician Assistant Medical; Visit Provider Nurse Practitioner
DX: Z51.11 Encounter for antineoplastic chemotherapy (principal); C15.9 Malignant neoplasm of esophagus, unspecified; R63.0 Anorexia; H91.90 Unspecified hearing loss, unspecified ear; R78.81 Bacteremia; Z95.828 Presence of other vascular implants and grafts; Z79.899 Other long term (current) drug therapy
CPT/HCPCS: 36415; 80053; 85025; 96367; 96413; 96417; 99214; J1100; J1200; J2469; J3490; J7030; J7050; J9045; J9267; J9355

== ENCOUNTER 2020-02-01 06:46 | Outpatient (RCR) | payer MEDICARE, MEDICAID, SELFPAY ==
[2020-01-05] MEDS: sodium chloride 0.9% 250 ML 75 ML IV (09:40)
[2020-01-05] MEDS: acetaminophen 325 mg Tablet 650 MG PO (09:40)
--- NOTE | 2020-01-05 14:00 | ONC FU_ITS ---
Dr. Tuttle follow up note Patient: Rodney [place] Unit #: [id number]: 1940 Dicatated By: Yana Tuttle M.D.Date of Visit:Jan 05, 2020 Onc Med Follow-up/Prog Note History of Present Illness: Mr. Stevens is a 79 -year-old gentleman with history of progressive dysphagia and weight loss. 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 A biopsy was obtained at [place], [place] on 05/21/2019. 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 Mr Stevens underwent CT scan of chest abdomen on 05/18/2019 which showed dilated thoracic esophagus with gross appearance of marked wall thickening as well as dilatation of distal segment of thoracic esophagus. No thoracic lymphadenopathy by size criteria. No evidence of distant metastatic disease, As per patient in the beginning he had dysphagia to solid food now can tolerate liquids only. Denied any hematemesis or hemoptysis, denied any jaundice, denied any aspiration or regurgitation. Mr Stevens has smoked about pack a day for many years. [place] of [place] and lives with elderly . Mr Stevens has elected to try chemotherapy alone. He has been offered chemotherapy with weekly carboplatin/Taxol/Herceptin. He did have baseline echocardiogram for the Herceptin on 06/24/2019 which reported left ventricular ejection fraction estimated at 65%. He had normal left ventricular systolic function no regional wall motion abnormalities there is a grade I/IV diastolic function, normal to mildly elevated filling pressures. No aortic valve stenosis and mild aortic valve regurgitation. He did also have PET CT imaging on 06/25/2019 at [facility]. This did report hypermetabolic circumferential mural thickening involving the distal esophagus extending approximately 10 cm proximal to the gastroesophageal junction from T11???T8 with maximum SUV of 24. A small amount of hyper metabolic mass extension into the gastric cardia is not fully excluded. Upstream esophagus appears fluid-filled and patulous. There were no discrete hypermetabolic pulmonary nodules. There is mild dependent atelectasis with trace bilateral pleural fluid collection without hypermetabolic pleural thickening. There was reported calcified mediastinal and hilar granulous with normal size mildly hypermetabolic bilateral hilar lymph nodes, wholesale representative right hilar lymph node maximum SUV 2.7. Additional hypermetabolic left hilar lymph node 0.8 x 1.2 cm with a max SUV of 2.5. 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 There were no hypermetabolic hepatic lesions. There was Extavia of the infrarenal abdominal aorta measuring up to 2.7 cm. No ascites or peritoneal/serosa nodularity. There was hyper metabolic gastrohepatic ligament lymph node 1.7 x 1.8 cm with a max SUV of 3.9. No additional hypermetabolic lymph nodes were seen within the abdomen or pelvis. There was prostamegaly without focal hypermetabolic prostate lesion. Muscle skeletal there was diffuse bone marrow hyper metabolism without focal lytic or blastic osseous lesion identified suggesting pathologic marrow uptake. 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 He did have Port a Cath placement in the left subclavian vein per Dr Rosa on 07/12/2019. Mr Stevens started on his first chemotherapy with weekly carboplatin/Taxol and Herceptin on 07/15/2019. He has tolerated it well overall. Follow-up CT PET scan done on 10/15/2019 showed significant improvement with decrease in size in hypermetabolism of distal esophagus. Previous hypermetabolic tumor extension into gastric cardia is no longer seen Resolution of previous hypermetabolic left hilar, paraesophageal, gastrohepatic ligament lymph nodes. No area of hypermetabolic distant metastatic disease seen Patient went to hospital on 12/03/2019 with episode of seizure-like activity and was evaluated in the emergency room, with CT scan of head was done which shows no evidence of metastatic disease and ER physician discussed her case with Dr. Boswell him a neurologist and patient was started on Keppra 250 mg by mouth twice a day Mr Stevens continues with Carboplatin/Taxol/Herceptin. , Herceptin on day 1 and 15 Came for follow-up, denies any specific complaints, no fever chills, no nausea or vomiting, no diarrhea or constipation, no dysphagia, no peripheral numbness. Tolerating palliative therapy with carboplatin/Taxol/Herceptin well Medications: Advair Diskus 2 Puff(s) (of 250-50 mcg/dose) Aerosol Powder, Breath Activated Inhalation daily, Albuterol Sulfate 1 ((2.5 mg/3ml) 0.083%) Nebulization solution Inhalation daily PRN, Dexamethasone (4 mg) Tablet Oral Take as Directed, Dronabinol 1 Capsule Oral b.i.d., Prochlorperazine Maleate 1 Tablet (of 10 mg) Oral q 4 hours PRN, Spiriva HandiHaler 1 Capsule (of 18 mcg) Inhalation daily, Tamsulosin HCl 1 Capsule (of 0.4 mg) Oral daily Allergies: No Known Allergies. Review of Systems: Review of Systems is not available for this patient. Vital Signs: Performed on Jan 05, 2020 08:21 Height - 67.00 in Weight - 166.2 lbs (HIGH) BSA - 1.87 sq.m BMI - 26.03 Temperature - 97.6 F (LOW) Pulse - 77 /min Respiration - 20 /min BP - 116/74 mm(hg) O2 Sat - 98 % Pain - 0 Performance Status: 1 - No physically strenuous activity, but ambulatory and able to carry out light or sedentary work (e.g. office work, light house work). (ECOG) Physical Examination: ENMT - No mouth sores, no thrush, no jaundice, Respiratory - Lungs are clear, Cardiovascular - Regular rate and rhythm of heart, Abdomen - Soft, bowel sounds present, Extremities - 1+ edema bilateral. Lab/Imaging: Test performed on Jan 04, 2020 11:05 Glucose 103 mg/dL BUN 18 mg/dL Creatinine 1.3 mg/dL Cr Clearance (Est) 47.98 mL/min Sodium 140 mmol/L Potassium 4.1 mmol/L Chloride 103 mmol/L CO2 26 mmol/L Calcium 9.0 mg/dL Protein, Total 6.0 g/dL Albumin 3.3 g/dL Globulin 2.7 g/dL Bilirubin, Total 0.2 mg/dL Alkaline Phosphatase 67 IU/L AST (SGOT) 11 IU/L ALT (SGPT) 8 IU/L WBC 5.0 10^9/L RBC 3.62 10^12/L HGB 10.8 g/dL HCT 35.3 % MCV 97.5 fl MCH 29.8 pg MCHC 30.6 g/dL RDW 15.8 % Platelet Count 170 10^9/L MPV 9.8 fL Neutrophils (Gran) 2.5 10^9/L Lymphocytes 1.9 10^9/L Monocytes 0.4 10^9/L Eosinophils 0.1 10^9/L Basophils 0.0 10^9/L Manual Lymphocytes 37.4 % Manual Monocytes 8.9 % Manual Eosinophils 1.4 % Manual Basophils 0.6 % Test performed on Dec 21, 2019 10:50 Neutrophil % 59.9 % Lymphocyte % 31.2 % Monocyte % 2.6 % Eosinophil % 5.5 % Basophils % 0.2 % NRBC % 0 % Test performed on Dec 14, 2019 11:25 Anion Gap 11.3 Test performed on Oct 11, 2019 14:05 CBC Slide Review Slide Review Perform SLIDE REVIEW AGREES WITH AUTO DIFF Test performed on Oct 05, 2019 13:10 Manual Bands % 12.0 % Atypical Lymphs % 4.0 % Metamyelocytes % 3.0 % Polychromasia 2+ Anisocytosis 2+ Macrocytosis 1+ Microcytosis 1+ Ovalocytes 1+ Manual Bands Abs 3.8 10 3/cmm Manual Lymphocytes Abs 3.2 10 3/cmm Manual Monocytes Abs 2.2 10 3/cmm Test performed on Sep 28, 2019 09:13 Manual Segs 47.1 % NRBCs 0 /100 WBC Test performed on Aug 20, 2019 11:20 Manual Eosinophils Abs 0.2 10 3/cmm Test performed on Jul 21, 2019 09:35 Ferritin 35 ng/mL Iron, Total 15 mcg/dL % Iron Saturation 6.4 % TIBC 231 mcg/dL Impression: 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 CT scan of chest abdomen done on 05/18/2019 showed no thoracic lymphadenopathy by size criteria Dilated thoracic esophagus with gross appearance of marked wall thickening as well as dilatation of distal segment of thoracic esophagus no evidence of distant metastatic disease. Progressive dysphagia and weight loss due to above Chronic smoking, still active Clinically, patient is doing reasonably well now with progressive dysphagia due to newly diagnosed esophageal cancer. he said he did talk to his family and now have decided to pursue with chemotherapy alone and will go from there. Considering his age and comorbid condition and social issues e.g. living 60 miles away from [place] with elderly , he would prefer chemotherapy alone in the office but not radiation therapy. Patient was reminded in the standard of care is combined chemoradiation followed by surgery if possible otherwise chemotherapy is palliative only. Considering his age and performance status, recommended weekly carboplatin Taxol and Herceptin. did also discuss about role of G-tube placement but patient declined. Mr Stevens is prediabetic so we'll also consider diabetes teaching and may consider sliding scale if he develops hyperglycemia due to steroids. He did have baseline echocardiogram for the Herceptin on 06/24/2019 which reported left ventricular ejection fraction estimated at 65%. He had normal left ventricular systolic function no regional wall motion abnormalities there is a grade I/IV diastolic function, normal to mildly elevated filling pressures. No aortic valve stenosis and mild aortic valve regurgitation. He did also have PET CT imaging on 06/25/2019 at [facility]. This did report hypermetabolic circumferential mural thickening involving the distal esophagus extending approximately 10 cm proximal to the gastroesophageal junction from T11???T8 with maximum SUV of 24. A small amount of hyper metabolic mass extension into the gastric cardia is not fully excluded. Upstream esophagus appears fluid-filled and patulous. There were no discrete hypermetabolic pulmonary nodules. There is mild dependent atelectasis with trace bilateral pleural fluid collection without hypermetabolic pleural thickening. There was reported calcified mediastinal and hilar granulous with normal size mildly hypermetabolic bilateral hilar lymph nodes, wholesale representative right hilar lymph node maximum SUV 2.7. Additional hypermetabolic left hilar lymph node 0.8 x 1.2 cm with a max SUV of 2.5. 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 There were no hypermetabolic hepatic lesions. There was Extavia of the infrarenal abdominal aorta measuring up to 2.7 cm. No ascites or peritoneal/serosa nodularity. There was hyper metabolic gastrohepatic ligament lymph node 1.7 x 1.8 cm with a max SUV of 3.9. No additional hypermetabolic lymph nodes were seen within the abdomen or pelvis. There was prostamegaly without focal hypermetabolic prostate lesion. Muscle skeletal there was diffuse bone marrow hyper metabolism without focal lytic or blastic osseous lesion identified suggesting pathologic marrow uptake. 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 Mr Stevens had Port a Cath placement in the left subclavian vein per Dr Rosa on 07/12/2019. He began his first cycle of carboplatin/Taxol/Herceptin on 07/15/2019. He was also found to be iron deficient and received Injectafer on 07/12/2019 & 07/29/2019. He has required Neupogen support for chemo induced neutropenia with the last cycle of chemotherapy. He has been receiving Neupogen for 3 days starting day 2. This has allowed his counts to remain adequate to continue on treatment as scheduled. He did receive Neulasta on day 15 of cycle 2. His PET/CT from 2019 does report disease response. Mr Stevens has continued with treatment. He has completed 6 cycles after today. Plan: Discussed with patient and his caregiver regarding his labs white blood count 5 hemoglobin 10.8 hematocrit 35.3 platelets 170,000 CMP within normal limits except creatinine 1.3 Clinically, patient is doing well with no signs symptom suggestive of disease progression, tolerating systemic therapy with Herceptin/carboplatin/Taxol well but with expected side effects and with excellent palliative response. E.g. no dysphagia. We will proceed with next cycle day 1 with carboplatin/Taxol/Herceptin today and then return to clinic in 1 week with CBC CMP for carboplatin and Taxol, as he receives Herceptin on day 1 and day 15 only. Signed By: Yana Tuttle M.D. <<Signature on File>>
[2020-01-10 13:14] LABS: Alanine Aminotransferase 9 U/L (0-41); Albumin Level 3.1 g/dL (3.5-5.2); Alkaline Phosphatase 66 IU/L (40-130); Anion Gap 16.1 (5-19); Aspartate Amino Transferase 14 U/L (0-40); Basophils % 0.3 %; Blood Urea Nitrogen 20 mg/dL (8-23); Calcium 8.7 mg/dL (8.5-10.5); Carbon Dioxide 25 mmol/L (22-29); Chloride 99 mmol/L (98-107); Eosinophils # 0.1 10^3/uL (0.0-0.8); Eosinophils % 2.2 %; Globulin 2.8 g/dL (1.3-4.6); Glucose 105 mg/dL (65-115); Hematocrit 36.3 % (42.0-52.0); Hemoglobin 11.1 g/dL (11.7-16.6); Lymphocytes # 1.8 10^3/uL (0.8-4.8); Lymphocytes % 30.2 %; Mean Corpuscular HGB Conc 30.6 g/dL (30.0-36.0); Mean Corpuscular Hemoglobin 28.8 pg (28.0-34.0); Mean Corpuscular Volume 94.3 fL (80-94); Mean Platelet Volume 10.7 fL (7.4-10.4); Monocytes # 0.2 10^3/uL (0.2-0.9); Monocytes % 2.6 %; Neutrophils # 3.7 10^3/uL (1.8-7.7); Neutrophils % 63.7 %; Nucleated Red Blood Cells % 0 %; Osmolality Calculated 279 mOsm/kg (285-295); Platelet Count 166 10^3/cmm (130-400); Potassium 4.1 mmol/L (3.5-5.1); Red Blood Count 3.85 10^6/uL (4.1-5.3); Red Cell Distribution Width 15.3 % (12.1-15.1); Sodium 136 mmol/L (136-145); Total Bilirubin 0.4 mg/dL (0.15-1.2); Total Protein 5.9 g/dL (6.6-8.7); White Blood Count 5.8 10^3/uL (4.0-10.0)
[2020-01-11] MEDS: sodium chloride 0.9% 250 ML 75 ML IV (10:05)
[2020-01-11] MEDS: acetaminophen 325 mg Tablet 650 MG PO (10:06)
--- NOTE | 2020-01-11 18:48 | ONC FU_ITS ---
Dr. Tuttle follow up note Patient: Rodney Akiak Unit #: [id number]: 1940 Dicatated By: Yana Tuttle M.D.Date of Visit:Jan 11, 2020 Onc Med Follow-up/Prog Note History of Present Illness: Mr. Stevens is a 79 -year-old gentleman with history of progressive dysphagia and weight loss. 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 A biopsy was obtained at [place], [place] on 05/21/2019. 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 Mr Stevens underwent CT scan of chest abdomen on 05/18/2019 which showed dilated thoracic esophagus with gross appearance of marked wall thickening as well as dilatation of distal segment of thoracic esophagus. No thoracic lymphadenopathy by size criteria. No evidence of distant metastatic disease, As per patient in the beginning he had dysphagia to solid food now can tolerate liquids only. Denied any hematemesis or hemoptysis, denied any jaundice, denied any aspiration or regurgitation. Mr Stevens has smoked about pack a day for many years. [place] of [place] and lives with elderly . Mr Stevens has elected to try chemotherapy alone. He has been offered chemotherapy with weekly carboplatin/Taxol/Herceptin. He did have baseline echocardiogram for the Herceptin on 06/24/2019 which reported left ventricular ejection fraction estimated at 65%. He had normal left ventricular systolic function no regional wall motion abnormalities there is a grade I/IV diastolic function, normal to mildly elevated filling pressures. No aortic valve stenosis and mild aortic valve regurgitation. He did also have PET CT imaging on 06/25/2019 at [facility]. This did report hypermetabolic circumferential mural thickening involving the distal esophagus extending approximately 10 cm proximal to the gastroesophageal junction from T11???T8 with maximum SUV of 24. A small amount of hyper metabolic mass extension into the gastric cardia is not fully excluded. Upstream esophagus appears fluid-filled and patulous. There were no discrete hypermetabolic pulmonary nodules. There is mild dependent atelectasis with trace bilateral pleural fluid collection without hypermetabolic pleural thickening. 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 Additional hypermetabolic left hilar lymph node 0.8 x 1.2 cm with a max SUV of 2.5. 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 There were no hypermetabolic hepatic lesions. There was Extavia of the infrarenal abdominal aorta measuring up to 2.7 cm. No ascites or peritoneal/serosa nodularity. There was hyper metabolic gastrohepatic ligament lymph node 1.7 x 1.8 cm with a max SUV of 3.9. No additional hypermetabolic lymph nodes were seen within the abdomen or pelvis. There was prostamegaly without focal hypermetabolic prostate lesion. Muscle skeletal there was diffuse bone marrow hyper metabolism without focal lytic or blastic osseous lesion identified suggesting pathologic marrow uptake. 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 He did have Port a Cath placement in the left subclavian vein per Dr Rosa on 07/12/2019. Mr Stevens started on his first chemotherapy with weekly carboplatin/Taxol and Herceptin on 07/15/2019. He has tolerated it well overall. Follow-up CT PET scan done on 10/15/2019 showed significant improvement with decrease in size in hypermetabolism of distal esophagus. Previous hypermetabolic tumor extension into gastric cardia is no longer seen Resolution of previous hypermetabolic left hilar, paraesophageal, gastrohepatic ligament lymph nodes. No area of hypermetabolic distant metastatic disease seen Patient went to hospital on 12/03/2019 with episode of seizure-like activity and was evaluated in the emergency room, with CT scan of head was done which shows no evidence of metastatic disease and ER physician discussed her case with Dr. Boswell him a neurologist and patient was started on Keppra 250 mg by mouth twice a day Mr Stevens continues with Carboplatin/Taxol/Herceptin. , Herceptin on day 1 and 15 Came for follow-up, denies any specific complaint today except one episode of bright red blood per rectum. Patient was mildly constipated. But no hemoptysis or hematemesis, no dysphagia, no jaundice, no abdominal pain, no hematuria or dysuria. Medications: Advair Diskus 2 Puff(s) (of 250-50 mcg/dose) Aerosol Powder, Breath Activated Inhalation daily, Albuterol Sulfate 1 ((2.5 mg/3ml) 0.083%) Nebulization solution Inhalation daily PRN, Dexamethasone (4 mg) Tablet Oral Take as Directed, Dronabinol 1 Capsule Oral b.i.d., Prochlorperazine Maleate 1 Tablet (of 10 mg) Oral q 4 hours PRN, Spiriva HandiHaler 1 Capsule (of 18 mcg) Inhalation daily, Tamsulosin HCl 1 Capsule (of 0.4 mg) Oral daily Allergies: No Known Allergies. Review of Systems: Review of Systems is not available for this patient. Vital Signs: Performed on Jan 11, 2020 09:31 Height - 67.00 in Weight - 163.2 lbs (LOW) BSA - 1.85 sq.m BMI - 25.56 Temperature - 97.6 F (LOW) Pulse - 90 /min Respiration - 24 /min BP - 139/92 mm(hg) O2 Sat - 97 % Pain - 0 Performance Status: 1 - No physically strenuous activity, but ambulatory and able to carry out light or sedentary work (e.g. office work, light house work). (ECOG) Physical Examination: ENMT - No mouth sores, no thrush, no jaundice, Respiratory - Lungs are clear, Cardiovascular - Regular rate and rhythm of heart, Abdomen - Soft, bowel sounds present, Extremities - Trace edema bilaterally. Lab/Imaging: Test performed on Jan 10, 2020 10:00 Sodium 136 mmol/L Potassium 4.1 mmol/L Chloride 99 mmol/L CO2 25 mmol/L Anion Gap 16.1 BUN 20 mg/dL Creatinine 1.2 mg/dL Cr Clearance (Est) 51.9800 mL/min Glucose 105 mg/dL Calcium 8.7 mg/dL Protein, Total 5.9 g/dL Albumin 3.1 g/dL Globulin 2.8 g/dL Bilirubin, Total 0.4 mg/dL ALT (SGPT) 9 U/L AST (SGOT) 14 U/L Alkaline Phosphatase 66 IU/L WBC 5.8 10 3/uL RBC 3.85 10 6/uL HGB 11.1 g/dL HCT 36.3 % MCV 94.3 fL MCH 28.8 pg MCHC 30.6 g/dL RDW 15.3 % Platelet Count 166 10 3/cmm MPV 10.7 fL Neutrophils 3.7 10 3/uL Lymphocytes 1.8 10 3/uL Monocytes 0.2 10 3/uL Eosinophils 0.1 10 3/uL Basophils 0.0 10 3/uL Neutrophil % 63.7 % Lymphocyte % 30.2 % Monocyte % 2.6 % Eosinophil % 2.2 % Basophils % 0.3 % NRBC % 0 % Test performed on Jan 04, 2020 11:05 Manual Lymphocytes 37.4 % Manual Monocytes 8.9 % Manual Eosinophils 1.4 % Manual Basophils 0.6 % Test performed on Oct 11, 2019 14:05 CBC Slide Review Slide Review Perform SLIDE REVIEW AGREES WITH AUTO DIFF Test performed on Oct 05, 2019 13:10 Manual Bands % 12.0 % Atypical Lymphs % 4.0 % Metamyelocytes % 3.0 % Polychromasia 2+ Anisocytosis 2+ Macrocytosis 1+ Microcytosis 1+ Ovalocytes 1+ Manual Bands Abs 3.8 10 3/cmm Manual Lymphocytes Abs 3.2 10 3/cmm Manual Monocytes Abs 2.2 10 3/cmm Test performed on Sep 28, 2019 09:13 Manual Segs 47.1 % NRBCs 0 /100 WBC Test performed on Aug 20, 2019 11:20 Manual Eosinophils Abs 0.2 10 3/cmm Test performed on Jul 21, 2019 09:35 Ferritin 35 ng/mL Iron, Total 15 mcg/dL % Iron Saturation 6.4 % TIBC 231 mcg/dL Impression: 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 CT scan of chest abdomen done on 05/18/2019 showed no thoracic lymphadenopathy by size criteria Dilated thoracic esophagus with gross appearance of marked wall thickening as well as dilatation of distal segment of thoracic esophagus no evidence of distant metastatic disease. Progressive dysphagia and weight loss due to above Chronic smoking, still active Clinically, patient is doing reasonably well now with progressive dysphagia due to newly diagnosed esophageal cancer. he said he did talk to his family and now have decided to pursue with chemotherapy alone and will go from there. Considering his age and comorbid condition and social issues e.g. living 60 miles away from [place] with elderly , he would prefer chemotherapy alone in the office but not radiation therapy. Patient was reminded in the standard of care is combined chemoradiation followed by surgery if possible otherwise chemotherapy is palliative only. Considering his age and performance status, recommended weekly carboplatin Taxol and Herceptin. did also discuss about role of G-tube placement but patient declined. Mr Stevens is prediabetic so we'll also consider diabetes teaching and may consider sliding scale if he develops hyperglycemia due to steroids. He did have baseline echocardiogram for the Herceptin on 06/24/2019 which reported left ventricular ejection fraction estimated at 65%. He had normal left ventricular systolic function no regional wall motion abnormalities there is a grade I/IV diastolic function, normal to mildly elevated filling pressures. No aortic valve stenosis and mild aortic valve regurgitation. He did also have PET CT imaging on 06/25/2019 at [facility]. This did report hypermetabolic circumferential mural thickening involving the distal esophagus extending approximately 10 cm proximal to the gastroesophageal junction from T11???T8 with maximum SUV of 24. A small amount of hyper metabolic mass extension into the gastric cardia is not fully excluded. Upstream esophagus appears fluid-filled and patulous. There were no discrete hypermetabolic pulmonary nodules. There is mild dependent atelectasis with trace bilateral pleural fluid collection without hypermetabolic pleural thickening. 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 Additional hypermetabolic left hilar lymph node 0.8 x 1.2 cm with a max SUV of 2.5. 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 There were no hypermetabolic hepatic lesions. There was Extavia of the infrarenal abdominal aorta measuring up to 2.7 cm. No ascites or peritoneal/serosa nodularity. There was hyper metabolic gastrohepatic ligament lymph node 1.7 x 1.8 cm with a max SUV of 3.9. No additional hypermetabolic lymph nodes were seen within the abdomen or pelvis. There was prostamegaly without focal hypermetabolic prostate lesion. Muscle skeletal there was diffuse bone marrow hyper metabolism without focal lytic or blastic osseous lesion identified suggesting pathologic marrow uptake. 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 Mr Stevens had Port a Cath placement in the left subclavian vein per Dr Rosa on 07/12/2019. He began his first cycle of carboplatin/Taxol/Herceptin on 07/15/2019. He was also found to be iron deficient and received Injectafer on 07/12/2019 & 07/29/2019. He has required Neupogen support for chemo induced neutropenia with the last cycle of chemotherapy. He has been receiving Neupogen for 3 days starting day 2. This has allowed his counts to remain adequate to continue on treatment as scheduled. He did receive Neulasta on day 15 of cycle 2. His PET/CT from 2019 does report disease response. Mr Stevens has continued with treatment. He has completed 6 cycles after today. Plan: Discussed with patient and regarding his white blood count 5.8 hemoglobin 11.1 hematocrit 36.3 platelets 166,000 CMP within normal limits Clinically, patient is doing well, tolerating palliative therapy with carboplatin/Taxol/Herceptin well with excellent palliation, will proceed with next weekly dose of carboplatin Taxol today and then return to clinic in 1 week with CBC CMP for day 15 chemotherapy with carboplatin/Taxol/Herceptin. As far as episode of bleeding per rectum is concerned could be due to internal hemorrhoids or fissure due to constipation, if recur, will consider GI evaluation. Signed By: Yana Tuttle M.D. <<Signature on File>>
[2020-01-17 15:22] LABS: Basophils % 0.4 %; Eosinophils # 0.1 10^3/uL (0.0-0.8); Eosinophils % 2.1 %; Hematocrit 36.5 % (42.0-52.0); Hemoglobin 11.2 g/dL (11.7-16.6); Lymphocytes # 1.3 10^3/uL (0.8-4.8); Lymphocytes % 26.2 %; Mean Corpuscular HGB Conc 30.7 g/dL (30.0-36.0); Mean Corpuscular Hemoglobin 29.2 pg (28.0-34.0); Mean Corpuscular Volume 95.1 fL (80-94); Mean Platelet Volume 10.2 fL (7.4-10.4); Monocytes # 0.3 10^3/uL (0.2-0.9); Monocytes % 5.8 %; Neutrophils # 3.12 10^3/uL (1.8-7.7); Neutrophils % 64.5 %; Nucleated Red Blood Cells % 0 %; Platelet Count 189 10^3/cmm (130-400); Red Blood Count 3.84 10^6/uL (4.1-5.3); White Blood Count 4.8 10^3/uL (4.0-10.0)
[2020-01-17 15:41] LABS: Alanine Aminotransferase 10 U/L (0-41); Albumin Level 3.6 g/dL (3.5-5.2); Alkaline Phosphatase 67 IU/L (40-130); Anion Gap 13.1 (5-19); Aspartate Amino Transferase 13 U/L (0-40); Blood Urea Nitrogen 17 mg/dL (8-23); Calcium 9.4 mg/dL (8.5-10.5); Carbon Dioxide 27 mmol/L (22-29); Chloride 100 mmol/L (98-107); Globulin 2.2 g/dL (1.3-4.6); Glucose 101 mg/dL (65-115); Osmolality Calculated 279 mOsm/kg (285-295); Potassium 4.1 mmol/L (3.5-5.1); Sodium 136 mmol/L (136-145); Total Bilirubin 0.3 mg/dL (0.15-1.2); Total Protein 5.8 g/dL (6.6-8.7)
[2020-01-18] MEDS: sodium chloride 0.9% 250 ML 75 ML IV (09:20)
[2020-01-18] MEDS: acetaminophen 325 mg Tablet 650 MG PO (10:10)
--- NOTE | 2020-01-22 21:06 | ONC FU_ITS ---
[facility] Patient Note Patient: Rodney [place] Unit #: [id number]: 1940 Dictated By: Harsha TaylorDate of Visit: Jan 18, 2020 Onc MED Follow-Up/Prog Note Chief Complaint: Adenocarcinoma of esophagus History of Present Illness: Mr. Stevens is a 79 -year-old gentleman with history of progressive dysphagia and weight loss. 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 A biopsy was obtained at [facility] [place], [place] on 05/21/2019. 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 Mr Stevens underwent CT scan of chest abdomen on 05/18/2019 which showed dilated thoracic esophagus with gross appearance of marked wall thickening as well as dilatation of distal segment of thoracic esophagus. No thoracic lymphadenopathy by size criteria. No evidence of distant metastatic disease, As per patient in the beginning he had dysphagia to solid food now can tolerate liquids only. Denied any hematemesis or hemoptysis, denied any jaundice, denied any aspiration or regurgitation. Mr Stevens has smoked about pack a day for many years. [place] lives [place] north of [place] and lives with elderly . Mr Stevens has elected to try chemotherapy alone. He has been offered chemotherapy with weekly carboplatin/Taxol/Herceptin. He did have baseline echocardiogram for the Herceptin on 06/24/2019 which reported left ventricular ejection fraction estimated at 65%. He had normal left ventricular systolic function no regional wall motion abnormalities there is a grade I/IV diastolic function, normal to mildly elevated filling pressures. No aortic valve stenosis and mild aortic valve regurgitation. He did also have PET CT imaging on 06/25/2019 at [facility]. This did report hypermetabolic circumferential mural thickening involving the distal esophagus extending approximately 10 cm proximal to the gastroesophageal junction from T11???T8 with maximum SUV of 24. A small amount of hyper metabolic mass extension into the gastric cardia is not fully excluded. Upstream esophagus appears fluid-filled and patulous. There were no discrete hypermetabolic pulmonary nodules. There is mild dependent atelectasis with trace bilateral pleural fluid collection without hypermetabolic pleural thickening. There was reported calcified mediastinal and hilar granulous with normal size mildly hypermetabolic bilateral hilar lymph nodes, brewery representative right hilar lymph node maximum SUV 2.7. Additional hypermetabolic left hilar lymph node 0.8 x 1.2 cm with a max SUV of 2.5. 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 There were no hypermetabolic hepatic lesions. There was Extavia of the infrarenal abdominal aorta measuring up to 2.7 cm. No ascites or peritoneal/serosa nodularity. There was hyper metabolic gastrohepatic ligament lymph node 1.7 x 1.8 cm with a max SUV of 3.9. No additional hypermetabolic lymph nodes were seen within the abdomen or pelvis. There was prostamegaly without focal hypermetabolic prostate lesion. Muscle skeletal there was diffuse bone marrow hyper metabolism without focal lytic or blastic osseous lesion identified suggesting pathologic marrow uptake. 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 He did have Port a Cath placement in the left subclavian vein per Dr Rosa on 07/12/2019. Mr Stevens started on his first chemotherapy with weekly carboplatin/Taxol and Herceptin on 07/15/2019. He has tolerated it well overall. Follow-up CT PET scan done on 10/15/2019 showed significant improvement with decrease in size in hypermetabolism of distal esophagus. Previous hypermetabolic tumor extension into gastric cardia is no longer seen Resolution of previous hypermetabolic left hilar, paraesophageal, gastrohepatic ligament lymph nodes. No area of hypermetabolic distant metastatic disease seen Patient went to hospital on 12/03/2019 with episode of seizure-like activity and was evaluated in the emergency room, with CT scan of head was done which shows no evidence of metastatic disease and ER physician discussed her case with Dr. Boswell him a neurologist and patient was started on Keppra 250 mg by mouth twice a day Mr Stevens continues with Carboplatin/Taxol (day 1, 8 7 15) Herceptin on day 1 and 15. Mrs. Alcocer states overall he seems to be doing really well. She states is her only concern with him today is that he has had a productive cough and a stinks really bad and looks really yucky . She states his appetite is still poor but does get better for a few days after treatment. She states in general he just not eating as much as he was. She states he has had no fever or chills. He denies any nausea or vomiting. He states his bowel habits are normal for him. She states he really does not do much activity he is sleeps a lot but does get around in the house some without assistance. His ECOG is 3. Past Medical History: Chronic obstructive pulmonary disease Dementia Hyperlipidemia Hypertension Stroke Type II diabetes Vitamin b 12 deficiency Past Surgical History: Cholecystectomy Left Subclavian Port a Cath-Dr Rosa ([facility] [place]) in 2019 Allergies: No Known Allergies. Medications: Advair Diskus 2 Puff(s) (of 250-50 mcg/dose) Aerosol Powder, Breath Activated Inhalation daily Albuterol Sulfate 1 ((2.5 mg/3ml) 0.083%) Nebulization solution Inhalation daily PRN Dexamethasone (4 mg) Tablet Oral Take as Directed Dronabinol 1 Capsule Oral b.i.d. Prochlorperazine Maleate 1 Tablet (of 10 mg) Oral q 4 hours PRN Spiriva HandiHaler 1 Capsule (of 18 mcg) Inhalation daily Tamsulosin HCl 1 Capsule (of 0.4 mg) Oral daily Family History: Mr. Stevens's mother at age 80: colon cancer. Mr. Stevens's father at age 83: leukemia. Mr. Stevesn has 2 brothers: 2 . Mr. Stevens's first brother's esophageal cancer. Another brother's lung cancer. Social History: Mr. Stevens is and he is retired. He is a daily smoker who has smoked 0.5 packs/day for 41 years. He has no history of drinking. He has indicated exposure to the following products: cigarettes. Mr. Stevens reports the following support systems: lives with spouse, significant other, family, or friends, lives in own house, supportive family/friends willing to assist with needs, and adequate transportation available for expected visits. His diet consists of liquid diet. He indicates his activity level as: sedentary. Review Of Symptoms: Constitutional Denies fevers, chills, night sweats, excessive fatigue or weight loss. Appetite is down again. not eating as good as he was. Sleeping most of the time-no doing any activity. Allergic/Immunologic No reactions. Eyes Denies significant visual changes. No diplopia. No amaurosis. ENMT hard of hearing-chronic. Hematologic/Lymphatic Denies easy bruising or bleeding. The patient denies any tender or palpable lymph nodes. Respiratory Denies new or worsening dyspnea on exertion, chest pain, or hemoptysis. Denies orthopnea. He has a productive cough of nasty looking stuff and it stinks really bad . Has had cough for last week or two . Cardiovascular Denies anginal chest pain, palpitations or orthopnea. Gastrointestinal Denies nausea, vomiting, diarrhea, GI bleeding, or constipation. Denies change in bowel habits and/or stool color, no heartburn or early satiety. Genitourinary (M) Denies hematuria, dysuria, increased frequency, urgency, hesitancy or incontinence. Musculoskeletal Denies joint pain, swelling or redness. No decreased range of motion. Integumentary Denies chronic rashes, inflammation, ulcerations or skin changes. Neurologic continues to require wheelchair for assistance in mobility. Psychiatric Denies insomnia, depression, cindy or mood swings. Vital Signs: Performed on Jan 18, 2020 08:42 Height - 67.00 in Weight - 162.2 lbs (LOW) BSA - 1.85 sq.m BMI - 25.40 Temperature - 97.5 F (LOW) Pulse - 98 /min Respiration - 17 /min BP - 163/72 mm(hg) (HIGH) O2 Sat - 96 % Pain - 0,3 - Capable of only limited self-care, confined to bed or chair more than 50% of waking hours. (ECOG) Physical Examination: Constitutional Alert, oriented, no acute distress. Skin pink, warm and dry. Head Normocephalic; atraumatic. Eyes Conjunctivae and sclerae are clear and without icterus. Pupils are reactive and equal. ENMT Extremely hard of hearing. Neck Supple without masses or thyromegaly. No jugular venous distension. Hematologic/Lymphatic No petechiae or purpura. No tender or palpable lymph nodes in the cervical or supraclavicular areas. Respiratory Lungs are clear to auscultation without rhonchi but occasional inspiratory wheezing. Cardiovascular Regular rate and rhythm of heart without murmurs,clicks, gallops or rubs. Chest Left subclavian venous access device insertion site is unremarkable. Abdomen Non-tender, non-distended, no masses or ascites. No guarding or rebound tenderness. No pulsatile masses. Back/Spine Non-tender to palpation. Extremities No visible deformities, no cyanosis, clubbing or edema. Musculoskeletal No tenderness or swelling. Integumentary No rashes or lesions. Neurologic No sensory or motor deficits, normal cerebellar function, presents in a wheelchair today-gait not assessed. Psychiatric Alert and oriented times three. Coherent speech. Verbalizes understanding of our discussions today. Laboratory:Test performed on Jan 17, 2020 09:03 Creatinine 1.2 mg/dL Cr Clearance (Est) 51.98 mL/min Test performed on Jan 10, 2020 10:00 Sodium 136 mmol/L Potassium 4.1 mmol/L Chloride 99 mmol/L CO2 25 mmol/L Anion Gap 16.1 BUN 20 mg/dL Glucose 105 mg/dL Calcium 8.7 mg/dL Protein, Total 5.9 g/dL Albumin 3.1 g/dL Globulin 2.8 g/dL Bilirubin, Total 0.4 mg/dL ALT (SGPT) 9 U/L AST (SGOT) 14 U/L Alkaline Phosphatase 66 IU/L WBC 5.8 10 3/uL RBC 3.85 10 6/uL HGB 11.1 g/dL HCT 36.3 % MCV 94.3 fL MCH 28.8 pg MCHC 30.6 g/dL RDW 15.3 % Platelet Count 166 10 3/cmm MPV 10.7 fL Neutrophils 3.7 10 3/uL Lymphocytes 1.8 10 3/uL Monocytes 0.2 10 3/uL Eosinophils 0.1 10 3/uL Basophils 0.0 10 3/uL Neutrophil % 63.7 % Lymphocyte % 30.2 % Monocyte % 2.6 % Eosinophil % 2.2 % Basophils % 0.3 % NRBC % 0 % Test performed on Jan 04, 2020 11:05 Manual Lymphocytes 37.4 % Manual Monocytes 8.9 % Manual Eosinophils 1.4 % Manual Basophils 0.6 % Test performed on Oct 11, 2019 14:05 CBC Slide Review Slide Review Perform SLIDE REVIEW AGREES WITH AUTO DIFF Test performed on Oct 05, 2019 13:10 Manual Bands % 12.0 % Atypical Lymphs % 4.0 % Metamyelocytes % 3.0 % Polychromasia 2+ Anisocytosis 2+ Macrocytosis 1+ Microcytosis 1+ Ovalocytes 1+ Manual Bands Abs 3.8 10 3/cmm Manual Lymphocytes Abs 3.2 10 3/cmm Manual Monocytes Abs 2.2 10 3/cmm Test performed on Sep 28, 2019 09:13 Manual Segs 47.1 % NRBCs 0 /100 WBC Test performed on Aug 20, 2019 11:20 Manual Eosinophils Abs 0.2 10 3/cmm Impression: 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 CT scan of chest abdomen done on 05/18/2019 showed no thoracic lymphadenopathy by size criteria Dilated thoracic esophagus with gross appearance of marked wall thickening as well as dilatation of distal segment of thoracic esophagus no evidence of distant metastatic disease. Progressive dysphagia and weight loss due to above Chronic smoking, still active Clinically, patient is doing reasonably well now with progressive dysphagia due to newly diagnosed esophageal cancer. he said he did talk to his family and now have decided to pursue with chemotherapy alone and will go from there. Considering his age and comorbid condition and social issues e.g. living 60 miles away from [place] with elderly , he would prefer chemotherapy alone in the office but not radiation therapy. Patient was reminded in the standard of care is combined chemoradiation followed by surgery if possible otherwise chemotherapy is palliative only. Considering his age and performance status, recommended weekly carboplatin Taxol and Herceptin. did also discuss about role of G-tube placement but patient declined. Mr Stevens is prediabetic so we'll also consider diabetes teaching and may consider sliding scale if he develops hyperglycemia due to steroids. He did have baseline echocardiogram for the Herceptin on 06/24/2019 which reported left ventricular ejection fraction estimated at 65%. He had normal left ventricular systolic function no regional wall motion abnormalities there is a grade I/IV diastolic function, normal to mildly elevated filling pressures. No aortic valve stenosis and mild aortic valve regurgitation. He did also have PET CT imaging on 06/25/2019 at [facility]. This did report hypermetabolic circumferential mural thickening involving the distal esophagus extending approximately 10 cm proximal to the gastroesophageal junction from T11???T8 with maximum SUV of 24. A small amount of hyper metabolic mass extension into the gastric cardia is not fully excluded. Upstream esophagus appears fluid-filled and patulous. There were no discrete hypermetabolic pulmonary nodules. There is mild dependent atelectasis with trace bilateral pleural fluid collection without hypermetabolic pleural thickening. There was reported calcified mediastinal and hilar granulous with normal size mildly hypermetabolic bilateral hilar lymph nodes, brewery representative right hilar lymph node maximum SUV 2.7. Additional hypermetabolic left hilar lymph node 0.8 x 1.2 cm with a max SUV of 2.5. 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 There were no hypermetabolic hepatic lesions. There was Extavia of the infrarenal abdominal aorta measuring up to 2.7 cm. No ascites or peritoneal/serosa nodularity. There was hyper metabolic gastrohepatic ligament lymph node 1.7 x 1.8 cm with a max SUV of 3.9. No additional hypermetabolic lymph nodes were seen within the abdomen or pelvis. There was prostamegaly without focal hypermetabolic prostate lesion. Muscle skeletal there was diffuse bone marrow hyper metabolism without focal lytic or blastic osseous lesion identified suggesting pathologic marrow uptake. 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 Mr Stevens had Port a Cath placement in the left subclavian vein per Dr Rosa on 07/12/2019. He began his first cycle of carboplatin/Taxol/Herceptin on 07/15/2019. He was also found to be iron deficient and received Injectafer on 07/12/2019 & 07/29/2019. He has required Neupogen support for chemo induced neutropenia with the last cycle of chemotherapy. He has been receiving Neupogen for 3 days starting day 2. This has allowed his counts to remain adequate to continue on treatment as scheduled. He did receive Neulasta on day 15 of cycle 2. His PET/CT from 2019 does report disease response. Mr Stevens has continued with treatment. He has completed 6 cycles after today. Plan: 1. Proceed with cycle 7-day 15 carboplatin, paclitaxel, Herceptin. 2. Steroid compliance was confirmed. 3. Labs from January 17, 2020 were reviewed in detail and discussed with Mrs. Stevens and a copy was given to her. WBC 4.8, hemoglobin 11.2, platelets 1 89,000 ANC is 3100 creatinine 1.2 LFTs are normal random glucose is 101. His weight today was 162.2 which was down 1 pound from last week. 4. I have given her prescription for Levaquin 500 mg to take daily for his productive cough. We will reevaluate him at his follow-up in 2 weeks. Mrs. Stevens was instructed to contact us in interim if he is not improving. 5. We did discuss increasing his Marinol to 2 tablets 4 5 mg up to 3 times daily for appetite. We can try this but if it is not successful we may want to consider a steroid taper for him as she states he does seem to eat a little better after chemo for a few days. 6. Plan to see him back in 2 weeks at which time he will be due for cycle 8-day 1 carboplatin paclitaxel and Herceptin. 7. His last echocardiogram was October 07, 2019. 8. Mrs. Stevens was instructed to contact us in the interim should questions or problems arise. Signed By: Harsha Taylor-, AOCNP Yana Tuttle MD <<Signature on File>>
[2020-01-31 15:09] LABS: Basophils % 0.7 %; Eosinophils # 0.1 10^3/uL (0.0-0.8); Eosinophils % 2.7 %; Hematocrit 35.7 % (42.0-52.0); Lymphocytes # 1.4 10^3/uL (0.8-4.8); Lymphocytes % 32.3 %; Mean Corpuscular HGB Conc 30.8 g/dL (30.0-36.0); Mean Corpuscular Hemoglobin 29.4 pg (28.0-34.0); Mean Corpuscular Volume 95.5 fL (80-94); Mean Platelet Volume 10.1 fL (7.4-10.4); Monocytes # 0.3 10^3/uL (0.2-0.9); Monocytes % 7.4 %; Neutrophils # 2.46 10^3/uL (1.8-7.7); Neutrophils % 55.5 %; Nucleated Red Blood Cells % 0 %; Platelet Count 184 10^3/cmm (130-400); Red Blood Count 3.74 10^6/uL (4.1-5.3); Red Cell Distribution Width 16.6 % (12.1-15.1); White Blood Count 4.4 10^3/uL (4.0-10.0)
[2020-01-31 15:19] LABS: Anion Gap 11.9 (5-19); Blood Urea Nitrogen 24 mg/dL (8-23); Carbon Dioxide 27 mmol/L (22-29); Chloride 104 mmol/L (98-107); Potassium 3.9 mmol/L (3.5-5.1); Sodium 139 mmol/L (136-145)
[2020-01-31 15:20] LABS: Alanine Aminotransferase 8 U/L (0-41); Albumin Level 3.3 g/dL (3.5-5.2); Alkaline Phosphatase 59 IU/L (40-130); Aspartate Amino Transferase 11 U/L (0-40); Calcium 8.7 mg/dL (8.5-10.5); Globulin 2.1 g/dL (1.3-4.6); Glucose 123 mg/dL (65-115); Osmolality Calculated 286 mOsm/kg (285-295); Total Bilirubin 0.2 mg/dL (0.15-1.2); Total Protein 5.4 g/dL (6.6-8.7)
[2020-02-01] MEDS: sodium chloride 0.9% 250 ML 999 ML IV (08:25)
[2020-02-01 09:22] LABS: Anion Gap 16.7 (5-19); Blood Urea Nitrogen 24 mg/dL (8-23); Calcium 8.9 mg/dL (8.5-10.5); Carbon Dioxide 22 mmol/L (22-29); Chloride 102 mmol/L (98-107); Glucose 261 mg/dL (65-115); Osmolality Calculated 288 mOsm/kg (285-295); Potassium 4.7 mmol/L (3.5-5.1); Sodium 136 mmol/L (136-145)
[2020-02-01] MEDS: sodium chloride 0.9% 250 ML 75 ML IV (10:54)
[2020-02-01] MEDS: acetaminophen 325 mg Tablet 650 MG PO (10:54)
--- NOTE | 2020-02-01 17:33 | ONC FU_ITS ---
Dr. Tuttle follow up note Patient: Rodney Searcy Unit #: [id number]: 1940 Dicatated By: Yana Tuttle M.D.Date of Visit:Feb 01, 2020 Onc Med Follow-up/Prog Note History of Present Illness: Mr. Stevens is a 79 -year-old gentleman with history of progressive dysphagia and weight loss. 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 A biopsy was obtained at [place], [place] on 05/21/2019. 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 Mr Stevens underwent CT scan of chest abdomen on 05/18/2019 which showed dilated thoracic esophagus with gross appearance of marked wall thickening as well as dilatation of distal segment of thoracic esophagus. No thoracic lymphadenopathy by size criteria. No evidence of distant metastatic disease, As per patient in the beginning he had dysphagia to solid food now can tolerate liquids only. Denied any hematemesis or hemoptysis, denied any jaundice, denied any aspiration or regurgitation. Mr Stevens has smoked about pack a day for many years. [place] lives [place] north of [place] and lives with elderly . Mr Stevens has elected to try chemotherapy alone. He has been offered chemotherapy with weekly carboplatin/Taxol/Herceptin. He did have baseline echocardiogram for the Herceptin on 06/24/2019 which reported left ventricular ejection fraction estimated at 65%. He had normal left ventricular systolic function no regional wall motion abnormalities there is a grade I/IV diastolic function, normal to mildly elevated filling pressures. No aortic valve stenosis and mild aortic valve regurgitation. He did also have PET CT imaging on 06/25/2019 [place] [facility] This did report hypermetabolic circumferential mural thickening involving the distal esophagus extending approximately 10 cm proximal to the gastroesophageal junction from T11???T8 with maximum SUV of 24. A small amount of hyper metabolic mass extension into the gastric cardia is not fully excluded. Upstream esophagus appears fluid-filled and patulous. There were no discrete hypermetabolic pulmonary nodules. There is mild dependent atelectasis with trace bilateral pleural fluid collection without hypermetabolic pleural thickening. There was reported calcified mediastinal and hilar granulous with normal size mildly hypermetabolic bilateral hilar lymph nodes, outbound telemarketing representative right hilar lymph node maximum SUV 2.7. Additional hypermetabolic left hilar lymph node 0.8 x 1.2 cm with a max SUV of 2.5. 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 There were no hypermetabolic hepatic lesions. There was Extavia of the infrarenal abdominal aorta measuring up to 2.7 cm. No ascites or peritoneal/serosa nodularity. There was hyper metabolic gastrohepatic ligament lymph node 1.7 x 1.8 cm with a max SUV of 3.9. No additional hypermetabolic lymph nodes were seen within the abdomen or pelvis. There was prostamegaly without focal hypermetabolic prostate lesion. Muscle skeletal there was diffuse bone marrow hyper metabolism without focal lytic or blastic osseous lesion identified suggesting pathologic marrow uptake. 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 He did have Port a Cath placement in the left subclavian vein per Dr Rosa on 07/12/2019. Mr Stevens started on his first chemotherapy with weekly carboplatin/Taxol and Herceptin on 07/15/2019. He has tolerated it well overall. Follow-up CT PET scan done on 10/15/2019 showed significant improvement with decrease in size in hypermetabolism of distal esophagus. Previous hypermetabolic tumor extension into gastric cardia is no longer seen Resolution of previous hypermetabolic left hilar, paraesophageal, gastrohepatic ligament lymph nodes. No area of hypermetabolic distant metastatic disease seen Patient went to hospital on 12/03/2019 with episode of seizure-like activity and was evaluated in the emergency room, with CT scan of head was done which shows no evidence of metastatic disease and ER physician discussed her case with Dr. Boswell him a neurologist and patient was started on Keppra 250 mg by mouth twice a day Mr Stevens continues with Carboplatin/Taxol (day 1, 8 and 15) Herceptin on day 1 and 15. Came for follow-up, denies any specific complaints, no fever chills, no nausea or vomiting, no diarrhea or constipation, no dysphagia, no jaundice, no mouth sores, no shortness of breath or palpitation, no lower extremity edema, no peripheral neuropathyTolerating carboplatin/Taxol/Herceptin well Medications: Advair Diskus 2 Puff(s) (of 250-50 mcg/dose) Aerosol Powder, Breath Activated Inhalation daily, Albuterol Sulfate 1 ((2.5 mg/3ml) 0.083%) Nebulization solution Inhalation daily PRN, Dexamethasone (4 mg) Tablet Oral Take as Directed, Dronabinol 1 Capsule Oral b.i.d., Prochlorperazine Maleate 1 Tablet (of 10 mg) Oral q 4 hours PRN, Spiriva HandiHaler 1 Capsule (of 18 mcg) Inhalation daily, Tamsulosin HCl 1 Capsule (of 0.4 mg) Oral daily Allergies: No Known Allergies. Review of Systems: Constitutional - Appetite is poor and weight has increased. No fever, chills, hot flashes, or night sweats. Energy level is very poor, ENMT - No sinus congestion/drainage. No mouth sores. No sore throat or difficulty swallowing, Hematologic/Lymphatic - Positive for easy bruising, Respiratory - Positive for shortness of breath. No cough. No pleuritic pain or hemoptysis, Cardiovascular - No angina pain. No palpitations, Gastrointestinal - No nausea or vomiting. No heartburn or acid reflux. No diarrhea or constipation. No bloody or black stool, Genitourinary (M) - No dysuria or hematuria. No urinary frequency. No urgency or incontinence, Musculoskeletal - No joint or bone pain, Neurologic - No headache or dizziness, Psychiatric - No anxiety or depression. No insomnia. Vital Signs: Performed on Feb 01, 2020 09:32 Height - 67.00 in Weight - 166.2 lbs (HIGH) BSA - 1.87 sq.m BMI - 26.03 Temperature - 97.6 F (LOW) Pulse - 84 /min Respiration - 20 /min BP - 145/92 mm(hg) (HIGH) O2 Sat - 98 % Pain - 0 Performance Status: 1 - No physically strenuous activity, but ambulatory and able to carry out light or sedentary work (e.g. office work, light house work). (ECOG) Physical Examination: ENMT - No mouth sores, no thrush or jaundice, Respiratory - Lungs are clear, Cardiovascular - Regular rate and rhythm of heart, Abdomen - Soft, bowel sounds, Extremities - No visible edema. Lab/Imaging: Test performed on Feb 01, 2020 08:44 Sodium 136 mmol/L Potassium 4.7 mmol/L Chloride 102 mmol/L CO2 22 mmol/L Anion Gap 16.7 Glucose 261 mg/dL BUN 24 mg/dL Creatinine 1.5 mg/dL Cr Clearance (Est) 41.5800 mL/min Calcium 8.9 mg/dL Test performed on Jan 17, 2020 11:11 Protein, Total 5.8 g/dL Albumin 3.6 g/dL Globulin 2.2 g/dL Bilirubin, Total 0.3 mg/dL ALT (SGPT) 10 U/L AST (SGOT) 13 U/L Alkaline Phosphatase 67 IU/L WBC 4.8 10 3/uL RBC 3.84 10 6/uL HGB 11.2 g/dL HCT 36.5 % MCV 95.1 fL MCH 29.2 pg MCHC 30.7 g/dL RDW 16.0 % Platelet Count 189 10 3/cmm MPV 10.2 fL Neutrophils 3.12 10 3/uL Lymphocytes 1.3 10 3/uL Monocytes 0.3 10 3/uL Eosinophils 0.1 10 3/uL Basophils 0.0 10 3/uL Neutrophil % 64.5 % Lymphocyte % 26.2 % Monocyte % 5.8 % Eosinophil % 2.1 % Basophils % 0.4 % NRBC % 0 % Test performed on Jan 04, 2020 11:05 Manual Lymphocytes 37.4 % Manual Monocytes 8.9 % Manual Eosinophils 1.4 % Manual Basophils 0.6 % Test performed on Oct 11, 2019 14:05 CBC Slide Review Slide Review Perform SLIDE REVIEW AGREES WITH AUTO DIFF Test performed on Oct 05, 2019 13:10 Manual Bands % 12.0 % Atypical Lymphs % 4.0 % Metamyelocytes % 3.0 % Polychromasia 2+ Anisocytosis 2+ Macrocytosis 1+ Microcytosis 1+ Ovalocytes 1+ Manual Bands Abs 3.8 10 3/cmm Manual Lymphocytes Abs 3.2 10 3/cmm Manual Monocytes Abs 2.2 10 3/cmm Test performed on Sep 28, 2019 09:13 Manual Segs 47.1 % NRBCs 0 /100 WBC Test performed on Aug 20, 2019 11:20 Manual Eosinophils Abs 0.2 10 3/cmm Impression: 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 CT scan of chest abdomen done on 05/18/2019 showed no thoracic lymphadenopathy by size criteria Dilated thoracic esophagus with gross appearance of marked wall thickening as well as dilatation of distal segment of thoracic esophagus no evidence of distant metastatic disease. Progressive dysphagia and weight loss due to above Chronic smoking, still active Clinically, patient is doing reasonably well now with progressive dysphagia due to newly diagnosed esophageal cancer. he said he did talk to his family and now have decided to pursue with chemotherapy alone and will go from there. Considering his age and comorbid condition and social issues e.g. living 60 miles away from [place] with elderly , he would prefer chemotherapy alone in the office but not radiation therapy. Patient was reminded in the standard of care is combined chemoradiation followed by surgery if possible otherwise chemotherapy is palliative only. Considering his age and performance status, recommended weekly carboplatin Taxol and Herceptin. did also discuss about role of G-tube placement but patient declined. Mr Stevens is prediabetic so we'll also consider diabetes teaching and may consider sliding scale if he develops hyperglycemia due to steroids. He did have baseline echocardiogram for the Herceptin on 06/24/2019 which reported left ventricular ejection fraction estimated at 65%. He had normal left ventricular systolic function no regional wall motion abnormalities there is a grade I/IV diastolic function, normal to mildly elevated filling pressures. No aortic valve stenosis and mild aortic valve regurgitation. He did also have PET CT imaging on 06/25/2019 at [facility] [place]. This did report hypermetabolic circumferential mural thickening involving the distal esophagus extending approximately 10 cm proximal to the gastroesophageal junction from T11???T8 with maximum SUV of 24. A small amount of hyper metabolic mass extension into the gastric cardia is not fully excluded. Upstream esophagus appears fluid-filled and patulous. There were no discrete hypermetabolic pulmonary nodules. There is mild dependent atelectasis with trace bilateral pleural fluid collection without hypermetabolic pleural thickening. There was reported calcified mediastinal and hilar granulous with normal size mildly hypermetabolic bilateral hilar lymph nodes, outbound telemarketing representative right hilar lymph node maximum SUV 2.7. Additional hypermetabolic left hilar lymph node 0.8 x 1.2 cm with a max SUV of 2.5. 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 There were no hypermetabolic hepatic lesions. There was Extavia of the infrarenal abdominal aorta measuring up to 2.7 cm. No ascites or peritoneal/serosa nodularity. There was hyper metabolic gastrohepatic ligament lymph node 1.7 x 1.8 cm with a max SUV of 3.9. No additional hypermetabolic lymph nodes were seen within the abdomen or pelvis. There was prostamegaly without focal hypermetabolic prostate lesion. Muscle skeletal there was diffuse bone marrow hyper metabolism without focal lytic or blastic osseous lesion identified suggesting pathologic marrow uptake. 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 Mr Stevens had Port a Cath placement in the left subclavian vein per Dr Rosa on 07/12/2019. He began his first cycle of carboplatin/Taxol/Herceptin on 07/15/2019. He was also found to be iron deficient and received Injectafer on 07/12/2019 & 07/29/2019. He has required Neupogen support for chemo induced neutropenia with the last cycle of chemotherapy. He has been receiving Neupogen for 3 days starting day 2. This has allowed his counts to remain adequate to continue on treatment as scheduled. He did receive Neulasta on day 15 of cycle 2. His PET/CT from 2019 does report disease response. Mr Stevens has continued with treatment. Plan: Discussed with patient regarding his labs white blood count 4.4 hemoglobin 11 hematocrit 35.7 platelets 184,000 ANC 2460 CMP within normal limit except creatinine 1.5 compared to 1.21 January 17, 2020 and repeat BMP shows persistent elevated creatinine at 1.5 with a glucose 261 Clinically, patient is doing well, with excellent palliation, no dysphagia, tolerating orally well, tolerating systemic therapy with carboplatin/Taxol/Herceptin well but with expected side effect e.g. now with progressive mild renal insufficiency could be multifactorial due to dehydration caused by uncontrolled hyperglycemia or could be due to carboplatin. At this point we will hold his carboplatin dose today but proceed with Taxol/Herceptin and then he will return to clinic in 1 week with CBC CMP and patient was advised to maintain good hydration and monitor blood sugar and be compliant with medication as well as diet. And if repeat lab work-up shows improvement in creatinine, will restart weekly carboplatin along with Taxol and Herceptin as planned earlier. Signed By: Yana Tuttle M.D. <<Signature on File>>
== END 2020-02-04 23:59 | disposition home or self-care (01) ==
LOC: ONCMED 06:46
PROVIDERS: Nurse Practitioner; PCP Physician Assistant Medical; Visit Provider Internal Medicine Hematology & Oncology
DX: Z51.12 Encounter for antineoplastic immunotherapy (principal); Z51.11 Encounter for antineoplastic chemotherapy; C15.4 Malignant neoplasm of middle third of esophagus; F17.210 Nicotine dependence, cigarettes, uncomplicated; R73.03 Prediabetes
CPT/HCPCS: 36415; 80048; 80053; 85025; 96361; 96367; 96413; 96417; 99214; J1100; J1200; J2469; J3490; J7030; J7050; J9045; J9267; J9355

== ENCOUNTER → 2020-02-15 10:27 | Outpatient (BNVA) | payer MEDICARE, MEDICAID, SELFPAY | PROVIDERS: PCP Physician Assistant Medical; Visit Provider Internal Medicine Hematology & Oncology | DX: C15.5 Malignant neoplasm of lower third of esophagus (principal) | CPT/HCPCS: 80053; 85025 ==

== ENCOUNTER 2020-03-01 05:38 | Outpatient (RCR) | payer MEDICARE, MEDICAID, SELFPAY ==
[2020-02-08 16:39] LABS: Alanine Aminotransferase 7 U/L (0-41); Albumin Level 3.2 g/dL (3.5-5.2); Alkaline Phosphatase 60 IU/L (40-130); Anion Gap 10.3 (5-19); Aspartate Amino Transferase 8 U/L (0-40); Blood Urea Nitrogen 16 mg/dL (8-23); Calcium 8.3 mg/dL (8.5-10.5); Carbon Dioxide 27 mmol/L (22-29); Chloride 103 mmol/L (98-107); Globulin 2.5 g/dL (1.3-4.6); Glucose 79 mg/dL (65-115); Osmolality Calculated 277 mOsm/kg (285-295); Potassium 4.3 mmol/L (3.5-5.1); Sodium 136 mmol/L (136-145); Total Bilirubin 0.2 mg/dL (0.15-1.2); Total Protein 5.7 g/dL (6.6-8.7)
[2020-02-09 06:16] LABS: Basophils % 0.4 %; Eosinophils # 0.3 10^3/uL (0.0-0.8); Eosinophils % 4.2 %; Hematocrit 35.2 % (42.0-52.0); Lymphocytes # 1.9 10^3/uL (0.8-4.8); Lymphocytes % 27.3 %; Mean Corpuscular HGB Conc 31.3 g/dL (30.0-36.0); Mean Corpuscular Volume 92.9 fL (80-94); Mean Platelet Volume 10.6 fL (7.4-10.4); Monocytes # 0.4 10^3/uL (0.2-0.9); Monocytes % 6.2 %; Neutrophils # 4.14 10^3/uL (1.8-7.7); Neutrophils % 60.2 %; Nucleated Red Blood Cells % 0 %; Platelet Count 185 10^3/cmm (130-400); Red Blood Count 3.79 10^6/uL (4.1-5.3); Red Cell Distribution Width 16.8 % (12.1-15.1); White Blood Count 6.9 10^3/uL (4.0-10.0)
[2020-02-09] MEDS: sodium chloride 0.9% 250 ML 75 ML IV (09:58)
[2020-02-09] MEDS: acetaminophen 325 mg Tablet 650 MG PO (10:00)
--- NOTE | 2020-02-11 11:37 | ONC FU_ITS ---
Dr. Tuttle follow up note Patient: Rodney Buckhead Unit #: [id number]: 1940 Dicatated By: Yaan Tuttle M.D.Date of Visit:Feb 09, 2020 Onc Med Follow-up/Prog Note History of Present Illness: Mr. Stevens is a 79 -year-old gentleman with history of progressive dysphagia and weight loss. 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 A biopsy was obtained at [place], [place] on 05/21/2019. 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 Mr Stevens underwent CT scan of chest abdomen on 05/18/2019 which showed dilated thoracic esophagus with gross appearance of marked wall thickening as well as dilatation of distal segment of thoracic esophagus. No thoracic lymphadenopathy by size criteria. No evidence of distant metastatic disease, As per patient in the beginning he had dysphagia to solid food now can tolerate liquids only. Denied any hematemesis or hemoptysis, denied any jaundice, denied any aspiration or regurgitation. Mr Stevens has smoked about pack a day for many years. [place] of [place] and lives with elderly . Mr Stevens has elected to try chemotherapy alone. He has been offered chemotherapy with weekly carboplatin/Taxol/Herceptin. He did have baseline echocardiogram for the Herceptin on 06/24/2019 which reported left ventricular ejection fraction estimated at 65%. He had normal left ventricular systolic function no regional wall motion abnormalities there is a grade I/IV diastolic function, normal to mildly elevated filling pressures. No aortic valve stenosis and mild aortic valve regurgitation. He did also have PET CT imaging on 06/25/2019 at [facility]. This did report hypermetabolic circumferential mural thickening involving the distal esophagus extending approximately 10 cm proximal to the gastroesophageal junction from T11???T8 with maximum SUV of 24. A small amount of hyper metabolic mass extension into the gastric cardia is not fully excluded. Upstream esophagus appears fluid-filled and patulous. There were no discrete hypermetabolic pulmonary nodules. There is mild dependent atelectasis with trace bilateral pleural fluid collection without hypermetabolic pleural thickening. There was reported calcified mediastinal and hilar granulous with normal size mildly hypermetabolic bilateral hilar lymph nodes, circulation sales representative right hilar lymph node maximum SUV 2.7. Additional hypermetabolic left hilar lymph node 0.8 x 1.2 cm with a max SUV of 2.5. 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 There were no hypermetabolic hepatic lesions. There was Extavia of the infrarenal abdominal aorta measuring up to 2.7 cm. No ascites or peritoneal/serosa nodularity. There was hyper metabolic gastrohepatic ligament lymph node 1.7 x 1.8 cm with a max SUV of 3.9. No additional hypermetabolic lymph nodes were seen within the abdomen or pelvis. There was prostamegaly without focal hypermetabolic prostate lesion. Muscle skeletal there was diffuse bone marrow hyper metabolism without focal lytic or blastic osseous lesion identified suggesting pathologic marrow uptake. 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 He did have Port a Cath placement in the left subclavian vein per Dr Rosa on 07/12/2019. Mr Stevens started on his first chemotherapy with weekly carboplatin/Taxol and Herceptin on 07/15/2019. He has tolerated it well overall. Follow-up CT PET scan done on 10/15/2019 showed significant improvement with decrease in size in hypermetabolism of distal esophagus. Previous hypermetabolic tumor extension into gastric cardia is no longer seen Resolution of previous hypermetabolic left hilar, paraesophageal, gastrohepatic ligament lymph nodes. No area of hypermetabolic distant metastatic disease seen Patient went to hospital on 12/03/2019 with episode of seizure-like activity and was evaluated in the emergency room, with CT scan of head was done which shows no evidence of metastatic disease and ER physician discussed her case with Dr. Boswell him a neurologist and patient was started on Keppra 250 mg by mouth twice a day Mr Stevens continues with Carboplatin/Taxol (day 1, 8 and 15) Herceptin on day 1 and 15. Came for follow-up, denies any specific complaints, no dysphagia, no nausea or vomiting, no diarrhea or constipation, no shortness of breath or palpitation, no fever chills, no peripheral numbness, no abdominal pain. Tolerating palliative therapy with Herceptin/carboplatin/Taxol well Medications: Advair Diskus 2 Puff(s) (of 250-50 mcg/dose) Aerosol Powder, Breath Activated Inhalation daily, Albuterol Sulfate 1 ((2.5 mg/3ml) 0.083%) Nebulization solution Inhalation daily PRN, Dexamethasone (4 mg) Tablet Oral Take as Directed, Dronabinol 1 Capsule Oral b.i.d., Prochlorperazine Maleate 1 Tablet (of 10 mg) Oral q 4 hours PRN, Spiriva HandiHaler 1 Capsule (of 18 mcg) Inhalation daily, Tamsulosin HCl 1 Capsule (of 0.4 mg) Oral daily Allergies: No Known Allergies. Review of Systems: Constitutional - Appetite is poor and weight has increased. No fever, chills, hot flashes, or night sweats. Energy level is very poor, ENMT - No sinus congestion/drainage. No mouth sores. No sore throat or difficulty swallowing, Hematologic/Lymphatic - Positive for easy bruising, Respiratory - Positive for shortness of breath. No cough. No pleuritic pain or hemoptysis, Cardiovascular - No angina pain. No palpitations, Gastrointestinal - No nausea or vomiting. No heartburn or acid reflux. No diarrhea or constipation. No bloody or black stool, Genitourinary (M) - No dysuria or hematuria. No urinary frequency. No urgency or incontinence, Musculoskeletal - No joint or bone pain, Neurologic - No headache or dizziness, Psychiatric - No anxiety or depression. No insomnia. Vital Signs: Performed on Feb 09, 2020 08:12 Height - 67.00 in Weight - 167.0 lbs (HIGH) BSA - 1.87 sq.m BMI - 26.16 Temperature - 97.4 F (LOW) Pulse - 87 /min Respiration - 20 /min BP - 157/75 mm(hg) (HIGH) O2 Sat - 97 % Pain - 0 Performance Status: 1 - No physically strenuous activity, but ambulatory and able to carry out light or sedentary work (e.g. office work, light house work). (ECOG) Physical Examination: ENMT - No mouth sores, no thrush, no jaundice, Respiratory - Lungs are clear, Cardiovascular - Regular rate and rhythm of heart, Abdomen - Soft, bowel sounds present, Extremities - 1+ edema bilateral. Lab/Imaging: Test performed on Feb 08, 2020 12:33 Sodium 136 mmol/L Potassium 4.3 mmol/L Chloride 103 mmol/L CO2 27 mmol/L Anion Gap 10.3 BUN 16 mg/dL Creatinine 1.2 mg/dL Cr Clearance (Est) 51.9800 mL/min Glucose 79 mg/dL Calcium 8.3 mg/dL Protein, Total 5.7 g/dL Albumin 3.2 g/dL Globulin 2.5 g/dL Bilirubin, Total 0.2 mg/dL ALT (SGPT) 7 U/L AST (SGOT) 8 U/L Alkaline Phosphatase 60 IU/L WBC 6.9 10 3/uL RBC 3.79 10 6/uL HGB 11.0 g/dL HCT 35.2 % MCV 92.9 fL MCH 29.0 pg MCHC 31.3 g/dL RDW 16.8 % Platelet Count 185 10 3/cmm MPV 10.6 fL Neutrophils 4.14 10 3/uL Lymphocytes 1.9 10 3/uL Monocytes 0.4 10 3/uL Eosinophils 0.3 10 3/uL Basophils 0.0 10 3/uL Neutrophil % 60.2 % Lymphocyte % 27.3 % Monocyte % 6.2 % Eosinophil % 4.2 % Basophils % 0.4 % NRBC % 0 % Test performed on Jan 04, 2020 11:05 Manual Lymphocytes 37.4 % Manual Monocytes 8.9 % Manual Eosinophils 1.4 % Manual Basophils 0.6 % Test performed on Oct 11, 2019 14:05 CBC Slide Review Slide Review Perform SLIDE REVIEW AGREES WITH AUTO DIFF Test performed on Oct 05, 2019 13:10 Manual Bands % 12.0 % Atypical Lymphs % 4.0 % Metamyelocytes % 3.0 % Polychromasia 2+ Anisocytosis 2+ Macrocytosis 1+ Microcytosis 1+ Ovalocytes 1+ Manual Bands Abs 3.8 10 3/cmm Manual Lymphocytes Abs 3.2 10 3/cmm Manual Monocytes Abs 2.2 10 3/cmm Test performed on Sep 28, 2019 09:13 Manual Segs 47.1 % NRBCs 0 /100 WBC Test performed on Aug 20, 2019 11:20 Manual Eosinophils Abs 0.2 10 3/cmm Impression: 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 CT scan of chest abdomen done on 05/18/2019 showed no thoracic lymphadenopathy by size criteria Dilated thoracic esophagus with gross appearance of marked wall thickening as well as dilatation of distal segment of thoracic esophagus no evidence of distant metastatic disease. Progressive dysphagia and weight loss due to above Chronic smoking, still active Clinically, patient is doing reasonably well now with progressive dysphagia due to newly diagnosed esophageal cancer. he said he did talk to his family and now have decided to pursue with chemotherapy alone and will go from there. Considering his age and comorbid condition and social issues e.g. living 60 miles away from [place] with elderly , he would prefer chemotherapy alone in the office but not radiation therapy. Patient was reminded in the standard of care is combined chemoradiation followed by surgery if possible otherwise chemotherapy is palliative only. Considering his age and performance status, recommended weekly carboplatin Taxol and Herceptin. did also discuss about role of G-tube placement but patient declined. Mr Stevens is prediabetic so we'll also consider diabetes teaching and may consider sliding scale if he develops hyperglycemia due to steroids. He did have baseline echocardiogram for the Herceptin on 06/24/2019 which reported left ventricular ejection fraction estimated at 65%. He had normal left ventricular systolic function no regional wall motion abnormalities there is a grade I/IV diastolic function, normal to mildly elevated filling pressures. No aortic valve stenosis and mild aortic valve regurgitation. He did also have PET CT imaging on 06/25/2019 at [facility]. This did report hypermetabolic circumferential mural thickening involving the distal esophagus extending approximately 10 cm proximal to the gastroesophageal junction from T11???T8 with maximum SUV of 24. A small amount of hyper metabolic mass extension into the gastric cardia is not fully excluded. Upstream esophagus appears fluid-filled and patulous. There were no discrete hypermetabolic pulmonary nodules. There is mild dependent atelectasis with trace bilateral pleural fluid collection without hypermetabolic pleural thickening. There was reported calcified mediastinal and hilar granulous with normal size mildly hypermetabolic bilateral hilar lymph nodes, circulation sales representative right hilar lymph node maximum SUV 2.7. Additional hypermetabolic left hilar lymph node 0.8 x 1.2 cm with a max SUV of 2.5. 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 There were no hypermetabolic hepatic lesions. There was Extavia of the infrarenal abdominal aorta measuring up to 2.7 cm. No ascites or peritoneal/serosa nodularity. There was hyper metabolic gastrohepatic ligament lymph node 1.7 x 1.8 cm with a max SUV of 3.9. No additional hypermetabolic lymph nodes were seen within the abdomen or pelvis. There was prostamegaly without focal hypermetabolic prostate lesion. Muscle skeletal there was diffuse bone marrow hyper metabolism without focal lytic or blastic osseous lesion identified suggesting pathologic marrow uptake. 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 Mr Stevens had Port a Cath placement in the left subclavian vein per Dr Rosa on 07/12/2019. He began his first cycle of carboplatin/Taxol/Herceptin on 07/15/2019. He was also found to be iron deficient and received Injectafer on 07/12/2019 & 07/29/2019. He has required Neupogen support for chemo induced neutropenia with the last cycle of chemotherapy. He has been receiving Neupogen for 3 days starting day 2. This has allowed his counts to remain adequate to continue on treatment as scheduled. He did receive Neulasta on day 15 of cycle 2. His PET/CT from 2019 does report disease response. Mr Stevens has continued with treatment. Plan: Discussed with patient regarding his labs white blood count 6.9 hemoglobin 11 hematocrit 35.2 platelets 185,000 CMP within normal limits Clinically, patient is doing well with excellent palliation, e.g. no dysphagia, tolerating orally well. We will proceed with day 8 chemotherapy with carboplatin and Taxol and then he will return to clinic in 1 week with CBC CMP. Signed By: Barjinder Tuttle, M.D. <<Signature on File>>
--- NOTE | 2020-02-16 12:37 | USCV_ITS ---
Dipak Stevens Age: 79 Gender: M : 1940 Exam Date: 02/16/2020 12:54 Ordering Phys: Yana Tuttle MD Technologist: Deisy Reid Exam Location: [facility] [place] Indication: HIGH RISK MEDS BP: 152 / 69 HR: 84 Rhythm: Sinus Technical Quality: Adequate MEASUREMENTS (Male / Female) Normal Values 2D ECHO LV Diastolic Diameter PLAX 3.8 cm 4.2 - 5.9 / 3.9 - 5.3 cm LV Systolic Diameter PLAX 2.7 cm LV Chamber Size 2.9 cm IVS Diastolic Thickness 1.1 cm 0.6 - 1.0 / 0.6 - 0.9 cm IVS Systolic Thickness 1.3 cm LVPW Diastolic Thickness 2.5 cm 0.6 - 1.0 / 0.6 - 0.9 cm LVPW Systolic Thickness 2.2 cm RV Chamber Size 2.5 cm LVOT Diameter 2.0 cm LV Ejection Fraction 2D Teich 57.6 % LV Ejection Fraction MOD 2C 61.9 % LV Ejection Fraction 2C AL 61.7 % LA Diameter 4.3 cm LA Width 3.1 cm LA Height 4.0 cm RA Width 2.8 cm RA Height 3.1 cm Aorta at Sinotubular Diameter 2.3 cm M-MODE LV Diastolic Diameter MM 5.4 cm 4.2 - 5.9 / 3.9 - 5.3 cm LV Systolic Diameter MM 3.7 cm LV Ejection Fraction MM Teich 59.4 % IVS Diastolic Thickness MM 0.8 cm 0.6 - 1.0 / 0.6 - 0.9 cm IVS Systolic Thickness MM 0.9 cm LVPW Diastolic Thickness MM 0.9 cm 0.6 - 1.0 / 0.6 - 0.9 cm LVPW Systolic Thickness MM 1.3 cm Aortic Annulus Diameter 3.2 cm LA Ao Ratio MM 1.4 MV E Point Septal Separation 1.3 cm DOPPLER AV Peak Velocity 234.0 cm/s LVOT Peak Velocity 110.0 cm/s AV Area Cont Eq vti 1.6 cm squared AV Area Cont Eq pk 1.5 cm squared MV Area PHT 6.3 cm squared Mitral E to A Ratio 0.5 MV E' Velocity 4.0 cm/s Mitral E to MV E' Ratio 16.3 Mitral E to LV E' Lateral Ratio 18.5 Mitral E to LV E' Septal Ratio 14.8 TR Peak Velocity 213.0 cm/s TR Peak Gradient 18.1 mmHg TV Peak E Velocity 66.0 cm/s Right Atrial Pressure 3.0 mmHg Pulmonary Artery Systolic Pressu 21.1 mmHg PV Peak Velocity 94.0 cm/s RV Acceleration Time 0.1 s RV Ejection Time 0.3 s RV AcT/ET 0.4 FINDINGS Left Ventricle Normal left ventricular size and systolic function and mildly increased wall thickness, with no regional wall motion abnormalities. Left ventricular ejection fraction is estimated at 62 %. Grade I diastolic dysfunction (abnormal relaxation filling pattern), mildly elevated filling pressures. Right Ventricle Normal right ventricular size and systolic function, RVSP 21.1 mmHg. Right Atrium Normal right atrial size. Right atrial pressure estimated at 3 mmHg. Left Atrium Mildly increased left atrial size. Mitral Valve Mildly thickened mitral valve. No mitral valve stenosis. Trace mitral valve regurgitation. Aortic Valve Mildly thickened and calcified trileaflet aortic valve. Mild aortic valve stenosis, peak velocity 2.3 m/s, peak gradient 22 mmHg, mean gradient 10.6 mmHg, JAMESON 1.6 cm squared. Mild aortic valve regurgitation. Tricuspid Valve Structurally normal tricuspid valve. Pulmonic Valve Structurally normal pulmonic valve. No pulmonary valve stenosis. Trace pulmonary valve regurgitation. Pericardium No pericardial effusion. Aorta Normal size aortic root and proximal ascending aorta. CONCLUSIONS 1. Normal left ventricular size and systolic function with no regional wall motion abnormalities. Left ventricular ejection fraction is estimated at 62 %. Grade I diastolic dysfunction (abnormal relaxation filling pattern), mildly elevated filling pressures. 2. Mild aortic valve stenosis, peak velocity 2.3 m/s, peak gradient 22 mmHg, mean gradient 10.6 mmHg, JAMESON 1.6 cm squared. Mild aortic valve regurgitation. 3.Mildly increased left atrial size. 4. Pulmonary artery pressure estimated at 21 mmHg. 5. When compared to previous echocardiogram dated 10/07/2019, there seems to be mild aortic valve stenosis now. Jenny Horn MD (Electronically Signed) Final Date: 16 February 2020 17:18 S
--- NOTE | 2020-02-17 17:17 | ONC FU_ITS ---
Dr. Tuttle follow up note Patient: Rodney Pontiac Unit #: [id number]: 1940 Dicatated By: Yana Tuttle M.D.Date of Visit:Feb 16, 2020 Onc Med Follow-up/Prog Note History of Present Illness: Mr. Stevens is a 79 -year-old gentleman with history of progressive dysphagia and weight loss. 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 A biopsy was obtained at [place], [place] on 05/21/2019. 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 Mr Stevens underwent CT scan of chest abdomen on 05/18/2019 which showed dilated thoracic esophagus with gross appearance of marked wall thickening as well as dilatation of distal segment of thoracic esophagus. No thoracic lymphadenopathy by size criteria. No evidence of distant metastatic disease, As per patient in the beginning he had dysphagia to solid food now can tolerate liquids only. Denied any hematemesis or hemoptysis, denied any jaundice, denied any aspiration or regurgitation. Mr Stevens has smoked about pack a day for many years. [place] north of [place] and lives with elderly . Mr Stevens has elected to try chemotherapy alone. He has been offered chemotherapy with weekly carboplatin/Taxol/Herceptin. He did have baseline echocardiogram for the Herceptin on 06/24/2019 which reported left ventricular ejection fraction estimated at 65%. He had normal left ventricular systolic function no regional wall motion abnormalities there is a grade I/IV diastolic function, normal to mildly elevated filling pressures. No aortic valve stenosis and mild aortic valve regurgitation. He did also have PET CT imaging on 06/25/2019 at [facility]. This did report hypermetabolic circumferential mural thickening involving the distal esophagus extending approximately 10 cm proximal to the gastroesophageal junction from T11???T8 with maximum SUV of 24. A small amount of hyper metabolic mass extension into the gastric cardia is not fully excluded. Upstream esophagus appears fluid-filled and patulous. There were no discrete hypermetabolic pulmonary nodules. There is mild dependent atelectasis with trace bilateral pleural fluid collection without hypermetabolic pleural thickening. There was reported calcified mediastinal and hilar granulous with normal size mildly hypermetabolic bilateral hilar lymph nodes, major account representative right hilar lymph node maximum SUV 2.7. Additional hypermetabolic left hilar lymph node 0.8 x 1.2 cm with a max SUV of 2.5. 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 There were no hypermetabolic hepatic lesions. There was Extavia of the infrarenal abdominal aorta measuring up to 2.7 cm. No ascites or peritoneal/serosa nodularity. There was hyper metabolic gastrohepatic ligament lymph node 1.7 x 1.8 cm with a max SUV of 3.9. No additional hypermetabolic lymph nodes were seen within the abdomen or pelvis. There was prostamegaly without focal hypermetabolic prostate lesion. Muscle skeletal there was diffuse bone marrow hyper metabolism without focal lytic or blastic osseous lesion identified suggesting pathologic marrow uptake. 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 He did have Port a Cath placement in the left subclavian vein per Dr Rosa on 07/12/2019. Mr Stevens started on his first chemotherapy with weekly carboplatin/Taxol and Herceptin on 07/15/2019. He has tolerated it well overall. Follow-up CT PET scan done on 10/15/2019 showed significant improvement with decrease in size in hypermetabolism of distal esophagus. Previous hypermetabolic tumor extension into gastric cardia is no longer seen Resolution of previous hypermetabolic left hilar, paraesophageal, gastrohepatic ligament lymph nodes. No area of hypermetabolic distant metastatic disease seen Patient went to hospital on 12/03/2019 with episode of seizure-like activity and was evaluated in the emergency room, with CT scan of head was done which shows no evidence of metastatic disease and ER physician discussed her case with Dr. Boswell him a neurologist and patient was started on Keppra 250 mg by mouth twice a day Mr Stevens continues with Carboplatin/Taxol (day 1, 8 and 15) Herceptin on day 1 and 15. Came for follow-up, denies any specific complaint except off and on vomiting for the last 3 days, as per family patient has lost about 10 pounds since his last visit but denies any fever chills denies any hemoptysis or hematemesis denies any diarrhea or constipation, denies any headaches blurred vision double vision. Medications: Advair Diskus 2 Puff(s) (of 250-50 mcg/dose) Aerosol Powder, Breath Activated Inhalation daily, Albuterol Sulfate 1 ((2.5 mg/3ml) 0.083%) Nebulization solution Inhalation daily PRN, Dexamethasone (4 mg) Tablet Oral Take as Directed, Dronabinol 1 Capsule Oral b.i.d., Prochlorperazine Maleate 1 Tablet (of 10 mg) Oral q 4 hours PRN, Spiriva HandiHaler 1 Capsule (of 18 mcg) Inhalation daily, Tamsulosin HCl 1 Capsule (of 0.4 mg) Oral daily Allergies: No Known Allergies. Review of Systems: Review of Systems is not available for this patient. Vital Signs: Performed on Feb 16, 2020 08:12 Height - 67.00 in Weight - 157.8 lbs (LOW) BSA - 1.83 sq.m BMI - 24.72 Temperature - 97.9 F (LOW) Pulse - 98 /min Respiration - 20 /min BP - 125/67 mm(hg) O2 Sat - 97 % Pain - 0 Performance Status: 1 - No physically strenuous activity, but ambulatory and able to carry out light or sedentary work (e.g. office work, light house work). (ECOG) Physical Examination: ENMT - No mouth sores, no thrush, no jaundice, Respiratory - Lungs are clear, Cardiovascular - Regular rate and rhythm of heart, Abdomen - Soft, bowel sounds present, Extremities - No visible edema. Lab/Imaging: Test performed on Feb 15, 2020 10:27 Glucose 191 mg/dL BUN 18 mg/dL Creatinine 1.8 mg/dL Cr Clearance (Est) 34.65 mL/min Sodium 134 mmol/L Potassium 4.4 mmol/L Chloride 100 mmol/L CO2 25 mmol/L Calcium 8.0 mg/dL Protein, Total 5.3 g/dL Albumin 3.1 g/dL Globulin 2.2 g/dL Bilirubin, Total 0.4 mg/dL Alkaline Phosphatase 59 IU/L AST (SGOT) 10 IU/L ALT (SGPT) 9 IU/L WBC 5.7 10^9/L RBC 3.70 10^12/L HGB 10.8 g/dL HCT 34.0 % MCV 91.9 fl MCH 29.2 pg MCHC 31.8 g/dL RDW 16.6 % Platelet Count 226 10^9/L MPV 10.4 fL Neutrophils (Gran) 2.95 10^9/L Lymphocytes 2.0 10^9/L Monocytes 0.4 10^9/L Eosinophils 0.2 10^9/L Basophils 0.0 10^9/L Manual Lymphocytes 35.1 % Manual Monocytes 6.9 % Manual Eosinophils 3.5 % Manual Basophils 0.4 % Test performed on Feb 08, 2020 12:33 Anion Gap 10.3 Neutrophil % 60.2 % Lymphocyte % 27.3 % Monocyte % 6.2 % Eosinophil % 4.2 % Basophils % 0.4 % NRBC % 0 % Test performed on Oct 11, 2019 14:05 CBC Slide Review Slide Review Perform SLIDE REVIEW AGREES WITH AUTO DIFF Test performed on Oct 05, 2019 13:10 Manual Bands % 12.0 % Atypical Lymphs % 4.0 % Metamyelocytes % 3.0 % Polychromasia 2+ Anisocytosis 2+ Macrocytosis 1+ Microcytosis 1+ Ovalocytes 1+ Manual Bands Abs 3.8 10 3/cmm Manual Lymphocytes Abs 3.2 10 3/cmm Manual Monocytes Abs 2.2 10 3/cmm Test performed on Sep 28, 2019 09:13 Manual Segs 47.1 % NRBCs 0 /100 WBC Test performed on Aug 20, 2019 11:20 Manual Eosinophils Abs 0.2 10 3/cmm Impression: 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 CT scan of chest abdomen done on 05/18/2019 showed no thoracic lymphadenopathy by size criteria Dilated thoracic esophagus with gross appearance of marked wall thickening as well as dilatation of distal segment of thoracic esophagus no evidence of distant metastatic disease. Progressive dysphagia and weight loss due to above Chronic smoking, still active Clinically, patient is doing reasonably well now with progressive dysphagia due to newly diagnosed esophageal cancer. he said he did talk to his family and now have decided to pursue with chemotherapy alone and will go from there. Considering his age and comorbid condition and social issues e.g. living 60 miles away from [place] with elderly , he would prefer chemotherapy alone in the office but not radiation therapy. Patient was reminded in the standard of care is combined chemoradiation followed by surgery if possible otherwise chemotherapy is palliative only. Considering his age and performance status, recommended weekly carboplatin Taxol and Herceptin. did also discuss about role of G-tube placement but patient declined. Mr Stevens is prediabetic so we'll also consider diabetes teaching and may consider sliding scale if he develops hyperglycemia due to steroids. He did have baseline echocardiogram for the Herceptin on 06/24/2019 which reported left ventricular ejection fraction estimated at 65%. He had normal left ventricular systolic function no regional wall motion abnormalities there is a grade I/IV diastolic function, normal to mildly elevated filling pressures. No aortic valve stenosis and mild aortic valve regurgitation. He did also have PET CT imaging on 06/25/2019 at [facility]. This did report hypermetabolic circumferential mural thickening involving the distal esophagus extending approximately 10 cm proximal to the gastroesophageal junction from T11???T8 with maximum SUV of 24. A small amount of hyper metabolic mass extension into the gastric cardia is not fully excluded. Upstream esophagus appears fluid-filled and patulous. There were no discrete hypermetabolic pulmonary nodules. There is mild dependent atelectasis with trace bilateral pleural fluid collection without hypermetabolic pleural thickening. There was reported calcified mediastinal and hilar granulous with normal size mildly hypermetabolic bilateral hilar lymph nodes, major account representative right hilar lymph node maximum SUV 2.7. Additional hypermetabolic left hilar lymph node 0.8 x 1.2 cm with a max SUV of 2.5. 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 There were no hypermetabolic hepatic lesions. There was Extavia of the infrarenal abdominal aorta measuring up to 2.7 cm. No ascites or peritoneal/serosa nodularity. There was hyper metabolic gastrohepatic ligament lymph node 1.7 x 1.8 cm with a max SUV of 3.9. No additional hypermetabolic lymph nodes were seen within the abdomen or pelvis. There was prostamegaly without focal hypermetabolic prostate lesion. Muscle skeletal there was diffuse bone marrow hyper metabolism without focal lytic or blastic osseous lesion identified suggesting pathologic marrow uptake. 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 Mr Stevens had Port a Cath placement in the left subclavian vein per Dr Rosa on 07/12/2019. He began his first cycle of carboplatin/Taxol/Herceptin on 07/15/2019. He was also found to be iron deficient and received Injectafer on 07/12/2019 & 07/29/2019. He has required Neupogen support for chemo induced neutropenia with the last cycle of chemotherapy. He has been receiving Neupogen for 3 days starting day 2. This has allowed his counts to remain adequate to continue on treatment as scheduled. He did receive Neulasta on day 15 of cycle 2. His PET/CT from 2019 does report disease response. Mr Stevens has continued with treatment. Plan: Discussed with patient regarding his labs white blood count 5.7 hemoglobin 10.8 hematocrit 34 platelets 226,000 CMP within normal except creatinine 1.8 and glucose 191 Clinically, patient is doing reasonably well, now with off and on nausea vomiting as per family sometime with food contents in the vomitus, ? esophageal obstruction, due to disease progression or stricture, patient has lost about 10 pounds since last visit, patient is not running any fever, we will hold his chemotherapy today and consider hydration and refer him to GI for EGD to assess disease status, if there is a disease progression, will consider changing palliative chemotherapy or if stricture, may benefit from esophageal dilation. Patient was advised to use mechanical soft diet, and maintain good hydration. Patient return to clinic after EGD with CBC CMP. Signed By: Yana Ttutle M.D. <<Signature on File>>
[2020-02-29 13:51] LABS: Basophils # 0.1 10^3/uL (0.0-0.1); Basophils % 0.6 %; Eosinophils # 0.2 10^3/uL (0.0-0.8); Hematocrit 36.7 % (42.0-52.0); Hemoglobin 11.3 g/dL (11.7-16.6); Lymphocytes # 1.9 10^3/uL (0.8-4.8); Mean Corpuscular HGB Conc 30.8 g/dL (30.0-36.0); Mean Corpuscular Hemoglobin 28.4 pg (28.0-34.0); Mean Corpuscular Volume 92.2 fL (80-94); Mean Platelet Volume 10.1 fL (7.4-10.4); Monocytes # 0.6 10^3/uL (0.2-0.9); Monocytes % 6.3 %; Neutrophils % 68.1 %; Nucleated Red Blood Cells % 0 %; Platelet Count 218 10^3/cmm (130-400); Red Blood Count 3.98 10^6/uL (4.1-5.3); Red Cell Distribution Width 16.8 % (12.1-15.1)
[2020-02-29 14:04] LABS: Alanine Aminotransferase 6 U/L (0-41); Albumin Level 3.2 g/dL (3.5-5.2); Alkaline Phosphatase 72 IU/L (40-130); Anion Gap 13.1 (5-19); Aspartate Amino Transferase 10 U/L (0-40); Blood Urea Nitrogen 15 mg/dL (8-23); Calcium 8.9 mg/dL (8.5-10.5); Carbon Dioxide 27 mmol/L (22-29); Chloride 104 mmol/L (98-107); Globulin 2.7 g/dL (1.3-4.6); Glucose 107 mg/dL (65-115); Osmolality Calculated 287 mOsm/kg (285-295); Potassium 4.1 mmol/L (3.5-5.1); Sodium 140 mmol/L (136-145); Total Bilirubin 0.2 mg/dL (0.15-1.2); Total Protein 5.9 g/dL (6.6-8.7)
--- NOTE | 2020-03-01 09:23 | ONC FU_ITS ---
Dr. Tuttle follow up note Patient: Rodney Higginsport Unit #: [id number]: [id number] Dicatated By: Yana Tuttle M.D.Date of Visit:Mar 01, 2020 Onc Med Follow-up/Prog Note History of Present Illness: Mr. Stevens is a 79 -year-old gentleman with history of progressive dysphagia and weight loss. 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 A biopsy was obtained at [place], [place] on 05/21/2019. 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 Mr Stevens underwent CT scan of chest abdomen on 05/18/2019 which showed dilated thoracic esophagus with gross appearance of marked wall thickening as well as dilatation of distal segment of thoracic esophagus. No thoracic lymphadenopathy by size criteria. No evidence of distant metastatic disease, As per patient in the beginning he had dysphagia to solid food now can tolerate liquids only. Denied any hematemesis or hemoptysis, denied any jaundice, denied any aspiration or regurgitation. Mr Stevens has smoked about pack a day for many years. He lives [place] north of [place] and lives with elderly . Mr Stevens has elected to try chemotherapy alone. He has been offered chemotherapy with weekly carboplatin/Taxol/Herceptin. He did have baseline echocardiogram for the Herceptin on 06/24/2019 which reported left ventricular ejection fraction estimated at 65%. He had normal left ventricular systolic function no regional wall motion abnormalities there is a grade I/IV diastolic function, normal to mildly elevated filling pressures. No aortic valve stenosis and mild aortic valve regurgitation. He did also have PET CT imaging on 06/25/2019 at [facility]. This did report hypermetabolic circumferential mural thickening involving the distal esophagus extending approximately 10 cm proximal to the gastroesophageal junction from T11???T8 with maximum SUV of 24. A small amount of hyper metabolic mass extension into the gastric cardia is not fully excluded. Upstream esophagus appears fluid-filled and patulous. There were no discrete hypermetabolic pulmonary nodules. There is mild dependent atelectasis with trace bilateral pleural fluid collection without hypermetabolic pleural thickening. There was reported calcified mediastinal and hilar granulous with normal size mildly hypermetabolic bilateral hilar lymph nodes, risk control field representative right hilar lymph node maximum SUV 2.7. Additional hypermetabolic left hilar lymph node 0.8 x 1.2 cm with a max SUV of 2.5. 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 There were no hypermetabolic hepatic lesions. There was Extavia of the infrarenal abdominal aorta measuring up to 2.7 cm. No ascites or peritoneal/serosa nodularity. There was hyper metabolic gastrohepatic ligament lymph node 1.7 x 1.8 cm with a max SUV of 3.9. No additional hypermetabolic lymph nodes were seen within the abdomen or pelvis. There was prostamegaly without focal hypermetabolic prostate lesion. Muscle skeletal there was diffuse bone marrow hyper metabolism without focal lytic or blastic osseous lesion identified suggesting pathologic marrow uptake. 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 He did have Port a Cath placement in the left subclavian vein per Dr Rosa on 07/12/2019. Mr Stevens started on his first chemotherapy with weekly carboplatin/Taxol and Herceptin on 07/15/2019. He has tolerated it well overall. Follow-up CT PET scan done on 10/15/2019 showed significant improvement with decrease in size in hypermetabolism of distal esophagus. Previous hypermetabolic tumor extension into gastric cardia is no longer seen Resolution of previous hypermetabolic left hilar, paraesophageal, gastrohepatic ligament lymph nodes. No area of hypermetabolic distant metastatic disease seen Patient went to hospital on 12/03/2019 with episode of seizure-like activity and was evaluated in the emergency room, with CT scan of head was done which shows no evidence of metastatic disease and ER physician discussed her case with Dr. Boswell him a neurologist and patient was started on Keppra 250 mg by mouth twice a day Mr Stevens continues with Carboplatin/Taxol (day 1, 8 and 15) Herceptin on day 1 and 15. Came for follow-up, denies any specific complaint but off and on problem with swallowing, patient has seen Dr. leavitt for evaluation regarding possible EGD to assess disease response e.g. progression versus stricture, as per patient's EGD was scheduled this morning at 1030 but she canceled it because of chemotherapy schedule although earlier she was explained that EGD is important to confirm if tumor is still responding or stricture causing dysphagia in that case dilation can be helpful. Denies any fever or chills denies any nausea or vomiting denies any jaundice, diarrhea or constipation but mild pain less skin rash involving right scalp, now responding to [id number] topical antibiotic, and a small sore involving lower center gum. No thrush, Medications: Advair Diskus 2 Puff(s) (of 250-50 mcg/dose) Aerosol Powder, Breath Activated Inhalation daily, Albuterol Sulfate 1 ((2.5 mg/3ml) 0.083%) Nebulization solution Inhalation daily PRN, Dexamethasone (4 mg) Tablet Oral Take as Directed, Dronabinol 1 Capsule Oral b.i.d., Prochlorperazine Maleate 1 Tablet (of 10 mg) Oral q 4 hours PRN, Spiriva HandiHaler 1 Capsule (of 18 mcg) Inhalation daily, Tamsulosin HCl 1 Capsule (of 0.4 mg) Oral daily Allergies: No Known Allergies. Review of Systems: Review of Systems is not available for this patient. Vital Signs: Performed on Mar 01, 2020 08:08 Height - 67.00 in Weight - 162.2 lbs (HIGH) BSA - 1.85 sq.m BMI - 25.40 Temperature - 97.1 F (LOW) Pulse - 84 /min Respiration - 20 /min BP - 154/85 mm(hg) (HIGH) O2 Sat - 97 % Pain - 0 Performance Status: 1 - No physically strenuous activity, but ambulatory and able to carry out light or sedentary work (e.g. office work, light house work). (ECOG) Physical Examination: ENMT - Scattered subcentimeter skin lesion on the right upper scalp with crusting and no oozing or pus, nontender and in the mouth mild redness in the lower central gum line no thrush, no mucositis, Respiratory - Lungs are clear, Cardiovascular - Regular rate and rhythm of heart, Abdomen - Soft , bowel sounds present, Extremities - Trace edema bilaterally. Lab/Imaging: Test performed on Feb 29, 2020 11:32 Sodium 140 mmol/L Potassium 4.1 mmol/L Chloride 104 mmol/L CO2 27 mmol/L Anion Gap 13.1 BUN 15 mg/dL Creatinine 1.5 mg/dL Cr Clearance (Est) 41.5800 mL/min Glucose 107 mg/dL Calcium 8.9 mg/dL Protein, Total 5.9 g/dL Albumin 3.2 g/dL Globulin 2.7 g/dL Bilirubin, Total 0.2 mg/dL ALT (SGPT) 6 U/L AST (SGOT) 10 U/L Alkaline Phosphatase 72 IU/L WBC 9.0 10 3/uL RBC 3.98 10 6/uL HGB 11.3 g/dL HCT 36.7 % MCV 92.2 fL MCH 28.4 pg MCHC 30.8 g/dL RDW 16.8 % Platelet Count 218 10 3/cmm MPV 10.1 fL Neutrophils 6.10 10 3/uL Lymphocytes 1.9 10 3/uL Monocytes 0.6 10 3/uL Eosinophils 0.2 10 3/uL Basophils 0.1 10 3/uL Neutrophil % 68.1 % Lymphocyte % 21.0 % Monocyte % 6.3 % Eosinophil % 2.0 % Basophils % 0.6 % NRBC % 0 % Test performed on Feb 15, 2020 10:27 Manual Lymphocytes 35.1 % Manual Monocytes 6.9 % Manual Eosinophils 3.5 % Manual Basophils 0.4 % Test performed on Oct 11, 2019 14:05 CBC Slide Review Slide Review Perform SLIDE REVIEW AGREES WITH AUTO DIFF Test performed on Oct 05, 2019 13:10 Manual Bands % 12.0 % Atypical Lymphs % 4.0 % Metamyelocytes % 3.0 % Polychromasia 2+ Anisocytosis 2+ Macrocytosis 1+ Microcytosis 1+ Ovalocytes 1+ Manual Bands Abs 3.8 10 3/cmm Manual Lymphocytes Abs 3.2 10 3/cmm Manual Monocytes Abs 2.2 10 3/cmm Test performed on Sep 28, 2019 09:13 Manual Segs 47.1 % NRBCs 0 /100 WBC Impression: 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 CT scan of chest abdomen done on 05/18/2019 showed no thoracic lymphadenopathy by size criteria Dilated thoracic esophagus with gross appearance of marked wall thickening as well as dilatation of distal segment of thoracic esophagus no evidence of distant metastatic disease. Progressive dysphagia and weight loss due to above Chronic smoking, still active Clinically, patient is doing reasonably well now with progressive dysphagia due to newly diagnosed esophageal cancer. he said he did talk to his family and now have decided to pursue with chemotherapy alone and will go from there. Considering his age and comorbid condition and social issues e.g. living 60 miles away from [place] with elderly , he would prefer chemotherapy alone in the office but not radiation therapy. Patient was reminded in the standard of care is combined chemoradiation followed by surgery if possible otherwise chemotherapy is palliative only. Considering his age and performance status, recommended weekly carboplatin Taxol and Herceptin. did also discuss about role of G-tube placement but patient declined. Mr Rodney is prediabetic so we'll also consider diabetes teaching and may consider sliding scale if he develops hyperglycemia due to steroids. He did have baseline echocardiogram for the Herceptin on 06/24/2019 which reported left ventricular ejection fraction estimated at 65%. He had normal left ventricular systolic function no regional wall motion abnormalities there is a grade I/IV diastolic function, normal to mildly elevated filling pressures. No aortic valve stenosis and mild aortic valve regurgitation. He did also have PET CT imaging on 06/25/2019 at [facility]. This did report hypermetabolic circumferential mural thickening involving the distal esophagus extending approximately 10 cm proximal to the gastroesophageal junction from T11???T8 with maximum SUV of 24. A small amount of hyper metabolic mass extension into the gastric cardia is not fully excluded. Upstream esophagus appears fluid-filled and patulous. There were no discrete hypermetabolic pulmonary nodules. There is mild dependent atelectasis with trace bilateral pleural fluid collection without hypermetabolic pleural thickening. There was reported calcified mediastinal and hilar granulous with normal size mildly hypermetabolic bilateral hilar lymph nodes, risk control field representative right hilar lymph node maximum SUV 2.7. Additional hypermetabolic left hilar lymph node 0.8 x 1.2 cm with a max SUV of 2.5. 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 There were no hypermetabolic hepatic lesions. There was Extavia of the infrarenal abdominal aorta measuring up to 2.7 cm. No ascites or peritoneal/serosa nodularity. There was hyper metabolic gastrohepatic ligament lymph node 1.7 x 1.8 cm with a max SUV of 3.9. No additional hypermetabolic lymph nodes were seen within the abdomen or pelvis. There was prostamegaly without focal hypermetabolic prostate lesion. Muscle skeletal there was diffuse bone marrow hyper metabolism without focal lytic or blastic osseous lesion identified suggesting pathologic marrow uptake. 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 Mr Stevens had Port a Cath placement in the left subclavian vein per Dr Rosa on 07/12/2019. He began his first cycle of carboplatin/Taxol/Herceptin on 07/15/2019. He was also found to be iron deficient and received Injectafer on 07/12/2019 & 07/29/2019. He has required Neupogen support for chemo induced neutropenia with the last cycle of chemotherapy. He has been receiving Neupogen for 3 days starting day 2. This has allowed his counts to remain adequate to continue on treatment as scheduled. He did receive Neulasta on day 15 of cycle 2. His PET/CT from 2019 does report disease response. Mr Stevens has continued with treatment. Plan: 'Discussed with patient regarding his labs white blood count 9 hemoglobin 11.3 hematocrit 36.7 platelets 218,000 CMP within normal limits Clinically, patient is doing reasonably well now with off and on dysphagia, as per sometimes he will throw up food 'just eaten' Patient has seen Dr. Leavitt and now EGD is under consideration, case was discussed with Dr. Leavitt this morning and he would reschedule EGD soon to evaluate whether there is a disease progression, in that case treatment options would be palliative radiation or another chemo regimen with palliative intent but he would need G-tube to maintain nutrition and hydration and patient is still declining G-tube in that case we would consider hospice care. On the other hand if EGD evaluation shows good response then will consider esophageal dilation to improve dysphagia and continue same chemo regimen as long as he is tolerating. Patient to return to clinic after EGD evaluation for further planning. As far as right scalp skin lesions are concerned, is painless, no oozing or pus seen, responding well to topical antibiotics, will continue same unless there is a worsening. As far as lower gum sore is concerned probably due to ill fitted denture, patient was advised to maintain good oral hygiene and use denture when needed and use Orajel. And also consider diluted Listerine mouthwash. Signed By: Yana Tuttle M.D. <<Signature on File>>
== END 2020-03-06 23:59 | disposition home or self-care (01) ==
LOC: ONCMED 05:38
PROVIDERS: PCP Physician Assistant Medical; Visit Provider Internal Medicine Hematology & Oncology
DX: Z51.12 Encounter for antineoplastic immunotherapy (principal); C15.4 Malignant neoplasm of middle third of esophagus; Z51.81 Encounter for therapeutic drug level monitoring; Z79.899 Other long term (current) drug therapy; R63.4 Abnormal weight loss; R11.2 Nausea with vomiting, unspecified; L98.9 Disorder of the skin and subcutaneous tissue, unspecified; K13.79 Other lesions of oral mucosa; I35.0 Nonrheumatic aortic (valve) stenosis; I35.1 Nonrheumatic aortic (valve) insufficiency; D70.1 Agranulocytosis secondary to cancer chemotherapy; T45.1X5D Adverse effect of antineoplastic and immunosuppressive drugs, subsequent encounter; R73.03 Prediabetes; F17.210 Nicotine dependence, cigarettes, uncomplicated; Z68.24 Body mass index [BMI] 24.0-24.9, adult
CPT/HCPCS: 36415; 80053; 85025; 93306; 96360; 96367; 96372; 96413; 96417; 99214; J1100; J1200; J1815; J2469; J3490; J7030; J7050; J9267; J9355

== ENCOUNTER 2020-03-10 14:37 | Emergency (ER) | payer MEDICARE, MEDICAID, SELFPAY ==
[2020-03-10 14:53] VITALS: BP 132/73; PULSE 101; RESP 20; TEMP 37.1; O2SAT 95; BMI 26.1
--- NOTE | 2020-03-10 15:54 | W.ED.GENADLT ---
HPI - General Adult General: Chief complaint: General Medical Stated complaint: Poss dehydration/lethargy Time Seen by Provider: 03/10/20 15:41 History of Present Illness: HPI narrative: 79-year-old male presents the emergency room has not been eating or drinking well the last week or so. He has esophageal cancer at the time of diagnosis he was found to be stage IV. He has not been on any chemotherapy for the last 3 weeks. . He has not been eating or drinking well and is been vomiting quite a bit has not had any diarrhea denies any hematemesis or coffee-ground emesis. He has not had any fever sweats or chills Onset (ago): day(s) Location: abdomen Radiation: non-radiation Severity: moderate Quality: aching Pain Consistency: intermittent Relieving factors: none Exacerbating factors: none Associated symptoms: Reports decreased appetite, dyspnea, malaise, nausea, vomiting and weakness; Deny chest pain, confusion, cough, diaphoresis, fevers/chills, headache(s), rash, palpitations, seizures, short of breath or syncope Treatments prior to arrival: none Review of Systems Const: Reports: malaise; Denies: diaphoresis ENMT: Denies: throat pain, ear or mastoid pain, nasal discharge or nasal congestion Card: Denies: chest pain, palpitations or syncope Resp: Reports: dyspnea GI: Reports: nausea and vomiting : Denies: flank pain, dysuria, urinary frequency or urinary urgency Skin/Breast: Denies: rash Neuro: Denies: headache(s) or confusion PFS ED PFSH: Medical History B12 deficiency Cancer of esophagus Dr Tuttle COPD (chronic obstructive pulmonary disease) Dementia Dyslipidemia Hard of hearing Hypertension Port-A-Cath in place Stroke Surgical History S/P cholecystectomy Family History Mother Cancer Colon cancer age 80 Father age 83 leukemia first brother has esophageal cancer Brother Cancer Esophageal cancer Social History Smoking and tobacco status: current every day smoker Alcohol intake: unknown Household members: spouse Housing: House Marital status: Physical Exam Const: COMMON NORMALS: no acute distress GENERAL APPEARANCE: cooperative and comfortable HENMT: COMMON NORMALS: normocephalic and atraumatic HEAD & SCALP: normocephalic and atraumatic Eye: COMMON NORMALS: Equal, round and reactive pupils present, EOMs intact bilaterally, conjunctivae normal and no scleral icterus CONJUNCTIVA: Yes conjunctivae normal PUPIL: Yes Equal, round and reactive pupils present Neck/C-Spine: COMMON NORMALS: no JVD Resp: COMMON NORMALS: normal respiratory effort, No retractions, No use of accessory muscles and clear to auscultation bilaterally AUSCULTATION: clear to auscultation bilaterally Cardio: COMMON NORMALS: no JVD, regular rate, regular rhythm and No murmurs present (Cardio) RATE: regular rate RHYTHM: regular rhythm GI: COMMON NORMALS: Soft to palpation and No hepatosplenomegaly present AUSCULTATION: Yes normoactive bowel sounds PALPATION: Yes Soft to palpation, No Tenderness to palpation present (GI), No Guarding due to palpation present (GI) and Yes No hepatosplenomegaly present Extremity: COMMON NORMALS: normal to inspection, capillary refill normal, no clubbing, cyanosis or edema, no calf tenderness and no pedal edema Skin: COMMON NORMALS: no rashes or lesions noted GENERAL SKIN EXAM: no rashes or lesions noted Course Vital Signs: Vital signs: Vital Signs Temperature 98.8 F 03/10/20 14:53 Pulse Rate 93 03/10/20 18:09 Respiratory Rate 24 H 03/10/20 18:09 Blood Pressure 145/115 03/10/20 18:09 Pulse Oximetry 98 03/10/20 18:09 MDM - General Adult MDM Narrative: Medical decision making narrative: Discussed findings with the patient. Ultimately decided to discharge home with Aime he prefer to go home if he has any worsening or change symptoms do not improve he should return to the emergency room. Continue other medications. Lab Data: Labs: Lab Results 03/10/20 03/10/20 03/10/20 Range/Units 16:31 16:31 16:31 WBC 11.1 H (4.0-10.0) 10^3/ uL RBC 4.15 (4.1-5.3) 10^6/u L Hgb 11.7 (11.7-16.6) g/dL Hct 37.8 L (42.0-52.0) % MCV 91.1 (80-94) fL MCH 28.2 (28.0-34.0) pg MCHC 31.0 (30.0-36.0) g/dL RDW 16.6 H (12.1-15.1) % Plt Count 205 (130-400) 10^3/c mm MPV 9.9 (7.4-10.4) fL Neut % (Auto) 71.3 % Lymph % (Auto) 18.0 % [place] % (Auto) 5.6 % Eos % (Auto) 1.7 % Baso % (Auto) 0.5 % Neut # (Auto) 7.94 H (1.8-7.7) 10^3/u L Lymph # (Auto) 2.0 (0.8-4.8) 10^3/u L [place] # (Auto) 0.6 (0.2-0.9) 10^3/u L Eos # (Auto) 0.2 (0.0-0.8) 10^3/u L Baso # (Auto) 0.1 (0.0-0.1) 10^3/u L Nucleated RBC % (a uto) 0 % Nucleated RBCs # 0.0 /100WBC Sodium 135 L (136-145) mmol/L Potassium 4.2 (3.5-5.1) mmol/L Chloride 100 (98-107) mmol/L Carbon Dioxide 26 (22-29) mmol/L Anion Gap 13.2 (5-19) BUN 14 (8-23) mg/dL Creatinine 1.8 H (0.7-1.2) mg/dL GFR Calculation Not Reportable Glucose 84 (65-115) mg/dL Calculated Osmolal ity 275 L (285-295) mOsm/k g Lactic Acid 0.8 (0.5-2.2) mmol/L Calcium 9.0 (8.5-10.5) mg/dL Total Bilirubin 0.4 (0.15-1.2) mg/dL AST 8 (0-40) U/L ALT 7 (0-41) U/L Alkaline Phosphata se 80 (40-130) IU/L Creatine Kinase 8 L (39-308) U/L Total Protein 6.4 L (6.6-8.7) g/dL Albumin 3.3 L (3.5-5.2) g/dL Globulin 3.1 (1.3-4.6) g/dL Lipase 12 L (13-60) U/L Urine Color (Yellow) Urine Appearance (CLEAR) Urine pH (5-7) Ur Specific Gravit y (1.005-1.030) Urine Protein (Negative) Urine Glucose (UA) (Normal) Urine Ketones (Negative) Urine Blood (Negative) Urine Nitrate (Negative) Urine Bilirubin (NEGATIVE) Urine Urobilinogen (Negative) mg/dL Ur Leukocyte Rosetta ase (Negative) Serum Ketones Negative (Negative) 03/10/20 Range/Units 17:33 WBC (4.0-10.0) 10^3/ uL RBC (4.1-5.3) 10^6/u L Hgb (11.7-16.6) g/dL Hct (42.0-52.0) % MCV (80-94) fL MCH (28.0-34.0) pg MCHC (30.0-36.0) g/dL RDW (12.1-15.1) % Plt Count (130-400) 10^3/c mm MPV (7.4-10.4) fL Neut % (Auto) % Lymph % (Auto) % [place] % (Auto) % Eos % (Auto) % Baso % (Auto) % Neut # (Auto) (1.8-7.7) 10^3/u L Lymph # (Auto) (0.8-4.8) 10^3/u L [place] # (Auto) (0.2-0.9) 10^3/u L Eos # (Auto) (0.0-0.8) 10^3/u L Baso # (Auto) (0.0-0.1) 10^3/u L Nucleated RBC % (a uto) % Nucleated RBCs # /100WBC Sodium (136-145) mmol/L Potassium (3.5-5.1) mmol/L Chloride (98-107) mmol/L Carbon Dioxide (22-29) mmol/L Anion Gap (5-19) BUN (8-23) mg/dL Creatinine (0.7-1.2) mg/dL GFR Calculation Glucose (65-115) mg/dL Calculated Osmolal ity (285-295) mOsm/k g Lactic Acid (0.5-2.2) mmol/L Calcium (8.5-10.5) mg/dL Total Bilirubin (0.15-1.2) mg/dL AST (0-40) U/L ALT (0-41) U/L Alkaline Phosphata se (40-130) IU/L Creatine Kinase (39-308) U/L Total Protein (6.6-8.7) g/dL Albumin (3.5-5.2) g/dL Globulin (1.3-4.6) g/dL Lipase (13-60) U/L Urine Color Yellow (Yellow) Urine Appearance Clear (CLEAR) Urine pH 5 (5-7) Ur Specific Gravit y 1.020 (1.005-1.030) Urine Protein Neg (Negative) Urine Glucose (UA) Norm (Normal) Urine Ketones 1+ H (Negative) Urine Blood Neg (Negative) Urine Nitrate Negative (Negative) Urine Bilirubin Neg (NEGATIVE) Urine Urobilinogen Neg (Negative) mg/dL Ur Leukocyte Rosetta ase Negative (Negative) Serum Ketones (Negative) Discharge Plan Discharge Patient Disposition: Home Clinical Impression: Cancer of esophagus, Nausea & vomiting Condition: Stable Prescriptions: New Zofran 4 mg tablet 4 mg PO Q6H PRN (Reason: nausea and vomiting) Qty: 20 RF: 0 No Action hydrocodone-acetaminophen 7.5-325 mg/15 mL solution 15 ml PO Q6H PRN (Reason: pain) Qty: 120 RF: 0 simvastatin 40 mg Tablet 40 mg PO DAILY RF: 0 tamsulosin 0.4 mg Capsule 0.4 mg PO DAILY RF: 0 dronabinol 2.5 mg Capsule 2.5 mg PO BIDAC Qty: 60 RF: 0 nystatin [Nyamyc] 100,000 unit/gram Powder 1 applic topical BID Qty: 15 RF: 0 sennosides-docusate sodium 8.6-50 mg Tablet 1 tab PO BID Qty: 60 RF: 0 Lactobacillus acidophilus Capsule 10,000 mmu cells PO BID Qty: 60 RF: 0 levetiracetam [Keppra] 250 mg tablet 250 mg PO Q12H Qty: 60 RF: 0 Discharge Orders: Discharge Order (Routine); Ordered 03/10/20 Ordered By: Gustavo Martínez Referrals: Bonifacio Thompson [Primary Care Provider] - Discharge Diet: Clear Liquid Discharge Activity: Increase activity as tolerated Activity Restrictions/Additional Instructions: Contact Dr. Tuttle and Dr. Perez to get your EGD rescheduled Discharge Date/Time: 03/10/20 18:09 Coding Level of Care Code ED Functional Mental Disability Teacher for Chg Fwd Exam Comprehensive
[2020-03-10 15:55] VITALS: O2SAT 96
[2020-03-10 16:35] VITALS: BP 147/83; PULSE 103; RESP 15; O2SAT 97
[2020-03-10] MEDS: sodium chloride 0.9% 1,000 ML 999 ML IV (16:40)
[2020-03-10] MEDS: ondansetron 2 mg/ML SDV 2 mL 4 MG IVP (16:41)
[2020-03-10 16:43] LABS: Basophils # 0.1 10^3/uL (0.0-0.1); Basophils % 0.5 %; Eosinophils # 0.2 10^3/uL (0.0-0.8); Eosinophils % 1.7 %; Hematocrit 37.8 % (42.0-52.0); Hemoglobin 11.7 g/dL (11.7-16.6); Mean Corpuscular Hemoglobin 28.2 pg (28.0-34.0); Mean Corpuscular Volume 91.1 fL (80-94); Mean Platelet Volume 9.9 fL (7.4-10.4); Monocytes # 0.6 10^3/uL (0.2-0.9); Monocytes % 5.6 %; Neutrophils # 7.94 10^3/uL (1.8-7.7); Neutrophils % 71.3 %; Nucleated Red Blood Cells % 0 %; Platelet Count 205 10^3/cmm (130-400); Red Blood Count 4.15 10^6/uL (4.1-5.3); Red Cell Distribution Width 16.6 % (12.1-15.1); White Blood Count 11.1 10^3/uL (4.0-10.0)
[2020-03-10 16:59] LABS: Alanine Aminotransferase 7 U/L (0-41); Albumin Level 3.3 g/dL (3.5-5.2); Alkaline Phosphatase 80 IU/L (40-130); Anion Gap 13.2 (5-19); Aspartate Amino Transferase 8 U/L (0-40); Blood Urea Nitrogen 14 mg/dL (8-23); Carbon Dioxide 26 mmol/L (22-29); Chloride 100 mmol/L (98-107); Creatine Phosphokinase 8 U/L (39-308); Globulin 3.1 g/dL (1.3-4.6); Glucose 84 mg/dL (65-115); Lipase 12 U/L (13-60); Osmolality Calculated 275 mOsm/kg (285-295); Potassium 4.2 mmol/L (3.5-5.1); Sodium 135 mmol/L (136-145); Total Bilirubin 0.4 mg/dL (0.15-1.2); Total Protein 6.4 g/dL (6.6-8.7)
[2020-03-10 17:00] LABS: Ketone (Acetest) Serum Negative (Negative)
[2020-03-10 17:02] LABS: Lactic Sepsis W/Reflex 0.8 mmol/L (0.5-2.2)
[2020-03-10 17:42] LABS: Add Urine Microscopic? NO
[2020-03-10 17:45] LABS: Bilirubin Urine Neg (NEGATIVE); Blood Urine Neg (Negative); Glucose Urine UA Norm (Normal); Ketones Urine 1+ (Negative); Leukocyte Esterase Urine Negative (Negative); Nitrate Urine Negative (Negative); Protein Urine Neg (Negative); Urine Appearance Clear (CLEAR); Urine Color Yellow (Yellow); Urobilinogen Urine Neg (Negative); pH Urine 5 (5-7)
[2020-03-10 17:54] VITALS: BP 139/109; PULSE 95; RESP 26; O2SAT 98
[2020-03-10 18:09] VITALS: BP 145/115; PULSE 93; RESP 24; O2SAT 98
== END 2020-03-10 18:09 | disposition home or self-care (01) ==
PROVIDERS: Emergency Provider Family Medicine; PCP Physician Assistant Medical
DX: R11.2 Nausea with vomiting, unspecified (principal); C15.9 Malignant neoplasm of esophagus, unspecified; J44.9 Chronic obstructive pulmonary disease, unspecified; F03.90 Unspecified dementia, unspecified severity, without behavioral disturbance, psychotic disturbance, mood disturbance, and anxiety; E78.5 Hyperlipidemia, unspecified; I10 Essential (primary) hypertension; Z86.73 Personal history of transient ischemic attack (TIA), and cerebral infarction without residual deficits; F17.210 Nicotine dependence, cigarettes, uncomplicated
CPT/HCPCS: 12345; 80053; 81003; 82009; 82550; 83605; 83690; 85025; 96361; 96374; 96375; 99283; J2405; J7030

== ENCOUNTER 2020-03-17 11:51 | Outpatient (RCR) | payer MEDICARE, MEDICAID, SELFPAY ==
[2020-03-17] MEDS: sodium chloride 0.9% 1,000 ML 999 ML IV (11:25)
== END 2020-03-21 06:00 | disposition home or self-care (01) ==
LOC: ONCMED 11:51
PROVIDERS: PCP Physician Assistant Medical; Visit Provider Internal Medicine Hematology & Oncology
DX: C15.4 Malignant neoplasm of middle third of esophagus (principal); Z20.828 Contact with and (suspected) exposure to other viral communicable diseases
CPT/HCPCS: 87635; 96360; J7030

== ENCOUNTER 2020-03-21 07:06 | Day surgery (SDC) | payer MEDICARE, MEDICAID, SELFPAY ==
[2020-03-21 07:37] VITALS: BP 135/102; PULSE 104; RESP 18; TEMP 36.1; O2SAT 99
[2020-03-21] MEDS: sodium chloride 0.9% 1,000 ML 30 ML IV (07:39)
--- NOTE | 2020-03-21 07:46 | ANES.PREANE2 ---
Pre-Anesthetic Assessment Pre-Anesthetic Assessment: Height/Weight: Height 1.68 m Weight 73.936 kg Temp Pulse Resp BP Pulse Ox 97.0 F L 104 H 18 135/102 99 03/21/20 07:37 03/21/20 07:37 03/21/20 07:37 03/21/20 07:37 03/21/20 07:37 Preop Diagnosis: Nausea and vomiting Proposed Procedure: Operation Date: 03/21/20 08:00 Proposed Procedures p EGD(Not Applicable) - Theron Becerra MD Familial anesthetic complications: None Was Beta Dave taken within 24 hours: N/A Last intake: Intake NPO > 8 hrs Last Liquid Date 03/21/20 Last Liquid Time 20:00 Last Solid Date 03/20/20 Social: Social History: Tobacco and No alcohol Exam: Pre-Anes Outpt Exam: alert, oriented x 3 and regular rate & rhythm Additional Exam Findings (including area of procedure): B/L wheezes Airway: Cervical ROM: WNL MP: 1 Dentition: Full Pulmonary: Pulmonary: COPD CV/HEM: CV/HEM: HTN Comments: echo 02/23 ef 62%, mild avr EKG - SR, pvcs, RBBB, L ant fasicular block : Comments: Scr 1.8 GI: Comments: esophageal cancer Neuropsych: Neuropsych: CVA Anesthetic Plan: ASA status: 4 Anesthesia: MAC Risk of > 500 ml blood loss (7ml/kg in children): No Meds/Allergies Current Medications: Current Medications Generic Name Dose Route Start Last Admin Trade Name Freq PRN Reason Stop Dose Admin Sodium Chloride 1,000 mls @ 30 ml s/hr 03/21/20 07:15 03/21/20 07:39 Sodium Chloride 0.9% IV 03/22/20 07:14 30 mls/hr .Q24H EVELYN Administration PFSH Anesthesia PFSH: Medical History (Updated 03/18/20 @ 00:00 by ) B12 deficiency Cancer of esophagus Dr Tuttle COPD (chronic obstructive pulmonary disease) Dementia Dyslipidemia Hard of hearing Hypertension Port-A-Cath in place Stroke Surgical History S/P cholecystectomy Family History Mother Cancer Colon cancer age 80 Father age 83 leukemia first brother has esophageal cancer Brother Cancer Esophageal cancer Social History Smoking and tobacco status: current every day smoker Alcohol intake: unknown Household members: spouse Housing: House Marital status: Data Anesthesia Cardiac Studies: No Data to Display
[2020-03-21] MEDS: ipratropium 0.5 mg/2.5 mL Neb INHALATION (08:09)
[2020-03-21 08:11] VITALS: PULSE 91; RESP 18; O2SAT 95
[2020-03-21 08:15] VITALS: PULSE 90
--- NOTE | 2020-03-21 09:19 | W.PM.OPSUD ---
Surgery/Procedure H&P Update DATE OF PROCEDURE: March 21, 2020 DATE H&P PERFORMED: 02/23/20 H&P UPDATE INFORMATION: I have reviewed H&P completed within last 30 days, I have examined patient prior to procedure and No changes to prior documentation PREOP DIAGNOSIS: Nausea and vomiting PRIMARY INDICATION FOR PROCEDURE: The same PLANNED PROCEDURE: Operation Date: 03/21/20 08:00 Proposed Procedures p EGD(Not Applicable) - Theron Becerra MD
[2020-03-21 09:40] VITALS: BP 126/64; PULSE 97; RESP 16; TEMP 36.1; O2SAT 98
[2020-03-21 09:50] VITALS: BP 134/86; PULSE 92; RESP 20; O2SAT 100
--- NOTE | 2020-03-21 10:24 | ANE.PACU2 ---
Inpatient post-anesthesia follow up: Airway intact: Yes Vital signs: Temperature 96.9 F Pulse Rate 92 Respiratory Rate 20 Blood Pressure 134/86 Pulse Oximetry 100 Oxygen Delivery Me thod Nasal Cannula Oxygen Flow Rate 2 Fraction of Inspir ed Oxygen Hydration adequate: Yes Nausea and vomiting: No Mental status: Baseline
[2020-03-22 06:48] LABS: H. Pylori / CLO Test Positive
== END 2020-03-21 10:21 | disposition home or self-care (01) ==
PROVIDERS: PCP Physician Assistant Medical; Visit Provider Surgery
PROC: 0DJ08ZZ Inspection of Upper Intestinal Tract, Via Natural or Artificial Opening Endoscopic (ICD-10-PCS; CPT 43235; principal; 2020-03-21 08:00)
DX: R11.2 Nausea with vomiting, unspecified (principal); K29.70 Gastritis, unspecified, without bleeding; K29.80 Duodenitis without bleeding; C15.5 Malignant neoplasm of lower third of esophagus; J44.9 Chronic obstructive pulmonary disease, unspecified; I10 Essential (primary) hypertension; E78.5 Hyperlipidemia, unspecified; Z86.73 Personal history of transient ischemic attack (TIA), and cerebral infarction without residual deficits; F17.210 Nicotine dependence, cigarettes, uncomplicated
CPT/HCPCS: 12345; 43239; 87077; 88305; 94640; J2704; J7030; J7611; J7644

== ENCOUNTER 2020-04-05 07:48 | Outpatient (RCR) | payer MEDICARE, MEDICAID, SELFPAY ==
[2020-04-04 18:10] LABS: Basophils # 0.1 10^3/uL (0.0-0.1); Basophils % 0.5 %; Eosinophils # 0.2 10^3/uL (0.0-0.8); Hematocrit 39.2 % (42.0-52.0); Hemoglobin 11.9 g/dL (11.7-16.6); Lymphocytes % 18.9 %; Mean Corpuscular HGB Conc 30.4 g/dL (30.0-36.0); Mean Corpuscular Hemoglobin 27.2 pg (28.0-34.0); Mean Corpuscular Volume 89.7 fL (80-94); Mean Platelet Volume 10.7 fL (7.4-10.4); Monocytes # 0.5 10^3/uL (0.2-0.9); Monocytes % 4.6 %; Neutrophils # 7.68 10^3/uL (1.8-7.7); Neutrophils % 73.1 %; Nucleated Red Blood Cells % 0 %; Platelet Count 206 10^3/cmm (130-400); Red Blood Count 4.37 10^6/uL (4.1-5.3); Red Cell Distribution Width 17.4 % (12.1-15.1); White Blood Count 10.5 10^3/uL (4.0-10.0)
[2020-04-04 18:40] LABS: Alanine Aminotransferase 13 U/L (0-41); Albumin Level 3.2 g/dL (3.5-5.2); Alkaline Phosphatase 94 IU/L (40-130); Anion Gap 13.7 (5-19); Aspartate Amino Transferase 12 U/L (0-40); Blood Urea Nitrogen 14 mg/dL (8-23); Calcium 8.9 mg/dL (8.5-10.5); Carbon Dioxide 26 mmol/L (22-29); Chloride 104 mmol/L (98-107); Globulin 2.8 g/dL (1.3-4.6); Glucose 152 mg/dL (65-115); Osmolality Calculated 293 mOsm/kg (285-295); Potassium 3.7 mmol/L (3.5-5.1); Sodium 140 mmol/L (136-145); Total Bilirubin 0.3 mg/dL (0.15-1.2)
--- NOTE | 2020-04-05 14:49 | ONC FU_ITS ---
Dr. Tuttle follow up note Patient: Rodney Maurepas Unit #: [id number]: [id number] Dicatated By: Yana Tuttle M.D.Date of Visit:Apr 05, 2020 Onc Med Follow-up/Prog Note History of Present Illness: Mr. Stevens is a 79 -year-old gentleman with history of progressive dysphagia and weight loss. 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 A biopsy was obtained at [place], [place] on 05/21/2019. 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 Mr Stevens underwent CT scan of chest abdomen on 05/18/2019 which showed dilated thoracic esophagus with gross appearance of marked wall thickening as well as dilatation of distal segment of thoracic esophagus. No thoracic lymphadenopathy by size criteria. No evidence of distant metastatic disease, As per patient in the beginning he had dysphagia to solid food now can tolerate liquids only. Denied any hematemesis or hemoptysis, denied any jaundice, denied any aspiration or regurgitation. Mr Stevens has smoked about pack a day for many years. [place] lives [place] north of [place] and lives with elderly . Mr Stevens has elected to try chemotherapy alone. He has been offered chemotherapy with weekly carboplatin/Taxol/Herceptin. He did have baseline echocardiogram for the Herceptin on 06/24/2019 which reported left ventricular ejection fraction estimated at 65%. He had normal left ventricular systolic function no regional wall motion abnormalities there is a grade I/IV diastolic function, normal to mildly elevated filling pressures. No aortic valve stenosis and mild aortic valve regurgitation. He did also have PET CT imaging on 06/25/2019 at [facility]. This did report hypermetabolic circumferential mural thickening involving the distal esophagus extending approximately 10 cm proximal to the gastroesophageal junction from T11???T8 with maximum SUV of 24. A small amount of hyper metabolic mass extension into the gastric cardia is not fully excluded. Upstream esophagus appears fluid-filled and patulous. There were no discrete hypermetabolic pulmonary nodules. There is mild dependent atelectasis with trace bilateral pleural fluid collection without hypermetabolic pleural thickening. There was reported calcified mediastinal and hilar granulous with normal size mildly hypermetabolic bilateral hilar lymph nodes, employer relations representative right hilar lymph node maximum SUV 2.7. Additional hypermetabolic left hilar lymph node 0.8 x 1.2 cm with a max SUV of 2.5. 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 There were no hypermetabolic hepatic lesions. There was Extavia of the infrarenal abdominal aorta measuring up to 2.7 cm. No ascites or peritoneal/serosa nodularity. There was hyper metabolic gastrohepatic ligament lymph node 1.7 x 1.8 cm with a max SUV of 3.9. No additional hypermetabolic lymph nodes were seen within the abdomen or pelvis. There was prostamegaly without focal hypermetabolic prostate lesion. Muscle skeletal there was diffuse bone marrow hyper metabolism without focal lytic or blastic osseous lesion identified suggesting pathologic marrow uptake. 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 He did have Port a Cath placement in the left subclavian vein per Dr Rosa on 07/12/2019. Mr Stevens started on his first chemotherapy with weekly carboplatin/Taxol and Herceptin on 07/15/2019. He has tolerated it well overall. Follow-up CT PET scan done on 10/15/2019 showed significant improvement with decrease in size in hypermetabolism of distal esophagus. Previous hypermetabolic tumor extension into gastric cardia is no longer seen Resolution of previous hypermetabolic left hilar, paraesophageal, gastrohepatic ligament lymph nodes. No area of hypermetabolic distant metastatic disease seen Patient went to hospital on 12/03/2019 with episode of seizure-like activity and was evaluated in the emergency room, with CT scan of head was done which shows no evidence of metastatic disease and ER physician discussed her case with Dr. Boswell him a neurologist and patient was started on Keppra 250 mg by mouth twice a day Mr Stevens continues with Carboplatin/Taxol (day 1, 8 and 15) Herceptin on day 1 and 15. Patient was seen by Dr. Dr. Becerra and patient underwent EGD on March 21, 2020 which showed esophageal growth at 37 to 40 cm and biopsy was obtained which confirmed adenocarcinoma, grade 2 moderately differentiated Came for follow-up, denies any specific complaints except off and on dysphagia to certain foods otherwise no hemoptysis or hematemesis, no fever chills, no nausea or vomiting, no diarrhea constipation, no pain. No aspiration. Medications: Advair Diskus 2 Puff(s) (of 250-50 mcg/dose) Aerosol Powder, Breath Activated Inhalation daily, Albuterol Sulfate 1 ((2.5 mg/3ml) 0.083%) Nebulization solution Inhalation daily PRN, Dexamethasone (4 mg) Tablet Oral Take as Directed, Dronabinol 1 Capsule Oral b.i.d., Prochlorperazine Maleate 1 Tablet (of 10 mg) Oral q 4 hours PRN, Spiriva HandiHaler 1 Capsule (of 18 mcg) Inhalation daily, Tamsulosin HCl 1 Capsule (of 0.4 mg) Oral daily Allergies: No Known Allergies. Review of Systems: Constitutional - Appetite is poor and weight has increased. No fever, chills, hot flashes, or night sweats. Energy level is very poor, ENMT - No sinus congestion/drainage. No mouth sores. No sore throat or difficulty swallowing, Hematologic/Lymphatic - Positive for easy bruising, Respiratory - Positive for shortness of breath. No cough. No pleuritic pain or hemoptysis, Cardiovascular - No angina pain. No palpitations, Gastrointestinal - No nausea or vomiting. No heartburn or acid reflux. No diarrhea or constipation. No bloody or black stool, Genitourinary (M) - No dysuria or hematuria. No urinary frequency. No urgency or incontinence, Musculoskeletal - No joint or bone pain, Neurologic - No headache or dizziness, Psychiatric - No anxiety or depression. No insomnia. Vital Signs: Performed on Apr 05, 2020 08:24 Height - 67.00 in Weight - 150.2 lbs (LOW) BSA - 1.79 sq.m BMI - 23.52 Temperature - 98.3 F (LOW) Pulse - 88 /min Respiration - 20 /min BP - 154/87 mm(hg) (HIGH) O2 Sat - 96 % Pain - 0 Performance Status: 1 - No physically strenuous activity, but ambulatory and able to carry out light or sedentary work (e.g. office work, light house work). (ECOG) Physical Examination: ENMT - No mouth sores, no thrush, no jaundice, Respiratory - Lungs are clear, Cardiovascular - Regular rate and rhythm of heart, Abdomen - Soft, bowel sounds present, Extremities - No visible edema. Lab/Imaging: Test performed on Feb 29, 2020 11:32 Sodium 140 mmol/L Potassium 4.1 mmol/L Chloride 104 mmol/L CO2 27 mmol/L Anion Gap 13.1 BUN 15 mg/dL Creatinine 1.5 mg/dL Cr Clearance (Est) 41.5800 mL/min Glucose 107 mg/dL Calcium 8.9 mg/dL Protein, Total 5.9 g/dL Albumin 3.2 g/dL Globulin 2.7 g/dL Bilirubin, Total 0.2 mg/dL ALT (SGPT) 6 U/L AST (SGOT) 10 U/L Alkaline Phosphatase 72 IU/L Test performed on Feb 15, 2020 10:27 WBC 5.7 10^9/L RBC 3.70 10^12/L HGB 10.8 g/dL HCT 34.0 % MCV 91.9 fl MCH 29.2 pg MCHC 31.8 g/dL RDW 16.6 % Platelet Count 226 10^9/L MPV 10.4 fL Neutrophils (Gran) 2.95 10^9/L Lymphocytes 2.0 10^9/L Monocytes 0.4 10^9/L Eosinophils 0.2 10^9/L Basophils 0.0 10^9/L Manual Lymphocytes 35.1 % Manual Monocytes 6.9 % Manual Eosinophils 3.5 % Manual Basophils 0.4 % Test performed on Jan 17, 2020 11:11 Neutrophil % 64.5 % Lymphocyte % 26.2 % Monocyte % 5.8 % Eosinophil % 2.1 % Basophils % 0.4 % NRBC % 0 % Test performed on Oct 11, 2019 14:05 CBC Slide Review Slide Review Perform SLIDE REVIEW AGREES WITH AUTO DIFF Impression: 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 CT scan of chest abdomen done on 05/18/2019 showed no thoracic lymphadenopathy by size criteria Dilated thoracic esophagus with gross appearance of marked wall thickening as well as dilatation of distal segment of thoracic esophagus no evidence of distant metastatic disease. Progressive dysphagia and weight loss due to above Chronic smoking, still active Clinically, patient is doing reasonably well now with progressive dysphagia due to newly diagnosed esophageal cancer. he said he did talk to his family and now have decided to pursue with chemotherapy alone and will go from there. Considering his age and comorbid condition and social issues e.g. living 60 miles away from [place] with elderly , he would prefer chemotherapy alone in the office but not radiation therapy. Patient was reminded in the standard of care is combined chemoradiation followed by surgery if possible otherwise chemotherapy is palliative only. Considering his age and performance status, recommended weekly carboplatin Taxol and Herceptin. did also discuss about role of G-tube placement but patient declined. Mr Stevens is prediabetic so we'll also consider diabetes teaching and may consider sliding scale if he develops hyperglycemia due to steroids. He did have baseline echocardiogram for the Herceptin on 06/24/2019 which reported left ventricular ejection fraction estimated at 65%. He had normal left ventricular systolic function no regional wall motion abnormalities there is a grade I/IV diastolic function, normal to mildly elevated filling pressures. No aortic valve stenosis and mild aortic valve regurgitation. He did also have PET CT imaging on 06/25/2019 at [facility]. This did report hypermetabolic circumferential mural thickening involving the distal esophagus extending approximately 10 cm proximal to the gastroesophageal junction from T11???T8 with maximum SUV of 24. A small amount of hyper metabolic mass extension into the gastric cardia is not fully excluded. Upstream esophagus appears fluid-filled and patulous. There were no discrete hypermetabolic pulmonary nodules. There is mild dependent atelectasis with trace bilateral pleural fluid collection without hypermetabolic pleural thickening. There was reported calcified mediastinal and hilar granulous with normal size mildly hypermetabolic bilateral hilar lymph nodes, employer relations representative right hilar lymph node maximum SUV 2.7. Additional hypermetabolic left hilar lymph node 0.8 x 1.2 cm with a max SUV of 2.5. 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 There were no hypermetabolic hepatic lesions. There was Extavia of the infrarenal abdominal aorta measuring up to 2.7 cm. No ascites or peritoneal/serosa nodularity. There was hyper metabolic gastrohepatic ligament lymph node 1.7 x 1.8 cm with a max SUV of 3.9. No additional hypermetabolic lymph nodes were seen within the abdomen or pelvis. There was prostamegaly without focal hypermetabolic prostate lesion. Muscle skeletal there was diffuse bone marrow hyper metabolism without focal lytic or blastic osseous lesion identified suggesting pathologic marrow uptake. 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 Mr Stevens had Port a Cath placement in the left subclavian vein per Dr Rosa on 07/12/2019. He began his first cycle of carboplatin/Taxol/Herceptin on 07/15/2019. He was also found to be iron deficient and received Injectafer on 07/12/2019 & 07/29/2019. He has required Neupogen support for chemo induced neutropenia with the last cycle of chemotherapy. He has been receiving Neupogen for 3 days starting day 2. This has allowed his counts to remain adequate to continue on treatment as scheduled. He did receive Neulasta on day 15 of cycle 2. His PET/CT from 2019 does report disease response. Mr Stevens has continued with treatment. Plan: Discussed with the patient and his daughter Geneva and his caregiver/his ex- regarding EGD findings and pathology report which shows persistent disease and significant narrowing as per patient's family Dr. Becerra recommended esophageal stent which is to be done in [place] or PEG tube placement to maintain nutrition as patient has significant esophageal narrowing due to persistent growth but patient declined esophageal stent as well as PEG tube and then discussed about role of palliative chemotherapy as current regimen is not controlling his esophageal cancer, also discussed about role of hospice care. Patient's caregiver/ex- is also concerned about transportation as he lives about 60 miles from here. Patient daughter Geneva said she will discuss with family and patient at home and then let us know regarding their further plans. Signed By: Yana Tuttle M.D. <<Signature on File>>
== END 2020-04-05 23:59 | disposition home or self-care (01) ==
LOC: ONCMED 07:48
PROVIDERS: PCP Physician Assistant Medical; Visit Provider Internal Medicine Hematology & Oncology
DX: C15.4 Malignant neoplasm of middle third of esophagus (principal); R13.10 Dysphagia, unspecified; R63.4 Abnormal weight loss; F17.210 Nicotine dependence, cigarettes, uncomplicated
CPT/HCPCS: 80053; 85025; 99214